=== PATIENT | male | born 1940 | race Caucasian/White ===

== ENCOUNTER → 2016-12-26 | Outpatient (CLI) | payer OTHER ==
--- NOTE | 2016-12-27 06:54 | MR ---
EXAMINATION TYPE: MR lumbar spine wo con DATE OF EXAM: 12/26/2016 9:38 PM COMPARISON: CT cap July 28, 2016. MRI lumbar spine August 03, 2013 HISTORY: Intervertebral disc disorders with radiculopathy per order. Low back and right lower extremi ty pain per patient. TECHNIQUE: Multiplanar, multisequence imaging of the lumbar spine is performed without IV contrast. FINDINGS: Sagittal images of the lumbar spine show vertebral body heights to appear satisfactory. The re is redemonstration of dextroconvex scoliotic curvature centered in the upper lumbar spine. Multile vonda disc desiccation is redemonstrated. There is redemonstration of moderate to advanced disc space n arrowing with vacuum disc phenomenon at L4-L5 level. Multilevel small posterior disc herniations are redemonstrated on sagittal images. The conus medullaris remains somewhat high in position ending doroteo r T11-T12 disc space. No suspicious clumping of lumbosacral nerve roots is noted. There is hemangioma transformation at T12 vertebral body level and L4 vertebral body level redemonstrated. Mild multilev el anterior spurring is again seen. Axial images at T12-L1 level redemonstrate moderate broad-based posterior disc protrusion effacing an terior thecal sac on axial image 34, bilateral neural foramina are patent. Mild facet degenerative ch anges are redemonstrated bilaterally. No significant change from prior study is seen. Axial images at L1-L2 level show mild to moderate broad disc bulge and [id number] facet degener ative changes bilaterally. There is effacement the anterior and posterior lateral thecal sac. There i s moderate left and mild right-sided neural foraminal narrowing seen. There appears to be progression on degenerative findings at this level from prior MRI. Axial images at L2-L3 level show mild to moderate broad disc bulge with right foraminal disc protrusi on component on axial image 24. There are mild facet degenerative changes seen bilaterally. There is mild to moderate right greater than left neural foraminal narrowing at this level redemonstrated. No significant change from prior study is seen. Axial images at L3-L4 level show moderate facet degenerative changes and ligamentum flavum hypertroph y effacing the posterior lateral thecal sac. There is moderate broad disc bulge effacing the anterior thecal sac. There is moderate to severe right and mild left-sided neural foraminal narrowing redemon strated. No significant change from prior study is noted. Axial images at L4-L5 level show moderate to severe broad disc bulge with left paracentral disc protr usion component on axial image 10 effacing the anterior thecal sac similar to prior study. There are moderate facet degenerative changes and ligamentum flavum hypertrophy with some progression from prio r study noted. There is moderate right greater than left neural foraminal narrowing redemonstrated wi thout significant change from prior. Axial images at L5-S1 level show moderate facet degenerative changes bilaterally. Spinal canal is pre served. Bilateral neural foramina are felt patent. No significant change from prior study is seen. IMPRESSION: There are multilevel degenerative changes in the lumbar spine as detailed above with some progression from 2013 MRI noted.
== END ==
LOC: RADMRIMAIN 20:29
PROVIDERS: ATTEND Neurological Surgery
DX: M47.26 Other spondylosis with radiculopathy, lumbar region (principal)
CPT/HCPCS: 72148

== ENCOUNTER 2017-01-13 07:42 | Day surgery (SDC) | payer OTHER ==
[2017-01-09 08:57] VITALS: BMI 29.6
[~2017-01-13 07:42] MED LIST: LIDOCAINE 1% 20 ML VIAL (10MG/ML) FOR IV START INTRADERMA PRN
[2017-01-13 08:10] VITALS: RESP 16; TEMP 98.1
[2017-01-13] MEDS: LACTATED RINGERS 1,000 ML IV SCH ×2 (08:20→08:36)
[2017-01-13] MEDS ORDERED: PROPOFOL 10 MG/ML 20 ML VIAL IV ONE (08:39)
[2017-01-13] MEDS ORDERED: LIDOCAINE 1% INJ 10MG/ML (20 ML MDV) ONE (08:39)
--- NOTE | 2017-01-13 09:01 | P.OP ---
Date of Procedure: 01/13/17 Preoperative Diagnosis: Left-sided abdominal pain Postoperative Diagnosis: Same, diverticuli, internal hemorrhoids Procedure(s) Performed: Colonoscopy Anesthesia: MAC Estimated Blood Loss (ml): 0 IV fluids (ml): 450 Pathology: none sent Condition: stable Disposition: PACU Indications for Procedure: left Sided abdominal pain Operative Findings: Sigmoid diverticuli, internal hemorrhoids Description of Procedure: Patient was taken to the endoscopy suite and following sedation rectal exam was performed. Patient was noted to have good sphincter tone prominent prostate no masses. Colonoscope was passed through the anus into the rectum. Was passed through the sigmoid colon up to splenic flexure transverse colon hepatic flexure right colon down to the area of the cecum. Circumferential observation mucosa did not reveal any lesions of concern in the cecum or right colon. No lesions of concern were noted in the transverse colon. Scattered diverticuli were noted in the sigmoid and left colon. Scope was brought down to the rectum where it was retroflexed internal hemorrhoids identified. Approximately 6 minutes were taken to withdraw the scope from the cecum to the rectum. In the area of the sigmoid and should be noted that into the diverticular orifices there appeared to be some red blood. Impression/plan: 1. Diverticuli 2. Internal hemorrhoids Plan: 1. Conservative management 2. Most likely repeat scope 7-10 years or as needed as patient is 76 this time.
--- NOTE | 2017-01-13 09:02 | P.DS ---
Providers Attending physician: Marjorie Hernandez Primary care physician: Cleveland Alvarado Plan - Discharge Summary Discharge Medication List Allopurinol [Zyloprim] 100 mg PO BID 12/07/14 [History] HYDROcodone/APAP 10-325MG [[place] 10] 1 each PO Q6H PRN 12/07/14 [History] NIFEdipine [Adalat cc] 30 mg PO QAM 12/07/14 [History] fentaNYL 50MCG/HR PATCH [Duragesic 50MCG/HR] 1 applic TOPICAL Q72H 07/27/15 [ History] Metamucil(Otc Dose Unknown) 2 cap PO DAILY 08/07/15 [History] Indomethacin [Indocin] 25 mg PO DIRECTED PRN 09/26/16 [History] Vit C/E/Zn/Coppr/Lutein/Zeaxan [Preservision Areds 2 Softgel] 1 each PO DAILY [History] Activity/Diet/Wound Care/Special Instructions: Diverticular diet Do not drive today Discharge Disposition: HOME SELF-CARE
[2017-01-13 10:03] VITALS: BP 124/79; PULSE 77
== END 2017-01-13 09:55 | disposition home or self-care (01) ==
LOC: ORWHC2ENDO 07:42
PROVIDERS: ATTEND Surgery
DX: K57.30 Diverticulosis of large intestine without perforation or abscess without bleeding (principal); K64.8 Other hemorrhoids; I10 Essential (primary) hypertension; K21.9 Gastro-esophageal reflux disease without esophagitis; G89.29 Other chronic pain; M54.9 Dorsalgia, unspecified; M10.9 Gout, unspecified; Z79.891 Long term (current) use of opiate analgesic; Z79.1 Long term (current) use of non-steroidal anti-inflammatories (NSAID); Z79.899 Other long term (current) drug therapy; Z87.891 Personal history of nicotine dependence; Z86.711 Personal history of pulmonary embolism; Z86.718 Personal history of other venous thrombosis and embolism
CPT/HCPCS: 45378; J2001; J2704

== ENCOUNTER → 2017-04-08 | Outpatient (CLI) | payer OTHER ==
--- NOTE | 2017-04-08 18:51 | US ---
EXAMINATION TYPE: US kidneys/renal and bladder DATE OF EXAM: 04/08/2017 COMPARISON: Prior CT and US in PACS CLINICAL HISTORY: R31.9 Hematuria, N13.30 Hydronephrosis. EXAM MEASUREMENTS: Right Kidney: 11.0 x 6.0 x 5.8 cm Left Kidney: 11.8 x 6.2 x 5.2 cm Right Kidney: No hydronephrosis. Multiple echogenic foci visualized, largest measuring 0.5 cm Left Kidney: No hydronephrosis. Multiple echogenic foci visualized, largest measuring 0.5 cm Bladder: Probable enlarged prostate visualized as seen on previous CT scan. Bilateral Jets seen: Yes IMPRESSION: There are echogenic small foci in both kidneys consistent with nonobstructing renal calculi. No hydro nephrosis. Enlarged prostate gland.
== END | disposition home or self-care (01) ==
LOC: RADUSMAIN 17:42
PROVIDERS: ATTEND Internal Medicine
DX: R31.9 Hematuria, unspecified (principal)
CPT/HCPCS: 76770

== ENCOUNTER → 2017-04-24 | Outpatient (CLI) | payer OTHER ==
--- NOTE | 2017-04-24 11:46 | XR ---
EXAMINATION TYPE: XR chest 2V DATE OF EXAM: 04/24/2017 COMPARISON: NONE TECHNIQUE: PA and lateral views submitted. HISTORY: Preop FINDINGS: The lungs are clear and there is no pneumothorax, pleural effusion, or focal pneumonia. Mild promin ence of the ascending aorta as noted by previous CT scan compatible with mild aneurysmal dilation. Sm all pulmonary nodule seen by previous CT scan not as well noted by x-ray. Hypertrophic and degenerati ve change of the spine noted. IMPRESSION: 1. Stable mild aneurysmal dilation in ascending aorta.
== END | disposition home or self-care (01) ==
LOC: RADXRMAIN 11:14
PROVIDERS: ATTEND Internal Medicine
DX: I71.2 Thoracic aortic aneurysm, without rupture (principal)
CPT/HCPCS: 71020

== ENCOUNTER → 2017-06-09 | Outpatient (CLI) | payer OTHER ==
--- NOTE | 2017-06-09 14:40 | XR ---
EXAMINATION TYPE: XR lumbar spine with bend/flex DATE OF EXAM: 06/09/2017 CLINICAL HISTORY: Postop back pain. TECHNIQUE: Frontal and lateral images in flexion, extension, and neutral positions were obtained. COMPARISON: None FINDINGS: Surgical fixation of L3-L4 is seen with pedicular screws and fixation rods. Neutral, flexio n, and extension views demonstrate anterolisthesis or retrolisthesis of the lumbar spine. Facet arthr opathy is seen at L5-S1 and to a lesser degree at L2-L3 and L3-L4. Intervertebral disc space widening or is present at L3-L4. Partial visualization of calcific atheromatous changes of the abdominal aorta and scattered calcifica tions overlie the right and left renal shadows, possibly relating to calculi. Right hip arthroplasty is incompletely visualized as well as degenerative changes of the right sacroiliac joint. Mild S-shap ed scoliotic curvature of the thoracolumbar spine is noted. The overlying soft tissue appears unremar kable. IMPRESSION: 1. Postoperative changes with no malalignment in neutral, flexion, or extension. No acute fracture or dislocation is seen in the lumbar spine. No hardware fracture is seen. 2. Multilevel degenerative changes. 3. Mild S-shaped scoliotic curvature. 4. Probable bilateral renal calculi.
== END ==
LOC: RADXRMAIN 14:05
PROVIDERS: ATTEND Neurological Surgery
DX: M47.816 Spondylosis without myelopathy or radiculopathy, lumbar region (principal); M41.86 Other forms of scoliosis, lumbar region
CPT/HCPCS: 72114

== ENCOUNTER → 2018-02-15 | Outpatient (CLI) | payer OTHER ==
[2018-02-15 16:58] LABS: Blood Urea Nitrogen 9 mg/dL (9-20)
--- NOTE | 2018-02-16 08:33 | CT ---
EXAMINATION TYPE: CT abdomen pelvis w con DATE OF EXAM: 02/15/2018 COMPARISON: 07/28/2016 HISTORY: Abdominal pain with diarrhea worsening x1 year CT DLP: 1602 mGycm CONTRAST: CT scan of the abdomen and pelvis is performed with Oral Contrast and with IV Contrast, patient injec lubna with 100 mL of Isovue 300. FINDINGS: LUNG BASES-: No visible nodule. No infiltrate. LIVER/GB: No calcified gallstones. No space occupying hepatic lesion. Biliary tree is of normal ca liber. PANCREAS: No inflammation. No distinct mass. SPLEEN: Splenomegaly measuring craniocaudal 14.6 cm. No lesion seen. ADRENALS: No nodule. No thickening. KIDNEYS/BLADDER: No hydronephrosis. Bilateral nonobstructing nephrolithiasis noted. No distinct robert l mass. Urinary bladder grossly unremarkable. BOWEL: Normal appendix. Normal bowel caliber. No inflammation. GENITAL ORGANS: Moderate prostate gland enlargement. LYMPH NODES: No greater than 1cm abdominal or pelvic lymph nodes are appreciated. AORTA: No significant abnormality. OSSEOUS STRUCTURES: Postoperative and degenerative changes lumbar spine.. OTHER: No significant additional abnormality is seen. IMPRESSION: 1. No acute intra-abdominal process. 2. Bilateral nonobstructing nephrolithiasis. 3. Splenomegaly. 4. Prostate gland enlargement.
== END | disposition home or self-care (01) ==
LOC: RADCTMAIN 16:23
PROVIDERS: ATTEND Internal Medicine
DX: N20.0 Calculus of kidney (principal); N40.0 Benign prostatic hyperplasia without lower urinary tract symptoms; R16.1 Splenomegaly, not elsewhere classified
CPT/HCPCS: 82565; 84520; 74177; 36415; Q9967

== ENCOUNTER 2018-05-14 08:16 | Day surgery (SDC) | payer OTHER ==
[2018-05-12 14:26] VITALS: BMI 28.3
--- NOTE | 2018-05-14 07:27 | P.GSHP ---
History of Present Illness H&P Date: 05/14/18 CHIEF COMPLAINT: GERD and colon screen HISTORY OF PRESENT ILLNESS: The patient is a 77-year-old male who presents with gastroesophageal reflux disease and need for colon screen. Upper and lower endoscopy were offered for further evaluation and management. PAST MEDICAL HISTORY: Please see list. PAST SURGICAL HISTORY: Please see list. MEDICATIONS: Please see list. ALLERGIES: Please see list. SOCIAL HISTORY: No illicit drug use FAMILY HISTORY: No reports of Crohn disease or ulcerative colitis. REVIEW OF ORGAN SYSTEMS: CONSTITUTIONAL: No reports of fevers or chills. GI: Denies any blood in stools or constipation. PHYSICAL EXAM: VITAL SIGNS: Stable GENERAL: Well-developed pleasant in no acute distress. HEENT: No scleral icterus. Extraocular movements grossly intact. Moist buccal mucosa. NECK: Supple without lymphadenopathy. CHEST: Unlabored respirations. Equal bilateral excursions. CARDIOVASCULAR: Regular rate and rhythm. Distal 2+ pulses. ABDOMEN: Soft, nondistended. MUSCULOSKELETAL: No clubbing, cyanosis, or edema. ASSESSMENT: 1. Gastroesophageal reflux disease 2. Colon screen. PLAN: 1. 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 History of Any Multi-Drug Resistant Organisms: None Reported Past Surgical History: Bowel Resection, Joint Replacement Additional Past Surgical History / Comment(s): BLEPHAROPLASTY OF RIGHT EYE. Revision total R hip arthroplasty. TOTAL RIGHT,TOTAL RIGHT AND LEFT KNEE , PAIN CLINIC PROCEDURES in past Past Anesthesia/Blood Transfusion Reactions: No Reported Reaction Smoking Status: Former smoker - Past Family History Father Family Medical History: CVA/TIA Additional Family Medical History / Comment(s): Father of CVA at age 89yrs. Mother Family Medical History: Congestive Heart Failure (CHF) Additional Family Medical History / Comment(s): Mother of CHF at age 86yrs. Medications and Allergies Home Medications Medication Instructions Recorded Confirmed Type Allopurinol [Zyloprim] 100 mg PO BID 12/07/14 05/12/18 History NIFEdipine [Adalat cc] 30 mg PO QAM 12/07/14 05/12/18 History Indomethacin [Indocin] 25 mg PO DIRECTED PRN 09/26/16 05/12/18 History Vit C/E/Zn/Coppr/Lutein/Zeaxan 1 each PO DAILY 09/26/16 05/12/18 History [Preservision Areds 2 Softgel] HYDROcodone/APAP 7.5-325MG [[place] 1 tab PO Q6HR PRN 05/12/18 05/12/18 History 7.5-325] fentaNYL 25MCG/HR PATCH [Duragesic 25 mcg TRANSDERM Q72H 05/12/18 05/12/18 History 25MCG/HR] Allergies Allergy/AdvReac Type Severity Reaction Status Date / Time No Known Allergies Allergy Verified 05/12/18 14:15
[~2018-05-14 08:16] MED LIST changes: +LACTATED RINGERS 1,000 ML IV SCH; -LIDOCAINE 1% 20 ML VIAL (10MG/ML) FOR IV START INTRADERMA PRN
[2018-05-14 09:01] VITALS: RESP 16; TEMP 98.3
[2018-05-14] MEDS ORDERED: LIDOCAINE 1% 20 ML VIAL (10MG/ML) FOR IV START INTRADERMA ONE (09:08)
[2018-05-14] MEDS ORDERED: PROPOFOL 10 MG/ML 20 ML VIAL IV ONE (10:35)
--- NOTE | 2018-05-14 10:47 | P.PCN ---
Date of Procedure: 05/14/18 Description of Procedure: PREOPERATIVE DIAGNOSIS: History of gastric ulcers POSTOPERATIVE DIAGNOSIS: History of gastric ulcers Gastroesophageal reflux disease. Diaphragmatic hiatal hernia without obstruction. OPERATION: Esophagogastroduodenoscopy with biopsies along antrum. SURGEON: Dione Pena MD ANESTHESIA: MAC. INDICATIONS: The patient is a 77-year-old male who presents with a history of reflux disease. Benefits and risks of the procedure were described. Informed consent was obtained. DESCRIPTION: The patient was brought into the endoscopy suite and laid in the left lateral decubitus position. An Olympus gastroscope was passed along the posterior oropharynx down to the distal esophagus where the squamocolumnar junction was encountered at 40 cm from the incisors. The stomach was entered and no bile reflux was found. Additional findings are listed below. Biopsies with cold forceps were obtained of the antrum. The first through third portion of the duodenum was examined and unremarkable. Retroflexion of the scope confirmed Hill grade 4 lower esophageal valve. The squamocolumnar junction demonstrated early and acute LA grade A erosive esophagitis. The stomach was desufflated. The patient tolerated the procedure well. FINDINGS: Squamocolumnar junction 40 cm from the incisors. Diaphragmatic hiatus at 40 cm. Hill grade 4 lower esophageal valve. LA grade A erosive esophagitis. No active duodenitis. No gastric ulcers identified. No duodenal ulcers identified. RECOMMENDATIONS: Continue medical therapy. Further recommendations pending results of pathology report. Upper endoscopy as needed. Will benefit from antireflux surgical procedure
--- NOTE | 2018-05-14 11:04 | P.PCN ---
Date of Procedure: 05/14/18 Description of Procedure: PREOPERATIVE DIAGNOSIS: Colonoscopy screening. POSTOPERATIVE DIAGNOSIS: Colonoscopy screening. Diverticulosis, scattered. Internal bleeding hemorrhoid, grade 1 Enlarged prostate Sigmoid stricture OPERATION: Colonoscopy to the ascending colon SURGEON: Dione Pena MD. ANESTHESIA: MAC. INDICATIONS: The patient is a 77-year-old female who presents for colonoscopy screening. Benefits and risks were described and informed consent was obtained. DESCRIPTION OF PROCEDURE: The patient had undergone Gatorade, MiraLAX and Dulcolax prep. He had been brought into the operating room and laid in the left lateral decubitus position. After adequate intravenous sedation, the rectum was examined with 2% lidocaine jelly. External hemorrhoids were encountered. The prostate was pulseless and enlarged. The rectal tone was within normal limits. No lesions were palpated in the rectal vault. An Olympus colonoscope was advanced to the ascending colon with a tortuous sigmoid. Abdominal pressure was used to advance scope. The prep was good. The scope was removed with visualization of each mucosal fold. Scattered sigmoid diverticulosis was encountered. A stricture was confirmed at 30 cm from the anal verge of the sigmoid colon. No colonic polyps were found. No evidence of focal colitis was found. Retroflexion of the scope demonstrated grade 1 mild bleeding internal hemorrhoids. The colon was desufflated. The patient had tolerated the procedure well. Withdrawal time was over 6 minutes. FINDINGS: Internal hemorrhoids, grade 1, with recent bleeding External prolapsed hemorrhoids. No arteriovenous malformations. No adenomatous polyps. No focal colitis. Sigmoid diverticulosis Sigmoid stricture 30 cm from the anal vertex RECOMMENDATIONS: Lower endoscopy as needed Plan - Discharge Summary New Discharge Prescriptions: No Action Allopurinol [Zyloprim] 100 mg PO BID NIFEdipine [Adalat cc] 30 mg PO QAM Indomethacin [Indocin] 25 mg PO DIRECTED PRN PRN Reason: GOUT Vit C/E/Zn/Coppr/Lutein/Zeaxan [Preservision Areds 2 Softgel] 1 each PO DAILY fentaNYL 25MCG/HR PATCH [Duragesic 25MCG/HR] 25 mcg TRANSDERM Q72H HYDROcodone/APAP 7.5-325MG [[place] 7.5-325] 1 tab PO Q6HR PRN PRN Reason: Pain Discharge Medication List Allopurinol [Zyloprim] 100 mg PO BID 12/07/14 [History] NIFEdipine [Adalat cc] 30 mg PO QAM 12/07/14 [History] Indomethacin [Indocin] 25 mg PO DIRECTED PRN 09/26/16 [History] Vit C/E/Zn/Coppr/Lutein/Zeaxan [Preservision Areds 2 Softgel] 1 each PO DAILY [History] HYDROcodone/APAP 7.5-325MG [[place] 7.5-325] 1 tab PO Q6HR PRN 05/12/18 [History] fentaNYL 25MCG/HR PATCH [Duragesic 25MCG/HR] 25 mcg TRANSDERM Q72H 05/12/18 [ History] Follow up Appointment(s)/Referral(s): Dione Pena MD [STAFF PHYSICIAN] - 06/01/18 Patient Instructions/Handouts: Hiatal Hernia (DC) Discharge Disposition: HOME SELF-CARE
[2018-05-14 11:40] VITALS: BP 118/78; PULSE 77
== END 2018-05-14 12:01 | disposition home or self-care (01) ==
LOC: ORWHC2ENDO 08:16
PROVIDERS: ATTEND Surgery Plastic and Reconstructive Surgery
DX: Z12.11 Encounter for screening for malignant neoplasm of colon (principal); K29.50 Unspecified chronic gastritis without bleeding; K57.30 Diverticulosis of large intestine without perforation or abscess without bleeding; K64.0 First degree hemorrhoids; N40.0 Benign prostatic hyperplasia without lower urinary tract symptoms; K56.699 Other intestinal obstruction unspecified as to partial versus complete obstruction; K64.8 Other hemorrhoids; K21.9 Gastro-esophageal reflux disease without esophagitis; I10 Essential (primary) hypertension; M19.90 Unspecified osteoarthritis, unspecified site; K44.9 Diaphragmatic hernia without obstruction or gangrene; Z86.711 Personal history of pulmonary embolism; Z79.899 Other long term (current) drug therapy; Z79.891 Long term (current) use of opiate analgesic; Z87.11 Personal history of peptic ulcer disease
CPT/HCPCS: 88305; 45378; 43239; J2704

== ENCOUNTER → 2018-12-22 | Outpatient (CLI) | payer OTHER ==
[2018-12-22 09:55] LABS: Blood Urea Nitrogen 12 mg/dL (9-20)
--- NOTE | 2018-12-22 12:05 | CT ---
EXAMINATION TYPE: CT ChestAbdPelvis w con DATE OF EXAM: 12/22/2018 COMPARISON: Most recent whole body CT July 28, [address] abdomen pelvis February 15, 2018. HISTORY: Lung nodule, splenomegaly CT DLP: 940.7 mGycm. Automated Exposure Control for Dose Reduction was Utilized. CONTRAST: CT scan of the thorax, abdomen and pelvis is performed with IV Contrast, patient injected with 100 mL of Isovue 300. FINDINGS: LUNGS: Scattered stable small nodules are redemonstrated bilaterally. One of largest nodules posterio r subpleural region right lower lobe measures 6 x 4 mm current study image 62 for reference. There is stable left mid lung 5 x 2 mm nodule axial image 31 noted for reference. No new suspicious nodules o r masses are seen. Lungs remain clear. There is no pleural effusion or pneumothorax seen bilaterall y. The tracheobronchial tree is patent. MEDIASTINUM: There are no greater than 1 cm hilar or mediastinal lymph nodes. No cardiomegaly or pe ricardial effusion is seen. Moderate to severe coronary artery calcification and/or stents are prese nt. Ascending aorta measures up to 4.0 cm diameter axial image 28, no significant change from prior s tudies. OTHER: Stable mild to minimal bilateral gynecomastia. LIVER/GB: No significant abnormality is appreciated. PANCREAS: No significant abnormality is seen. SPLEEN: Splenomegaly is redemonstrated measuring 15.1 cm long axis axial image 53 significant change from prior. ADRENALS: No significant abnormality is seen. KIDNEYS: Persistent bilateral nephrolithiasis with approximately 6-9 calculi identified bilaterally. Slightly more numerous calculi in the right kidney remain present. Calculi measure up to 7 mm on long axis. Delayed images do not show rotation and collecting systems but no hydronephrosis is identified . Scattered pelvic phleboliths are noted. BOWEL: The oral contrast does not reach colonic level making evaluation bowel slightly suboptimal. Th ere is some new mild to moderate wall thickening in distal ileal loop right lower quadrant/upper pelv is anteriorly axial image 102 for reference. This extends to involve the terminal ileum. No suspiciou s small or large bowel dilatation is seen. Surgical sutures linear left and sigmoid colon junction ax ial image 99 are redemonstrated. Some diverticula in the left colon are again seen. GENITAL ORGANS: Prostate gland is suboptimally evaluated due to right hip arthroplasty. LYMPH NODES: There are persistent prominent left mid mesenteric and lower abdominal lymph nodes for r eference coronal image 37, I believe they are even slightly larger versus most recent CT in 2018. Robinson e now even measure slightly greater than 1 cm on short axis. For reference left lower abdominal lymph node measures 1.4 x 1.1 cm on axial image 95. There is mild mesenteric edema remaining present OSSEOUS STRUCTURES: Metallic hardware from right hip arthroplasty causes streak artifact limiting wil luation of pelvic structures.. OTHER: Moderate calcified plaque of aorta extends into branch vessels. IMPRESSION: 1. Stable small pulmonary parenchymal nodules presumed benign. No new nodules or masses. 2. Stable 4.0 cm ascending aortic aneurysm. 3. Stable splenomegaly. 4. Continued slow progression of Shell mesentery and mesenteric lymphadenopathy, neoplasm such as lym phoma cannot be excluded.
== END | disposition home or self-care (01) ==
LOC: RADCTMAIN 09:10
PROVIDERS: ATTEND Internal Medicine Hematology & Oncology
DX: R91.8 Other nonspecific abnormal finding of lung field (principal); R16.1 Splenomegaly, not elsewhere classified; R59.0 Localized enlarged lymph nodes; I71.2 Thoracic aortic aneurysm, without rupture
CPT/HCPCS: 82565; 84520; 71260; 74177; 36415; Q9967

== ENCOUNTER 2019-01-18 10:53 | Day surgery (SDC) | payer OTHER ==
[2019-01-17 09:21] VITALS: BMI 24.3
[~2019-01-18 10:53] MED LIST changes: +LIDOCAINE 1% 20 ML VIAL (10MG/ML) FOR IV START INTRADERMA PRN; +MIDAZOLAM (PF) 2 MG/2 ML VIAL IV PRN
[2019-01-18 11:38] VITALS: TEMP 97.9
[2019-01-18] MEDS ORDERED: fentaNYL (PF) 50 MCG/ML 2 ML AMP ONE (12:08)
[2019-01-18] MEDS ORDERED: LIDOCAINE 1% INJ 10MG/ML (20 ML MDV) ONE (12:08)
[2019-01-18] MEDS ORDERED: PROPOFOL 10 MG/ML 20 ML VIAL IV ONE (12:08)
[2019-01-18 12:45] VITALS: RESP 18
--- NOTE | 2019-01-18 12:50 | PCN ---
PROCEDURE NOTE PROCEDURE: Bone marrow aspirate and biopsy. INDICATION: Pancytopenia. After obtaining consent from the patient. The procedure was performed in the endoscopy suite under general anesthesia team. The patient was put in the left lateral fibular position. The right posterior superior iliac crest was localized, skin was prepped 2 with ChloraPrep, all sterile procedures were followed; 2 mL of 1% Xylocaine was used for local anesthetic. Jamshidi needle was inserted, 15 mL of aspirate and about 1.5 cm core biopsy was obtained without any difficulties. Pressure applied afterwards. There was negligible blood loss. Patient tolerated procedure very well without any immediate complications. MMODL / IJN: [id number] /
[2019-01-18 13:17] VITALS: BP 119/74; PULSE 72
[2019-01-18 15:14] LABS: Anisocytosis Slight; HCT 32.5 % (39.0-53.0); HGB 9.6 gm/dL (13.0-17.5); Hypochromasia Marked; MCH 24.4 pg (25.0-35.0); MCHC 29.6 g/dL (31.0-37.0); MCV 82.4 fL (80.0-100.0); Microcytosis Slight; Poikilocytosis Moderate; RBC 3.94 m/uL (4.30-5.90); RDW 19.9 % (11.5-15.5)
[2019-01-18 15:42] LABS: Band Neutrophils % 3 %; Eosinophils # (M) 0.07 k/uL (0-0.7); Metamyelocytes % 3 %; Myelocytes % 9 %; Neutrophils % (M) 49 %
[2019-01-18 15:43] LABS: Blast Cells # (M) 0.54 k/uL (0); Lymphocytes # (M) 1.47 k/uL (1.0-4.8); Monocytes # (M) 0.47 k/uL (0-1.0); Nucleated Red Blood Cells 2 /100 WBC (0-0); Total Cells Counted 200; WBC 6.7 k/uL (3.8-10.6)
[2019-01-18 15:44] LABS: Polychromasia Present
[2019-01-18 15:45] LABS: Target Cells Present
== END 2019-01-18 13:56 | disposition home or self-care (01) ==
LOC: OR 10:53
PROVIDERS: ATTEND Internal Medicine Hematology & Oncology
DX: Q99.1 46, XX true hermaphrodite (principal); R01.1 Cardiac murmur, unspecified; M15.9 Polyosteoarthritis, unspecified; Z87.891 Personal history of nicotine dependence; D72.821 Monocytosis (symptomatic); R91.1 Solitary pulmonary nodule; Z87.442 Personal history of urinary calculi; Z79.891 Long term (current) use of opiate analgesic; Z79.899 Other long term (current) drug therapy
CPT/HCPCS: 85025; 38222; J2001; J3010; J2704

== ENCOUNTER 2019-06-14 16:13 | Inpatient (IN) | payer OTHER, MEDICARE ==
--- NOTE | 2019-06-14 16:59 | ED ---
General Adult HPI - General Chief complaint: Recheck/Abnormal Lab/Rx Stated complaint: Low hemoglobin Time Seen by Provider: 06/14/19 16:21 Source: patient, RN notes reviewed Mode of arrival: wheelchair Limitations: no limitations - History of Present Illness Initial comments: 78-year-old male with a past medical history of hypertension, PE, myelodyspla stic syndrome presents to the emergency department for a chief complaint of anemia. Patient states that he gets his hemoglobin checked weekly due to chronic anemia. States he is usually anywhere between 6.9 and 7.4. However today he got a call from his doctor that his hemoglobin was 5.4. Therefore he was told to come to the emergency department for a blood transfusion.Patient has no other complaints at this time including shortness of breath, chest pain, abdominal pain, nausea or vomiting, headache, or visual changes. - Related Data Home Medications Medication Instructions Recorded Confirmed NIFEdipine [Adalat cc] 30 mg PO QAM 12/07/14 06/14/19 fentaNYL 25MCG/HR PATCH [Duragesic 25 mcg TRANSDERM Q72H 05/12/18 06/14/19 25MCG/HR] Hydrocodone/Acetaminophen [[place] 1 tab PO Q4H PRN 06/14/19 06/14/19 10-325] Sucralfate [Carafate] 1 gm PO TID 06/14/19 06/14/19 Vitamin B Complex/Folic Acid 0.4 mg PO DAILY 06/14/19 06/14/19 [B-Complex Tablet] Allergies Allergy/AdvReac Type Severity Reaction Status Date / Time No Known Allergies Allergy Verified 06/14/19 16:54 Review of Systems ROS Statement: Those systems with pertinent positive or pertinent negative responses have been documented in the HPI. ROS Other: All systems not noted in ROS Statement are negative. 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 Bone marrow condition MDS History of Any Multi-Drug Resistant Organisms: None Reported Past Surgical History: Bowel Resection, Joint Replacement Additional Past Surgical History / Comment(s): BLEPHAROPLASTY OF RIGHT EYE. 08/07/15 Revision total R hip arthroplasty. TOTAL RIGHT,TOTAL RIGHT AND LEFT KNEE, PAIN CLINIC PROCEDURES. Past Anesthesia/Blood Transfusion Reactions: No Reported Reaction Past Psychological History: No Psychological Hx Reported Smoking Status: Former smoker Past Alcohol Use History: None Reported Past Drug Use History: None Reported - Past Family History Father Family Medical History: CVA/TIA Additional Family Medical History / Comment(s): Father of CVA at age 89yrs. Mother Family Medical History: Congestive Heart Failure (CHF) Additional Family Medical History / Comment(s): Mother of CHF at age 86yrs. General Exam Limitations: no limitations General appearance: alert, in no apparent distress Head exam: Present: atraumatic, normocephalic, normal inspection Eye exam: Present: normal appearance, PERRL, EOMI. Absent: scleral icterus, conjunctival injection, periorbital swelling ENT exam: Present: normal exam, mucous membranes moist Neck exam: Present: normal inspection, full ROM. Absent: tenderness, meningismus, lymphadenopathy Respiratory exam: Present: normal lung sounds bilaterally. Absent: respiratory distress, wheezes, rales, rhonchi, stridor Cardiovascular Exam: Present: regular rate, normal rhythm, normal heart sounds. 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 Patient was told to seem ago but was 5.4. Here in the emergency department hemoglobin 5.2 and platelets are 10. Hemoglobin baseline for him is high 6 to low 7. Stool occult blood is positive in this patient. Blood was ordered but will take 4-6 hours for arrival from the [facility] given patient's antibodies. Patient will be admitted given GI bleed as well as acute on chronic anemia. Dr. Roskopp Spoke with Dr. Leung who accepts this admission. - Lab Data Result diagrams: 06/14/19 16:49 06/14/19 16:49 Lab Results 06/14/19 06/14/19 06/14/19 Range/Units 16:49 16:49 16:49 WBC 16.6 H (3.8-10.6) k/uL RBC 2.13 L (4.30-5.90) m/uL Hgb 5.2 L* D (13.0-17.5) gm/dL Hct 18.6 L* (39.0-53.0) % MCV 87.0 (80.0-100.0) fL MCH 24.4 L (25.0-35.0) pg MCHC 28.0 L (31.0-37.0) g/dL RDW 21.9 H (11.5-15.5) % Plt Count 10 L* (150-450) k/uL Neutrophils % (Manual) 48 % Band Neutrophils % 9 % Lymphocytes % (Manual) 22 % Monocytes % (Manual) 2 % Eosinophils % (Manual) 1 % Basophils % (Manual) 1 % Metamyelocytes % 14 % Myelocytes % 5 % Promyelocytes % 1 % Blast Cells % 1 H* % Neutrophils # (Manual) 9.40 H (1.3-7.7) k/uL Lymphocytes # (Manual) 3.65 (1.0-4.8) k/uL Monocytes # (Manual) 0.33 (0-1.0) k/uL Eosinophils # (Manual) 0.17 (0-0.7) k/uL Basophils # (Manual) 0.17 (0-0.2) k/uL Metamyelocytes # (Man) 2.32 H (0) k/uL Myelocytes # (Manual) 0.83 H (0) k/uL Promyelocytes # (Man) 0.17 H (0) k/uL Blast Cells # (Man) 0.17 H (0) k/uL Nucleated RBCs 60 H (0-0) /100 WBC Manual Slide Review Performed Polychromasia Present Hypochromasia Marked Poikilocytosis Marked Anisocytosis Moderate Microcytosis Slight Target Cells Present Stomatocytes Present PT 11.6 (9.0-12.0) sec INR 1.1 (<1.2) APTT 25.0 (22.0-30.0) sec Sodium 141 (137-145) mmol/L Potassium 3.9 (3.5-5.1) mmol/L Chloride 107 (98-107) mmol/L Carbon Dioxide 24 (22-30) mmol/L Anion Gap 10 mmol/L BUN 17 (9-20) mg/dL Creatinine 0.85 (0.66-1.25) mg/dL Est GFR (CKD-EPI)AfAm >90 (>60 ml/min/1.73 sqM) Est GFR (CKD-EPI)NonAf 85 (>60 ml/min/1.73 sqM) Glucose 105 H (74-99) mg/dL Calcium 8.2 L (8.4-10.2) mg/dL Magnesium 2.0 (1.6-2.3) mg/dL Total Bilirubin 1.0 (0.2-1.3) mg/dL AST 57 (17-59) U/L ALT 29 (21-72) U/L Alkaline Phosphatase 88 (38-126) U/L Troponin I (0.000-0.034) ng/mL Total Protein 7.3 (6.3-8.2) g/dL Albumin 3.8 (3.5-5.0) g/dL Stool Occult Blood (Negative) 06/14/19 06/14/19 Range/Units 16:49 17:21 WBC (3.8-10.6) k/uL RBC (4.30-5.90) m/uL Hgb (13.0-17.5) gm/dL Hct (39.0-53.0) % MCV (80.0-100.0) fL MCH (25.0-35.0) pg MCHC (31.0-37.0) g/dL RDW (11.5-15.5) % Plt Count (150-450) k/uL Neutrophils % (Manual) % Band Neutrophils % % Lymphocytes % (Manual) % Monocytes % (Manual) % Eosinophils % (Manual) % Basophils % (Manual) % Metamyelocytes % % Myelocytes % % Promyelocytes % % Blast Cells % % Neutrophils # (Manual) (1.3-7.7) k/uL Lymphocytes # (Manual) (1.0-4.8) k/uL Monocytes # (Manual) (0-1.0) k/uL Eosinophils # (Manual) (0-0.7) k/uL Basophils # (Manual) (0-0.2) k/uL Metamyelocytes # (Man) (0) k/uL Myelocytes # (Manual) (0) k/uL Promyelocytes # (Man) (0) k/uL Blast Cells # (Man) (0) k/uL Nucleated RBCs (0-0) /100 WBC Manual Slide Review Polychromasia Hypochromasia Poikilocytosis Anisocytosis Microcytosis Target Cells Stomatocytes PT (9.0-12.0) sec INR (<1.2) APTT (22.0-30.0) sec Sodium (137-145) mmol/L Potassium (3.5-5.1) mmol/L Chloride (98-107) mmol/L Carbon Dioxide (22-30) mmol/L Anion Gap mmol/L BUN (9-20) mg/dL Creatinine (0.66-1.25) mg/dL Est GFR (CKD-EPI)AfAm (>60 ml/min/1.73 sqM) Est GFR (CKD-EPI)NonAf (>60 ml/min/1.73 sqM) Glucose (74-99) mg/dL Calcium (8.4-10.2) mg/dL Magnesium (1.6-2.3) mg/dL Total Bilirubin (0.2-1.3) mg/dL AST (17-59) U/L ALT (21-72) U/L Alkaline Phosphatase (38-126) U/L Troponin I <0.012 (0.000-0.034) ng/mL Total Protein (6.3-8.2) g/dL Albumin (3.5-5.0) g/dL Stool Occult Blood Positive (Negative) Disposition Clinical Impression: Acute on chronic anemia, GI bleed, History of myelodysplastic syndrome, Thrombocytopenia Disposition: ADMITTED IP TO THIS [facility] Condition: Fair Is patient prescribed a controlled substance at d/c from ED?: No Time of Disposition: 18:56
[2019-06-14 17:20] LABS: ALT 29 U/L (21-72); AST 57 U/L (17-59); African American GFR (CKD) >90 (>60 ml/min/1.73 sqM); Albumin 3.8 g/dL (3.5-5.0); Alkaline Phosphatase 88 U/L (38-126); Anion Gap 10 mmol/L; Blood Urea Nitrogen 17 mg/dL (9-20); Calcium 8.2 mg/dL (8.4-10.2); Carbon Dioxide 24 mmol/L (22-30); Chloride 107 mmol/L (98-107); Glucose 105 mg/dL (74-99); INR 1.1 (<1.2); Potassium 3.9 mmol/L (3.5-5.1); Prothrombin Time 11.6 sec (9.0-12.0); Sodium 141 mmol/L (137-145); Total Protein 7.3 g/dL (6.3-8.2)
[2019-06-14 17:22] LABS: Anisocytosis Moderate; Hypochromasia Marked; MCH 24.4 pg (25.0-35.0); Mean Platelet Volume 7.4; Microcytosis Slight; Poikilocytosis Marked; RBC 2.13 m/uL (4.30-5.90); RDW 21.9 % (11.5-15.5)
[2019-06-14 17:29] LABS: HCT 18.6 % (39.0-53.0); HGB 5.2 gm/dL (13.0-17.5)
[2019-06-14 17:30] LABS: Platelet Count 10 k/uL (150-450)
[2019-06-14 17:56] LABS: Band Neutrophils % 9 %; Metamyelocytes % 14 %; Myelocytes % 5 %; Neutrophils % (M) 48 %; Promyelocytes % 1 %
[2019-06-14 17:57] LABS: Basophils # (M) 0.17 k/uL (0-0.2); Blast Cells # (M) 0.17 k/uL (0); Eosinophils # (M) 0.17 k/uL (0-0.7); Lymphocytes # (M) 3.65 k/uL (1.0-4.8); Metamyelocytes # (M) 2.32 k/uL (0); Monocytes # (M) 0.33 k/uL (0-1.0); Myelocytes # (M) 0.83 k/uL (0); Nucleated Red Blood Cells 60 /100 WBC (0-0); Promyelocytes # (M) 0.17 k/uL (0); Total Cells Counted 200; WBC 16.6 k/uL (3.8-10.6)
[2019-06-14 17:58] LABS: Polychromasia Present; Stomatocytes Present; Target Cells Present
[2019-06-14] MEDS ORDERED: NALOXONE 0.4 MG/ML 1 ML VIAL IV PRN (18:45)
[2019-06-14] MEDS: SODIUM CHLORIDE 0.9% 1,000 ML IV SCH (18:55)
[2019-06-14 21:48] VITALS: BMI 25.9
[2019-06-14] MEDS: SUCRALFATE 1 GM TAB PO SCH (22:24)
[2019-06-15] MEDS: HYDROcodone/APAP 10-325MG 1 EACH TAB PO PRN ×3 (02:18→21:00)
[2019-06-15 06:34] LABS: Anisocytosis Moderate; Hypochromasia Marked; MCH 24.5 pg (25.0-35.0); MCHC 28.1 g/dL (31.0-37.0); MCV 87.3 fL (80.0-100.0); Mean Platelet Volume 8.3; Microcytosis Slight; Poikilocytosis Moderate; RBC 2.03 m/uL (4.30-5.90); RDW 21.7 % (11.5-15.5)
[2019-06-15 06:56] LABS: African American GFR (CKD) >90 (>60 ml/min/1.73 sqM); Anion Gap 7 mmol/L; Blood Urea Nitrogen 18 mg/dL (9-20); Calcium 8.2 mg/dL (8.4-10.2); Carbon Dioxide 26 mmol/L (22-30); Chloride 109 mmol/L (98-107); Glucose 88 mg/dL (74-99); Potassium 3.9 mmol/L (3.5-5.1); Sodium 142 mmol/L (137-145)
[2019-06-15 07:11] LABS: HCT 17.7 % (39.0-53.0)
[2019-06-15 07:12] LABS: Platelet Count 10 k/uL (150-450)
[2019-06-15] MEDS: SUCRALFATE 1 GM TAB PO SCH ×3 (08:33→21:53)
[2019-06-15] MEDS: NIFEdipine XL 30 MG TAB.ER.24 PO SCH (08:36)
[2019-06-15] MEDS ORDERED: NON-FORMULARY DRUG (Vitamin B Complex/Folic Acid [B-Complex Tablet] 0.4 MG) PO SCH (09:00)
[2019-06-15 09:38] LABS: Band Neutrophils % 7 %; Metamyelocytes % 12 %; Myelocytes % 20 %; Neutrophils % (M) 38 %; Nucleated Red Blood Cells 46 /100 WBC (0-0); Promyelocytes % 4 %; Total Cells Counted 200
[2019-06-15 09:40] LABS: Blast Cells # (M) 0.41 k/uL (0); Eosinophils # (M) 0.41 k/uL (0-0.7); Lymphocytes # (M) 1.77 k/uL (1.0-4.8); Metamyelocytes # (M) 1.63 k/uL (0); Monocytes # (M) 0.41 k/uL (0-1.0); Myelocytes # (M) 2.72 k/uL (0); Promyelocytes # (M) 0.54 k/uL (0); WBC 13.6 k/uL (3.8-10.6)
[2019-06-15 09:41] LABS: Polychromasia Present
[2019-06-15 09:53] LABS: Reticulocyte % 5.6 % (0.5-2.0)
--- NOTE | 2019-06-15 10:50 | P.HPIM ---
History of Present Illness H&P Date: 06/15/19 This is a 78-year-old male patient of Dr. Silva. Patient was directed to come to ER per oncology service is due to low hemoglobin. Patient has a known past medical history of MDS which he follows with Dr. Clark and her CBC closely monitored patient reports that his normal range is between 6.9- 7.4. hemoGlobin 5.4 Per oncology services. Patient reports he's had blood transfusions in the past. Additional medical history includes essential hypertension, osteoporosis, pulmonary embolism macular degeneration and chronic back pain. Patient reports that they are planning to do a bone marrow biopsy in June. Patient denies any active signs of bleeding. Patient denies any visible blood in urine or stool patient denies any recent illness. Patient denies any upper respiratory symptoms shortness of breath or chest pain. Patient denies nausea vomiting or diarrhea. Patient denies any urinary burning or frequency oncology services have been consulted. Stool positive for occult blood. GI service is consulted. Review of Systems Please refer to HPI otherwise unremarkable Past Medical History Past Medical History: Eye Disorder, Hypertension, Musculoskeletal Disorder, Osteoarthritis (OA), Pulmonary Embolus (PE) Additional Past Medical History / Comment(s): BENIGN LYMPHOMA OF AXILLA, 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 08/07/15 Revision total R hip arthroplasty. TOTAL RIGHT,TOTAL RIGHT AND LEFT KNEE, PAIN CLINIC PROCEDURES. Past Anesthesia/Blood Transfusion Reactions: No Reported Reaction Past Psychological History: No Psychological Hx Reported Additional Psychological History / Comment(s): . Smoking Status: Former smoker Past Alcohol Use History: None Reported Additional Past Alcohol Use History / Comment(s): Pt states he would smoke when he bowled but quit that 30 yrs ago. Past Drug Use History: None Reported - Past Family History Father Family Medical History: CVA/TIA Additional Family Medical History / Comment(s): Father of CVA at age 89yrs. Mother Family Medical History: Osteoarthritis (OA), Renal Disease Additional Family Medical History / Comment(s): Mother of CHF at age 86yrs. Medications and Allergies Home Medications Medication Instructions Recorded Confirmed Type NIFEdipine [Adalat cc] 30 mg PO QAM 12/07/14 06/14/19 History fentaNYL 25MCG/HR PATCH [Duragesic 25 mcg TRANSDERM Q72H 05/12/18 06/14/19 History 25MCG/HR] Hydrocodone/Acetaminophen [[place] 1 tab PO Q4H PRN 06/14/19 06/14/19 History 10-325] Sucralfate [Carafate] 1 gm PO TID 06/14/19 06/14/19 History Vitamin B Complex/Folic Acid 0.4 mg PO DAILY 06/14/19 06/14/19 History [B-Complex Tablet] Allergies Allergy/AdvReac Type Severity Reaction Status Date / Time No Known Allergies Allergy Verified 06/14/19 16:54 Physical Exam Vitals: Vital Signs Temp Pulse Pulse Resp BP BP Pulse Ox 06/15/19 07:55 99.2 F 90 18 156/74 97 06/15/19 04:00 98.2 F 85 17 115/63 95 06/14/19 23:49 92 18 06/14/19 23:48 98.2 F 92 18 107/57 98 06/14/19 22:09 80 18 06/14/19 21:40 98.4 F 80 18 140/72 98 06/14/19 20:48 80 18 129/80 06/14/19 19:07 85 15 129/76 98 06/14/19 16:29 86 06/14/19 16:16 98.2 F 93 18 145/72 100 Intake and Output 06/14/19 06/15/19 06/15/19 22:59 06:59 14:59 Intake Total 500 360 236 Output Total 400 300 Balance 500 -40 -64 Intake: Intake, IV Titration 160 Amount Sodium Chloride 0.9% 1, 160 000 ml @ 20 mls/hr IV . Q24H [facility] Rx#:[id number] Oral 500 200 236 Output: Urine 400 300 Other: Voiding Method Toilet Toilet # Voids 1 Weight 91.626 kg 88.5 kg Head normocephalic Neck supple Lungs clear to auscultation bilaterally no wheezing or crackles Heart regular rate and rhythm S1-S2, no rub or gallop Abdomen is soft nontender nondistended positive bowel sounds no hepatosplenomegaly Extremities no edema Neuro alert and orientated to 3 Results CBC & Chem 7: 06/15/19 05:46 06/15/19 05:46 Labs: Abnormal Lab Results - Last 24 Hours (Table) 06/14/19 06/14/19 06/14/19 Range/Units 16:49 16:49 18:20 WBC 16.6 H (3.8-10.6) k/uL RBC 2.13 L (4.30-5.90) m/uL Hgb 5.2 L* D (13.0-17.5) gm/dL Hct 18.6 L* (39.0-53.0) % MCH 24.4 L (25.0-35.0) pg MCHC 28.0 L (31.0-37.0) g/dL RDW 21.9 H (11.5-15.5) % Plt Count 10 L* (150-450) k/uL Blast Cells % 1 H* % Neutrophils # (Manual) 9.40 H (1.3-7.7) k/uL Metamyelocytes # (Man) 2.32 H (0) k/uL Myelocytes # (Manual) 0.83 H (0) k/uL Promyelocytes # (Man) 0.17 H (0) k/uL Blast Cells # (Man) 0.17 H (0) k/uL Nucleated RBCs 60 H (0-0) /100 WBC Retic Count (0.5-2.0) % Chloride (98-107) mmol/L Glucose 105 H (74-99) mg/dL Calcium 8.2 L (8.4-10.2) mg/dL Crossmatch See Detail 06/15/19 06/15/19 06/15/19 Range/Units 05:46 05:46 05:46 WBC 13.6 H (3.8-10.6) k/uL RBC 2.03 L (4.30-5.90) m/uL Hgb 5.0 L* (13.0-17.5) gm/dL Hct 17.7 L* (39.0-53.0) % MCH 24.5 L (25.0-35.0) pg MCHC 28.1 L (31.0-37.0) g/dL RDW 21.7 H (11.5-15.5) % Plt Count 10 L* (150-450) k/uL Blast Cells % 3 H* % Neutrophils # (Manual) (1.3-7.7) k/uL Metamyelocytes # (Man) 1.63 H (0) k/uL Myelocytes # (Manual) 2.72 H (0) k/uL Promyelocytes # (Man) 0.54 H (0) k/uL Blast Cells # (Man) 0.41 H (0) k/uL Nucleated RBCs 46 H (0-0) /100 WBC Retic Count 5.6 H (0.5-2.0) % Chloride 109 H (98-107) mmol/L Glucose (74-99) mg/dL Calcium 8.2 L (8.4-10.2) mg/dL Crossmatch Thrombosis Risk Factor Assmnt - Choose All That Apply Each Risk Factor Represents 3 Points: History of DVT/PE Thrombosis Risk Factor Assessment Total Risk Factor Score: 3 Thrombosis Risk Factor Assessment Level: Moderate Risk Assessment and Plan Assessment: 1. Acute on chronic anemia related to MDS. Hemoglobin 5.0. Oncology services have been consulted 2U PRBCs has been ordered. Stool positive for occult blood GI service is consulted 2. Pancytopenia. Patient known diagnosis of MDS. oncology services consulted 3. history of myelodysplastic syndrome 4. leukocytosis. u/a and chest xray ordered. 5. history of osteoarthritis 6. history of macular degeneration 7. history of essential hypertension 8. history of pulmonary embolism DVT prophylaxis SCDs due to anemia and low platelet count. GI prophylaxis Protonix Time with Patient: Greater than 30 (Greater than 60% of the total time spent in counseling and coordination of care. I performed an examination of the patient and discussed their management with the Nurse Practitioner. I have reviewed the Nurse Practitioner's notes and agree with the documented findings and plan of care)
--- NOTE | 2019-06-15 14:56 | XR ---
EXAMINATION TYPE: XR chest 2V DATE OF EXAM: 06/15/2019 COMPARISON: 04/24/2017, CT chest abdomen and pelvis 12/22/2018 INDICATION: Leukocytosis TECHNIQUE: Frontal and lateral views of the chest are obtained. FINDINGS: The heart size is normal. The pulmonary vasculature is normal. The lungs are clear. Some prominence of the ascending aorta is not excluded. This could be evaluated with CT. IMPRESSION: 1. No acute pulmonary process. 2. Some ascending thoracic aortic prominence may be present. Consider CT chest for additional evaluat ion.
[2019-06-15 15:55] LABS: Appearance,Urine Clear (Clear); Bilirubin,Urine Negative (Negative); Blood,Urine Trace (Negative); Color,Urine Yellow; Glucose,Urine (UA) Negative (Negative); Ketones,Urine Negative (Negative); Leukocyte Esterase,Urine Negative (Negative); Mucus,Urine Rare /hpf; Nitrite,Urine Negative (Negative); PH, Urine 5.5 (5.0-8.0); Protein,Urine Trace (Negative); RBC,Urine 6 /hpf (0-5); Specific Gravity,Urine 1.016 (1.001-1.035); Urobilinogen,Urine <2.0 mg/dL (<2.0)
[2019-06-15 17:53] LABS: Iron Saturation 16.61 (15.00-50.00)
[2019-06-15] MEDS: SODIUM CHLORIDE 0.9% 1,000 ML IV SCH (20:14)
--- NOTE | 2019-06-15 22:55 | CONS ---
CONSULTATION DATE OF DICTATION: 06/15/2019 REASON FOR CONSULTATION: Anemia and Hemoccult-positive stool. HISTORY OF PRESENT ILLNESS: The patient is a 78-year-old pleasant white male who is a patient of Dr. Aragon and was diagnosed with myelodysplastic syndrome in January of this year. Since the diagnosis of MDS, he has anemia with a hemoglobin that ranges between 7 and 7.5 g/dL, and periodically he has been receiving blood transfusions since January of this year. He received 5 units so far. The last one was about 3 weeks ago. Recently he had labs done and he was noted to have a hemoglobin of 5.4, and he was recommended to go to the hospital by Dr. Aragon. Subsequently he came to the emergency room and was admitted to the hospital. Presently awaiting blood transfusions. In the meantime, he was noted to have Hemoccult-positive stool and hence GI was consulted. The patient noticed some black tarry stools for the last one-week duration. He thought it was because of iron and he stopped the iron supplements. Since then the stool has been normal color. He denies any abdominal pain. He reports no nausea, vomiting. He had a colonoscopy by Dr. Pena about 2 or 2-1/2 years ago and he was told he had diverticulosis and small internal hemorrhoids. He also had an upper endoscopy about 2 years ago and was diagnosed with small peptic ulcer disease. Since then he has been taking Carafate on a daily basis. PAST MEDICAL HISTORY: His past medical history is significant for: 1. Myelodysplastic syndrome diagnosed in January of this year. 2. History of hypertension. 3. Osteoarthritis. 4. History of pulmonary embolism. 5. Macular degeneration. PAST SURGICAL HISTORY: 1. Total right and left knee replacement. 2. Right hip arthroplasty. 3. Blepharoplasty of the right eye. 4. Bowel resection. 5. Bone marrow biopsy. MEDICATIONS: Medications at home include: 1. Nifedipine. 2. Fentanyl patch. 3. [place]. 4. Carafate. 5. Vitamin B complex. ALLERGIES: NONE. FAMILY HISTORY: Father had CVA. Mother had chronic renal disease. SOCIAL HISTORY: Former smoker. No alcohol use. REVIEW OF SYSTEMS: CARDIOPULMONARY: No chest pain or shortness of breath. GENITOURINARY: No dysuria or hematuria. MUSCULOSKELETAL: Chronic back pain. NEUROLOGY: Unremarkable. PSYCHIATRY: Unremarkable. ENT/VISION: Unremarkable. HEMATOLOGY: MDS, as mentioned above. CONSTITUTIONAL: Fatigue and weakness. No fever, chills, night sweats. ENDOCRINE: Unremarkable. PHYSICAL EXAMINATION: He appears comfortable. No apparent distress. Vital signs are stable. Blood pressure is 156/74, pulse rate 90, temperature 99.2. HEENT examination unremarkable. Conjunctivae pale. Sclerae anicteric. Oral cavity no lesions. NECK: No JVD or lymph node enlargement. CHEST: Clear to auscultation. HEART: Regular rate and rhythm. ABDOMEN: Soft. Non-tender. Non-distended. Bowel sounds are positive. No organomegaly. EXTREMITIES: No pedal edema. SKIN: No rashes. NEUROLOGIC: Alert and oriented x3. No focal deficits. LABS: Labs done at the time of admission to the hospital: WBC 16.6, hemoglobin 5.2, platelets 10,000. Today repeat CBC shows WBC 13.6, hemoglobin 5, platelets 10,000. BUN is 17, creatinine 0.9. Stool occult blood positive. LDH was 1986. PT/INR 1.1. BUN 18, creatinine 0.9. IMPRESSION: 1. Severe symptomatic anemia with a hemoglobin of 5 and Hemoccult-positive stool. Clinically no evidence of active bleeding. Patient did have some dark tarry stools for the last one-week duration, but after he stopped iron supplements stool is normal in color. Most likely he has GI blood loss, but clinically no evidence of active bleeding. 2. History of myelodysplastic syndrome diagnosed in January of this year by Dr. Aragon. His baseline hemoglobin is around 7 g/dL, requiring blood transfusions almost on a monthly basis. 3. Severe thrombocytopenia secondary to myelodysplastic syndrome. RECOMMENDATIONS: 1. Agree with blood transfusion. 2. Continue with Protonix 40 mg daily. 3. Given the significant thrombocytopenia, will not plan on any endoscopic intervention at the present time. 4. Continue with symptomatic and supportive care. We will follow the patient closely during his hospital stay. Thank you for this consultation. MMODL / IJN: [id number] /
--- NOTE | 2019-06-15 23:18 | P.CONS ---
History of Present Illness - Reason for Consult Consult date: 06/15/19 anemia, pancytopenia, MDS - History of Present Illness This is a 76 yr old WM, followed by Dr Aragon as an outpt, who was found to have thrombocytopenia during routine CBC done prior to elective back surgery. CBC done on 12/08/2013 revealed platelets counts of 50K,otherwise normal,CMP was noraml except for slightly low pottasium level. CBC from 09/15/2013 and from 12/17/2012 also revealed thrombocytopenia. He denied any previous hematologic disorders,no excess bruises or bleeding.No history of ETOH consumption or liver disorders. He stated that he had normal EGD/colonoscopy in . Laboratory work up done on 12/29/2013,including IgM,SPEP,iron studies were normal. In ,anticardiolipin antibodies were negative,in lupus anticoagulant was negative. CT scan of chest/abdomen/pelvis done on 01/04/2014 revealed bilateral kidney stones and bilateral axillary and inguinal lymphadenopathies. He had a CT-guided biopsy of left axillary lymph node on 01/17/2014 which was not diagnostic (was sent to [facility] Repeat CT scan of chest/abdomen/pelvis on 03/27/2014 was unremarkable,no pathology lymp nodes. In early ,he had one day of fever,abdominal pain,he had a CT scan of abdomen/pelvis on 05/18/2015 which revealed borderline enlarged mesenteric nodes.His symptoms completely resolved subsequently Repeat CT scan of chest/abdomen/pelvis on 09/10/2015 revealed significant imp rovement in his adenopathies. Repeat CT scan on 04/23/2016 revealed slight increase in mesenteric nodes Repeat CT scan of chest/abdomen/pelvis on 07/28/2016 revealed stable and borderline enlarged abdominal nodes,slightly larger 6 mm RLL lung nodule,stable splenomegaly. Bone marrow biopsy done on 08/15/2016 was negative except for mild monocytosis. On 02/15/2018,CT scan ordered by surgery,revealed mild splenomegaly. Over 3-4 months,he had progressive fatigue,weight loss and worsening pancyto penia which led to repeat CT scan of chest/abdomen/pelvis on 12/22/2018 which revealed ana rosa mesenteric nodes,no other suspicious finding,laboratory work up from 12/15/2018 were not diagnostic. 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 He has been receiving PRBC transfusions for hemoglobin less Less than 7, on average every 4-6 weeks. Most recent Transfusion was about 4 weeks ago. The patient is on a schedule of weekly blood draws. CBC done yesterday showed a hemoglobin in the low 5 range. He was therefore sent in for transfusion. However he had to be admitted as blood was not available, due to antibodies. He denied any obvious bleeding. Consult was placed for further evaluation and recommendations Review of Systems Constitutional: Reports fatigue, Reports weight loss Eyes: denies blurred vision, denies pain Ears: deny: decreased hearing, ear discharge, earache, tinnitus Ears, nose, mouth and throat: Denies headache, Denies sore throat Cardiovascular: Reports dyspnea on exertion Respiratory: Reports dyspnea Gastrointestinal: Denies abdominal pain, Denies diarrhea, Denies nausea, Denies vomiting Genitourinary: Reports as per HPI Musculoskeletal: Reports muscle weakness Integumentary: Denies pruritus, Denies rash Neurological: Reports weakness Psychiatric: Denies anxiety, Denies depression Endocrine: Reports as per HPI Hematologic/Lymphatic: Reports as per HPI Past Medical History Past Medical History: Eye Disorder, Hypertension, Musculoskeletal Disorder, Osteoarthritis (OA), Pulmonary Embolus (PE) Additional Past Medical History / Comment(s): BENIGN LYMPHOMA OF AXILLA, 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 08/07/15 Revision total R hip arthroplasty. TOTAL RIGHT,TOTAL RIGHT AND LEFT KNEE, PAIN CLINIC PROCEDURES. Past Anesthesia/Blood Transfusion Reactions: No Reported Reaction Past Psychological History: No Psychological Hx Reported Additional Psychological History / Comment(s): . Smoking Status: Former smoker Past Alcohol Use History: None Reported Additional Past Alcohol Use History / Comment(s): Pt states he would smoke when he bowled but quit that 30 yrs ago. Past Drug Use History: None Reported - Past Family History Father Family Medical History: CVA/TIA Additional Family Medical History / Comment(s): Father of CVA at age 89yrs. Mother Family Medical History: Osteoarthritis (OA), Renal Disease Additional Family Medical History / Comment(s): Mother of CHF at age 86yrs. Medications and Allergies Home Medications Medication Instructions Recorded Confirmed Type NIFEdipine [Adalat cc] 30 mg PO QAM 12/07/14 06/14/19 History fentaNYL 25MCG/HR PATCH [Duragesic 25 mcg TRANSDERM Q72H 05/12/18 06/14/19 History 25MCG/HR] Hydrocodone/Acetaminophen [[place] 1 tab PO Q4H PRN 06/14/19 06/14/19 History 10-325] Sucralfate [Carafate] 1 gm PO TID 06/14/19 06/14/19 History Vitamin B Complex/Folic Acid 0.4 mg PO DAILY 06/14/19 06/14/19 History [B-Complex Tablet] Allergies Allergy/AdvReac Type Severity Reaction Status Date / Time No Known Allergies Allergy Verified 06/14/19 16:54 Physical Exam Vitals: Vital Signs Temp Pulse Pulse Resp BP BP Pulse Ox 06/15/19 22:11 98.6 F 80 17 137/67 06/15/19 20:42 98.9 F 87 17 140/74 06/15/19 20:12 98.9 F 83 17 132/64 06/15/19 20:02 99.1 F 87 17 130/62 96 06/15/19 20:00 99.1 F 86 17 130/62 96 06/15/19 15:25 99 F 79 16 127/70 99 06/15/19 12:10 78 16 06/15/19 12:05 99.1 F 78 16 144/75 97 06/15/19 07:55 99.2 F 78 16 156/74 97 06/15/19 04:00 98.2 F 85 17 115/63 95 06/14/19 23:49 92 18 06/14/19 23:48 98.2 F 92 18 107/57 98 Intake and Output 06/15/19 06/15/19 06/15/19 06:59 14:59 22:59 Intake Total 360 236 550 Output Total 400 800 300 Balance -40 -564 250 Intake: Intake, IV Titration 160 Amount Sodium Chloride 0.9% 1, 160 000 ml @ 20 mls/hr IV . Q24H [facility] Rx#:[id number] Oral 200 236 240 Blood Product 310 Rc Pheresis As-3 Unit 310 [id number] Output: Urine 400 800 300 Other: Voiding Method Toilet Toilet Toilet # Bowel Movements 1 Weight 88.5 kg - Constitutional General appearance: no acute distress - EENT Eyes: EOMI, PERRLA ENT: hearing grossly normal, normal oropharynx - Neck Neck: no lymphadenopathy - Respiratory Respiratory: bilateral: CTA - Cardiovascular Rhythm: regular - Gastrointestinal General gastrointestinal: normal bowel sounds, soft - Integumentary Integumentary: normal - Neurologic Neurologic: CNII-XII intact - Musculoskeletal Musculoskeletal: generalized weakness, strength equal bilaterally - Psychiatric Psychiatric: A&O x's 3 Results CBC & Chem 7: 06/15/19 05:46 06/15/19 05:46 Labs: Abnormal Lab Results - Last 24 Hours (Table) 06/14/19 06/15/19 06/15/19 Range/Units 18:20 05:46 05:46 WBC 13.6 H (3.8-10.6) k/uL RBC 2.03 L (4.30-5.90) m/uL Hgb 5.0 L* (13.0-17.5) gm/dL Hct 17.7 L* (39.0-53.0) % MCH 24.5 L (25.0-35.0) pg MCHC 28.1 L (31.0-37.0) g/dL RDW 21.7 H (11.5-15.5) % Plt Count 10 L* (150-450) k/uL Blast Cells % 3 H* % Metamyelocytes # (Man) 1.63 H (0) k/uL Myelocytes # (Manual) 2.72 H (0) k/uL Promyelocytes # (Man) 0.54 H (0) k/uL Blast Cells # (Man) 0.41 H (0) k/uL Nucleated RBCs 46 H (0-0) /100 WBC Retic Count (0.5-2.0) % Chloride 109 H (98-107) mmol/L Calcium 8.2 L (8.4-10.2) mg/dL Iron (65-175) ug/dL Lactate Dehydrogenase (313-618) U/L Urine Protein (Negative) Urine Blood (Negative) Urine RBC (0-5) /hpf Urine Mucus (None) /hpf Crossmatch See Detail 06/15/19 06/15/19 06/15/19 Range/Units 05:46 05:46 05:46 WBC (3.8-10.6) k/uL RBC (4.30-5.90) m/uL Hgb (13.0-17.5) gm/dL Hct (39.0-53.0) % MCH (25.0-35.0) pg MCHC (31.0-37.0) g/dL RDW (11.5-15.5) % Plt Count (150-450) k/uL Blast Cells % % Metamyelocytes # (Man) (0) k/uL Myelocytes # (Manual) (0) k/uL Promyelocytes # (Man) (0) k/uL Blast Cells # (Man) (0) k/uL Nucleated RBCs (0-0) /100 WBC Retic Count 5.6 H (0.5-2.0) % Chloride (98-107) mmol/L Calcium (8.4-10.2) mg/dL Iron 50 L (65-175) ug/dL Lactate Dehydrogenase 1986 H (313-618) U/L Urine Protein (Negative) Urine Blood (Negative) Urine RBC (0-5) /hpf Urine Mucus (None) /hpf Crossmatch 06/15/19 Range/Units 15:05 WBC (3.8-10.6) k/uL RBC (4.30-5.90) m/uL Hgb (13.0-17.5) gm/dL Hct (39.0-53.0) % MCH (25.0-35.0) pg MCHC (31.0-37.0) g/dL RDW (11.5-15.5) % Plt Count (150-450) k/uL Blast Cells % % Metamyelocytes # (Man) (0) k/uL Myelocytes # (Manual) (0) k/uL Promyelocytes # (Man) (0) k/uL Blast Cells # (Man) (0) k/uL Nucleated RBCs (0-0) /100 WBC Retic Count (0.5-2.0) % Chloride (98-107) mmol/L Calcium (8.4-10.2) mg/dL Iron (65-175) ug/dL Lactate Dehydrogenase (313-618) U/L Urine Protein Trace H (Negative) Urine Blood Trace H (Negative) Urine RBC 6 H (0-5) /hpf Urine Mucus Rare H (None) /hpf Crossmatch Chest x-ray: report reviewed Assessment and Plan (1) Acute on chronic anemia Narrative/Plan: 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 Usually hemoglobin in the 6-7 range and he normally gets transfused for hemoglobin less than 7. Transfusion requirement has generally been every 4-6 weeks. The current hemoglobin level is significant change from his baseline. He is currently admitted until appropriate blood is available for transfusion, as he has developed antibodies. Transfuse to increase hemoglobin greater than 7 The current drop is concerning for possible bleeding though the patient does not give any history of the same. Stool for occult blood was positive but this is very nonspecific as the patient has known hemorrhoids Other possibilities could include hemolysis, as well as progression of the MDS itself. Check iron studies and hemolysis markers. If these are negative, then the patient will likely need a repeat bone marrow to check for progression of MDS. He will follow-up with Dr. Aragon as an outpatient for the same. Current Visit: Yes Status: Acute Code(s): D64.9 - ANEMIA, UNSPECIFIED SNOMED Code(s): 378801387 (2) History of myelodysplastic syndrome Narrative/Plan: The patient is currently only on supportive transfusions. However he is proven to have progression, he is willing to consider H M.A. Chemotherapy Current Visit: Yes Status: Acute Code(s): Z86.2 - PRSNL HISTORY OF [facility] Code(s): 482806155 (3) Pancytopenia Narrative/Plan: Continue to monitor with supportive transfusions as needed. He will receive platelet if these levels fall below 10,000 and/or he has any evidence of overt bleeding Current Visit: Yes Status: Acute Code(s): D61.818 - OTHER PANCYTOPENIA SNOMED Code(s): 555315337
[2019-06-16 04:53] VITALS: TEMP 98.2
[2019-06-16 06:35] LABS: Anisocytosis Moderate; Hypochromasia Marked; MCHC 29.1 g/dL (31.0-37.0); MCV 85.7 fL (80.0-100.0); Mean Platelet Volume 7.3; Microcytosis Slight; Poikilocytosis Marked; RBC 2.56 m/uL (4.30-5.90)
[2019-06-16 06:38] LABS: HGB 6.4 gm/dL (13.0-17.5); Platelet Count 9 k/uL (150-450)
[2019-06-16 06:41] LABS: African American GFR (CKD) >90 (>60 ml/min/1.73 sqM); Anion Gap 7 mmol/L; Blood Urea Nitrogen 15 mg/dL (9-20); Calcium 8.1 mg/dL (8.4-10.2); Carbon Dioxide 26 mmol/L (22-30); Chloride 109 mmol/L (98-107); Glucose 89 mg/dL (74-99); Potassium 3.6 mmol/L (3.5-5.1); Sodium 142 mmol/L (137-145)
[2019-06-16 06:59] LABS: Band Neutrophils % 8 %; Metamyelocytes % 7 %; Myelocytes % 10 %; Neutrophils % (M) 35 %; Promyelocytes % 1 %
[2019-06-16 07:00] LABS: Blast Cells # (M) 0.74 k/uL (0); Eosinophils # (M) 0.37 k/uL (0-0.7); Lymphocytes # (M) 2.73 k/uL (1.0-4.8); Metamyelocytes # (M) 0.87 k/uL (0); Monocytes # (M) 1.12 k/uL (0-1.0); Myelocytes # (M) 1.24 k/uL (0); Nucleated Red Blood Cells 59 /100 WBC (0-0); Promyelocytes # (M) 0.12 k/uL (0); Total Cells Counted 200; WBC 12.4 k/uL (3.8-10.6)
[2019-06-16 07:09] LABS: Anisocytosis (M) Present; Poikilocytosis (M) Present; Polychromasia Present
[2019-06-16] MEDS ORDERED: PANTOPRAZOLE 40 MG TABLET PO SCH (07:30)
[2019-06-16 08:18] VITALS: BP 171/79; PULSE 59; RESP 16
[2019-06-16] MEDS: NIFEdipine XL 30 MG TAB.ER.24 PO SCH (08:31)
[2019-06-16] MEDS: SUCRALFATE 1 GM TAB PO SCH (08:31)
[2019-06-16] MEDS: SODIUM CHLORIDE 0.9% 1,000 ML IV SCH (08:31)
[2019-06-16] MEDS: HYDROcodone/APAP 10-325MG 1 EACH TAB PO PRN (09:15)
--- NOTE | 2019-06-16 09:24 | P.DS ---
Providers Date of admission: 06/14/19 17:59 Expected date of discharge: 06/16/19 Attending physician: Elodia Leung Consults: 06/14/19 19:09 Consult Physician Routine Consulting Provider: Jose Cruz Aragon Consult Reason/Comments: acute on chronic anemia Do you want consulting provider notified?: Yes 06/14/19 19:10 Consult Physician Routine Consulting Provider: Mimi Lozada Consult Reason/Comments: GI bleed, anemia Do you want consulting provider notified?: Yes 06/15/19 15:25 Consult Physician Routine Consulting Provider: Scott Schwartz Consult Reason/Comments: Prolonged QT Do you want consulting provider notified?: Yes Primary care physician: Kiley Evans Hospital Course: Discharge diagnosis 1. Acute on chronic anemia related to MDS. Hemoglobin 5.0. Oncology services have been consulted 2U PRBCs has been ordered. Stool positive for occult blood GI service is consulted. Patient received 2 units of PRBCs hemoglobin improving to 6.4. Per nursing staff case was discussed with oncology services patient has been cleared for discharge from oncology services and to follow-up outpatient for further management. Patient also evaluated by GI services patient will be DC'd on Protonix, given the significant thrombocytopenia no plans for endoscopic scopes at this time. 2. Pancytopenia. Patient known diagnosis of MDS. oncology services consulted 3. history of myelodysplastic syndrome 4. leukocytosis. Chest x-ray completed showing no acute pulmonary process. Ascending thoracic aortic prominence may be present consider CT chest for additional evaluation. UA negative. Blood cell improving to 12.4 5. history of osteoarthritis 6. history of macular degeneration 7. history of essential hypertension 8. history of pulmonary embolism 9. QT prolonged. Patient would like to be DC'd home and follow up with cardiology as outpatient Hospital course This is a 78-year-old male patient of Dr. Silva. Patient was directed to come to ER per oncology service is due to low hemoglobin. Patient has a known past medical history of MDS which he follows with Dr. Clark and her CBC closely monitored patient reports that his normal range is between 6.9- 7.4. hemoGlobin 5.4 Per oncology services. Patient reports he's had blood transfusions in the past. Additional medical history includes essential hypertension, osteoporosis, pulmonary embolism macular degeneration and chronic back pain. Patient reports that they are planning to do a bone marrow biopsy in June. Patient denies any active signs of bleeding. Patient denies any visible blood in urine or stool patient denies any recent illness. Patient denies any upper respiratory symptoms shortness of breath or chest pain. Patient denies nausea vomiting or diarrhea. Patient denies any urinary burning or frequency oncology services have been consulted. Stool positive for occult blood. GI service is consulted. On 06/16/2019 patient's alert and oriented 3. Patient is very eager to go home and states he will leave AMA if he is not discharged, he believes that his hemoglobin is back at baseline and can be managed outpatient. Discussed with patient that he needs follow-up cardiology services due to. QT prolonged and EKG patient states he understands. Also recommend following up with GI services for further management of possible GI bleed. Patient denies chest pain or shortness of breath. Patient denies nausea vomiting or diarrhea. Patient denies any urinary burning or frequency I performed an examination of the patient and discussed their management with the Nurse Practitioner. I have reviewed the Nurse Practitioner's notes and agree with the documented findings and plan of care Patient Condition at Discharge: Stable Plan - Discharge Summary Discharge Rx Participant: No New Discharge Prescriptions: Continue NIFEdipine [Adalat cc] 30 mg PO QAM fentaNYL 25MCG/HR PATCH [Duragesic 25MCG/HR] 25 mcg TRANSDERM Q72H Sucralfate [Carafate] 1 gm PO TID Hydrocodone/Acetaminophen [[place] 10-325] 1 tab PO Q4H PRN PRN Reason: Pain Vitamin B Complex/Folic Acid [B-Complex Tablet] 0.4 mg PO DAILY Discharge Medication List NIFEdipine [Adalat cc] 30 mg PO QAM 12/07/14 [History] fentaNYL 25MCG/HR PATCH [Duragesic 25MCG/HR] 25 mcg TRANSDERM Q72H 05/12/18 [History] Hydrocodone/Acetaminophen [[place] 10-325] 1 tab PO Q4H PRN 06/14/19 [History] Sucralfate [Carafate] 1 gm PO TID 06/14/19 [History] Vitamin B Complex/Folic Acid [B-Complex Tablet] 0.4 mg PO DAILY 06/14/19 [History] Follow up Appointment(s)/Referral(s): Scott Schwartz MD [STAFF PHYSICIAN] - 1 Week Mimi Lozada MD [STAFF PHYSICIAN] - 1 Week Kiley Evans MD [Primary Care Provider] - 1 Week Jose Cruz Aragon MD [STAFF PHYSICIAN] - 1-2 days (pt to follow tomorrow) Activity/Diet/Wound Care/Special Instructions: Activity as tolerated Diet heart healthy Patient to follow-up with Dr. Aragon in office Discharge Disposition: HOME SELF-CARE
[2019-06-16 13:17] LABS: Haptoglobin <8.0 mg/dL (31.2-198.0)
== END 2019-06-16 10:56 | disposition home or self-care (01) | DRG 810 ==
LOC: EC 16:13 → 3SCARD 17:59
PROVIDERS: ADMIT Internal Medicine; ATTEND Internal Medicine
PROC: 30233N1 Transfusion of Nonautologous Red Blood Cells into Peripheral Vein, Percutaneous Approach (ICD-10-PCS; principal; 2019-06-15)
DX: D61.818 Other pancytopenia (principal); I45.81 Long QT syndrome; D46.9 Myelodysplastic syndrome, unspecified; D72.821 Monocytosis (symptomatic); I10 Essential (primary) hypertension; G89.29 Other chronic pain; M54.9 Dorsalgia, unspecified; M81.0 Age-related osteoporosis without current pathological fracture; N20.0 Calculus of kidney; K64.9 Unspecified hemorrhoids; H35.30 Unspecified macular degeneration; M19.90 Unspecified osteoarthritis, unspecified site; Z79.891 Long term (current) use of opiate analgesic; Z79.899 Other long term (current) drug therapy; Z86.711 Personal history of pulmonary embolism; Z85.72 Personal history of non-Hodgkin lymphomas; Z96.653 Presence of artificial knee joint, bilateral; Z96.641 Presence of right artificial hip joint; Z87.891 Personal history of nicotine dependence; Z86.73 Personal history of transient ischemic attack (TIA), and cerebral infarction without residual deficits; Z82.3 Family history of stroke; Z82.49 Family history of ischemic heart disease and other diseases of the circulatory system
CPT/HCPCS: 36415; 71046; 80048; 80053; 81001; 82272; 82728; 83010; 83540; 83550; 83615; 83735; 84484; 85025; 85045; 85610; 85730; 86850; 86860; 86870; 86880; 86885; 86900; 86901; 86902; 86920; 86978; 93005; 99285

== ENCOUNTER 2019-08-29 06:20 | Day surgery (SDC) | payer OTHER ==
[2019-08-24 15:46] VITALS: BMI 25.7
[~2019-08-29 06:20] MED LIST changes: -MIDAZOLAM (PF) 2 MG/2 ML VIAL IV PRN; +MIDAZOLAM 2 MG/2 ML VIAL IV PRN
[2019-08-29 06:51] VITALS: TEMP 97.8
[2019-08-29] MEDS ORDERED: PROPOFOL 10 MG/ML 20 ML VIAL IV ONE (07:05)
[2019-08-29 07:56] VITALS: PULSE 78; RESP 18
--- NOTE | 2019-08-29 08:07 | PCN ---
PROCEDURE NOTE PROCEDURE: Bone marrow aspirate and biopsy. INDICATION: Myelodysplastic syndrome, rule out evolution into acute myelogenous leukemia. PROCEDURE: After obtaining consent from the patient, the procedure was performed in the endoscopy suite under general anesthesia performed by anesthesia team. The patient was put on the left lateral decubitus position. The right posterior iliac crest was localized. Skin was cleansed with ChloraPrep. All sterile procedures were followed and 2 mL of 1% Xylocaine was used for local anesthetic. Monoject needle was inserted, about 10 mL aspirate and 1.5 cm core biopsy was obtained without any difficulties. Pressure applied afterwards. There was negligible blood loss. Patient tolerated procedure very well without any immediate complications. MMODL / IJN: [id number] /
[2019-08-29 08:19] VITALS: BP 115/78
[2019-08-29 08:33] LABS: Anisocytosis Slight; HCT 26.6 % (39.0-53.0); HGB 7.7 gm/dL (13.0-17.5); Hypochromasia Marked; MCH 25.5 pg (25.0-35.0); MCHC 28.9 g/dL (31.0-37.0); MCV 88.4 fL (80.0-100.0); Mean Platelet Volume 7.1; Poikilocytosis Marked; RDW 19.4 % (11.5-15.5); Reticulocyte % 2.7 % (0.5-2.0)
[2019-08-29 08:58] LABS: Band Neutrophils % 6 %; Metamyelocytes % 6 %; Myelocytes % 14 %; Neutrophils % (M) 46 %; Promyelocytes % 1 %
[2019-08-29 08:59] LABS: Lymphocytes # (M) 1.92 k/uL (1.0-4.8); Metamyelocytes # (M) 0.61 k/uL (0); Monocytes # (M) 0.61 k/uL (0-1.0); Myelocytes # (M) 1.41 k/uL (0); Nucleated Red Blood Cells 71 /100 WBC (0-0); Total Cells Counted 200; WBC 10.1 k/uL (3.8-10.6)
[2019-08-29 09:00] LABS: Polychromasia Present
[2019-08-29 09:03] LABS: Platelet Count 15 k/uL (150-450)
== END 2019-08-29 08:34 | disposition home or self-care (01) ==
LOC: OR 06:20
PROVIDERS: ATTEND Internal Medicine Hematology & Oncology
DX: D46.9 Myelodysplastic syndrome, unspecified (principal); D69.6 Thrombocytopenia, unspecified; I10 Essential (primary) hypertension; M10.9 Gout, unspecified; K21.9 Gastro-esophageal reflux disease without esophagitis; M15.0 Primary generalized (osteo)arthritis; Z87.891 Personal history of nicotine dependence; Z79.899 Other long term (current) drug therapy; Z96.653 Presence of artificial knee joint, bilateral; Z90.49 Acquired absence of other specified parts of digestive tract; Z98.1 Arthrodesis status; Z96.641 Presence of right artificial hip joint; Z86.711 Personal history of pulmonary embolism; Z87.442 Personal history of urinary calculi
CPT/HCPCS: 85025; 85045; 38222; J2704; 86850; 86870; 86880; 86900; 86901; 86902; 86920

== ENCOUNTER → 2019-09-30 | Outpatient (CLI) | payer OTHER ==
[~2019-09-30] MED LIST changes: -LACTATED RINGERS 1,000 ML IV SCH; -LIDOCAINE 1% 20 ML VIAL (10MG/ML) FOR IV START INTRADERMA PRN; -MIDAZOLAM 2 MG/2 ML VIAL IV PRN; +SODIUM CHLORIDE 0.9% 500 ML 500 ML in EMPTY BAG 1 BAG IV PRN
[2019-09-30 12:16] VITALS: RESP 18
[2019-09-30 12:57] VITALS: BP 133/74; PULSE 79; TEMP 98
== END | disposition home or self-care (01) ==
LOC: PROCWHC3 09:29
PROVIDERS: ATTEND Internal Medicine Hematology & Oncology
DX: D46.9 Myelodysplastic syndrome, unspecified (principal)
CPT/HCPCS: 86900; 86901; 86902; 86850; 86920; 86870; 86880; 36430; P9016; 86860; 86885

== ENCOUNTER → 2019-10-07 | Outpatient (CLI) | payer OTHER ==
[2019-10-07 17:12] VITALS: RESP 18
[2019-10-07 19:00] VITALS: BP 150/68; PULSE 84; TEMP 98
== END | disposition home or self-care (01) ==
LOC: PROCWHC3 12:45
PROVIDERS: ATTEND Internal Medicine Hematology & Oncology
DX: D46.9 Myelodysplastic syndrome, unspecified (principal)
CPT/HCPCS: 86900; 86901; 86902; 86850; 86920; 86870; 86880; 36430; P9016; 86860

== ENCOUNTER → 2019-10-19 | Outpatient (CLI) | payer OTHER ==
[2019-10-19 10:13] VITALS: RESP 16
[2019-10-19 12:29] VITALS: BP 129/63; PULSE 85; TEMP 98.5
== END | disposition home or self-care (01) ==
LOC: PROCWHC3 09:54
PROVIDERS: ATTEND Internal Medicine Hematology & Oncology
DX: D46.9 Myelodysplastic syndrome, unspecified (principal)
CPT/HCPCS: 86900; 86901; 86850; 86920; 86870; 86880; 36430; P9016; 86902

== ENCOUNTER 2020-07-04 13:41 | Inpatient (IN) | payer OTHER, MEDICARE ==
[2020-07-04] MEDS ORDERED: allopurinoL 300 MG TAB PO SCH (14:45)
[2020-07-04] MEDS ORDERED: HYDROcodone/APAP 10-325MG 1 EACH TAB PO PRN (15:04)
--- NOTE | 2020-07-04 15:04 | P.HPIM ---
History of Present Illness H&P Date: 07/04/20 Chief Complaint: AML Mr. Haley this is a very pleasant 79-year-old male patient of Dr. Aragon who was noted to have thrombocytopenia on routine CBC monitoring prior to elective back surgery 12/08/13. Cytopenia noted far back as December 2012, there was evidence of platelet clumping. Workup did not show any paraproteinemia, hypercoagulable workup was negative. CT CAP 01/04/14 revealed bilateral axillary and inguinal adenopathy. Left axillary LN biopsy 01/17/14 was non-diagnostic. Repeat CT CAP 03/27/14 unremarkable, no pathologic lymph nodes. Patient had no further problems until May 2015. He had fever and abdominal pain, CT AP 05/18/15 showed borderline enlarged mesenteric lymph nodes, after his symptoms resolved, repeat CT CAP 09/10/15 showed improvement in all adenopathies. He continued to have this pattern of waning and waxing adenopathy. Finally, bone marrow biopsy done 08/15/16 was negative for any marrow pathology except for mild monocytosis, some mild splenomegaly. He was again worked up December 2018 because of fatigue, weight loss and progressive pancytopenia, all studies were non- diagnostic. 01/18/19 bone marrow biopsy revealed hypercellular marrow, 5% blasts, increased reticulin, evidence myelodysplasia, normal cytogenetics and Fish, and BCOR, TET2 mutations, unclear NRAS variant. Patient opted for supportive care only. He continued on supportive care with transfusions when necessary, he had 2 other bone marrow biopsies, most recent 06/29/20. Marrow showed 35% blasts. He was seen in the office today for these results. He had complaints of persistent dizziness, loss of balance and progressive tiredness. Appetite is fair to poor but denies fevers, nausea, vomiting, difficulty breathing, new cough, abdominal pain or cramping, acute changes in bowel or bladder habits, swelling or bleeding, he has chronic back pain, currently managed on his analgesics. He is being admitted for cytoreduction and to begin first cycle of induction. 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 08/07/15 Revision total R hip arthroplasty. TOTAL RIGHT, AND total LEFT KNEE, PAIN CLINIC PROCEDURES. Past Anesthesia/Blood Transfusion Reactions: No Reported Reaction Smoking Status: Former smoker - Past Family History Father Family Medical History: CVA/TIA Additional Family Medical History / Comment(s): Father of CVA at age 89yrs. Mother Family Medical History: Osteoarthritis (OA), Renal Disease Additional Family Medical History / Comment(s): Mother of CHF at age 86yrs. Medications and Allergies Home Medications Medication Instructions Recorded Confirmed Type NIFEdipine [Adalat cc] 30 mg PO QAM 12/07/14 06/29/20 History Hydrocodone/Acetaminophen [[place] 1 tab PO Q4H PRN 06/14/19 06/29/20 History 10-325] Sucralfate [Carafate] 1 gm PO TID 06/14/19 06/29/20 History Pantoprazole Sodium [Protonix] 40 mg PO DAILY 30 Days #30 06/16/19 06/29/[address] [facility] Vitamin 1 tab PO DAILY 06/28/20 06/29/20 History Allergies Allergy/AdvReac Type Severity Reaction Status Date / Time No Known Allergies Allergy Verified 06/29/20 06:20 Physical Exam - Constitutional General appearance: average body habitus, cooperative, mild distress - EENT Eyes: anicteric sclerae, EOMI ENT: hearing grossly normal, normal oropharynx - Neck Neck: no lymphadenopathy - Respiratory Respiratory: bilateral: CTA - Cardiovascular Heart sounds: normal: S1, S2 leg Peripheral Edema: bilateral: None - Gastrointestinal General gastrointestinal: normal bowel sounds, soft - Neurologic Neurologic: CNII-XII intact, focal deficits - Musculoskeletal Musculoskeletal: generalized weakness - Psychiatric Psychiatric: A&O x's 3, appropriate affect, intact judgment & insight Thrombosis Risk Factor Assmnt - DVT/VTE Prophylaxis DVT/VTE Prophylaxis: Mechanical Prophylaxis ordered Assessment and Plan (1) AML (acute myeloid leukemia) Current Visit: Yes Status: Acute Priority: High Code(s): C92.00 - ACUTE MYELOBLASTIC LEUKEMIA, NOT HAVING ACHIEVED REMISSION SNOMED Code(s): 69548793 (2) History of myelodysplastic syndrome Current Visit: No Status: Chronic Priority: Medium Code(s): Z86.2 - PRSNL HISTORY OF DIS OF THE BLD/BLD-FORM ORG/IMMUN [facility] SNOMED Code(s): 333865891 (3) Leukocytosis Current Visit: Yes Status: Acute Priority: High Code(s): D72.829 - ELEVATED WHITE BLOOD CELL COUNT, UNSPECIFIED SNOMED Code(s): 204001262 (4) Dizziness Narrative/Plan: Due to symptoms of persistent dizziness concern is [employer] involvement with AML as patient has progressed rapidly. Orders have been placed for LP, CSF to be sent for flow cytometry and cytology. Current Visit: Yes Status: Acute Priority: High Code(s): R42 - DIZZINESS AND GIDDINESS SNOMED Code(s): 413420864 Plan: Unfortunately, patient has transformed from MDS to AML. He is being admitted from the office. Presented today with complaints of persistent dizziness. Plan is to begin cytoreduction with Hydrea. Fluids, allopurinol ordered for prevention of tumor lysis. Uric acid to be monitored daily. Begin induction with venetoclax and vidaza on Thursday. Oral venetoclax given to RN to be verified for dispense by Pharmacist. Orders for IV vidaza being sent from the office to Pharmacy and unit. Regimen is 7 days. Anesthesiology consulted for LP, flow cytometry and cytology on CSF All of the above was discussed with the patient, he is agreeable to begin treatment. Labs daily Home medications reconciled GI prophylaxis SCDs for DVT prophylaxis Time with Patient: Greater than 30
[2020-07-04 15:28] LABS: ALT 14 U/L (4-49); AST 45 U/L (17-59); African American GFR (CKD) >90 (>60 ml/min/1.73 sqM); Albumin 4.6 g/dL (3.5-5.0); Albumin/Globulin Ratio 1.1; Alkaline Phosphatase 84 U/L (38-126); Anion Gap 8 mmol/L; Blood Urea Nitrogen 14 mg/dL (9-20); Calcium 9.2 mg/dL (8.4-10.2); Carbon Dioxide 29 mmol/L (22-30); Chloride 103 mmol/L (98-107); Globulin 4.1 g/dL; Glucose 124 mg/dL (74-99); Non-African American GFR(CKD) 83 (>60 ml/min/1.73 sqM); Phosphorus 3.9 mg/dL (2.5-4.5); Potassium 3.7 mmol/L (3.5-5.1); Sodium 140 mmol/L (137-145); Total Bilirubin 0.8 mg/dL (0.2-1.3); Total Protein 8.7 g/dL (6.3-8.2); Uric Acid 4.2 mg/dL (3.5-8.5)
[2020-07-04] MEDS: SODIUM CHLORIDE 0.9% 1,000 ML IV SCH (16:06)
[2020-07-04] MEDS: SUCRALFATE 1 GM TAB PO SCH ×2 (16:15→20:18)
[2020-07-04 16:50] LABS: Anisocytosis Moderate; HCT 30.7 % (39.0-53.0); HGB 8.2 gm/dL (13.0-17.5); Hypochromasia Marked; MCH 20.9 pg (25.0-35.0); MCHC 26.8 g/dL (31.0-37.0); MCV 78.1 fL (80.0-100.0); Mean Platelet Volume 8.8; Microcytosis Moderate; Poikilocytosis Moderate; RBC 3.93 m/uL (4.30-5.90); RDW 21.5 % (11.5-15.5)
[2020-07-04 16:55] LABS: Platelet Count 13 k/uL (150-450)
[2020-07-04 17:29] LABS: Band Neutrophils % 2 %; Metamyelocytes % 3 %; Myelocytes % 2 %; Neutrophils % (M) 59 %
[2020-07-04 17:30] LABS: Blast Cells # (M) 3.03 k/uL (0); Lymphocytes # (M) 2.42 k/uL (1.0-4.8); Metamyelocytes # (M) 0.61 k/uL (0); Monocytes # (M) 1.41 k/uL (0-1.0); Nucleated Red Blood Cells 57 /100 WBC (0-0); Total Cells Counted 200; WBC 20.2 k/uL (3.8-10.6)
[2020-07-04 17:32] LABS: Poikilocytosis (M) Present; Polychromasia Present
[2020-07-04] MEDS ORDERED: SODIUM CHLORIDE 0.9% 1,000 ML IV ONE (20:01)
[2020-07-04] MEDS ORDERED: MECLIZINE 25 MG TAB PO STA (20:01)
[2020-07-04] MEDS ORDERED: HYDROXYUREA 500 MG CAP PO SCH (21:00)
[2020-07-04] MEDS ORDERED: MECLIZINE 25 MG TAB PO PRN (21:31)
--- NOTE | 2020-07-04 21:31 | P.HPIM ---
History of Present Illness H&P Date: 07/04/20 Chief Complaint: dizziness 79 year old male with hypertension , and recent diagnosis of AML patient has been following up with oncology for years due to diagnosis of MDS, he was receiving supportive therapy with frequent blood transfusions every 2 weeks due to severe anemia (last transfusion February 2020) , he denies any bleeding. he recently had a follow up and had a bone marrow biopsy done about 5 days ago due to increase in blast count. today as he was receiving and discussing bone marrow biopsy results with his oncology office he mentioned that he was feeling dizzy and progressive fatigue since yesterday. for which he was sent to the hospital for evaluation, patient reports that he noticed yesterday that he was feeling dizzy whenever he stands up or try to walk, and this was getting worse to the point that he did not feel safe on his legs, though he uses a walker for ambulation , he denies any falling. his symptoms would resolve with sitting or lying down. he spent the whole day resting, and went to be early, today when he woke up he was still feeling dizzy and he thinks it was getting worse. he had one episode of vomiting yesterday, non bloody. but otherwise denies any headache, changes in his vision or hearing, denies any head injury , denies any other new focal neuro deficits. he denies any history of stroke or intracranial bleeding. he is not on any blood thinners. he recalls one episode of dizziness in the past about 7 years ago, he thinks the diagnosis was Benign positional vertigo at that time. blood work showed leukocytosis at 20, anemia of 8, platlet count of 13. patient does notice easy bruising but denies any bleeding. Review of Systems Pertinent positives as noted in HPI. All other systems were reviewed and are negative Past Medical History Past Medical History: Blood Disorder, Cancer, Eye Disorder, GERD/Reflux, Hypertension, Musculoskeletal Disorder, Osteoarthritis (OA), Pulmonary Embolus (PE) Additional Past Medical History / Comment(s): Past adenopathy/abnormal labs/fatigue and was diagnosed with MDS approximately 2018, chronic low back pain, current R danielle gluteus tear-now R leg atrophy/uses walker to ambulate, PE left lung, nephrolithiasis, slight macular degeneration L eye and bilateral starting of cataracts, Thompson's palsey affected R eye, diverticular disease, gout bilateral feet, murmur, past gastric ulcers, vertigo History of Any Multi-Drug Resistant Organisms: None Reported Past Surgical History: Appendectomy, Back Surgery, Hernia Repair, Joint Replac ement, Orthopedic Surgery, Tonsillectomy Additional Past Surgical History / Comment(s): Bone marrow biopsies, L axillae lymphnode biopsy, total R hip arthroplasty with revision, bilateral total knee arthroplasties, pain clinic procedures, lumbar surgery/fusion L3/L4, colonoscopy and pt states had umbilical hernia repair and they had to straighten out a peice of his bowel, blepharoplasty r eyelid, Past Anesthesia/Blood Transfusion Reactions: No Reported Reaction Additional Past Anesthesia/Blood Transfusion Reaction / Comment(s): Pt has received blood transfusions without reaction. Smoking Status: Former smoker, Light tobacco smoker - Past Family History Father Family Medical History: CVA/TIA Additional Family Medical History / Comment(s): Father of CVA at age 89yrs. Mother Family Medical History: Osteoarthritis (OA), Renal Disease Additional Family Medical History / Comment(s): Mother of CHF at age 86yrs. Medications and Allergies Home Medications Medication Instructions Recorded Confirmed Type Pantoprazole Sodium [Protonix] 40 mg PO DAILY 30 Days #30 06/16/19 07/04/20 Rx tablet. Allopurinol [Zyloprim] 300 mg PO HS 07/04/20 07/04/20 History HYDROcodone/APAP 7.5-325MG [[place] 1 tab PO Q4H PRN 07/04/20 07/04/20 History 7.5-325] NIFEdipine [NIFEdipine ER] 30 mg PO DAILY 07/04/20 07/04/20 History Vit C/E/Zn/Coppr/Lutein/Zeaxan 1 cap PO DAILY 07/04/20 07/04/20 History [Preservision Areds 2 Softgel] Allergies Allergy/AdvReac Type Severity Reaction Status Date / Time No Known Allergies Allergy Verified 06/29/20 06:20 Physical Exam Vitals: Vital Signs Temp Pulse Resp BP Pulse Ox 07/04/20 19:37 98.1 F 17 123/69 96 07/04/20 15:10 97.9 F 83 16 124/74 100 Intake and Output 07/04/20 07/04/20 07/04/20 06:59 14:59 22:59 Other: Weight 91.626 kg Constitutional: No acute distress, conversant, pleasant Eyes: Anicteric sclerae, moist conjunctiva, Pupils equal round reactive to light ENMT: NC/AT, ear exam bilateral showed normal tympanic membrane light reflex no erythema no blockages Oropharynx clear, no erythema, or exudates Neck: Supple, FROM, no masses, or JVD No carotid bruits No thyromegaly Lungs: Clear to auscultation Clear to percussion Normal respiratory effort, no accessory muscle use Cardiovascular: Heart regular in rate and rhythm, No murmurs, gallops, or rubs No peripheral edema Abdominal: Soft Nontender, no guarding, rebound or rigidity Abdomen moving with respiration Normoactive bowel sounds No hepatomegaly, No splenomegaly No palpable mass No abdominal wall hernia noted Skin: Normal temperature, tone, texture, turgor diffuse echymosis of different stages No subcutaneous nodules No rash, lesions No ulcers Extremities: No digital cyanosis No clubbing Pedal pulses intact and symmetrical Radial pulses intact and symmetrical No calf tenderness Psychiatric: Alert and oriented to person, place and time Appropriate affect fair judgement Neuro Muscles Strength 5/5 in all 4 extremities Sensation to light touch grossly present throughout Cranial nerves II-XII grossly intact No focal sensory deficits no nystagmus finger nose exam is intact bilaterally Lymphatics: no palpable cervical or supraclavicular , or inguinal lymph nodes Results CBC & Chem 7: 07/04/20 15:04 07/04/20 15:04 Labs: Abnormal Lab Results - Last 24 Hours (Table) 07/04/20 07/04/20 Range/Units 15:04 15:04 WBC 20.2 H (3.8-10.6) k/uL RBC 3.93 L (4.30-5.90) m/uL Hgb 8.2 L (13.0-17.5) gm/dL Hct 30.7 L (39.0-53.0) % MCV 78.1 L (80.0-100.0) fL MCH 20.9 L (25.0-35.0) pg MCHC 26.8 L (31.0-37.0) g/dL RDW 21.5 H (11.5-15.5) % Plt Count 13 L* (150-450) k/uL Blast Cells % 15 H* % Neutrophils # (Manual) 12.30 H (1.3-7.7) k/uL Monocytes # (Manual) 1.41 H (0-1.0) k/uL Metamyelocytes # (Man) 0.61 H (0) k/uL Myelocytes # (Manual) 0.40 H (0) k/uL Blast Cells # (Man) 3.03 H (0) k/uL Nucleated RBCs 57 H (0-0) /100 WBC Glucose 124 H (74-99) mg/dL Total Protein 8.7 H (6.3-8.2) g/dL Thrombosis Risk Factor Assmnt - Choose All That Apply Any of the Below Risk Factors Present?: Yes Each Factor Represents 1 point: Obesity (BMI >25) Other Risk Factors: Yes Each Risk Factor Represents 2 Points: Malignancy Each Risk Factor Represents 3 Points: Age 75 years or older Other congenital or acquired thrombophilia - If yes, enter type in comment: No Thrombosis Risk Factor Assessment Total Risk Factor Score: 6 Thrombosis Risk Factor Assessment Level: High Risk Assessment and Plan Assessment: dizziness suspected to be due to leukostasis rule out intracranial pahtology (unlikely ) Leukostasis 2/[address] of the brain without contrast ( severe thrombocytopenia ) neuro checks aggressive IVF hydration ( 1 L NS 0.9 bolus ) then 150 cc per hour cytoreduction and induction therapy per oncology , monitor K, PO4, Ca monitor for tumor lysis syndrome Meclizine when necessary bicytopenia easy bruising , monitor platelet count , transfuse if <10 monitor for bleeding hypertension , controlled , resume home meds CODE STATUS:full code DVT prophylaxis: mechanical due to severe thrombocytopenia Discussed with: Patient, ER, RN Anticipated length of stay > than [address]: home A total of 75 minutes was spent on the care of this complex patient more than 50% of the time was spent in counseling and care coordination.
[2020-07-04 23:01] LABS: Glucose,Whole Blood 126 mg/dL (75-99)
--- NOTE | 2020-07-04 23:05 | CT ---
EXAMINATION TYPE: CT brain wo con DATE OF EXAM: 07/04/2020 COMPARISON: None HISTORY: dizziness, leukostasis , thrombocytopenia CT DLP: 1180.90 mGycm Automated exposure control for dose reduction was used. There is mild cerebral atrophy. There is high attenuation along the entire cerebral falx. The falx is thickened up to 13 mm in width. This could be hemorrhage within the cerebral falx or tumor mass or t hrombosis of the superior sagittal sinus. The density is 52. There is no midline shift. Ventricles have normal size. Skull base is intact. The calvarium is intact. IMPRESSION: High attenuation along the cerebral falx. consider thrombosis of the superior sagittal sinus. Also consider acute hemorrhage within the falx or unusual meningioma of the falx. Contrast MR scan or contrast CT scan would be helpful for further evaluation if clinically indicated. This exam was discussed with the patient's nurse on the floor at 11:00 PM.
[2020-07-04] MEDS ORDERED: PROCHLORPERAZINE 5 MG TAB PO PRN (23:11)
[2020-07-04] MEDS ORDERED: RX INFO: IV CONTRAST WAS GIVEN 1 EACH MISC MISCELLANE PRN (23:12)
--- NOTE | 2020-07-05 00:20 | CT ---
EXAMINATION TYPE: CT brain w con DATE OF EXAM: 07/05/2020 COMPARISON: HISTORY: R/O meningioma CT DLP: 1229.4 mGycm Automated exposure control for dose reduction was used. CONTRAST: Performed with IV Contrast, patient injected with 100 mL of Isovue 300. Images were obtained of the brain with the IV contrast. There is increased density along the cerebral falx which is widened up to 14 mm. This does not appear to enhance with the contrast and therefore unlikely to be related to meningioma. This is more consis tent with sagittal sinus thrombosis. Abnormality has attenuation of 60 and not significantly differen t than the noncontrast exam today with density of 54. There is no evidence of pathologic cerebral parenchymal enhancement. There is no hydrocephalus. Ventr icles have normal size. There is no midline shift. The calvarium is intact. IMPRESSION: Increased density along the midline cerebral falx most likely related to superior sagittal sinus thro mbosis. No evidence of cortical infarct.
--- NOTE | 2020-07-05 02:45 | P.DS ---
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 he recently had a follow up and had a bone marrow biopsy done about 5 days ago due to increase in blast count. today as he was receiving and discussing bone marrow biopsy results with his oncology office he mentioned that he was feeling dizzy and progressive fatigue since yesterday. for which he was sent to the hospital for evaluation, patient reports that he noticed yesterday that he was feeling dizzy whenever he stands up or try to walk, and this was getting worse to the point that he did not feel safe on his legs, though he uses a walker for ambulation , he denies any falling. his symptoms would resolve with sitting or lying down. he spent the whole day resting, and went to be early, today when he woke up he was still feeling dizzy and he thinks it was getting worse. he had one episode of vomiting yesterday, non bloody. but otherwise denies any headache, changes in his vision or hearing, denies any head injury , denies any other new focal neuro deficits. he denies any history of stroke or intracranial bleeding. he is not on any blood thinners. he recalls one episode of dizziness in the past about 7 years ago, he thinks the diagnosis was Benign positional vertigo at that time. blood work showed leukocytosis at 20, anemia of 8, platelet count of 13. patient does notice easy bruising but denies any bleeding. Upon further evaluation CT of the brain was done without contrast and showed an increased density area concerning for meningioma or small bleed, recommendations was to perform CT of the brain with contrast which confirmed the diagnosis of superior sagittal sinus thrombosis Due to the complexity of patient presentation he could not been started on anticoagulation due to severe thrombocytopenia, case was discussed with [facility] neuro rubber belt splicer Dr. Sosa, and drill grinder , patient was accepted for transfer for neurosurgery evaluation and possible endovascular intervention. Due to complexity of patient history with new diagnosis of acute myeloid leukemia advanced age severe thrombocytopenia patient is very high risk for complications risks and benefits should be weighed carefully and discussed with the patient regarding options and goals of therapy I discussed the above with the patient over verbalized understanding and accepted to be transferred Patient remains to be clinically stable with stable vital signs most recent blood pressure is 166/95 heartrate 96 temperature 90.8 Fahrenheit respiratory rate 17 oxygen saturation 96% on room air Patient continues to not have any new focal neuro deficits, he claims to have very mild headache, he continues to feel dizzy. Physical exam overall has not been changed from earlier Constitutional: No acute distress, conversant, pleasant Eyes: Anicteric sclerae, moist conjunctiva, Pupils equal round reactive to light ENMT: NC/AT, ear exam bilateral showed normal tympanic membrane light reflex no erythema no blockages Oropharynx clear, no erythema, or exudates Neck: Supple, FROM, no masses, or JVD No carotid bruits No thyromegaly Lungs: Clear to auscultation Clear to percussion Normal respiratory effort, no accessory muscle use Cardiovascular: Heart regular in rate and rhythm, No murmurs, gallops, or rubs No peripheral edema Abdominal: Soft Nontender, no guarding, rebound or rigidity Abdomen moving with respiration Normoactive bowel sounds No hepatomegaly, No splenomegaly No palpable mass No abdominal wall hernia noted Skin: Normal temperature, tone, texture, turgor diffuse echymosis of different stages No subcutaneous nodules No rash, lesions No ulcers Extremities: No digital cyanosis No clubbing Pedal pulses intact and symmetrical Radial pulses intact and symmetrical No calf tenderness Psychiatric: Alert and oriented to person, place and time Appropriate affect fair judgement Neuro Muscles Strength 5/5 in all 4 extremities Sensation to light touch grossly present throughout Cranial nerves II-XII grossly intact No focal sensory deficits no nystagmus finger nose exam is intact bilaterally Lymphatics: no palpable cervical or supraclavicular , or inguinal lymph nodes Patient was maintained on aggressive IV fluid hydration with normal saline. Continue with close monitoring of vital signs and neuro checks Patient was originally admitted for cytoreduction and induction therapy per oncology with close monitoring for possible tumor lysis syndrome Patient will be transferred to [facility] once a bed becomes available , transfer by ambulance. patient clinically stable for transfer, prognosis is guarded 50 minutes were spent discharging this patient, and more than 50% of the time was spent in counseling the patient and family and in coordinating care. Patient Condition at Discharge: Stable Plan - Discharge Summary Discharge Rx Participant: No New Discharge Prescriptions: New Meclizine [Antivert] 25 mg PO TID PRN tab PRN Reason: Vertigo Sucralfate [Carafate] 1 gm PO TID tab Prochlorperazine [Compazine] 5 mg PO Q8HR PRN tab PRN Reason: Nausea And Vomiting Hydroxyurea [Hydrea] 1,000 mg PO BID cap Vit A,C & U-Egjccm-Jrdgseqc [Ivite] 1 each PO DAILY tab NIFEdipine XL [Procardia XL] 30 mg PO QAM tab.er.24 Pantoprazole [Protonix] 40 mg PO DAILY tablet. Voriconazole [Vfend] 200 mg PO Q12HR tab allopurinoL [Zyloprim] 300 mg PO DAILY tab Discontinued Pantoprazole Sodium [Protonix] 40 mg PO DAILY 30 Days #30 tablet. Vit C/E/Zn/Coppr/Lutein/Zeaxan [Preservision Areds 2 Softgel] 1 cap PO DAILY HYDROcodone/APAP 7.5-325MG [[place] 7.5-325] 1 tab PO Q4H PRN PRN Reason: Pain NIFEdipine [NIFEdipine ER] 30 mg PO DAILY Allopurinol [Zyloprim] 300 mg PO HS Discharge Medication List Hydroxyurea [Hydrea] 1,000 mg PO BID cap 07/05/20 [Rx] Meclizine [Antivert] 25 mg PO TID PRN tab 07/05/20 [Rx] NIFEdipine XL [Procardia XL] 30 mg PO QAM tab.er.24 07/05/20 [Rx] Pantoprazole [Protonix] 40 mg PO DAILY tablet. 07/05/20 [Rx] Prochlorperazine [Compazine] 5 mg PO Q8HR PRN tab 07/05/20 [Rx] Sucralfate [Carafate] 1 gm PO TID tab 07/05/20 [Rx] Vit A,C & C-Fytowy-Kzgebwci [Ivite] 1 each PO DAILY tab 07/05/20 [Rx] Voriconazole [Vfend] 200 mg PO Q12HR tab 07/05/20 [Rx] allopurinoL [Zyloprim] 300 mg PO DAILY tab 07/05/20 [Rx] Follow up Appointment(s)/Referral(s): Jose Cruz Aragon MD [STAFF PHYSICIAN] - 1 Week Patient Instructions/Handouts: Acute Myeloid Leukemia (DC), Thrombocytopenia (DC), Venous Thromboembolism (DC) Discharge Disposition: OTHER INSTITUTION NOT DEFINED Care Plan Goals (MU): due to new diagnosis of superior sagittal sinus thrombosis , patient will be transferred to [facility] for neurosurgery , endovascular evaluation and treatment
[2020-07-05] MEDS ORDERED: ACETAMINOPHEN TAB 325 MG TAB PO PRN (02:46)
[2020-07-05] MEDS: SODIUM CHLORIDE 0.9% 1,000 ML IV SCH ×2 (04:12→04:30)
[2020-07-05 05:01] VITALS: BP 163/83; PULSE 83; RESP 18; TEMP 97.8
[2020-07-05] MEDS ORDERED: NIFEdipine XL 30 MG TAB.ER.24 PO SCH (09:00)
[2020-07-05] MEDS ORDERED: PANTOPRAZOLE 40 MG TABLET PO SCH (09:00)
[2020-07-05] MEDS ORDERED: VIT A,C & E-LUTEIN-MINERALS 1 EACH TAB PO SCH (09:00)
[2020-07-06] MEDS ORDERED: VENCLEXTA 100 MG PO SCH (09:00)
[2020-07-06] MEDS ORDERED: VORICONAZOLE 200 MG TAB PO SCH (09:00)
== END 2020-07-05 06:49 | disposition short-term general hospital (02) | DRG 837 ==
LOC: 6NMEDSUR 14:23 → 3SCARD 07-05 04:12
PROVIDERS: ADMIT Internal Medicine Hematology & Oncology; ATTEND Internal Medicine Hematology & Oncology
DX: Z51.11 Encounter for antineoplastic chemotherapy (principal); G08 Intracranial and intraspinal phlebitis and thrombophlebitis; C92.00 Acute myeloblastic leukemia, not having achieved remission; D69.6 Thrombocytopenia, unspecified; I10 Essential (primary) hypertension; G89.29 Other chronic pain; K21.9 Gastro-esophageal reflux disease without esophagitis; M19.90 Unspecified osteoarthritis, unspecified site; M54.5 Low back pain; R42 Dizziness and giddiness; H35.30 Unspecified macular degeneration; S76.811A Strain of other specified muscles, fascia and tendons at thigh level, right thigh, initial encounter; H26.9 Unspecified cataract; K57.90 Diverticulosis of intestine, part unspecified, without perforation or abscess without bleeding; M10.9 Gout, unspecified; R01.1 Cardiac murmur, unspecified; Z79.899 Other long term (current) drug therapy; Z86.711 Personal history of pulmonary embolism; Z87.442 Personal history of urinary calculi; Z87.891 Personal history of nicotine dependence; Z96.653 Presence of artificial knee joint, bilateral; Z96.641 Presence of right artificial hip joint; Z85.9 Personal history of malignant neoplasm, unspecified; Z87.11 Personal history of peptic ulcer disease; Z98.1 Arthrodesis status; Z98.890 Other specified postprocedural states; Z87.19 Personal history of other diseases of the digestive system; Z86.2 Personal history of diseases of the blood and blood-forming organs and certain disorders involving the immune mechanism; Z82.3 Family history of stroke; Z82.49 Family history of ischemic heart disease and other diseases of the circulatory system; Z82.61 Family history of arthritis
CPT/HCPCS: 70450; 70460; 80053; 84100; 84550; 85025

== ENCOUNTER 2020-08-22 17:10 | Inpatient (IN) | payer OTHER ==
[2020-08-22] MEDS ORDERED: SODIUM CHLORIDE 0.9% 1,000 ML IV STA (18:28)
[2020-08-22 18:47] LABS: Anisocytosis Marked; Hypochromasia Marked; MCH 27.5 pg (25.0-35.0); MCHC 29.6 g/dL (31.0-37.0); MCV 92.7 fL (80.0-100.0); Macrocytosis Moderate; Mean Platelet Volume 6.8; Microcytosis Slight; Poikilocytosis Moderate; RBC 2.02 m/uL (4.30-5.90)
[2020-08-22 18:52] LABS: RDW 25.3 % (11.5-15.5); WBC 0.5 k/uL (3.8-10.6)
[2020-08-22 18:54] LABS: HGB 5.6 gm/dL (13.0-17.5); Platelet Count 4 k/uL (150-450)
--- NOTE | 2020-08-22 18:54 | ED ---
Recheck HPI - General Chief Complaint: Recheck/Abnormal Lab/Rx Stated Complaint: abn labs Time Seen by Provider: 08/22/20 18:28 Source: patient, RN notes reviewed, old records reviewed Mode of arrival: wheelchair Limitations: no limitations - History of Present Illness Initial Comments: This is a 72-year-old male DF for evaluation of abnormal outpatient lab tests. Patient is severe pancytopenia and low platelet secondary to history of leukemia. Patient outpatient lab showing significant abnormalities causing patient to be sent ER for evaluation and management patient is having some mild spontaneously 1 time from the nose as well as feel hemorrhage lower extremities bilateral upper extremities and face MD Complaint: abnormal lab (Known abnormal lab tests) -: days(s) Returns Today for: other (Some mild bleeding) Symptoms Since Prior Visit: no new symptoms Context: planned re-check, called for abnormal lab result Associated Symptoms: other (No other new complaints) Treatments Prior to Arrival: other (History of multiple transfusions) - Related Data Home Medications Medication Instructions Recorded Confirmed Ciprofloxacin HCl [Cipro] 500 mg PO BID 07/30/20 08/22/20 HYDROcodone/APAP 7.5-325MG [[place] 1 tab PO Q4H PRN 07/30/20 08/22/20 7.5-325] NIFEdipine [Adalat cc] 30 mg PO DAILY 07/30/20 08/22/20 valACYclovir [Valtrex] 500 mg PO DAILY 07/30/20 08/22/20 Cholecalciferol [Vitamin D3 (25 2,000 unit PO DAILY 08/22/20 08/22/20 Mcg = 1000 Iu)] Loperamide [Imodium] 2 - 4 mg PO QID PRN 08/22/20 08/22/20 Ondansetron HCl [Zofran] 8 mg PO Q8H PRN 08/22/20 08/22/20 Prochlorperazine [Compazine] 10 mg PO Q6H PRN 08/22/20 08/22/20 Sucralfate [Carafate] 1 gm PO BID 08/22/20 08/22/20 Venetoclax [Venclexta] 100 mg PO DAILY 08/22/20 08/22/20 Vit A,C & Y-Mbjrhx-Pxaepdah [Ivite] 1 tab PO DAILY 08/22/20 08/22/20 Vitamin B Complex/Folic Acid/Iron 1 cap PO DAILY 08/22/20 08/22/20 Previous Rx's Medication Instructions Recorded Meclizine [Antivert] 25 mg PO TID PRN tab 07/05/20 Voriconazole [Vfend] 200 mg PO Q12HR tab 07/05/20 allopurinoL [Zyloprim] 300 mg PO DAILY tab 07/05/20 Allergies Allergy/AdvReac Type Severity Reaction Status Date / Time No Known Allergies Allergy Verified 08/22/20 20:46 Review of Systems ROS Statement: Those systems with pertinent positive or pertinent negative responses have been documented in the HPI. ROS Other: All systems not noted in ROS Statement are negative. Past Medical History Past Medical History: Cancer Additional Past Medical History / Comment(s): Past adenopathy/abnormal labs/fatigue and was diagnosed with MDS approximately 2018, chronic low back pain, current R danielle gluteus tear-now R leg atrophy/uses walker to ambulate, PE left lung, nephrolithiasis, slight macular degeneration L eye and bilateral starting of cataracts, Thompson's palsey affected R eye, diverticular disease, gout bilateral feet, murmur, past gastric ulcers, vertigo. LEUKEMIA. History of Any Multi-Drug Resistant Organisms: None Reported Past Surgical History: Hernia Repair, Orthopedic Surgery Additional Past Surgical History / Comment(s): Bone marrow biopsies, L axillae lymphnode biopsy, total R hip arthroplasty with revision, bilateral total knee arthroplasties, pain clinic procedures, lumbar surgery/fusion L3/L4, colonoscopy and pt states had umbilical hernia repair and they had to straighten out a peice of his bowel, blepharoplasty r eyelid, Past Anesthesia/Blood Transfusion Reactions: No Reported Reaction Additional Past Anesthesia/Blood Transfusion Reaction / Comment(s): Pt has received blood transfusions without reaction. Past Psychological History: No Psychological Hx Reported Smoking Status: Never smoker Past Alcohol Use History: Rare Past Drug Use History: None Reported - Past Family History Father Family Medical History: CVA/TIA Additional Family Medical History / Comment(s): Father of CVA at age 89yrs. Mother Family Medical History: Osteoarthritis (OA), Renal Disease Additional Family Medical History / Comment(s): Mother of CHF at age 86yrs. General Exam - General Exam Comments Initial Comments: no Current active bleeding Limitations: no limitations General appearance: alert, in no apparent distress Head exam: Present: atraumatic, normocephalic, normal inspection Eye exam: Present: normal appearance, PERRL, EOMI. Absent: scleral icterus, conjunctival injection, periorbital swelling ENT exam: Present: normal exam, mucous membranes moist Neck exam: Present: normal inspection. Absent: tenderness, meningismus, lymphadenopathy Respiratory exam: Present: normal lung sounds bilaterally. Absent: respiratory distress, wheezes, rales, rhonchi, stridor Cardiovascular Exam: Present: regular rate, normal rhythm, normal heart sounds. Absent: systolic murmur, diastolic murmur, rubs, gallop, clicks GI/Abdominal exam: Present: soft, normal bowel sounds. Absent: distended, tenderness, guarding, rebound, rigid Extremities exam: Present: normal inspection, full ROM, normal capillary refill. Absent: tenderness, pedal edema, joint swelling, calf tenderness Back exam: Present: normal inspection Neurological exam: Present: alert, oriented X3, CN II-XII intact Psychiatric exam: Present: normal affect, normal mood Skin exam: Present: warm, dry, intact, normal color. Absent: rash Course Vital Signs 08/22/20 08/22/20 17:39 19:06 Temperature 98.3 F Pulse Rate 89 83 Respiratory 18 18 Rate Blood Pressure 98/54 127/71 O2 Sat by Pulse 100 99 Oximetry - Reevaluation(s) Reevaluation #1: 08/22/20 20:59 Medical records reviewed Reevaluation #2: 08/22/20 20:59 Spoke with patient regarding findings and he is aware - Consultations Consultation #1: Spoke with oncology, recommendations given Consultation #2: Spoke with sound and okay to admit Medical Decision Making - Medical Decision Making 80 male to be admitted for transfusion the morning. 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 Differential Comment Hypochromasia Marked Poikilocytosis Moderate Anisocytosis Marked Microcytosis Slight Macrocytosis Moderate Sodium 136 L (137-145) mmol/L Potassium 4.1 (3.5-5.1) mmol/L Chloride 104 (98-107) mmol/L Carbon Dioxide 24 (22-30) mmol/L Anion Gap 8 mmol/L BUN 18 (9-20) mg/dL Creatinine 0.82 (0.66-1.25) mg/dL Est GFR (CKD-EPI)AfAm >90 (>60 ml/min/1.73 sqM) Est GFR (CKD-EPI)NonAf 85 (>60 ml/min/1.73 sqM) Glucose 110 H (74-99) mg/dL Calcium 8.4 (8.4-10.2) mg/dL Phosphorus 3.8 (2.5-4.5) mg/dL Magnesium 2.1 (1.6-2.3) mg/dL Total Bilirubin 1.0 (0.2-1.3) mg/dL AST 37 (17-59) U/L ALT 13 (4-49) U/L Alkaline Phosphatase 67 (38-126) U/L Creatine Kinase 73 (55-170) U/L Total Protein 7.4 (6.3-8.2) g/dL Albumin 3.8 (3.5-5.0) g/dL - EKG Data -: EKG Interpreted by Me (EKG shows sinus rhythm 80. VA 182 QRS 108 QTC 500) Critical Care Time Critical Care Time: Yes Total Critical Care Time: 31 Disposition Clinical Impression: Pancytopenia, Acute on chronic anemia, History of myelodysplastic syndrome, AML (acute myeloid leukemia), Thrombocytopenia Disposition: ADMITTED IP TO THIS [facility] Condition: Serious Is patient prescribed a controlled substance at d/c from ED?: No Referrals: Kiley Evans MD [Primary Care Provider] - 1-2 days
[2020-08-22 18:55] LABS: HCT 18.7 % (39.0-53.0)
[2020-08-22 18:56] LABS: ALT 13 U/L (4-49); AST 37 U/L (17-59); African American GFR (CKD) >90 (>60 ml/min/1.73 sqM); Albumin 3.8 g/dL (3.5-5.0); Alkaline Phosphatase 67 U/L (38-126); Anion Gap 8 mmol/L; Blood Urea Nitrogen 18 mg/dL (9-20); Calcium 8.4 mg/dL (8.4-10.2); Carbon Dioxide 24 mmol/L (22-30); Chloride 104 mmol/L (98-107); Creatine Kinase 73 U/L (55-170); Glucose 110 mg/dL (74-99); Magnesium 2.1 mg/dL (1.6-2.3); Non-African American GFR(CKD) 85 (>60 ml/min/1.73 sqM); Phosphorus 3.8 mg/dL (2.5-4.5); Potassium 4.1 mmol/L (3.5-5.1); Sodium 136 mmol/L (137-145); Total Protein 7.4 g/dL (6.3-8.2)
[2020-08-22] MEDS ORDERED: MECLIZINE 25 MG TAB PO PRN (22:15)
--- NOTE | 2020-08-22 22:19 | P.HPIM ---
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 The patient follows with Dr Aragon and notes that he underwent his routine blood work yesterday which revealed a platelets of 8 and Hgb of 5.8. The patient notes that he was scheduled to undergo a bone marrow biopsy tomorrow morning and then receive 2 units of pRBCs and 2 units of platelets. The patient however woke up from his nap today and noted small amounts of blood in his nose and on his pillow. He contacted Dr Aragon who advised him to come to the ED. The patient also reports noticing multiple dark red blisters in his mouth and lips and petechiae throughout, which all occured over the past 2 weeks. Reports that the nose bleed did not recur. He denied noticing blood in stools or black tarry stools. Denied headache, visual disturbances, chest pain, SOB, nausea, or vomiting. Laboratory evaluation in the emergency room revealed a WBC count of 0.5, Hgb 5.6, and platelets 4. EKG revealed a NSR @ 80 bpm with a prolonged QT of [address]-T wave changed noted as reviewed by me. Review of Systems Pertinent positives and negatives as discussed in HPI, a complete review of systems was performed and all other systems are negative. Past Medical History Past Medical History: Cancer Additional Past Medical History / Comment(s): Past adenopathy/abnormal labs/fa tigue and was diagnosed with MDS approximately 2018, chronic low back pain, current R danielle gluteus tear-now R leg atrophy/uses walker to ambulate, PE left lung, nephrolithiasis, slight macular degeneration L eye and bilateral starting of cataracts, Thompson's palsey affected R eye, diverticular disease, gout bilateral feet, murmur, past gastric ulcers, vertigo. LEUKEMIA. History of Any Multi-Drug Resistant Organisms: None Reported Past Surgical History: Hernia Repair, Orthopedic Surgery Additional Past Surgical History / Comment(s): Bone marrow biopsies, L axillae lymphnode biopsy, total R hip arthroplasty with revision, bilateral total knee arthroplasties, pain clinic procedures, lumbar surgery/fusion L3/L4, colonoscopy and pt states had umbilical hernia repair and they had to straighten out a peice of his bowel, blepharoplasty r eyelid, Past Anesthesia/Blood Transfusion Reactions: No Reported Reaction Additional Past Anesthesia/Blood Transfusion Reaction / Comment(s): Pt has received blood transfusions without reaction. Past Psychological History: No Psychological Hx Reported Smoking Status: Never smoker Past Alcohol Use History: Rare Past Drug Use History: None Reported - Past Family History Father Family Medical History: CVA/TIA Additional Family Medical History / Comment(s): Father of CVA at age 89yrs. Mother Family Medical History: Osteoarthritis (OA), Renal Disease Additional Family Medical History / Comment(s): Mother of CHF at age 86yrs. Medications and Allergies Home Medications Medication Instructions Recorded Confirmed Type Meclizine [Antivert] 25 mg PO TID PRN tab 07/05/20 08/22/20 Rx Voriconazole [Vfend] 200 mg PO Q12HR tab 07/05/20 08/22/20 Rx allopurinoL [Zyloprim] 300 mg PO DAILY tab 07/05/20 08/22/20 Rx Ciprofloxacin HCl [Cipro] 500 mg PO BID 07/30/20 08/22/20 History HYDROcodone/APAP 7.5-325MG [[place] 1 tab PO Q4H PRN 07/30/20 08/22/20 History 7.5-325] NIFEdipine [Adalat cc] 30 mg PO DAILY 07/30/20 08/22/20 History valACYclovir [Valtrex] 500 mg PO DAILY 07/30/20 08/22/20 History Cholecalciferol [Vitamin D3 (25 2,000 unit PO DAILY 08/22/20 08/22/20 History Mcg = 1000 Iu)] Loperamide [Imodium] 2 - 4 mg PO QID PRN 08/22/20 08/22/20 History Ondansetron HCl [Zofran] 8 mg PO Q8H PRN 08/22/20 08/22/20 History Prochlorperazine [Compazine] 10 mg PO Q6H PRN 08/22/20 08/22/20 History Sucralfate [Carafate] 1 gm PO BID 08/22/20 08/22/20 History Venetoclax [Venclexta] 100 mg PO DAILY 08/22/20 08/22/20 History Vit A,C & C-Dcqnqw-Xkmwgmak [Ivite] 1 tab PO DAILY 08/22/20 08/22/20 History Vitamin B Complex/Folic Acid/Iron 1 cap PO DAILY 08/22/20 08/22/20 History Allergies Allergy/AdvReac Type Severity Reaction Status Date / Time No Known Allergies Allergy Verified 08/22/20 20:46 Physical Exam Vitals: Vital Signs Temp Pulse Resp BP Pulse Ox 08/22/20 19:06 83 18 127/71 99 08/22/20 17:39 98.3 F 89 18 98/54 100 Intake and Output 08/22/20 08/22/20 08/22/20 06:59 14:59 22:59 Other: Weight 90.265 kg General: non toxic, no distress, appears at stated age, normal weight Derm: diffuse petechiae, oral palatal petechiae noted, warm, dry Head: atraumatic, normocephalic, symmetric Eyes: EOMI, no lid lag, anicteric sclera, pupils equal round reactive to light ENT: Nose and ears atraumatic, no thrush, no pharyngeal erythema Neck: No thyromegaly, no cervical lymphadenopathy, trachea midline, supple Mouth: lower lip dark red blisted noted, mucus membranes moist Cardiovascular: S1S2 reg, no murmur, positive posterior tibial pulse bilateral, no edema, capillary refill less than 2 seconds Lungs: CTA bilateral, no rhonchi, no rales , no accessory muscle use Abdominal: soft, nontender to palpation, no guarding, no appreciable organomegaly, normal bowel sounds Ext: no gross muscle atrophy, muscle strength 5 out of 5 in all 4 extremities grossly, no contractures, Neuro: CN II-XI grossly intact, light touch intact all 4 extremities, finger to nose within normal limits, Psych: Alert, oriented, appropriate affect Results CBC & Chem 7: 08/22/20 18:36 08/22/20 18:36 Labs: Abnormal Lab Results - Last 24 Hours (Table) 08/22/20 08/22/20 Range/Units 18:36 18:36 WBC 0.5 L* (3.8-10.6) k/uL RBC 2.02 L (4.30-5.90) m/uL Hgb 5.6 L* D (13.0-17.5) gm/dL Hct 18.7 L* (39.0-53.0) % MCHC 29.6 L (31.0-37.0) g/dL RDW 25.3 H (11.5-15.5) % Plt Count 4 L* D (150-450) k/uL Sodium 136 L (137-145) mmol/L Glucose 110 H (74-99) mg/dL Assessment and Plan Plan: Severe pancytopenia in setting of MDS and AML w/ epistaxis -Patient receives leukocyte reduced and irradiated blood products -ED physician discussed case with Case Finishing Machine Adjuster suspension cord tier (Dr Guzman) -2 U of pRBCs and 1 U of platelets ordered -Continue to monitor CBC q12h -Heme/Onc consult -Neutropenic precautions -Hold off on Venetoclax pending Heme/Onc evaluation Prolonged QTc -Avoid any QT prolonging agents DVT prophylaxis -IPCDs The patient is admitted with an anticipated greater than 2 midnight stay for evaluation of severe pancytopenia CODE STATUS: Full Code (Discussed goals of care with patient who noted that he wishes to be a Full Code for now) Discussed with: Patient Anticipated discharge date: 2-[address]: Home A total of 40 minutes was spent on the care of this complex patient more than 50% of the time was spent in counseling and care coordination.
[2020-08-23] MEDS: HYDROcodone/APAP 7.5-325MG 1 EACH TAB PO PRN ×2 (01:48→21:27)
[2020-08-23] MEDS ORDERED: MIDAZOLAM 2 MG/2 ML VIAL ONE (07:05)
[2020-08-23] MEDS ORDERED: PROPOFOL 10 MG/ML 20 ML VIAL IV ONE (07:05)
[2020-08-23] MEDS ORDERED: fentaNYL (PF) 50 MCG/ML 2 ML AMP ONE (07:05)
[2020-08-23] MEDS ORDERED: LACTATED RINGERS 1,000 ML IV ONE (07:09)
[2020-08-23] MEDS ORDERED: IV FLUID CONTINUATION 1,000 ML IV ONE (07:15)
[2020-08-23 07:55] LABS: Anisocytosis Moderate; HCT 20.1 % (39.0-53.0); Hypochromasia Marked; MCH 27.5 pg (25.0-35.0); MCHC 29.6 g/dL (31.0-37.0); MCV 92.9 fL (80.0-100.0); Macrocytosis Slight; Mean Platelet Volume 8.3; Poikilocytosis Marked; RBC 2.17 m/uL (4.30-5.90); RDW 22.9 % (11.5-15.5); Reticulocyte % 2.6 % (0.5-2.0)
[2020-08-23] MEDS: VIT A,C & E-LUTEIN-MINERALS 1 EACH TAB PO SCH (08:01)
[2020-08-23] MEDS: SUCRALFATE 1 GM TAB PO SCH ×2 (08:01→21:20)
[2020-08-23] MEDS: VORICONAZOLE 200 MG TAB PO SCH ×2 (08:01→21:21)
[2020-08-23] MEDS: valACYclovir 500 MG TAB PO SCH (08:01)
[2020-08-23] MEDS: NIFEdipine XL 30 MG TAB.ER.24 PO SCH (08:01)
[2020-08-23] MEDS: FOLIC ACID-VIT B COMPLEX-VIT C 1 CAP PO SCH (08:01)
[2020-08-23] MEDS: allopurinoL 300 MG TAB PO SCH (08:01)
[2020-08-23 08:07] LABS: WBC 0.3 k/uL (3.8-10.6)
[2020-08-23 09:26] LABS: Platelet Count 29 k/uL (150-450)
[2020-08-23 09:28] LABS: Mixed Population RBC Present; Tear Drop Cells Present
[2020-08-23] MEDS ORDERED: DESMOPRESSIN ACETATE 4 MCG/ML VIAL (MDV) IV SCH (10:15)
[2020-08-23] MEDS ORDERED: DESMOPRESSIN ACETATE 28 MCG in SODIUM CHLORIDE 0.9% 50 ML IVPB ONE (11:00)
--- NOTE | 2020-08-23 14:49 | PCN ---
PROCEDURE NOTE DATE OF PROCEDURE: 08/23/2020. PROCEDURE: Bone marrow aspirate and biopsy site, right iliac crest. 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 ANESTHESIA: Local with IV systemic sedation. DETAILS: Utilizing sterile technique, the skin overlying the right iliac crest was prepped with Betadine and alcohol. After adequate sterile draping, systemic sedation and local anesthesia with 1% lidocaine, size 11.4 inch Jamshidi needle was utilized to access the periosteum with ease. A total of 15 mL of aspirate and a crossed 5 mm bone core biopsies were obtained. The patient tolerated the procedure very well. There was no immediate procedure-related complication. TOTAL BLOOD LOSS: Less than 1 mL. Results pending. MMODL / IJN: [id number] /
--- NOTE | 2020-08-23 17:40 | P.PN ---
Subjective Progress Note Date: 08/23/20 (delayed charting seen at 0900) Principal diagnosis: Epistaxis Patient is a 72-year-old male with a history of MDS (transfusion dependent with last blood transfusion 2 weeks ago, last platelet transfusion 8 days ago), acute myelogenous leukemia currently undergoing chemotherapy, vertigo, gout, and multiple other comorbid conditions who presented to the emergency department secondary to nosebleed. In the ER he underwent an extensive evaluation. On admission was slightly hypotensive with a blood pressure of 98/54. Initial laboratory analysis showed white blood cell count of 0.5, hemoglobin 5.6, hematocrit 18.7, platelet count 4, sodium 136. He was admitted for epistaxis related to pancytopenia. He received 2 units of packed red blood cells and 1 unit of platelets. On the morning of 08/23 he underwent his preplanned bone marrow biopsy with Dr. Whitfield. Patient seen and examined at bedside. He reports continued bleeding at the back of his throat. He is very concerned about all of his bruising and bleeding. He denies any chest pain or shortness of breath. He was slightly nauseous this morning but it is resolved. He denies any lightheadedness or dizziness. He states he is feeling much better after the blood. General: ill appearing, no distress, appears at stated age Derm: Multiple areas of petechia and purpura throughout face, arms, abdomen, groin, and bilateral lower extremities, warm, dry Head: atraumatic, normocephalic, symmetric Eyes: EOMI, no lid lag, anicteric sclera Mouth: Multiple areas of petechia and purpura on lips and oral mucosa, bright red blood noted dripping down posterior pharynx appears to be coming from posterior nasal bleed Cardiovascular: S1S2 reg, no murmur, positive posterior tibial pulse bilateral, Lungs: Coarse breath sounds bilateral , no accessory muscle use Abdominal: soft, nontender to palpation, no guarding, no appreciable organomegaly Ext: no gross muscle atrophy, no edema, no contractures Neuro: CN II-XI grossly intact, no focal neuro deficits Psych: Alert, oriented, appropriate affect Epistaxis secondary to severe thrombocytopenia - Not a candidate for nasal packing secondary to neutropenia - 1 additional unit of packed red blood cells - Discussed with Dr. Ivan also give a dose of DDAVP -Monitor for signs of improvement Pancytopenia related to myelodysplastic syndrome and acute myelogenous leukemia (leukopenia, anemia, and thrombocytopenia) -Management per hematology's oncology -Discussed with Dr. Ivan -Status post 2 units of packed red blood cells, 1 unit platelet -An additional unit of packed red blood cells and platelets have been ordered. -Continue with valacyclovir and voriconazole Prolonged QT -Continue to monitor -Avoid QT prolonging agents - possibly related to cipro BID, which is on hold pending resumption by oncology HTN, controlled - procardia DVT prophylaxis: SCDs Discussed with: Patient, nursing, Dr Ivan Anticipated discharge: in AM if bleeding controlled Anticipated discharge place: home A total of 40 minutes was spent on the care of this complex patient more than 50% of the time was spent in counseling and care coordination. Objective - Vital Signs Vital signs: Vital Signs Temp 98.7 F 08/23/20 16:05 Pulse 93 08/23/20 16:05 Resp 16 08/23/20 16:05 BP 150/71 08/23/20 16:05 Pulse Ox 96 08/23/20 15:28 Intake & Output 08/22/20 08/23/20 08/23/20 18:59 06:59 18:59 Intake Total 310 1446 Output Total 500 200 Balance -190 1246 Weight 90.265 kg 90.265 kg Intake: Oral 472 Blood Product 310 974 Platelet Pheresis Acd-A 0 330 Pasc 1 Unit [id number] Platelet Pheresis Pas 334 Psoralen Unit [id number] Rc Irr As1 Unit 310 [id number] Rc Pheresis 2 As3 Unit 0 [id number] Rc Pheresis As-3 Unit 310 [id number] Output: Urine 500 200 Other: # Voids 3 - Labs CBC & Chem 7: 08/23/20 06:47 08/22/20 18:36 Labs: Abnormal Lab Results - Last 24 Hours (Table) 08/22/20 08/22/20 08/22/20 Range/Units 18:36 18:36 18:42 WBC 0.5 L* (3.8-10.6) k/uL RBC 2.02 L (4.30-5.90) m/uL Hgb 5.6 L* D (13.0-17.5) gm/dL Hct 18.7 L* (39.0-53.0) % MCHC 29.6 L (31.0-37.0) g/dL RDW 25.3 H (11.5-15.5) % Plt Count 4 L* D (150-450) k/uL Retic Count (0.5-2.0) % Sodium 136 L (137-145) mmol/L Glucose 110 H (74-99) mg/dL Crossmatch See Detail 08/23/20 Range/Units 06:47 WBC 0.3 L* (3.8-10.6) k/uL RBC 2.17 L (4.30-5.90) m/uL Hgb 6.0 L* (13.0-17.5) gm/dL Hct 20.1 L (39.0-53.0) % MCHC 29.6 L (31.0-37.0) g/dL RDW 22.9 H (11.5-15.5) % Plt Count 29 L D (150-450) k/uL Retic Count 2.6 H (0.5-2.0) % Sodium (137-145) mmol/L Glucose (74-99) mg/dL Crossmatch
[2020-08-23] MEDS: polyethylene glycoL 3350 17 GM POWD.PACK PO SCH (18:12)
[2020-08-23 19:44] LABS: Anisocytosis Moderate; HCT 22.1 % (39.0-53.0); Hypochromasia Marked; MCH 27.4 pg (25.0-35.0); MCHC 30.4 g/dL (31.0-37.0); MCV 90.2 fL (80.0-100.0); Macrocytosis Slight; Mean Platelet Volume 5.7; Poikilocytosis Moderate; RBC 2.45 m/uL (4.30-5.90); RDW 22.5 % (11.5-15.5)
[2020-08-23 19:53] LABS: HGB 6.7 gm/dL (13.0-17.5); Platelet Count 12 k/uL (150-450); WBC 0.3 k/uL (3.8-10.6)
--- NOTE | 2020-08-23 20:37 | P.CONS ---
History of Present Illness - Reason for Consult Consult date: 08/23/20 symptomatic thrombocytopenia, pancytopenia, AML - History of Present Illness This is a very 79-year-old male patient of Dr. Aragon who was noted to have thrombocytopenia on routine CBC monitoring prior to elective back surgery 12/08/13. Cytopenia noted far back as December 2012, there was evidence of platelet clumping. Workup did not show any paraproteinemia, hypercoagulable workup was negative. CT CAP 01/04/14 revealed bilateral axillary and inguinal adenopathy. Left axillary LN biopsy 01/17/14 was non-diagnostic. Repeat CT CAP 03/27/14 unremarkable, no pathologic lymph nodes. Patient had no further pro blems until May 2015. He had fever and abdominal pain, CT AP 05/18/15 showed borderline enlarged mesenteric lymph nodes, after his symptoms resolved, repeat CT CAP 09/10/15 showed improvement in all adenopathies. He continued to have this pattern of waning and waxing adenopathy. Finally, bone marrow biopsy done 08/15/16 was negative for any marrow pathology except for mild monocytosis, some mild splenomegaly. He was again worked up December 2018 because of fatigue, weight loss and progressive pancytopenia, all studies were non-diagnostic. 01/18/19 bone marrow biopsy revealed hypercellular marrow, 5% blasts, increased reticulin, evidence myelodysplasia, normal cytogenetics and Fish, and BCOR, TET2 mutations, unclear NRAS variant. Patient opted for supportive care only. 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 He was admitted here on 07/04/20 for induction, but had to be transferred to [facility] for a cerebral vein thrombosis. He started induction with Venclexta and Greta za at [facility], and received C 1 there. He reestablished f/u here on d/c, and received C 2 of Vidaza, completing that on 08/10/20. he is continuing on Venetoclax The pt developed marked nasal bleeding yesterday from b/l nostrils, L > R , as well as extensive petechiae and purpura ( oral cavity, face, neck, chest wall, and LE) He was sent to the ER and was noted to have marked pancytopenia, with Hgb 5.6, plt 4, and WBC 0.5 He received 1 U plt with increase to 29. He also received 2 U PRBC. Nasal bleeding has improved , but is still continuing from the left nostril, now draining posteriorly Consult placed for further evaluation and recommendations Review of Systems Constitutional: Reports fatigue, Reports weakness Eyes: denies blurred vision, denies pain Ears: deny: decreased hearing, ear discharge, earache, tinnitus Ears, nose, mouth and throat: Reports as per HPI, Reports epistaxis Cardiovascular: Reports dyspnea on exertion Respiratory: Reports dyspnea Gastrointestinal: Denies abdominal pain, Denies diarrhea, Denies nausea, Denies vomiting Genitourinary: Reports as per HPI, Reports urinary frequency Musculoskeletal: Reports muscle weakness Integumentary: Reports as per HPI, Reports rash Neurological: Reports weakness Psychiatric: Denies anxiety, Denies depression Endocrine: Reports fatigue Hematologic/Lymphatic: Reports as per HPI, Reports easy bleeding, Reports easy bruising Past Medical History Past Medical History: Cancer Additional Past Medical History / Comment(s): Past adenopathy/abnormal labs/fatigue and was diagnosed with MDS approximately 2018, chronic low back pain, current R danielle gluteus tear-now R leg atrophy/uses walker to ambulate, PE left lung, nephrolithiasis, slight macular degeneration L eye and bilateral starting of cataracts, Thompson's palsey affected R eye, diverticular disease, gout bilateral feet, murmur, past gastric ulcers, vertigo. LEUKEMIA. History of Any Multi-Drug Resistant Organisms: None Reported Past Surgical History: Hernia Repair, Orthopedic Surgery Additional Past Surgical History / Comment(s): Bone marrow biopsies, L axillae lymphnode biopsy, total R hip arthroplasty with revision, bilateral total knee arthroplasties, pain clinic procedures, lumbar surgery/fusion L3/L4, colonoscopy and pt states had umbilical hernia repair and they had to straighten out a peice of his bowel, blepharoplasty r eyelid, Past Anesthesia/Blood Transfusion Reactions: No Reported Reaction Additional Past Anesthesia/Blood Transfusion Reaction / Comm: Pt has received blood transfusions without reaction. Past Psychological History: No Psychological Hx Reported Additional Psychological History / Comment(s): PT resides with his spouse. He uses a walker. He drives. 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 Past Drug Use History: None Reported - Past Family History Father Family Medical History: CVA/TIA Additional Family Medical History / Comment(s): Father of CVA at age 89yrs. Mother Family Medical History: Osteoarthritis (OA), Renal Disease Additional Family Medical History / Comment(s): Mother of CHF at age 86yrs. Medications and Allergies Home Medications Medication Instructions Recorded Confirmed Type Meclizine [Antivert] 25 mg PO TID PRN tab 07/05/20 08/22/20 Rx Voriconazole [Vfend] 200 mg PO Q12HR tab 07/05/20 08/22/20 Rx allopurinoL [Zyloprim] 300 mg PO DAILY tab 07/05/20 08/22/20 Rx Ciprofloxacin HCl [Cipro] 500 mg PO BID 07/30/20 08/22/20 History HYDROcodone/APAP 7.5-325MG [[place] 1 tab PO Q4H PRN 07/30/20 08/22/20 History 7.5-325] NIFEdipine [Adalat cc] 30 mg PO DAILY 07/30/20 08/22/20 History valACYclovir [Valtrex] 500 mg PO DAILY 07/30/20 08/22/20 History Cholecalciferol [Vitamin D3 (25 2,000 unit PO DAILY 08/22/20 08/22/20 History Mcg = 1000 Iu)] Loperamide [Imodium] 2 - 4 mg PO QID PRN 08/22/20 08/22/20 History Ondansetron HCl [Zofran] 8 mg PO Q8H PRN 08/22/20 08/22/20 History Prochlorperazine [Compazine] 10 mg PO Q6H PRN 08/22/20 08/22/20 History Sucralfate [Carafate] 1 gm PO BID 08/22/20 08/22/20 History Venetoclax [Venclexta] 100 mg PO DAILY 08/22/20 08/22/20 History Vit A,C & D-Siuxpi-Tadbisms [Ivite] 1 tab PO DAILY 08/22/20 08/22/20 History Vitamin B Complex/Folic Acid/Iron 1 cap PO DAILY 08/22/20 08/22/20 History Allergies Allergy/AdvReac Type Severity Reaction Status Date / Time No Known Allergies Allergy Verified 08/22/20 20:46 Physical Exam Vitals: Vital Signs Temp Pulse Pulse Resp BP BP Pulse Ox 08/23/20 17:28 98.6 F 92 16 136/74 08/23/20 16:05 98.7 F 93 16 150/71 08/23/20 15:39 98.6 F 92 16 143/74 08/23/20 15:35 98.6 F 92 16 143/74 08/23/20 15:28 98.7 F 92 16 137/74 96 08/23/20 15:25 98.8 F 88 16 137/74 08/23/20 15:08 98.6 F 94 16 135/86 08/23/20 12:28 98.6 F 94 16 145/76 08/23/20 11:58 98.5 F 94 16 137/69 08/23/20 11:48 98.7 F 93 16 145/52 08/23/20 09:26 97.8 F 72 16 156/78 08/23/20 08:53 90 145/73 98 08/23/20 08:30 87 132/70 99 08/23/20 08:15 86 119/64 96 08/23/20 08:00 78 124/68 94 L 08/23/20 07:47 97.9 F 81 16 124/88 96 08/23/20 07:00 98.2 F 92 17 142/63 99 08/23/20 06:45 98.6 F 90 17 149/75 100 08/23/20 06:30 97.7 F 88 17 98 08/23/20 05:49 98.2 F 91 16 138/81 08/23/20 05:44 98.6 F 86 16 132/65 98 08/23/20 05:30 98.3 F 91 18 144/72 08/23/20 03:33 98.5 F 84 18 117/47 08/23/20 03:03 98.7 F 87 16 100/57 08/23/20 02:53 98.7 F 86 16 114/49 08/23/20 02:20 98.1 F 93 16 143/73 08/23/20 01:18 98.1 F 107 H 16 126/67 100 08/23/20 00:48 98.2 F 87 16 117/72 95 08/23/20 00:18 98.2 F 89 16 127/70 99 08/23/20 00:08 98.2 F 90 16 132/71 99 08/22/20 23:53 98.0 F 87 18 105/49 97 Intake and Output 08/23/20 08/23/20 08/23/20 06:59 14:59 22:59 Intake Total 310 802 830 Output Total 500 200 Balance -190 602 830 Intake: Oral 472 186 Blood Product 310 330 644 Platelet Pheresis Acd-A 0 330 Pasc 1 Unit [id number] Platelet Pheresis Pas 0 334 Psoralen Unit [id number] Rc Irr As1 Unit 310 [id number] Rc Pheresis 2 As3 Unit 0 [id number] Rc Pheresis As-3 Unit 310 [id number] Output: Urine 500 200 Other: # Voids 3 - Constitutional General appearance: no acute distress - EENT crusted blood b/l nares fresh blood post pharyngeal wall blood blisters in oral cavity, multiple Eyes: EOMI, PERRLA ENT: hearing grossly normal - Neck Neck: no lymphadenopathy Thyroid: bilateral: normal size - Respiratory Respiratory: bilateral: CTA - Cardiovascular Rhythm: regular Heart sounds: normal: S1, S2 - Gastrointestinal General gastrointestinal: normal bowel sounds, soft - Integumentary extensive purpura - face, neck, chest, UE , LE, with scattered bruises - Neurologic Neurologic: CNII-XII intact - Musculoskeletal Musculoskeletal: generalized weakness, strength equal bilaterally - Psychiatric Psychiatric: A&O x's 3, intact judgment & insight Results CBC & Chem 7: 08/23/20 19:20 08/22/20 18:36 Labs: Abnormal Lab Results - Last 24 Hours (Table) 08/22/20 08/23/20 08/23/20 Range/Units 18:42 06:47 19:20 WBC 0.3 L* 0.3 L* (3.8-10.6) k/uL RBC 2.17 L 2.45 L (4.30-5.90) m/uL Hgb 6.0 L* 6.7 L* (13.0-17.5) gm/dL Hct 20.1 L 22.1 L (39.0-53.0) % MCHC 29.6 L 30.4 L (31.0-37.0) g/dL RDW 22.9 H 22.5 H (11.5-15.5) % Plt Count 29 L D 12 L* D (150-450) k/uL Retic Count 2.6 H (0.5-2.0) % Crossmatch See Detail Assessment and Plan (1) Epistaxis Narrative/Plan: Due to severe thrombocytopenia. This has improved with plt transfusion, however continues norm on the left, despite plt of 29 - D/w IM in detail - Transfuse 1 more U plt - 1 dose of DDAVP - Avoid packing , if possible, due to neutropenia - Continue to monitor Current Visit: Yes Status: Acute Code(s): R04.0 - EPISTAXIS SNOMED Code(s): 650210031 (2) Pancytopenia Narrative/Plan: Due to underlying AML, and antineoplastic chemo. Plt management as noted above - Transfuse to keep Hgb >7. Irradiated blood products only Current Visit: Yes Status: Acute Code(s): D61.818 - OTHER PANCYTOPENIA SNOMED Code(s): 428690910 (3) AML (acute myeloid leukemia) Narrative/Plan: Diagnostic and therapeutic circumstances as described. Pt had restaging bone marrow today. Resume Venetoclax on discharge if counts are able to be stabilized Current Visit: Yes Status: Acute Priority: High Code(s): C92.00 - ACUTE MYELOBLASTIC LEUKEMIA, NOT HAVING ACHIEVED REMISSION SNOMED Code(s): 02418579 Plan: Defer to admitting service for management of other medical problems
[2020-08-24] MEDS: NIFEdipine XL 30 MG TAB.ER.24 PO SCH (07:25)
[2020-08-24] MEDS: SUCRALFATE 1 GM TAB PO SCH ×2 (07:25→20:18)
[2020-08-24] MEDS: valACYclovir 500 MG TAB PO SCH (07:25)
[2020-08-24] MEDS: allopurinoL 300 MG TAB PO SCH (07:25)
[2020-08-24] MEDS: polyethylene glycoL 3350 17 GM POWD.PACK PO SCH (07:25)
[2020-08-24] MEDS: FOLIC ACID-VIT B COMPLEX-VIT C 1 CAP PO SCH (07:25)
[2020-08-24] MEDS: VORICONAZOLE 200 MG TAB PO SCH ×2 (07:26→20:19)
[2020-08-24] MEDS: VIT A,C & E-LUTEIN-MINERALS 1 EACH TAB PO SCH (07:26)
[2020-08-24] MEDS: HYDROcodone/APAP 7.5-325MG 1 EACH TAB PO PRN ×2 (07:33→20:27)
[2020-08-24 07:52] LABS: Anisocytosis Moderate; HCT 24.4 % (39.0-53.0); HGB 7.6 gm/dL (13.0-17.5); Hypochromasia Marked; MCV 90.5 fL (80.0-100.0); Macrocytosis Slight; Poikilocytosis Marked; RDW 21.7 % (11.5-15.5)
[2020-08-24 07:58] LABS: Platelet Count 6 k/uL (150-450); WBC 0.4 k/uL (3.8-10.6)
[2020-08-24 09:11] LABS: Mixed Population RBC Present
[2020-08-24 11:01] LABS: Anion Gap 6.4 mmol/L (4.00-12.00); BUN/Creat Ratio 21.67 Ratio (12.00-20.00); Carbon Dioxide 26.6 mmol/L (21.6-31.8); Magnesium 1.9 mg/dL (1.5-2.4); Phosphorus 2.6 mg/dL (2.4-5.1); Potassium 3.3 mmol/L (3.5-5.5)
[2020-08-24 11:02] LABS: African American GFR (CKD) 111.6 (60.0-200.0); Albumin 3.6 g/dL (3.80-4.90); Albumin/Globulin Ratio 1.2 (1.60-3.17); Calcium 8.3 mg/dL (8.7-10.3); Non-African American GFR(CKD) 96.3 (60.0-200.0); Total Bilirubin 1.5 mg/dL (0.2-1.2); Total Protein 6.6 g/dL (6.2-8.2)
--- NOTE | 2020-08-24 14:48 | P.PN ---
Subjective Progress Note Date: 08/24/20 Principal diagnosis: Pancytopenia secondary to acute leukemia treatment In follow-up today patient has no specific complaints, he complained to nursing about some possible postnasal drip containing blood, he denies any gross bleeding, no hematuria, hematochezia or melena, he feels that many of his bruises are healing up. He denies fevers, nausea, appetite is fair to poor righ t now though, no chest pain, abdominal pain or cramping. Objective - Vital Signs Vital signs: Vital Signs Temp 98.2 F 08/24/20 12:17 Pulse 84 08/24/20 12:17 Resp 18 08/24/20 12:17 BP 131/74 08/24/20 12:17 Pulse Ox 98 08/24/20 12:17 Intake & Output 08/23/20 08/24/20 08/24/20 18:59 06:59 18:59 Intake Total 1632 524 236 Output Total 200 700 Balance 1432 524 -464 Intake: Oral 658 236 Blood Product 974 524 Platelet Irr Pheresis 214 Acda1 Unit [id number] Platelet Pheresis Acd-A 330 Pasc 1 Unit [id number] Platelet Pheresis Pas 334 Psoralen Unit [id number] Rc Irr As1 Unit 310 [id number] Rc Irr As1 Unit 310 [id number] Output: Urine 200 700 Other: Voiding Method Urinal Urinal # Voids 3 2 - Constitutional General appearance: Present: average body habitus, cooperative, no acute distress - EENT EENT Comment(s): Wet purpura Eyes: Present: anicteric sclerae, EOMI - Respiratory Respiratory: bilateral: CTA - Cardiovascular Rhythm: regular Heart sounds: normal: S1, S2 Abnormal Heart Sounds: Absent: systolic murmur, diastolic murmur, rub, S3 Gallop, S4 Gallop, click, other - Peripheral edema leg Peripheral Edema: bilateral: None - Gastrointestinal General gastrointestinal: Present: normal bowel sounds, soft - Integumentary Integumentary Comment(s): Moderate Petechiae, purpura and ecchymosis scattered on the body - Neurologic Neurologic: Present: CNII-XII intact - Musculoskeletal Musculoskeletal: Present: generalized weakness, strength equal bilaterally - Psychiatric Psychiatric: Present: A&O x's 3, appropriate affect, intact judgment & insight - Labs CBC & Chem 7: 08/24/20 07:37 08/24/20 07:37 Labs: Abnormal Lab Results - Last 24 Hours (Table) 08/22/20 08/23/20 08/24/20 Range/Units 18:42 19:20 07:37 WBC 0.3 L* 0.4 L* (3.8-10.6) k/uL RBC 2.45 L 2.70 L (4.30-5.90) m/uL Hgb 6.7 L* 7.6 L (13.0-17.5) gm/dL Hct 22.1 L 24.4 L (39.0-53.0) % MCHC 30.4 L (31.0-37.0) g/dL RDW 22.5 H 21.7 H (11.5-15.5) % Plt Count 12 L* D 6 L* (150-450) k/uL Potassium (3.5-5.5) mmol/L BUN/Creatinine Ratio (12.00-20.00) Ratio Calcium (8.7-10.3) mg/dL Total Bilirubin (0.2-1.2) mg/dL AST (14-35) U/L Albumin (3.80-4.90) g/dL Albumin/Globulin Ratio (1.60-3.17) g/dL Crossmatch See Detail 08/24/20 Range/Units 07:37 WBC (3.8-10.6) k/uL RBC (4.30-5.90) m/uL Hgb (13.0-17.5) gm/dL Hct (39.0-53.0) % MCHC (31.0-37.0) g/dL RDW (11.5-15.5) % Plt Count (150-450) k/uL Potassium 3.3 L (3.5-5.5) mmol/L BUN/Creatinine Ratio 21.67 H (12.00-20.00) Ratio Calcium 8.3 L (8.7-10.3) mg/dL Total Bilirubin 1.5 H (0.2-1.2) mg/dL AST 41 H (14-35) U/L Albumin 3.60 L (3.80-4.90) g/dL Albumin/Globulin Ratio 1.20 L (1.60-3.17) g/dL Crossmatch Assessment and Plan (1) AML (acute myeloid leukemia) Narrative/Plan: Status post bone marrow biopsy and aspirate to see if remission was achieved with 1st cycle of venclexta and HMA. All treatment medications are on hold at this time. If patient's marrow comes back with remission patient can go on growth factors. Current Visit: Yes Status: Acute Priority: High Code(s): C92.00 - ACUTE MYELOBLASTIC LEUKEMIA, NOT HAVING ACHIEVED REMISSION SNOMED Code(s): 18538928 (2) Pancytopenia Narrative/Plan: No intervention for the low white blood cell count of 0.4. Continue empiric antibiotics Transfuse for hemoglobin less than 7. No transfusions today hemoglobin is 7.6 Transfuse for platelet count less than 10,000. Platelets are 6000 today, 1 unit single donor platelets ordered, irradiated. CBC daily Current Visit: Yes Status: Acute Priority: High Code(s): D61.818 - OTHER PANCYTOPENIA SNOMED Code(s): 997765022 (3) History of myelodysplastic syndrome Current Visit: No Status: Chronic Priority: Low Code(s): Z86.2 - PRSNL HISTORY OF DIS [facility] Code(s): 994449481 Plan: Doctor attests: I performed a history and physical examination of this patient, developed impression and plan of care. Discussed with dictator. I agree with dictators note, documented as a scribe.
[2020-08-24] MEDS ORDERED: LACTULOSE 20 GM/30 ML CUP PO ONE (16:11)
[2020-08-24] MEDS ORDERED: POTASSIUM CHLORIDE ER 20 MEQ TAB.ER PO STA (17:54)
--- NOTE | 2020-08-24 17:55 | P.PN ---
Subjective Progress Note Date: 08/24/20 (delayed charting see at 0630) Principal diagnosis: Epistaxis Patient is a 72-year-old male with a history of MDS (transfusion dependent with last blood transfusion 2 weeks ago, last platelet transfusion 8 days ago), acute myelogenous leukemia currently undergoing chemotherapy, vertigo, gout, and multiple other comorbid conditions who presented to the emergency department secondary to nosebleed. In the ER he underwent an extensive evaluation. On admission was slightly hypotensive with a blood pressure of 98/54. Initial laboratory analysis showed white blood cell count of 0.5, hemoglobin 5.6, hematocrit 18.7, platelet count 4, sodium 136. He was admitted for epistaxis related to pancytopenia. He received 2 units of packed red blood cells and 1 unit of platelets. On the morning of 08/23 he underwent his preplanned bone marrow biopsy with Dr. Whitfield. He received another unit of plt and blood due to continued bleeding. On the morning of 08/24 his sleep-disordered 6. He was ordered a irrigated of platelets. Patient seen and examined at bedside. He reports continued bleeding at the back of his throat. He is very concerned about all of his bruising and bleeding. He denies any chest pain or shortness of breath. He was slightly nauseous this morning but it is resolved. He denies any lightheadedness or dizziness. He states he is feeling much better after the blood. General: ill appearing, no distress, appears at stated age Derm: Multiple areas of petechia and purpura throughout face, arms, abdomen, groin, and bilateral lower extremities, warm, dry Head: atraumatic, normocephalic, symmetric Eyes: EOMI, no lid lag, anicteric sclera Mouth: Multiple areas of petechia and purpura on lips and oral mucosa, bright red blood noted in posterior pharynx appears to be coming from posterior nasal bleed less intense today Cardiovascular: S1S2 reg, no murmur, positive posterior tibial pulse bilateral, Lungs: Coarse breath sounds bilateral , no accessory muscle use Abdominal: soft, nontender to palpation, no guarding, no appreciable organomegaly Ext: no gross muscle atrophy, no edema, no contractures Neuro: CN II-XI grossly intact, no focal neuro deficits Psych: Alert, oriented, appropriate affect Epistaxis secondary to severe thrombocytopenia - Not a candidate for nasal packing secondary to neutropenia - 2 units of irradiated platelets - s/p 1 dose of DDAVP -Monitor for signs of improvement Pancytopenia related to myelodysplastic syndrome and acute myelogenous leukemia (leukopenia, anemia, and thrombocytopenia) -Management per hematology's oncology -Discussed with Dr. Ivan -Status post 4 units of packed red blood cells, 2 unit platelet, 2 additional plt ordered -Continue with valacyclovir and voriconazole Prolonged QT -Continue to monitor -Avoid QT prolonging agents - possibly related to cipro BID, which is on hold pending resumption by oncology HTN, controlled - procardia DVT prophylaxis: SCDs Discussed with: Patient, nursing, Dr Ivan Anticipated discharge: in AM if bleeding controlled Anticipated discharge place: home A total of 25 minutes was spent on the care of this complex patient more than 50% of the time was spent in counseling and care coordination. Objective - Vital Signs Vital signs: Vital Signs Temp 98.2 F 08/24/20 15:00 Pulse 86 08/24/20 15:00 Resp 18 08/24/20 15:00 BP 135/76 08/24/20 15:00 Pulse Ox 99 08/24/20 15:00 Intake & Output 08/23/20 08/24/20 08/24/20 18:59 06:59 18:59 Intake Total 1632 524 236 Output Total 200 700 Balance 1432 524 -464 Intake: Oral 658 236 Blood Product 974 524 Platelet Irr Pheresis 214 Acda1 Unit [id number] Platelet Pheresis Acd-A 330 Pasc 1 Unit [id number] Platelet Pheresis Pas 334 Psoralen Unit [id number] Rc Irr As1 Unit 310 [id number] Rc Irr As1 Unit 310 [id number] Output: Urine 200 700 Other: Voiding Method Urinal Urinal # Voids 3 2 - Labs CBC & Chem 7: 08/24/20 07:37 08/24/20 07:37 Labs: Abnormal Lab Results - Last 24 Hours (Table) 08/22/20 08/23/20 08/24/20 Range/Units 18:42 19:20 07:37 WBC 0.3 L* 0.4 L* (3.8-10.6) k/uL RBC 2.45 L 2.70 L (4.30-5.90) m/uL Hgb 6.7 L* 7.6 L (13.0-17.5) gm/dL Hct 22.1 L 24.4 L (39.0-53.0) % MCHC 30.4 L (31.0-37.0) g/dL RDW 22.5 H 21.7 H (11.5-15.5) % Plt Count 12 L* D 6 L* (150-450) k/uL Potassium (3.5-5.5) mmol/L BUN/Creatinine Ratio (12.00-20.00) Ratio Calcium (8.7-10.3) mg/dL Total Bilirubin (0.2-1.2) mg/dL AST (14-35) U/L Albumin (3.80-4.90) g/dL Albumin/Globulin Ratio (1.60-3.17) g/dL Crossmatch See Detail 08/24/20 Range/Units 07:37 WBC (3.8-10.6) k/uL RBC (4.30-5.90) m/uL Hgb (13.0-17.5) gm/dL Hct (39.0-53.0) % MCHC (31.0-37.0) g/dL RDW (11.5-15.5) % Plt Count (150-450) k/uL Potassium 3.3 L (3.5-5.5) mmol/L BUN/Creatinine Ratio 21.67 H (12.00-20.00) Ratio Calcium 8.3 L (8.7-10.3) mg/dL Total Bilirubin 1.5 H (0.2-1.2) mg/dL AST 41 H (14-35) U/L Albumin 3.60 L (3.80-4.90) g/dL Albumin/Globulin Ratio 1.20 L (1.60-3.17) g/dL Crossmatch
[2020-08-25 05:41] LABS: Anisocytosis Moderate; HCT 20.9 % (39.0-53.0); Hypochromasia Marked; MCHC 31.5 g/dL (31.0-37.0); Mean Platelet Volume 8.7; Poikilocytosis Marked; RBC 2.35 m/uL (4.30-5.90); RDW 21.5 % (11.5-15.5)
[2020-08-25 05:45] LABS: WBC 0.3 k/uL (3.8-10.6)
[2020-08-25 05:50] LABS: HGB 6.6 gm/dL (13.0-17.5); Platelet Count 5 k/uL (150-450)
[2020-08-25 06:24] LABS: INR 1.1 (<1.2); Prothrombin Time 11.4 sec (9.0-12.0)
[2020-08-25 06:27] LABS: Anisocytosis (M) Present; Poikilocytosis (M) Present
[2020-08-25 09:57] LABS: African American GFR (CKD) 120.3 (60.0-200.0); Albumin 3.4 g/dL (3.80-4.90); Albumin/Globulin Ratio 1.31 (1.60-3.17); Anion Gap 5.2 mmol/L (4.00-12.00); Calcium 7.5 mg/dL (8.7-10.3); Carbon Dioxide 24.8 mmol/L (21.6-31.8); Globulin 2.6 g/dL (1.6-3.3); Magnesium 1.9 mg/dL (1.5-2.4); Non-African American GFR(CKD) 103.8 (60.0-200.0); Potassium 3.5 mmol/L (3.5-5.5); Total Bilirubin 1.3 mg/dL (0.3-1.2)
[2020-08-25] MEDS: FOLIC ACID-VIT B COMPLEX-VIT C 1 CAP PO SCH (10:35)
[2020-08-25] MEDS: NIFEdipine XL 30 MG TAB.ER.24 PO SCH (10:35)
[2020-08-25] MEDS: allopurinoL 300 MG TAB PO SCH (10:35)
[2020-08-25] MEDS: VIT A,C & E-LUTEIN-MINERALS 1 EACH TAB PO SCH (10:36)
[2020-08-25] MEDS: SUCRALFATE 1 GM TAB PO SCH ×2 (10:36→21:31)
[2020-08-25] MEDS: valACYclovir 500 MG TAB PO SCH (10:36)
[2020-08-25] MEDS: polyethylene glycoL 3350 17 GM POWD.PACK PO SCH (10:36)
[2020-08-25] MEDS: VORICONAZOLE 200 MG TAB PO SCH ×2 (10:36→21:31)
[2020-08-25] MEDS: HYDROcodone/APAP 7.5-325MG 1 EACH TAB PO PRN ×2 (10:38→17:48)
[2020-08-25] MEDS ORDERED: FUROSEMIDE 10 MG/ML 2 ML VIAL IV PRN (12:51)
--- NOTE | 2020-08-25 14:37 | P.PN ---
Subjective Progress Note Date: 08/25/20 Principal diagnosis: AML Pancytopenia Epistaxis Hgb dropped to 6.6, plt 5. Epistaxis much improved, although persistent. Objective - Vital Signs Vital signs: Vital Signs Temp 98.9 F 08/25/20 03:47 Pulse 83 08/25/20 03:47 Resp 16 08/25/20 03:47 BP 121/63 08/25/20 03:47 Pulse Ox 99 08/25/20 03:47 Intake & Output 08/24/20 08/25/20 08/25/20 18:59 06:59 18:59 Intake Total 236 425 Output Total 700 Balance -464 425 Intake: Oral 236 Blood Product 0 425 Platelet Irr Pheresis Pas 250 -C Unit [id number] Platelet Irr Pheresis Pas 0 175 -C Unit [id number] Output: Urine 700 Other: Voiding Method Urinal # Voids 2 - Exam Gen.: No acute distress. HEENT: Conjunctival pallor. No scleral icterus. Neck: Neck supple. Lungs: No respiratory distress. Heart: Regular rate. No lower extremity edema. Abdomen: Soft. MSK: Appropriate strength in all 4 extremities. Neuro: Alert and oriented 3. Skin: No jaundice. Psych: Appropriate affect. - Labs CBC & Chem 7: 08/25/20 05:28 08/25/20 05:28 Labs: Abnormal Lab Results - Last 24 Hours (Table) 08/22/20 08/25/20 08/25/20 Range/Units 18:42 05:28 05:28 WBC 0.3 L* (3.8-10.6) k/uL RBC 2.35 L (4.30-5.90) m/uL Hgb 6.6 L* (13.0-17.5) gm/dL Hct 20.9 L (39.0-53.0) % RDW 21.5 H (11.5-15.5) % Plt Count 5 L* (150-450) k/uL Creatinine 0.5 L (0.6-1.5) mg/dL BUN/Creatinine Ratio 24.00 H (12.00-20.00) Ratio Calcium 7.5 L (8.7-10.3) mg/dL Total Bilirubin 1.3 H (0.3-1.2) mg/dL AST 41 H (14-35) U/L Total Protein 6.0 L (6.2-8.2) g/dL Albumin 3.40 L (3.80-4.90) g/dL Albumin/Globulin Ratio 1.31 L (1.60-3.17) g/dL Crossmatch See Detail Assessment and Plan Assessment: 1. AML 2. Pancytopenia due to chemotherapy and AML 3. Epistaxis with severe thrombocytopenia Plan: Mr. Haley is a very pleasant 80-year-old gentleman with a history of AML status post chemotherapy, currently pancytopenic. Here for epistaxis. Has acute on chronic anemia and thrombocytopenia due to consumption from his epistaxis as well as his baseline cytopenias from his recent chemotherapy and AML. Bone marrow biopsy obtained, awaiting results to see if he is in remission. Continue supportive transfusions for hemoglobin less than 7, platelets less than 10, irradiated blood products. No objections to discharge once his epistaxis is resolved and he is not requiring daily transfusions. He will need platelet and blood transfusions today. Ordered.
--- NOTE | 2020-08-25 20:10 | P.PN ---
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 In the ER he underwent an extensive evaluation. On admission was slightly hypotensive with a blood pressure of 98/54. Initial laboratory analysis showed white blood cell count of 0.5, hemoglobin 5.6, hematocrit 18.7, platelet count 4, sodium 136. He was admitted for epistaxis related to pancytopenia. He received 2 units of packed red blood cells and 1 unit of platelets. On the morning of 08/23 he underwent his preplanned bone marrow biopsy with Dr. Whitfield. He received another unit of plt and blood due to continued bleeding. He continued to reuqir blood and platelets and this was felt to be due to chemo. Patient seen and examined at bedside. Less bleeding today, no sore throat feeling tired, no chest pain, no shortness of breath. General: ill appearing, no distress, appears at stated age Derm: Multiple areas of petechia and purpura throughout face, arms, abdomen, groin, and bilateral lower extremities, warm, dry Head: atraumatic, normocephalic, symmetric Eyes: EOMI, no lid lag, anicteric sclera Mouth: Multiple areas of petechia and purpura on lips and oral mucosa, bright red blood noted in posterior pharynx Cardiovascular: S1S2 reg, no murmur, positive posterior tibial pulse bilateral, Lungs: Coarse breath sounds bilateral , no accessory muscle use Abdominal: soft, nontender to palpation, no guarding, no appreciable organomegaly Ext: no gross muscle atrophy, no edema, no contractures Neuro: CN II-XI grossly intact, no focal neuro deficits Psych: Alert, oriented, appropriate affect Epistaxis secondary to severe thrombocytopenia - Not a candidate for nasal packing secondary to neutropenia - multiple doses of platelets ordered - s/p 1 dose of DDAVP -Monitor for signs of improvement Pancytopenia related to acute myelogenous leukemia (leukopenia, anemia, and thrombocytopenia) -Management per hematology's oncology -Status post 4 units of packed red blood cells, 5 units of platelet, 1 additional unit of pRBC, 1 additional unit of platelets -Continue with valacyclovir and voriconazole - awaiting repeat bone marrow biopsy. Prolonged QT -Continue to monitor -Avoid QT prolonging agents - possibly related to cipro BID, which is on hold pending resumption by oncology HTN, controlled - procardia DVT prophylaxis: SCDs Discussed with: Patient, nursing Anticipated discharge: in AM if bleeding controlled Anticipated discharge place: home A total of 25 minutes was spent on the care of this complex patient more than 50% of the time was spent in counseling and care coordination. Objective - Vital Signs Vital signs: Vital Signs Temp 98.8 F 08/25/20 18:12 Pulse 103 H 08/25/20 18:12 Resp 18 08/25/20 18:12 BP 129/73 08/25/20 18:12 Pulse Ox 98 08/25/20 18:12 Intake & Output 08/25/20 08/25/20 08/26/20 06:59 18:59 06:59 Intake Total 425 1008 Output Total 100 Balance 425 908 Intake: Oral 698 Blood Product 425 310 Platelet Irr Pheresis Pas 250 0 -C Unit [id number] Platelet Irr Pheresis Pas 175 -C Unit [id number] Rc Pheresis Irrad As 3 310 Unit [id number] Output: Urine 100 Other: Voiding Method Urinal # Voids 2 - Labs CBC & Chem 7: 08/25/20 05:28 08/25/20 05:28 Labs: Abnormal Lab Results - Last 24 Hours (Table) 08/22/20 08/25/20 08/25/20 Range/Units 18:42 05:28 05:28 WBC 0.3 L* (3.8-10.6) k/uL RBC 2.35 L (4.30-5.90) m/uL Hgb 6.6 L* (13.0-17.5) gm/dL Hct 20.9 L (39.0-53.0) % RDW 21.5 H (11.5-15.5) % Plt Count 5 L* (150-450) k/uL Creatinine 0.5 L (0.6-1.5) mg/dL BUN/Creatinine Ratio 24.00 H (12.00-20.00) Ratio Calcium 7.5 L (8.7-10.3) mg/dL Total Bilirubin 1.3 H (0.3-1.2) mg/dL AST 41 H (14-35) U/L Total Protein 6.0 L (6.2-8.2) g/dL Albumin 3.40 L (3.80-4.90) g/dL Albumin/Globulin Ratio 1.31 L (1.60-3.17) g/dL Crossmatch See Detail
[2020-08-26 06:31] LABS: Anisocytosis Moderate; Hypochromasia Marked; MCHC 32.3 g/dL (31.0-37.0); MCV 89.9 fL (80.0-100.0); Mean Platelet Volume 7.9; Poikilocytosis Moderate; RBC 2.89 m/uL (4.30-5.90); RDW 20.5 % (11.5-15.5)
[2020-08-26 07:16] LABS: HGB 8.4 gm/dL (13.0-17.5); Platelet Count 6 k/uL (150-450); WBC 0.3 k/uL (3.8-10.6)
[2020-08-26] MEDS ORDERED: FUROSEMIDE 10 MG/ML 2 ML VIAL IV ONE (08:26)
[2020-08-26 09:55] LABS: African American GFR (CKD) 104.8 (60.0-200.0); Albumin 3.7 g/dL (3.80-4.90); Albumin/Globulin Ratio 1.12 (1.60-3.17); Anion Gap 7.7 mmol/L (4.00-12.00); BUN/Creat Ratio 21.43 Ratio (12.00-20.00); Calcium 8.5 mg/dL (8.7-10.3); Carbon Dioxide 27.3 mmol/L (21.6-31.8); Globulin 3.3 g/dL (1.6-3.3); Non-African American GFR(CKD) 90.4 (60.0-200.0); Potassium 3.7 mmol/L (3.5-5.5); Total Bilirubin 1.5 mg/dL (0.2-1.2)
[2020-08-26 10:21] LABS: INR 1.07 (0.90-1.11); Prothrombin Time 11.5 sec (9.9-11.9)
[2020-08-26] MEDS: polyethylene glycoL 3350 17 GM POWD.PACK PO SCH (11:13)
[2020-08-26] MEDS: HYDROcodone/APAP 7.5-325MG 1 EACH TAB PO PRN ×2 (11:13→20:52)
[2020-08-26] MEDS: VIT A,C & E-LUTEIN-MINERALS 1 EACH TAB PO SCH (11:14)
[2020-08-26] MEDS: valACYclovir 500 MG TAB PO SCH (11:14)
[2020-08-26] MEDS: VORICONAZOLE 200 MG TAB PO SCH ×2 (11:14→22:02)
[2020-08-26] MEDS: FOLIC ACID-VIT B COMPLEX-VIT C 1 CAP PO SCH (11:14)
[2020-08-26] MEDS: NIFEdipine XL 30 MG TAB.ER.24 PO SCH (11:14)
[2020-08-26] MEDS: SUCRALFATE 1 GM TAB PO SCH ×2 (11:14→22:01)
[2020-08-26] MEDS: allopurinoL 300 MG TAB PO SCH (11:14)
[2020-08-26] MEDS: CIPROFLOXACIN HCL 500 MG TAB PO SCH ×2 (11:15→22:01)
--- NOTE | 2020-08-26 16:44 | P.PN ---
Subjective Progress Note Date: 08/26/20 (delayed charting seen at 0800) Principal diagnosis: Epistaxis Patient is a 72-year-old male with a history of AML (transfusion dependent with last blood transfusion 2 weeks ago, last platelet transfusion 8 days prior to admission) currently undergoing chemotherapy, vertigo, gout, and multiple other comorbid conditions who presented to the emergency department secondary to nose bleed. In the ER he underwent an extensive evaluation. On admission was slightly hypotensive with a blood pressure of 98/54. Initial laboratory analysis showed white blood cell count of 0.5, hemoglobin 5.6, hematocrit 18.7, platelet count 4, sodium 136. He was admitted for epistaxis related to p ancytopenia. He received 2 units of packed red blood cells and 1 unit of platelets. On the morning of 08/23 he underwent his preplanned bone marrow biopsy with Dr. Whitfield. He received another unit of plt and blood due to continued bleeding. He continued to require blood and platelets and this was felt to be due to chemo. He had minimla temperature elevation Patient seen and examined at bedside. Less bleeding today, no sore throat feeling tired, no chest pain, no shortness of breath. General: ill appearing, no distress, appears at stated age Derm: Multiple areas of petechia and purpura throughout face, arms, abdomen, groin, and bilateral lower extremities, warm, dry Head: atraumatic, normocephalic, symmetric Eyes: EOMI, no lid lag, anicteric sclera Mouth: Multiple areas of petechia and purpura on lips and oral mucosa, scant amount bright red blood noted in posterior pharynx Cardiovascular: S1S2 reg, no murmur, positive posterior tibial pulse bilateral, Lungs: Coarse breath sounds bilateral , no accessory muscle use Abdominal: soft, nontender to palpation, no guarding, no appreciable organomegaly Ext: no gross muscle atrophy, trace edema, no contractures Neuro: CN II-XI grossly intact, no focal neuro deficits Psych: Alert, oriented, appropriate affect Epistaxis secondary to severe thrombocytopenia - Not a candidate for nasal packing secondary to neutropenia - multiple doses of platelets ordered - s/p 1 dose of DDAVP -Monitor for signs of improvement Pancytopenia related to acute myelogenous leukemia (leukopenia, anemia, and thrombocytopenia) -Management per hematology's oncology -Status post 5 units of packed red blood cells, 6 units of platelet, 1 additio nal unit of platelets ... all future blood product irradiated and leukocyte poor -Continue with valacyclovir and voriconazole - awaiting repeat bone marrow biopsy results Temp 99.8 and not diagnostic of fever - recheck EKG - Restart prophylatic Cipro, has been on valcyclovir and voriconazole - monitor closely for true fever and would need nroad spectrum abx. Prolonged QT - recheck ABG HTN, controlled - procardia DVT prophylaxis: SCDs Discussed with: Patient, nursing Anticipated discharge: 1-2 days once plt stable and bleeding controlled Anticipated discharge place: home A total of 25 minutes was spent on the care of this complex patient more than 50% of the time was spent in counseling and care coordination. Objective - Vital Signs Vital signs: Vital Signs Temp 98.7 F 08/26/20 13:00 Pulse 95 08/26/20 13:00 Resp 16 08/26/20 13:00 BP 130/67 08/26/20 13:00 Pulse Ox 97 08/26/20 13:00 Intake & Output 08/25/20 08/26/20 08/26/20 18:59 06:59 18:59 Intake Total 1008 347 Output Total 100 Balance 908 347 Intake: Oral 698 100 Blood Product 310 247 Platelet Irr Pheresis Pas 0 247 -C Unit [id number] Rc Pheresis Irrad As 3 310 Unit [id number] Output: Urine 100 Other: Voiding Method Urinal Urinal Urinal # Voids 2 - Labs CBC & Chem 7: 08/26/20 05:53 08/26/20 05:53 Labs: Abnormal Lab Results - Last 24 Hours (Table) 08/22/20 08/26/20 08/26/20 Range/Units 18:42 05:53 05:53 WBC 0.3 L* (3.8-10.6) k/uL RBC 2.89 L (4.30-5.90) m/uL Hgb 8.4 L D (13.0-17.5) gm/dL Hct 26.0 L (39.0-53.0) % RDW 20.5 H (11.5-15.5) % Plt Count 6 L* (150-450) k/uL BUN/Creatinine Ratio 21.43 H (12.00-20.00) Ratio Glucose 114 H (70-110) mg/dL Calcium 8.5 L (8.7-10.3) mg/dL Total Bilirubin 1.5 H (0.2-1.2) mg/dL AST 53 H (14-35) U/L Albumin 3.70 L (3.80-4.90) g/dL Albumin/Globulin Ratio 1.12 L (1.60-3.17) g/dL Crossmatch See Detail
[2020-08-26] MEDS ORDERED: ONDANSETRON 4 MG/2 ML VIAL IVP PRN (20:19)
[2020-08-26] MEDS: ACETAMINOPHEN TAB 325 MG TAB PO PRN ×2 (20:56→23:51)
[2020-08-27 06:23] LABS: Anisocytosis Moderate; HCT 25.3 % (39.0-53.0); HGB 7.9 gm/dL (13.0-17.5); Hypochromasia Marked; MCH 28.4 pg (25.0-35.0); MCHC 31.3 g/dL (31.0-37.0); MCV 90.7 fL (80.0-100.0); Mean Platelet Volume 7.6; Poikilocytosis Moderate; RBC 2.79 m/uL (4.30-5.90); RDW 20.4 % (11.5-15.5)
[2020-08-27 06:31] LABS: Platelet Count 12 k/uL (150-450); WBC 0.4 k/uL (3.8-10.6)
[2020-08-27] MEDS: VIT A,C & E-LUTEIN-MINERALS 1 EACH TAB PO SCH (09:02)
[2020-08-27] MEDS: FOLIC ACID-VIT B COMPLEX-VIT C 1 CAP PO SCH (09:02)
[2020-08-27] MEDS: polyethylene glycoL 3350 17 GM POWD.PACK PO SCH (09:02)
[2020-08-27] MEDS: NIFEdipine XL 30 MG TAB.ER.24 PO SCH (09:02)
[2020-08-27] MEDS: allopurinoL 300 MG TAB PO SCH (09:02)
[2020-08-27] MEDS: valACYclovir 500 MG TAB PO SCH (09:02)
[2020-08-27] MEDS: SUCRALFATE 1 GM TAB PO SCH ×2 (09:02→21:24)
[2020-08-27] MEDS: VORICONAZOLE 200 MG TAB PO SCH ×2 (09:03→21:24)
[2020-08-27] MEDS: HYDROcodone/APAP 7.5-325MG 1 EACH TAB PO PRN (09:06)
[2020-08-27] MEDS: CEFEPIME 2 GM in SODIUM CHLORIDE 0.9% 100 ML IVPB SCH ×3 (09:07→23:54)
[2020-08-27 09:28] LABS: African American GFR (CKD) 99.2 (60.0-200.0); Anion Gap 7.8 mmol/L (4.00-12.00); BUN/Creat Ratio 22.5 Ratio (12.00-20.00); Calcium 8.3 mg/dL (8.7-10.3); Carbon Dioxide 27.2 mmol/L (21.6-31.8); Magnesium 2.2 mg/dL (1.5-2.4); Non-African American GFR(CKD) 85.6 (60.0-200.0); Potassium 3.6 mmol/L (3.5-5.5)
--- NOTE | 2020-08-27 14:26 | XR ---
EXAMINATION TYPE: XR abdomen complete w decub DATE OF EXAM: 08/27/2020 HISTORY: Pain. Technique: 4 views of the abdomen are submitted. Comparison: None. Findings: There is no convincing evidence of pneumoperitoneum. The Bowel gas pattern is nonspecific and nonobstructive. No sizable air-fluid levels are seen. No mass effects are noted. No renal calcifications are identified. IMPRESSION: 1. Nonspecific nonobstructive bowel gas pattern
--- NOTE | 2020-08-27 15:11 | P.PN ---
Subjective Progress Note Date: 08/27/20 Patient is a 72-year-old male with a history of AML (transfusion dependent with last blood transfusion 2 weeks ago, last platelet transfusion 8 days prior to admission) currently undergoing chemotherapy, vertigo, gout, and multiple other comorbid conditions who presented to the emergency department secondary to nosebleed. In the ER he underwent an extensive evaluation. On admission was slightly hypotensive with a blood pressure of 98/54. Initial laboratory analysis showed white blood cell count of 0.5, hemoglobin 5.6, hematocrit 18.7, platelet count 4, sodium 136. He was admitted for epistaxis related to pancytopenia. He received 2 units of packed red blood cells and 1 unit of platelets. On the morning of 08/23 he underwent his preplanned bone marrow biopsy with Dr. Whitfield. He received another unit of plt and blood due to continued bleeding. He continued to require blood and platelets and this was felt to be due to chemo. The patient developed fever overnight on 08/26. He was started on Cefepime and ID was consulted. Patient was seen and evaluated at the bedside on 08/27. He denied a single episode of fever overnight. Denied any additional complaints. Denied abdominal pain, diarrhea. Denied cough, chest pain, shortness of breath. General: Non-toxic, in no acute distress, appears stated age, normal weight HEENT: NC/AT, anicteric sclerae, moist conjunctiva, no lid-lag, PERRLA Cardiovascular: S1/S2 wnl, no murmurs, rubs, or gallops Lungs: Clear to auscultation, normal respiratory effort, no accessory muscle use Abdominal: Soft, non-tender, non-distended, no guarding, rebound, or rigidity Skin: Diffuse petechiae and purpura Extremities: No edema or contractures Psychiatric: Alert and oriented to person, place and time, appropriate affect Neuro: CN II-XII grossly intact, Strength 5/5 in all 4 extremities, Speech intact, Sensation to light touch grossly intact throughout Neutropenic fever -C/w Cefepime -F/u blood cultures -ID consulted Epistaxis secondary to severe thrombocytopenia -Not a candidate for nasal packing secondary to neutropenia -s/p multiple platelet transfusions -s/p 1 dose of DDAVP -Continue to monitor CBC 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 all future blood product irradiated and leukocyte poor -Continue with valacyclovir, voriconazole, and Cefepime -Awaiting repeat bone marrow biopsy results Prolonged QT -Recheck EKG HTN, controlled -Procardia DVT prophylaxis: SCDs Discussed with: Patient, nursing Anticipated discharge: 1-2 days once plt stable and bleeding controlled Anticipated discharge place: home A total of 25 minutes was spent on the care of this complex patient more than 50% of the time was spent in counseling and care coordination. Objective - Vital Signs Vital signs: Vital Signs Temp 99.2 F 08/27/20 11:13 Pulse 99 08/27/20 11:13 Resp 17 08/27/20 11:13 BP 102/62 08/27/20 11:13 Pulse Ox 96 08/27/20 11:13 Intake & Output 08/26/20 08/27/20 08/27/20 18:59 06:59 18:59 Intake Total 343 Balance 343 Intake: Blood Product 343 Platelet Irr Pheresis Pas 343 -C Unit [id number] Other: Voiding Method Urinal Urinal Urinal # Voids 2 2 # Bowel Movements 1 - Labs CBC & Chem 7: 08/27/20 05:55 08/27/20 05:55 Labs: Abnormal Lab Results - Last 24 Hours (Table) 08/22/20 08/27/20 08/27/20 Range/Units 18:42 05:55 05:55 WBC 0.4 L* (3.8-10.6) k/uL RBC 2.79 L (4.30-5.90) m/uL Hgb 7.9 L (13.0-17.5) gm/dL Hct 25.3 L (39.0-53.0) % RDW 20.4 H (11.5-15.5) % Plt Count 12 L* D (150-450) k/uL BUN/Creatinine Ratio 22.50 H (12.00-20.00) Ratio Glucose 118 H (70-110) mg/dL Calcium 8.3 L (8.7-10.3) mg/dL Crossmatch See Detail
[2020-08-27] MEDS ORDERED: MAGNESIUM HYDROXIDE 2,400 MG/10 ML CUP PO PRN (17:26)
--- NOTE | 2020-08-27 17:31 | P.PN ---
Subjective Progress Note Date: 08/27/20 Principal diagnosis: Pancytopenia secondary to acute leukemia treatment In follow-up today patient has complaints of constipation, he is having difficulty sitting due to the pressure and his rectal area, his appetite is poor, his stomach is mildly upset. He denies any vomiting, fevers. He denies any acute bleeding, his purpura and petechiae are stable, no acute bruising or hematomas. Objective - Vital Signs Vital signs: Vital Signs Temp 99.2 F 08/27/20 11:13 Pulse 99 08/27/20 11:13 Resp 17 08/27/20 11:13 BP 102/62 08/27/20 11:13 Pulse Ox 96 08/27/20 11:13 Intake & Output 08/26/20 08/27/20 08/27/20 18:59 06:59 18:59 Intake Total 343 Balance 343 Intake: Blood Product 343 Platelet Irr Pheresis Pas 343 -C Unit [id number] Other: Voiding Method Urinal Urinal Urinal # Voids 2 2 # Bowel Movements 1 - Constitutional General appearance: Present: average body habitus, cooperative, mild distress - EENT EENT Comment(s): oral mucosa dry, wet prupura healing Eyes: Present: anicteric sclerae, EOMI ENT: Present: hearing grossly normal - Respiratory Respiratory: bilateral: CTA - Cardiovascular Heart sounds: normal: S1, S2 Abnormal Heart Sounds: Present: systolic murmur - Peripheral edema leg Peripheral Edema: bilateral: Trace - Gastrointestinal General gastrointestinal: Present: normal bowel sounds, soft, tenderness - Integumentary Integumentary Comment(s): all over the body petechiae, purpura persistent, not progressive - Neurologic Neurologic: Present: CNII-XII intact - Musculoskeletal Musculoskeletal: Present: generalized weakness, strength equal bilaterally - Psychiatric Psychiatric: Present: A&O x's 3, appropriate affect, intact judgment & insight - Labs CBC & Chem 7: 08/27/20 05:55 08/27/20 05:55 Labs: Abnormal Lab Results - Last 24 Hours (Table) 08/22/20 08/27/20 08/27/20 Range/Units 18:42 05:55 05:55 WBC 0.4 L* (3.8-10.6) k/uL RBC 2.79 L (4.30-5.90) m/uL Hgb 7.9 L (13.0-17.5) gm/dL Hct 25.3 L (39.0-53.0) % RDW 20.4 H (11.5-15.5) % Plt Count 12 L* D (150-450) k/uL BUN/Creatinine Ratio 22.50 H (12.00-20.00) Ratio Glucose 118 H (70-110) mg/dL Calcium 8.3 L (8.7-10.3) mg/dL Crossmatch See Detail Assessment and Plan (1) AML (acute myeloid leukemia) Narrative/Plan: Status post bone marrow biopsy and aspirate 08/23/20 to see if remission was achieved with 1st cycle of venclexta and HMA. All treatment medications are on hold at this time. If patient's marrow comes back with remission patient can go on growth factors. Current Visit: Yes Status: Acute Priority: High Code(s): C92.00 - ACUTE MYELOBLASTIC LEUKEMIA, NOT HAVING ACHIEVED REMISSION SNOMED Code(s): 47576232 (2) Pancytopenia Narrative/Plan: No intervention for the low white blood cell count of 0.4. Continue empiric antibiotics Transfuse for hemoglobin less than 7. No transfusions today hemoglobin is 7.9 Transfuse for platelet count less than 10,[address] [address] today, no platelets today Irradiated blood products only. CBC daily Current Visit: Yes Status: Acute Priority: High Code(s): D61.818 - OTHER PANCYTOPENIA SNOMED Code(s): 326935781 (3) History of myelodysplastic syndrome Current Visit: No Status: Chronic Priority: Low Code(s): Z86.2 - PRSNL HISTORY OF DIS OF THE BLD[facility]BL[facility] Code(s): 305434565 Plan: Patient reporting constipation, nursing reporting stools last night. Staff today reporting mild perirectal irritation, very small amounts of stool. Abdominal x-ray was ordered due to abdominal discomfort. No acute abdomen. Have changed patient's diet to a full liquid for right now. Offering prune juice. Milk of magnesia added when necessary. Strict I's and O's Doctor attests: I performed a history and physical examination of this patient, developed impression and plan of care. Discussed with dictator. I agree with dictators note, documented as a scribe.
--- NOTE | 2020-08-28 01:32 | CONS ---
CONSULTATION DATE OF SERVICE: 08/27/2020 REASON FOR CONSULTATION: Febrile neutropenia. HISTORY OF PRESENT ILLNESS: The patient is a 80-year-old male with a past medical history significant for myelodysplastic syndrome, transfusion dependent, also with recent diagnosis of acute myeloid leukemia for which the patient is currently undergoing chemotherapy, last chemo has been about 2 weeks ago. The patient presented to hospital at [facility] about 5 days ago with nosebleed. Apparently the patient did have a blood work done in the outpatient setting by his oncologist and the patient was noticed to have low hemoglobin and platelet and had been scheduled for transfusion and bone marrow biopsy the next day. However, the patient woke up from a nap and noticed a small amount of blood in his nose and on his pillows for which the patient called his oncologist who advised the patient to go to the hospital. On arrival to the ER, the patient was afebrile. Patient's blood work did shows evidence of pancytopenia. Kidney function was normal. The patient did spike a fever of 101 degrees Fahrenheit last night that prompted this infectious disease consultation. This morning the patient is afebrile. The patient denies having any headache or further hemoptysis. No URI symptoms. No chest pain or shortness of breath or cough. Denies any abdominal pain. No diarrhea. No urinary symptoms. The patient was initiated on Cipro and Cipro was discontinued and the started on cefepime and he did have abdominal x-rays, which was nonspecific bowel gas pattern. No evidence of pneumoperitoneum. REVIEW OF SYSTEMS: Positive points have been mentioned in HPI. Rest of the systems are negative. PAST MEDICAL HISTORY: Myelodysplastic syndrome, acute myeloid leukemia, Thompson's palsy. PAST SURGICAL HISTORY: Bone marrow biopsy and left axilla lymph node biopsy, hernia repair, bilateral total knee arthroplasty. SOCIAL HISTORY: No history of smoking, drinking or drug use. FAMILY HISTORY: Father with CVA, TIA. Mother history of osteoarthritis, renal disease. ALLERGIES: No known drug allergies. MEDICATIONS: Medications include the patient is currently on Tylenol, [place], Zyloprim, cefepime 2 grams q.8 hours. He is on Antivert, Nephrocaps, Procardia XL, Zofran, MiraLAX, Carafate, Valtrex and Vfend. PHYSICAL EXAMINATION: Blood pressure is 121/62 with a pulse of 102, temperature of 98 degrees, T-max is 101. He is 97% on room air. General description is an elderly male lying in bed in no distress. No tachypnea or accessory muscle of respiration use. HEENT: Examination shows pallor, no scleral icterus. Oral mucous membranes dry. No pharyngeal erythema or thrush. NECK: Trachea central. No thyromegaly. LUNGS: Unlabored breathing, clear to auscultation anteriorly. No wheeze or crackle. HEART: S1, S2. Regular rate and rhythm. No added sounds. ABDOMEN: Soft, no tenderness. No guarding or rigidity. EXTREMITIES: No edema of feet. SKIN EXAMINATION: No rash or mass palpable. NEUROLOGICAL: Patient is awake, alert, oriented x3. Mood and affect normal. LABS: Hemoglobin 7.9, white count 0.4, platelet count is 12. BUN of 18, creatinine 0.8. Electrolytes have been normal. Liver enzymes are normal. Abdominal x-ray report mentioned above. DIAGNOSTIC IMPRESSION: Patient with febrile neutropenia in this patient did have a history of acute myeloid leukemia, admitted to hospital with epistaxis with evidence of severe pancytopenia with fever yesterday. However, no localizing signs or symptoms of infection in this patient currently with no chest examination , no abdominal tenderness or cellulitis. PLAN: 1. Will wait for the blood culture to finalize. 2. We will check a UA and chest x-ray. 3. Continue cefepime 2 grams q.8 hours. 4. We will follow on clinical condition and culture to further adjust medication if needed. Thank you for this consultation. Will follow this patient along with you. MMODL / IJN: [id number] /
[2020-08-28] MEDS ORDERED: MAGNESIUM HYDROXIDE 2,400 MG/10 ML CUP PO PRN (08:57)
[2020-08-28] MEDS: CEFEPIME 2 GM in SODIUM CHLORIDE 0.9% 100 ML IVPB SCH ×3 (09:06→23:02)
[2020-08-28] MEDS: VORICONAZOLE 200 MG TAB PO SCH ×2 (09:07→21:40)
[2020-08-28] MEDS: valACYclovir 500 MG TAB PO SCH (09:07)
[2020-08-28] MEDS: VIT A,C & E-LUTEIN-MINERALS 1 EACH TAB PO SCH (09:07)
[2020-08-28] MEDS: polyethylene glycoL 3350 17 GM POWD.PACK PO SCH (09:07)
[2020-08-28] MEDS: FOLIC ACID-VIT B COMPLEX-VIT C 1 CAP PO SCH (09:07)
[2020-08-28] MEDS: NIFEdipine XL 30 MG TAB.ER.24 PO SCH (09:07)
[2020-08-28] MEDS: allopurinoL 300 MG TAB PO SCH (09:07)
[2020-08-28] MEDS: SUCRALFATE 1 GM TAB PO SCH ×2 (09:07→21:40)
--- NOTE | 2020-08-28 10:14 | XR ---
EXAMINATION TYPE: XR chest 2V DATE OF EXAM: 08/28/2020 COMPARISON: Prior chest x-ray 06/15/2019 HISTORY: Fever, weakness TECHNIQUE: Frontal and lateral views of the chest are obtained. FINDINGS: Abnormal density differences of a hemithorax thought likely due to technique, there is over lying artifact There is no focal air space opacity, pleural effusion, or pneumothorax seen. There is a PICC line present via the left upper extremity approach, distal tip is within the right atrium. The cardiac silhouette size is within normal limits. The osseous structures are intact, there is thora cic spondylosis and the patient is rotated. IMPRESSION: No acute cardiopulmonary process. PICC line as described.
[2020-08-28 10:33] LABS: Anisocytosis Moderate; HCT 23.5 % (39.0-53.0); HGB 7.3 gm/dL (13.0-17.5); Hypochromasia Marked; MCH 27.9 pg (25.0-35.0); MCHC 31.2 g/dL (31.0-37.0); MCV 89.5 fL (80.0-100.0); Mean Platelet Volume 8.2; Poikilocytosis Slight; RBC 2.62 m/uL (4.30-5.90); RDW 20.3 % (11.5-15.5)
[2020-08-28 10:39] LABS: WBC 0.5 k/uL (3.8-10.6)
[2020-08-28 10:40] LABS: Platelet Count 6 k/uL (150-450)
[2020-08-28 10:50] LABS: ALT 53 U/L (4-49); AST 72 U/L (17-59); African American GFR (CKD) >90 (>60 ml/min/1.73 sqM); Albumin 3.3 g/dL (3.5-5.0); Albumin/Globulin Ratio 0.9; Alkaline Phosphatase 85 U/L (38-126); Anion Gap 4 mmol/L; Blood Urea Nitrogen 19 mg/dL (9-20); Calcium 7.9 mg/dL (8.4-10.2); Carbon Dioxide 26 mmol/L (22-30); Chloride 104 mmol/L (98-107); Globulin 3.7 g/dL; Glucose 122 mg/dL (74-99); Non-African American GFR(CKD) 85 (>60 ml/min/1.73 sqM); Potassium 3.6 mmol/L (3.5-5.1); Sodium 134 mmol/L (137-145); Total Bilirubin 1.7 mg/dL (0.2-1.3)
[2020-08-28] MEDS: SALT AND SODA MOUTHWASH 1,000 ML PO SCH ×4 (11:33→23:02)
--- NOTE | 2020-08-28 16:37 | P.PN ---
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 In the ER he underwent an extensive evaluation. On admission was slightly hypotensive with a blood pressure of 98/54. Initial laboratory analysis showed white blood cell count of 0.5, hemoglobin 5.6, hematocrit 18.7, platelet count 4, sodium 136. He was admitted for epistaxis related to pancytopenia. He received 2 units of packed red blood cells and 1 unit of platelets. On the morning of 08/23 he underwent his preplanned bone marrow biopsy with Dr. Whitfield. He received another unit of plt and blood due to continued bleeding. He continued to require blood and platelets and this was felt to be due to chemo. The patient developed fever overnight on 08/26. He was started on Cefepime and ID was consulted. Patient was seen and evaluated at the bedside on 08/28. The patient reported no additional episodes of fever overnight. Noted that he feels overall better today. Denied SOB, dysuria, abdominal pain, diarrhea, nausea, or vomiting. Reported no additional episodes of bleeding. General: Non-toxic, in no acute distress, appears stated age, normal weight HEENT: NC/AT, anicteric sclerae, moist conjunctiva, no lid-lag, PERRLA Cardiovascular: S1/S2 wnl, no murmurs, rubs, or gallops Lungs: Clear to auscultation, normal respiratory effort, no accessory muscle use Abdominal: Soft, non-tender, non-distended, no guarding, rebound, or rigidity Skin: Diffuse petechiae and purpura Extremities: No edema or contractures Psychiatric: Alert and oriented to person, place and time, appropriate affect Neuro: CN II-XII grossly intact, Strength 5/5 in all 4 extremities, Speech intact, Sensation to light touch grossly intact throughout Assessment/Plan Neutropenic fever -C/w Cefepime -F/u blood cultures -ID consulted -- recs appreciated -CXR neg Epistaxis secondary to severe thrombocytopenia -Not a candidate for nasal packing secondary to neutropenia -s/p multiple platelet transfusions -s/p 1 dose of DDAVP -Continue to monitor CBC 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 all future blood product irradiated and leukocyte poor -Continue with valacyclovir, voriconazole, and Cefepime -Awaiting repeat bone marrow biopsy results Prolonged QT -Avoid medications that may prolong it further HTN, controlled -Procardia DVT prophylaxis: SCDs Discussed with: Patient, nursing Anticipated discharge: 1-2 days once plt stable and bleeding controlled Anticipated discharge place: home A total of 25 minutes was spent on the care of this complex patient more than 50% of the time was spent in counseling and care coordination. Objective - Vital Signs Vital signs: Vital Signs Temp 98.9 F 08/28/20 15:00 Pulse 88 08/28/20 15:00 Resp 16 08/28/20 04:15 BP 104/61 08/28/20 15:00 Pulse Ox 99 08/28/20 15:00 Intake & Output 08/27/20 08/28/20 08/28/20 18:59 06:59 18:59 Output Total 700 Balance -700 Output: Urine 700 Other: Voiding Method Urinal # Voids 3 # Bowel Movements 2 1 - Labs CBC & Chem 7: 08/28/20 10:00 08/28/20 10:00 Labs: Abnormal Lab Results - Last 24 Hours (Table) 08/28/20 08/28/20 Range/Units 10:00 10:00 WBC 0.5 L* (3.8-10.6) k/uL RBC 2.62 L (4.30-5.90) m/uL Hgb 7.3 L (13.0-17.5) gm/dL Hct 23.5 L (39.0-53.0) % RDW 20.3 H (11.5-15.5) % Plt Count 6 L* (150-450) k/uL Sodium 134 L (137-145) mmol/L Glucose 122 H (74-99) mg/dL Calcium 7.9 L (8.4-10.2) mg/dL Total Bilirubin 1.7 H (0.2-1.3) mg/dL AST 72 H (17-59) U/L ALT 53 H (4-49) U/L Albumin 3.3 L (3.5-5.0) g/dL Microbiology - Last 24 Hours (Table) 08/27/20 08:50 Blood Culture - Preliminary Blood No Growth after 24 hours
[2020-08-28] MEDS: FILGRASTIM-SNDZ 480 MCG/0.8 ML SYRINGE SQ SCH (18:18)
--- NOTE | 2020-08-28 18:27 | P.PN ---
Subjective Progress Note Date: 08/28/20 Principal diagnosis: Pancytopenia secondary to acute leukemia treatment In follow-up today patient constipation, he feels is persistent, despite having large BM documented by nursing. Encourage perirectal care and external topicals only. Mild oral irritation, no vomiting, fevers. Purpura and petechiae are increased today. Objective - Vital Signs Vital signs: Vital Signs Temp 98.9 F 08/28/20 15:00 Pulse 88 08/28/20 15:00 Resp 16 08/28/20 16:00 BP 104/61 08/28/20 15:00 Pulse Ox 99 08/28/20 15:00 Intake & Output 08/27/20 08/28/20 08/28/20 18:59 06:59 18:59 Output Total 700 Balance -700 Output: Urine 700 Other: Voiding Method Urinal # Voids 3 1 # Bowel Movements 2 1 - Constitutional General appearance: Present: average body habitus, cooperative, no acute distr ess - EENT EENT Comment(s): dry mucus membranes, purpura Eyes: Present: anicteric sclerae, EOMI ENT: Present: hearing grossly normal - Respiratory Respiratory: bilateral: CTA - Cardiovascular Rhythm: regular Heart sounds: normal: S1, S2 - Peripheral edema leg Peripheral Edema: bilateral: None - Gastrointestinal General gastrointestinal: Present: normal bowel sounds, soft. Absent: absent bowel sounds, decreased bowel sounds, distended, hepatomegaly, hyperactive bowel sounds, organomegaly, rigid, scaphoid, splenomegaly, tenderness, umbilical hernia, ventral hernia - Integumentary Integumentary Comment(s): Petechiae, purpura, bruising - Neurologic Neurologic: Present: CNII-XII intact - Musculoskeletal Musculoskeletal: Present: generalized weakness - Psychiatric Psychiatric: Present: A&O x's 3, appropriate affect, intact judgment & insight - Labs CBC & Chem 7: 08/28/20 10:00 08/28/20 10:00 Labs: Abnormal Lab Results - Last 24 Hours (Table) 08/28/20 08/28/20 Range/Units 10:00 10:00 WBC 0.5 L* (3.8-10.6) k/uL RBC 2.62 L (4.30-5.90) m/uL Hgb 7.3 L (13.0-17.5) gm/dL Hct 23.5 L (39.0-53.0) % RDW 20.3 H (11.5-15.5) % Plt Count 6 L* (150-450) k/uL Sodium 134 L (137-145) mmol/L Glucose 122 H (74-99) mg/dL Calcium 7.9 L (8.4-10.2) mg/dL Total Bilirubin 1.7 H (0.2-1.3) mg/dL AST 72 H (17-59) U/L ALT 53 H (4-49) U/L Albumin 3.3 L (3.5-5.0) g/dL Microbiology - Last 24 Hours (Table) 08/27/20 08:50 Blood Culture - Preliminary Blood No Growth after 24 hours - Imaging and Cardiology Chest x-ray: report reviewed Assessment and Plan (1) AML (acute myeloid leukemia) Narrative/Plan: Status post bone marrow biopsy and aspirate 08/23/20. Report reviewed, pt has achieved remission! Venclexta and HMA will cont to be on hold until counts recover. Added GCSF today. Pt was happy with the news. Current Visit: Yes Status: Acute Priority: High Code(s): C92.00 - ACUTE MYELOBLASTIC LEUKEMIA, NOT HAVING ACHIEVED REMISSION SNOMED Code(s): 74218856 (2) Pancytopenia Narrative/Plan: No intervention for the low white blood cell count of 0.5. Continue empiric antibiotics. ID consulted Transfuse for hemoglobin less than 7. No transfusions today hemoglobin is 7.3 Transfuse for platelet count less than 10,000. Pt is symptomatic today (plt count returned 6K), platelets transfused Irradiated blood products only. CBC daily Current Visit: Yes Status: Acute Priority: High Code(s): D61.818 - OTHER PANCYTOPENIA SNOMED Code(s): 346552981 (3) History of myelodysplastic syndrome Current Visit: No Status: Chronic Priority: Low Code(s): Z86.2 - PRSNL HISTORY OF [facility] Code(s): 792366518 Plan: Attests: I have performed H&P and developed impression and plan of care of patient, discussed with dictator. I agree with dictated note, documented as a scribe.
[2020-08-28] MEDS: HYDROcodone/APAP 7.5-325MG 1 EACH TAB PO PRN (21:40)
--- NOTE | 2020-08-28 23:51 | PN ---
PROGRESS NOTE DATE OF SERVICE: 08/28/2020 REASON FOR FOLLOWUP: Febrile neutropenia. INTERVAL HISTORY: The patient did have low grade fever 100.9 this morning. The patient is afebrile since then. The patient overall is feeling better. Denies having any headache. No chest pain. No shortness of breath or cough. No nausea, no vomiting. No abdominal pain, no diarrhea. PHYSICAL EXAMINATION: Blood pressure 104/61 with a pulse of 88, temperature 98.9. He is 99% on room air. General description is an elderly male lying in bed in no distress. RESPIRATORY SYSTEM: Unlabored breathing, clear to auscultation anteriorly. HEART: S1, S2. Regular rate and rhythm. ABDOMEN: Soft, no tenderness. LABS: Hemoglobin 7.3, white count 0.5, creatinine 0.81. UA requested, not done. Chest x-ray negative for pneumonia. DIAGNOSTIC IMPRESSION AND PLAN: Patient with febrile neutropenia in this patient who does not have any obvious clinical focus of infection. Patient is currently cefepime. Inflammatory marker and procalcitonin to be checked tomorrow. Continue supportive care. MMODL / IJN: [id number] /
[2020-08-29 00:26] LABS: Appearance,Urine Clear (Clear); Bacteria,Urine Rare /hpf; Bilirubin,Urine Negative (Negative); Blood,Urine Moderate (Negative); Color,Urine Yellow; Glucose,Urine (UA) Negative (Negative); Ketones,Urine Negative (Negative); Leukocyte Esterase,Urine Negative (Negative); Mucus,Urine Occasional /hpf; Nitrite,Urine Negative (Negative); Protein,Urine 1+ (Negative); RBC,Urine 17 /hpf (0-5); Specific Gravity,Urine 1.018 (1.001-1.035); Urobilinogen,Urine <2.0 mg/dL (<2.0); WBC,Urine 1 /hpf (0-5)
[2020-08-29] MEDS: CEFEPIME 2 GM in SODIUM CHLORIDE 0.9% 100 ML IVPB SCH ×3 (07:02→20:49)
[2020-08-29] MEDS: SALT AND SODA MOUTHWASH 1,000 ML PO SCH ×4 (07:12→20:49)
[2020-08-29 07:23] LABS: Anisocytosis Moderate; HCT 21.6 % (39.0-53.0); Hypochromasia Marked; MCH 28.1 pg (25.0-35.0); MCHC 31.1 g/dL (31.0-37.0); MCV 90.3 fL (80.0-100.0); Poikilocytosis Slight; RDW 20.5 % (11.5-15.5)
[2020-08-29 07:35] LABS: WBC 0.4 k/uL (3.8-10.6)
[2020-08-29 07:36] LABS: Platelet Count 5 k/uL (150-450)
[2020-08-29 07:46] LABS: HGB 6.7 gm/dL (13.0-17.5)
[2020-08-29 08:03] LABS: Mixed Population RBC Present
[2020-08-29] MEDS: SUCRALFATE 1 GM TAB PO SCH ×2 (09:18→20:49)
[2020-08-29] MEDS: NIFEdipine XL 30 MG TAB.ER.24 PO SCH (09:18)
[2020-08-29] MEDS: polyethylene glycoL 3350 17 GM POWD.PACK PO SCH ×2 (09:18→09:33)
[2020-08-29] MEDS: VIT A,C & E-LUTEIN-MINERALS 1 EACH TAB PO SCH (09:18)
[2020-08-29] MEDS: FOLIC ACID-VIT B COMPLEX-VIT C 1 CAP PO SCH (09:18)
[2020-08-29] MEDS: allopurinoL 300 MG TAB PO SCH (09:18)
[2020-08-29] MEDS: valACYclovir 500 MG TAB PO SCH (09:19)
[2020-08-29] MEDS: VORICONAZOLE 200 MG TAB PO SCH ×2 (09:19→20:49)
[2020-08-29 13:48] VITALS: BMI 25.5
--- NOTE | 2020-08-29 14:33 | P.PN ---
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 In the ER he underwent an extensive evaluation. On admission was slightly hypotensive with a blood pressure of 98/54. Initial laboratory analysis showed white blood cell count of 0.5, hemoglobin 5.6, hematocrit 18.7, platelet count 4, sodium 136. He was admitted for epistaxis related to p ancytopenia. He received 2 units of packed red blood cells and 1 unit of platelets. On the morning of 08/23 he underwent his preplanned bone marrow biopsy with Dr. Whitfield. He received another unit of plt and blood due to continued bleeding. He continued to require blood and platelets and this was felt to be due to chemo. He had minimal temperature elevation 08/27 and cipro was restarted. He then spiked fevers on 08/27 and was transitioned to cefepime for neurtopenic fevers. Bone marrow showed remission of AML and he was started on Gm-csf. Patient seen and examined at bedside. Feeling tired but happy today, no nausea, no vomiting, no diarrhea. General: ill appearing, no distress, appears at stated age Derm: Multiple areas of petechia and purpura throughout face, arms, abdomen, groin, and bilateral lower extremities, warm, dry Head: atraumatic, normocephalic, symmetric Eyes: EOMI, no lid lag, anicteric sclera Mouth: Multiple areas of petechia and purpura on lips and oral mucosa, scant amount bright red blood noted in posterior pharynx Cardiovascular: S1S2 reg, no murmur, positive posterior tibial pulse bilateral, Lungs: Coarse breath sounds bilateral , no accessory muscle use Abdominal: soft, nontender to palpation, no guarding, no appreciable organomegaly Ext: no gross muscle atrophy, trace edema, no contractures Neuro: CN II-XI grossly intact, no focal neuro deficits Psych: Alert, oriented, appropriate affect Epistaxis secondary to severe thrombocytopenia - Not a candidate for nasal packing secondary to neutropenia - multiple doses of platelets ordered - s/p 1 dose of DDAVP -Monitor for signs of improvement 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 all future blood product irradiated and leukocyte poor -Continue with valacyclovir and voriconazole - remission on bone marrow from 08/23/2020 Neutropenic fevers - CXR negative, blood cx negative, urine culture pending. - ID recs: Cefepime, has been on valcyclovir and voriconazole - monitor closely for true fever and would need nroad spectrum abx. HTN, controlled - procardia Prolonged QT, resolved DVT prophylaxis: SCDs Discussed with: Patient, nursing Anticipated discharge: 1-2 days once plt stable and bleeding controlled Anticipated discharge place: home A total of 25 minutes was spent on the care of this complex patient more than 50% of the time was spent in counseling and care coordination. Objective - Vital Signs Vital signs: Vital Signs Temp 98.1 F 08/29/20 05:33 Pulse 83 08/29/20 05:33 Resp 14 08/29/20 05:33 BP 104/53 08/29/20 05:33 Pulse Ox 98 08/29/20 05:33 Intake & Output 08/28/20 08/29/20 08/29/20 18:59 06:59 18:59 Intake Total 429 Balance 429 Weight 90.265 kg Intake: Intake, IV Titration 100 Amount Cefepime 2 gm In Sodium 100 Chloride 0.9% 100 ml @ 25 mls/hr IVPB Q8HR COUNTS INCLUDE 234 BEDS AT THE [facility] Rx# :[id number] Blood Product 329 Platelet Pheresis Pas 329 Psoralen Unit [id number] Other: # Voids 1 3 # Bowel Movements 1 1 - Labs CBC & Chem 7: 08/29/20 06:30 08/28/20 10:00 Labs: Abnormal Lab Results - Last 24 Hours (Table) 08/28/20 08/29/20 08/29/20 Range/Units 23:50 06:30 06:30 WBC 0.4 L* (3.8-10.6) k/uL RBC 2.40 L (4.30-5.90) m/uL Hgb 6.7 L* (13.0-17.5) gm/dL Hct 21.6 L (39.0-53.0) % RDW 20.5 H (11.5-15.5) % Plt Count 5 L* (150-450) k/uL C-Reactive Protein (0.0-0.8) mg/dL Procalcitonin 0.21 H (0.02-0.09) ng/mL Urine Protein 1+ H (Negative) Urine Blood Moderate H (Negative) Urine RBC 17 H (0-5) /hpf Urine Bacteria Rare H (None) /hpf Urine Mucus Occasional H (None) /hpf Crossmatch 08/29/20 08/29/20 Range/Units 06:30 09:50 WBC (3.8-10.6) k/uL RBC (4.30-5.90) m/uL Hgb (13.0-17.5) gm/dL Hct (39.0-53.0) % RDW (11.5-15.5) % Plt Count (150-450) k/uL C-Reactive Protein 10.0 H (0.0-0.8) mg/dL Procalcitonin (0.02-0.09) ng/mL Urine Protein (Negative) Urine Blood (Negative) Urine RBC (0-5) /hpf Urine Bacteria (None) /hpf Urine Mucus (None) /hpf Crossmatch See Detail Microbiology - Last 24 Hours (Table) 08/27/20 08:50 Blood Culture - Preliminary Blood No Growth after 48 hours
--- NOTE | 2020-08-29 17:40 | P.PN ---
Subjective Progress Note Date: 08/29/20 Principal diagnosis: Pancytopenia secondary to acute leukemia treatment In follow-up today patient rectal area feels much better, he has had several BMs. No current bleeding, bruising stable, mouth feels better. No fevers, cough, uncontrolled pain. Objective - Vital Signs Vital signs: Vital Signs Temp 98.9 F 08/29/20 17:26 Pulse 84 08/29/20 17:26 Resp 16 08/29/20 17:26 BP 121/67 08/29/20 17:26 Pulse Ox 98 08/29/20 17:26 Intake & Output 08/28/20 08/29/20 08/29/20 18:59 06:59 18:59 Intake Total 429 0 Balance 429 0 Weight 90.265 kg Intake: Intake, IV Titration 100 Amount Cefepime 2 gm In Sodium 100 Chloride 0.9% 100 ml @ 25 mls/hr IVPB Q8HR [facility] Rx# :[id number] Blood Product 329 0 Platelet Irr Pheresis 0 Acda1 Unit [id number] Platelet Pheresis Pas 329 Psoralen Unit [id number] Other: # Voids 1 3 2 # Bowel Movements 1 1 6 - Constitutional General appearance: Present: average body habitus, cooperative, no acute distress - EENT EENT Comment(s): wet purpura are improved Eyes: Present: anicteric sclerae, EOMI ENT: Present: hearing grossly normal - Respiratory Respiratory: bilateral: CTA (crackles in bases) - Cardiovascular Rhythm: regular Heart sounds: normal: S1, S2 Abnormal Heart Sounds: Absent: systolic murmur, diastolic murmur, rub, S3 Gallop, S4 Gallop, click, other - Peripheral edema leg Peripheral Edema: bilateral: Trace - Gastrointestinal General gastrointestinal: Present: normal bowel sounds, soft - Integumentary Integumentary Comment(s): petechiae, purpura, bruising, no enlarging hematomas - Neurologic Neurologic: Present: CNII-XII intact - Musculoskeletal Musculoskeletal: Present: generalized weakness, strength equal bilaterally - Psychiatric Psychiatric: Present: A&O x's 3, appropriate affect, intact judgment & insight - Labs CBC & Chem 7: 08/29/20 06:30 08/28/20 10:00 Labs: Abnormal Lab Results - Last 24 Hours (Table) 08/28/20 08/29/2020 Range/Units 23:50 06:30 06:30 WBC 0.4 L* (3.8-10.6) k/uL RBC 2.40 L (4.30-5.90) m/uL Hgb 6.7 L* (13.0-17.5) gm/dL Hct 21.6 L (39.0-53.0) % RDW 20.5 H (11.5-15.5) % Plt Count 5 L* (150-450) k/uL C-Reactive Protein (0.0-0.8) mg/dL Procalcitonin 0.21 H (0.02-0.09) ng/mL Urine Protein 1+ H (Negative) Urine Blood Moderate H (Negative) Urine RBC 17 H (0-5) /hpf Urine Bacteria Rare H (None) /hpf Urine Mucus Occasional H (None) /hpf Crossmatch 08/29/20 08/29/20 Range/Units 06:30 09:50 WBC (3.8-10.6) k/uL RBC (4.30-5.90) m/uL Hgb (13.0-17.5) gm/dL Hct (39.0-53.0) % RDW (11.5-15.5) % Plt Count (150-450) k/uL C-Reactive Protein 10.0 H (0.0-0.8) mg/dL Procalcitonin (0.02-0.09) ng/mL Urine Protein (Negative) Urine Blood (Negative) Urine RBC (0-5) /hpf Urine Bacteria (None) /hpf Urine Mucus (None) /hpf Crossmatch See Detail Microbiology - Last 24 Hours (Table) 08/27/20 08:50 Blood Culture - Preliminary Blood No Growth after 48 hours Assessment and Plan (1) AML (acute myeloid leukemia) Narrative/Plan: Status post bone marrow biopsy and aspirate 08/23/20. Report reviewed, pt has achieved remission! Venclexta and HMA will cont to be on hold until counts recover. Added GCSF today. Current Visit: Yes Status: Acute Priority: High Code(s): C92.00 - ACUTE MYELOBLASTIC LEUKEMIA, NOT HAVING ACHIEVED REMISSION SNOMED Code(s): 93805033 (2) Pancytopenia Narrative/Plan: GCSF started, white blood cell count of 0.4. Continue empiric antibiotics. ID consulted Transfuse for hemoglobin less than 7. Transfusion today hemoglobin is 6.7 Transfuse for platelet count less than 10,000. Plt 5K, transfuse. Nursing reports that platelets from yesterday have not yet been transfused Irradiated blood products only. CBC daily Current Visit: Yes Status: Acute Priority: High Code(s): D61.818 - OTHER PANCYTOPENIA SNOMED Code(s): 085523542 (3) History of myelodysplastic syndrome Current Visit: No Status: Chronic Priority: Low Code(s): Z86.2 - PRSNL HIST[facility] Code(s): 276195204 Plan: Was considering neuropathic agents for patient's complaints of neuropathy in the feet. After reviewing the side effect profile not felt to be safe to do so at this time. Have ordered topical capsaicin. Also started patient on a multivitamin. Attests: I have performed H&P and developed impression and plan of care of patient, discussed with dictator. I agree with dictated note, documented as a scribe.
[2020-08-29] MEDS: MULTIVITAMINS, THERA LIQUID 237 ML BOTTLE PO SCH (18:19)
[2020-08-29] MEDS: CAPSAICIN 0.025% CREAM 60 GM TUBE TOPICAL SCH ×2 (18:19→20:54)
[2020-08-29] MEDS: FILGRASTIM-SNDZ 480 MCG/0.8 ML SYRINGE SQ SCH (18:19)
[2020-08-29] MEDS: HYDROcodone/APAP 7.5-325MG 1 EACH TAB PO PRN (20:48)
[2020-08-29] MEDS ORDERED: PREGABALIN 75 MG CAP PO SCH (21:00)
--- NOTE | 2020-08-29 23:16 | PN ---
PROGRESS NOTE DATE OF SERVICE: 08/29/2020 REASON FOR FOLLOWUP: Febrile neutropenia. INTERVAL HISTORY: Patient did have a low-grade fever of 99.4 degrees Fahrenheit today. The patient overall is feeling better though. He is breathing comfortably. He denies having any chest pain. No cough. No nausea, no vomiting. No abdominal pain or diarrhea. PHYSICAL EXAMINATION: Blood pressure is 116/67, pulse of 83, temperature 98.3. He is 96% on room air. General description: The patient is an elderly male lying in bed in no distress. Respiratory system: Unlabored breathing, decreased intense breath sounds. No wheeze. HEART: S1, S2. Regular rate and rhythm. Abdomen soft, no tenderness. LABS: Hemoglobin is 6.7. CRP is 10. Procalcitonin 0.21. Blood culture has been negative. DIAGNOSTIC IMPRESSION AND PLAN: Patient with febrile neutropenia in this patient who did have a low-grade fever could be related to underlying malignancy. However, procalcitonin has been elevated as well. So, continue with cefepime and we will monitor clinical course closely. MMODL / IJN: [id number] /
[2020-08-30] MEDS: SALT AND SODA MOUTHWASH 1,000 ML PO SCH ×5 (00:44→20:59)
[2020-08-30] MEDS: CEFEPIME 2 GM in SODIUM CHLORIDE 0.9% 100 ML IVPB SCH ×3 (03:35→20:59)
[2020-08-30] MEDS: HYDROcodone/APAP 7.5-325MG 1 EACH TAB PO PRN ×4 (03:47→19:54)
[2020-08-30 06:03] LABS: Anisocytosis Slight; HCT 23.5 % (39.0-53.0); HGB 7.4 gm/dL (13.0-17.5); Hypochromasia Moderate; MCH 28.6 pg (25.0-35.0); MCHC 31.6 g/dL (31.0-37.0); MCV 90.4 fL (80.0-100.0); Mean Platelet Volume 7.8; Poikilocytosis Moderate; RDW 19.8 % (11.5-15.5)
[2020-08-30 06:05] LABS: Platelet Count 10 k/uL (150-450); WBC 0.4 k/uL (3.8-10.6)
[2020-08-30] MEDS: allopurinoL 300 MG TAB PO SCH (08:24)
[2020-08-30] MEDS: NIFEdipine XL 30 MG TAB.ER.24 PO SCH (08:25)
[2020-08-30] MEDS: VORICONAZOLE 200 MG TAB PO SCH ×2 (08:25→21:53)
[2020-08-30] MEDS: polyethylene glycoL 3350 17 GM POWD.PACK PO SCH ×2 (08:25→08:38)
[2020-08-30] MEDS: MULTIVITAMINS, THERA LIQUID 237 ML BOTTLE PO SCH (08:25)
[2020-08-30] MEDS: FOLIC ACID-VIT B COMPLEX-VIT C 1 CAP PO SCH (08:25)
[2020-08-30] MEDS: SUCRALFATE 1 GM TAB PO SCH ×2 (08:25→21:53)
[2020-08-30] MEDS: valACYclovir 500 MG TAB PO SCH (08:25)
[2020-08-30] MEDS: VIT A,C & E-LUTEIN-MINERALS 1 EACH TAB PO SCH (08:25)
[2020-08-30] MEDS: CAPSAICIN 0.025% CREAM 60 GM TUBE TOPICAL SCH ×4 (08:30→21:53)
[2020-08-30 10:01] LABS: African American GFR (CKD) 111.6 (60.0-200.0); Anion Gap 3.9 mmol/L (4.00-12.00); Carbon Dioxide 28.1 mmol/L (21.6-31.8); Magnesium 2.1 mg/dL (1.5-2.4); Non-African American GFR(CKD) 96.3 (60.0-200.0); Potassium 3.8 mmol/L (3.5-5.5)
--- NOTE | 2020-08-30 17:06 | P.PN ---
Subjective Progress Note Date: 08/30/20 Principal diagnosis: Pancytopenia Patient is doing well, no epistaxis or any other signs of bleeding. No pain or sob. No overnight events. Objective - Vital Signs Vital signs: Vital Signs Temp 98.4 F 08/30/20 14:42 Pulse 79 08/30/20 14:42 Resp 18 08/30/20 14:42 BP 123/64 08/30/20 14:42 Pulse Ox 98 08/30/20 14:42 Intake & Output 08/29/20 08/30/20 08/30/20 18:59 06:59 18:59 Intake Total 250 310 Balance 250 310 Weight 90.265 kg Intake: Blood Product 250 310 Platelet Irr Pheresis 250 Acda1 Unit [id number] Rc Irr As1 Unit 0 310 [id number] Other: Voiding Method Urinal # Voids 2 1 3 # Bowel Movements 6 1 - Exam General: No distress, appears at stated age Derm: Multiple areas of petechia and purpura throughout face, arms, abdomen, groin, and bilateral lower extremities, warm, dry Head: atraumatic, normocephalic, symmetric Eyes: EOMI, no lid lag, anicteric sclera Mouth: Multiple areas of petechia and purpura on lips and oral mucosa, scant amount bright red blood noted in posterior pharynx Cardiovascular: S1S2 reg, no murmur, positive posterior tibial pulse bilateral, Lungs: Coarse breath sounds bilateral , no accessory muscle use Abdominal: soft, nontender to palpation, no guarding, no appreciable organomegaly Ext: no gross muscle atrophy, trace edema, no contractures Neuro: CN II-XI grossly intact, no focal neuro deficits Psych: Alert, oriented, appropriate affect - Labs CBC & Chem 7: 08/30/20 05:55 08/30/20 05:55 Labs: Abnormal Lab Results - Last 24 Hours (Table) 08/29/20 08/30/20 08/30/20 Range/Units 09:50 05:55 05:55 WBC 0.4 L* (3.8-10.6) k/uL RBC 2.60 L (4.30-5.90) m/uL Hgb 7.4 L (13.0-17.5) gm/dL Hct 23.5 L (39.0-53.0) % RDW 19.8 H (11.5-15.5) % Plt Count 10 L* D (150-450) k/uL Anion Gap 3.90 L (4.00-12.00) mmol/L BUN/Creatinine Ratio 25.00 H (12.00-20.00) Ratio Calcium 8.0 L (8.7-10.3) mg/dL Crossmatch See Detail Microbiology - Last 24 Hours (Table) 08/27/20 08:50 Blood Culture - Preliminary Blood No Growth after 72 hours Assessment and Plan Plan: Epistaxis secondary to severe thrombocytopenia - Not a candidate for nasal packing secondary to neutropenia - multiple doses of platelets given - s/p 1 dose of DDAVP -Monitor for signs of improvement 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 all future blood product irradiated and leukocyte poor -Continue with valacyclovir and voriconazole - remission on bone marrow from 08/23/2020 Neutropenic fevers - Resolved - CXR negative, blood cx negative, urine culture pending. - ID recs: Cefepime, has been on valcyclovir and voriconazole HTN, controlled - procardia Prolonged QT, resolved DVT prophylaxis: SCDs Discussed with: Patient, nursing Anticipated discharge: tomorrow once plt stable and bleeding controlled Anticipated discharge place: home A total of 25 minutes was spent on the care of this complex patient more than 50% of the time was spent in counseling and care coordination.
[2020-08-30] MEDS: FILGRASTIM-SNDZ 480 MCG/0.8 ML SYRINGE SQ SCH (17:58)
--- NOTE | 2020-08-30 18:09 | P.PN ---
Subjective Progress Note Date: 08/30/20 Principal diagnosis: Pancytopenia secondary to acute leukemia treatment In follow-up today patient he is denying any bleeding, no fevers, breathing comfortably, no cough, hemoptysis, nausea, vomiting, abdominal pain or cramping, his bowels are moving well now. Denies pain. Objective - Vital Signs Vital signs: Vital Signs Temp 98.4 F 08/30/20 14:42 Pulse 79 08/30/20 14:42 Resp 16 08/30/20 16:00 BP 123/64 08/30/20 14:42 Pulse Ox 98 08/30/20 14:42 Intake & Output 08/29/20 08/30/20 08/30/20 18:59 06:59 18:59 Intake Total 250 310 Balance 250 310 Weight 90.265 kg Intake: Blood Product 250 310 Platelet Irr Pheresis 250 Acda1 Unit [id number] Rc Irr As1 Unit 0 310 [id number] Other: Voiding Method Urinal Urinal # Voids 2 1 3 # Bowel Movements 6 1 - Constitutional General appearance: Present: average body habitus, cooperative, no acute distress - EENT EENT Comment(s): wet purpura improving Eyes: Present: anicteric sclerae, EOMI ENT: Present: hearing grossly normal - Respiratory Respiratory: bilateral: CTA (soft crackles bilateral bases) - Cardiovascular Rhythm: regular Heart sounds: normal: S1, S2 - Peripheral edema leg Peripheral Edema: bilateral: Trace - Gastrointestinal General gastrointestinal: Present: normal bowel sounds, soft - Integumentary Integumentary Comment(s): petechiae and purpura stable - Neurologic Neurologic: Present: CNII-XII intact - Musculoskeletal Musculoskeletal: Present: generalized weakness - Psychiatric Psychiatric: Present: A&O x's 3, appropriate affect, intact judgment & insight - Labs CBC & Chem 7: 08/30/20 05:55 08/30/20 05:55 Labs: Abnormal Lab Results - Last 24 Hours (Table) 08/29/20 08/30/20 08/30/20 Range/Units 09:50 05:55 05:55 WBC 0.4 L* (3.8-10.6) k/uL RBC 2.60 L (4.30-5.90) m/uL Hgb 7.4 L (13.0-17.5) gm/dL Hct 23.5 L (39.0-53.0) % RDW 19.8 H (11.5-15.5) % Plt Count 10 L* D (150-450) k/uL Anion Gap 3.90 L (4.00-12.00) mmol/L BUN/Creatinine Ratio 25.00 H (12.00-20.00) Ratio Calcium 8.0 L (8.7-10.3) mg/dL Crossmatch See Detail Microbiology - Last 24 Hours (Table) 08/27/20 08:50 Blood Culture - Preliminary Blood No Growth after 72 hours Assessment and Plan (1) AML (acute myeloid leukemia) Narrative/Plan: Status post bone marrow biopsy and aspirate 08/23/20. Report reviewed, pt has achieved remission! Venclexta and HMA will cont to be on hold until counts recover. Added GCSF 08/28/20. Continue injections daily. Appointment in the office for 09/04 at 3 PM. Current Visit: Yes Status: Acute Priority: High Code(s): C92.00 - ACUTE MYELOBLASTIC LEUKEMIA, NOT HAVING ACHIEVED REMISSION SNOMED Code(s): 63105608 (2) Pancytopenia Narrative/Plan: GCSF started, white blood cell count of 0.4. Continue empiric antibiotics. ID consulted Transfuse for hemoglobin less than 7. Hemoglobin is 7.4 Transfuse for platelet count less than 10,000. Plt 10K. Irradiated blood products only. CBC daily As soon as there is an improvement in the white count it would be best for patient to be discharged. Patient can receive transfusions for his low blood counts in the outpatient setting, which is preferred. He does have an edith ointment Thursday at 3:00. Pending antibiotic recommendations from ID. Once hemoglobin and platelets felt to be adequate enough to get patient to appointment on Thursday he is ok from Onc standpoint to be discharged. Current Visit: Yes Status: Acute Priority: High Code(s): D61.818 - OTHER PANCYTOPENIA SNOMED Code(s): 124137653 (3) History of myelodysplastic syndrome Current Visit: No Status: Chronic Priority: Low Code(s): Z86.2 - PRSNL HISTORY OF DIS OF THE BLD[facility] Code(s): 800726930 Plan: Topical capsaicin and multivitamin started for neuropathy. Attests: I have performed H&P and developed impression and plan of care of p atient, discussed with dictator. I agree with dictated note, documented as a scribe.
--- NOTE | 2020-08-30 23:33 | PN ---
PROGRESS NOTE DATE OF SERVICE: 08/30/2020 REASON FOR FOLLOWUP: Febrile neutropenia. INTERVAL HISTORY: The patient is currently afebrile. He is feeling better. Breathing comfortably. Patient denies having any chest pain or shortness of breath. No cough. No nausea, no vomiting. No abdominal pain or diarrhea. PHYSICAL EXAMINATION: Blood pressure 142/76, pulse of 87, temperature 98.6. He is 96% on room air. General description is an elderly male lying in bed in no distress. RESPIRATORY SYSTEM: Unlabored breathing, clear to auscultation anteriorly. HEART: S1, S2. Regular rate and rhythm. ABDOMEN: Soft, no tenderness. LABS: Hemoglobin 7.4, white count 0.4, creatinine 0.6. Blood culture has been negative. DIAGNOSTIC IMPRESSION AND PLAN: Patient with febrile neutropenia in this patient who is status post chemo, currently with no obvious focus of infection. Culture had been negative so far. On empiric cefepime to continue and monitor clinical course closely. Continue supportive care. MMODL / IJN: [id number] /
[2020-08-31] MEDS: SALT AND SODA MOUTHWASH 1,000 ML PO SCH ×3 (00:26→11:23)
[2020-08-31] MEDS: CEFEPIME 2 GM in SODIUM CHLORIDE 0.9% 100 ML IVPB SCH ×2 (04:47→12:59)
[2020-08-31] MEDS: NIFEdipine XL 30 MG TAB.ER.24 PO SCH (08:26)
[2020-08-31] MEDS: allopurinoL 300 MG TAB PO SCH (08:26)
[2020-08-31] MEDS: VORICONAZOLE 200 MG TAB PO SCH (08:26)
[2020-08-31] MEDS: MULTIVITAMINS, THERA LIQUID 237 ML BOTTLE PO SCH (08:26)
[2020-08-31] MEDS: VIT A,C & E-LUTEIN-MINERALS 1 EACH TAB PO SCH (08:26)
[2020-08-31] MEDS: valACYclovir 500 MG TAB PO SCH (08:26)
[2020-08-31] MEDS: FOLIC ACID-VIT B COMPLEX-VIT C 1 CAP PO SCH (08:26)
[2020-08-31] MEDS: SUCRALFATE 1 GM TAB PO SCH (08:26)
[2020-08-31 08:49] LABS: Anisocytosis Slight; HCT 25.5 % (39.0-53.0); HGB 8.2 gm/dL (13.0-17.5); Hypochromasia Moderate; MCHC 32.1 g/dL (31.0-37.0); MCV 90.3 fL (80.0-100.0); Mean Platelet Volume 7.5; Poikilocytosis Slight; RBC 2.82 m/uL (4.30-5.90); RDW 19.4 % (11.5-15.5)
[2020-08-31 08:52] LABS: Platelet Count 6 k/uL (150-450); WBC 0.5 k/uL (3.8-10.6)
[2020-08-31 09:00] LABS: Poikilocytosis (M) Present
[2020-08-31] MEDS: CAPSAICIN 0.025% CREAM 60 GM TUBE TOPICAL SCH ×2 (11:24→12:58)
[2020-08-31] MEDS: polyethylene glycoL 3350 17 GM POWD.PACK PO SCH (11:29)
[2020-08-31 11:45] VITALS: RESP 16
[2020-08-31 12:55] VITALS: BP 146/72; PULSE 91; TEMP 98.5
[2020-08-31] MEDS: HYDROcodone/APAP 7.5-325MG 1 EACH TAB PO PRN (13:00)
--- NOTE | 2020-08-31 14:42 | P.DS ---
Providers Date of admission: 08/22/20 20:56 Expected date of discharge: 08/31/20 Attending physician: Alisha Buenrostro, DO Consults: 08/22/20 22:14 Consult Physician Urgent Consulting Provider: Jose Cruz Aragon Consult Reason/Comments: AML, MSD, pancytopenia Do you want consulting provider notified?: Yes 08/23/20 02:29 Consult Physician Routine Consulting Provider: Daryl Almaguer Consult Reason/Comments: medical management Do you want consulting provider notified?: Already Contacted 08/27/20 10:34 Consult Physician Routine Consulting Provider: Jaye Cutler Consult Reason/Comments: neutropenic fevers Do you want consulting provider notified?: Yes [facility] Course: 80 yo M with a PMH of MDS (transfusion dependent) and acute myelogenous leukemia (currently undergoing chemotherapy with last session 3 and a half weeks ago) who presented to the emergency room with complaints of nose bleed. The patient follows with Dr Aragon and notes that he underwent his routine blood work the day prior to admission which revealed a platelets of 8 and Hgb of 5.8. He contacted Dr Aragon who advised him to come to the ED. The patient also reports noticing multiple dark red blisters in his mouth and lips and petechiae throughout, which all occured over the past 2 weeks. Reports that the nose bleed did not recur. He denied noticing blood in stools or black tarry stools. Denied headache, visual disturbances, chest pain, SOB, nausea, or vomiting. Laboratory evaluation in the emergency room revealed a WBC count of 0.5, Hgb 5.6, and platelets 4. EKG revealed a NSR @ 80 bpm with a prolonged QT of [address]-T wave changes. He received 2 units of packed red blood cells and 1 unit of platelets upon admission. On the morning of 08/23 he underwent his preplanned bone marrow biopsy with Dr. Whitfield. He received another unit of plt and blood due to continued bleeding. He continued to require blood and platelets and this was felt to be due to chemo. Bone marrow showed remission of AML and he was started on Gm-csf. He had minimal temperature elevation 08/27 and cipro was restarted. He then spiked fevers on 08/27 and was transitioned to cefepime for neurtopenic fevers. After that one time fever spike he did not have any more fevers. Cefepime was continued up until discharge. Throughout the hospitalization his counts continued to drop and he required a total of 6 units of packed red blood cells, 8 units of platelet in addition to 1 dose of DDAVP throughout admission. Today he is doing well. No further episodes of bleeding noted. No fevers. His platelet count was noted at around 6 this morning so was transfused 1 unit of platelets. Case was discussed with infectious disease and with oncology service, patient was cleared for discharge. According to infectious disease Dr Cutler patient will be started on Augmentin for 1 week. He already has an appointment set up with oncology on Thursday. Time for discharge 36 min Patient Condition at Discharge: Serious Plan - Discharge Summary Discharge Rx Participant: No New Discharge Prescriptions: New Amoxicillin/Potassium Clav [Augmentin 875-125 Tablet] 1 tab PO BID 7 Days #2 tab Continue Meclizine [Antivert] 25 mg PO TID PRN tab PRN Reason: Vertigo Voriconazole [Vfend] 200 mg PO Q12HR tab allopurinoL [Zyloprim] 300 mg PO DAILY tab valACYclovir [Valtrex] 500 mg PO DAILY NIFEdipine [Adalat cc] 30 mg PO DAILY HYDROcodone/APAP 7.5-325MG [[place] 7.5-325] 1 tab PO Q4H PRN PRN Reason: Pain Vitamin B Complex/Folic Acid/Iron 1 cap PO DAILY Cholecalciferol [Vitamin D3 (25 Mcg = 1000 Iu)] 2,000 unit PO DAILY Loperamide [Imodium] 2 - 4 mg PO QID PRN PRN Reason: Diarrhea ondansetron HCL [Zofran] 8 mg PO Q8H PRN PRN Reason: Nausea And Vomiting Prochlorperazine [Compazine] 10 mg PO Q6H PRN PRN Reason: Nausea Sucralfate [Carafate] 1 gm PO BID Vit A,C & W-Lehfna-Jrvsnges [Ivite] 1 tab PO DAILY Discontinued Ciprofloxacin HCl [Cipro] 500 mg PO BID Venetoclax [Venclexta] 100 mg PO DAILY Discharge Medication List Meclizine [Antivert] 25 mg PO TID PRN tab 07/05/20 [Rx] Voriconazole [Vfend] 200 mg PO Q12HR tab 07/05/20 [Rx] allopurinoL [Zyloprim] 300 mg PO DAILY tab 07/05/20 [Rx] HYDROcodone/APAP 7.5-325MG [[place] 7.5-325] 1 tab PO Q4H PRN 07/30/20 [History] NIFEdipine [Adalat cc] 30 mg PO DAILY 07/30/20 [History] valACYclovir [Valtrex] 500 mg PO DAILY 07/30/20 [History] Cholecalciferol [Vitamin D3 (25 Mcg = 1000 Iu)] 2,000 unit PO DAILY 08/22/20 [History] Loperamide [Imodium] 2 - 4 mg PO QID PRN 08/22/20 [History] Prochlorperazine [Compazine] 10 mg PO Q6H PRN 08/22/20 [History] Sucralfate [Carafate] 1 gm PO BID 08/22/20 [History] Vit A,C & C-Kkovvd-Psdulnsi [Ivite] 1 tab PO DAILY 08/22/20 [History] Vitamin B Complex/Folic Acid/Iron 1 cap PO DAILY 08/22/20 [History] ondansetron HCL [Zofran] 8 mg PO Q8H PRN 08/22/20 [History] Amoxicillin/Potassium Clav [Augmentin 875-125 Tablet] 1 tab PO BID 7 Days #2 tab 08/31/20 [Rx] Follow up Appointment(s)/Referral(s): [facility] [facility] [NON-STAFF] - 1 Week Kiley Evans MD [Primary Care Provider] - 1-2 days (office is closed ,patient will have to schedule own appt.) Jose Cruz Aragon MD [STAFF PHYSICIAN] - 09/04/20 3:00 pm Patient Instructions/Handouts: Amoxicillin/Clavulanate Potassium (By mouth), Thrombocytopenia (DC), Pancytopenia (DC) Discharge/Stand Alone Forms: Community Resources
--- NOTE | 2020-08-31 15:37 | PN ---
PROGRESS NOTE DATE OF SERVICE: 08/31/2020 REASON FOR FOLLOWUP: Febrile neutropenia. INTERVAL HISTORY: The patient is currently afebrile. The patient is feeling better. Breathing comfortably. The patient denies having any chest pain. No shortness of breath or cough. No nausea. No vomiting, no abdominal pain. No diarrhea. Anxious to go home. PHYSICAL EXAMINATION: Blood pressure 146/72 with a pulse of 90, temperature 98.5. He is 97% on room air. General description is an elderly male, lying in bed in no distress. RESPIRATORY SYSTEM: Unlabored breathing, clear to auscultation anteriorly. HEART: S1, S2. Regular rate and rhythm. ABDOMEN: Soft, no tenderness. EXTREMITIES: No edema of the feet. LABS: Hemoglobin 8.2, white count 0.5. DIAGNOSTIC IMPRESSION AND PLAN: Patient with febrile neutropenia in this patient with underlying hematological malignancy. The patient did have extensive workup with no obvious focus of infection. The patient's culture has been negative. Continue to obtain culture. A short course of oral Augmentin and continue with Rocephin and acyclovir and close outpatient followup. Plan of care discussed with the admitting physician working on discharge. MMODL / IJN: [id number] /
--- NOTE | 2020-09-05 09:49 | CDI ---
Documentation Clarification Form Date: 09/05/20 From: Pita Baca Phone: If you have a question about this query, please contact Salma Sanford, Weapons Electrical Engineering Officer at [phone] between 8am and 5pm. Admit Date: 08/22/20 Discharge Date: 08/31/20 Patient Name: EMILIA BOOTH Visit Number: [id number] ATTENTION: The Clinical Documentation Specialists (CDI) and [facility] Coding Staff appreciate your assistance in clarifying documentation. Please respond to the clarification below the line at the bottom and electronically sign. The CDI & [facility] Coding staff will review the response and follow-up if needed. Please note: Queries are made part of the Legal Health Record. If you have any questions, please contact the author of this message via ITS. Dear Dr. Marshall Whitfield, The final diagnosis of the pathology report states: Peripheral blood- pancytopenia. 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 No morphologic and immunophenotypic evidence of acute myeloid leukemia. 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 Clinical Indicators: The patient also reports noticing multiple dark red blisters in his mouth and lips and petechiae throughout, which all occurred over the past 2 weeks. Treatment: bone marrow biopsy In your professional opinion, do you agree with the pathology report specifying no morphologic and immunophenotypic evidence of acute myeloid leukemia? Hx of acute myeloid leukemia Acute myeloid leukemia still present Other (please specify) Unable to determine MTDD
== END 2020-08-31 14:55 | disposition home or self-care (01) | DRG 809 ==
LOC: EC 17:10 → 6NMEDSUR 20:56 → 5NMEDONC 08-23 00:52
PROVIDERS: ADMIT Internal Medicine; ATTEND Internal Medicine
PROC: 30233R1 Transfusion of Nonautologous Platelets into Peripheral Vein, Percutaneous Approach (ICD-10-PCS; 2020-08-23)
PROC: 30233N1 Transfusion of Nonautologous Red Blood Cells into Peripheral Vein, Percutaneous Approach (ICD-10-PCS; 2020-08-23)
PROC: 07DR3ZX Extraction of Iliac Bone Marrow, Percutaneous Approach, Diagnostic (ICD-10-PCS; principal; 2020-08-23 07:00)
DX: D61.810 Antineoplastic chemotherapy induced pancytopenia (principal); C92.00 Acute myeloblastic leukemia, not having achieved remission; C93.00 Acute monoblastic/monocytic leukemia, not having achieved remission; D69.2 Other nonthrombocytopenic purpura; I95.9 Hypotension, unspecified; K57.90 Diverticulosis of intestine, part unspecified, without perforation or abscess without bleeding; R50.81 Fever presenting with conditions classified elsewhere; G62.9 Polyneuropathy, unspecified; I10 Essential (primary) hypertension; R04.0 Epistaxis; G89.29 Other chronic pain; M54.5 Low back pain; K59.00 Constipation, unspecified; M10.9 Gout, unspecified; H35.30 Unspecified macular degeneration; H26.9 Unspecified cataract; G51.0 Bell's palsy; M62.561 Muscle wasting and atrophy, not elsewhere classified, right lower leg; R94.31 Abnormal electrocardiogram [ECG] [EKG]; T45.1X5A Adverse effect of antineoplastic and immunosuppressive drugs, initial encounter; Z79.899 Other long term (current) drug therapy; Z96.641 Presence of right artificial hip joint; Z96.653 Presence of artificial knee joint, bilateral; Z98.1 Arthrodesis status; Z87.891 Personal history of nicotine dependence; Z87.19 Personal history of other diseases of the digestive system; Z86.69 Personal history of other diseases of the nervous system and sense organs; Z86.711 Personal history of pulmonary embolism; Z87.442 Personal history of urinary calculi; Z87.11 Personal history of peptic ulcer disease; Z98.890 Other specified postprocedural states; Z82.61 Family history of arthritis; Z82.3 Family history of stroke; Z82.49 Family history of ischemic heart disease and other diseases of the circulatory system
CPT/HCPCS: 36415; 36430; 38222; 71046; 74021; 80048; 80053; 81001; 82550; 83735; 84100; 84145; 85025; 85027; 85045; 85610; 86140; 86850; 86870; 86880; 86900; 86901; 86902; 86920; 87040; 93005; 96360; 96361; 99291

== ENCOUNTER 2020-09-09 16:33 | Inpatient (IN) | payer OTHER, MEDICARE ==
[2020-09-09 17:36] LABS: Glucose,Whole Blood 120 mg/dL (75-99)
--- NOTE | 2020-09-09 17:47 | ED ---
General Adult HPI - General Chief complaint: GI Bleed Stated complaint: Rectal Bleeding Time Seen by Provider: 09/09/20 16:56 Source: patient Mode of arrival: wheelchair Limitations: no limitations - History of Present Illness Initial comments: Dictation was produced using [employer] dictation software. please excuse any grammatical, word or spelling errors. This patient was cared for during a federal and state declared state of emergency secondary to Covid 19 Chief Complaint: 80-year-old male presents with GI bleed. History of Present Illness: As a 80-year-old male who has past medical history of leukemia. He gets chemotherapy. Patient on Thursday received a blood transfusion that was ordered by his sales team manager/oncologist. Since Thursday after his blood transfusion he's been having GI bleed. States she's been having persistent and constant bloody stools. He also notes rashes all over his skin and his hands. Patient feels well otherwise. He has no pain complaints. He feels weak. He denies any shortness of breath. He has no pain complaints. Patient reports that his leukemia is currently in remission. The ROS documented in this emergency department record has been reviewed and confirmed by me. Those systems with pertinent positive or negative responses have been documented in the HPI. All other systems are other negative and/or noncontributory. PHYSICAL EXAM: General Impression: Alert and oriented x3, not in acute distress HEENT: Normocephalic atraumatic, extra-ocular movements intact, pupils equal and reactive to light bilaterally, mucous membranes moist, petechiae over the lips and soft palate Cardiovascular: Heart regular rate and rhythm Chest: Able to complete full sentences, no retractions, no tachypnea Abdomen: abdomen soft, non-tender, non-distended, no organomegaly Musculoskeletal: Pulses present and equal in all extremities, no peripheral edema Motor: no focal deficits noted Neurological: CN II-XII grossly intact, no focal motor or sensory deficits noted Skin: Diffuse petechiae to the extremities and chest and back Rectal: Bright red blood per rectum Psych: Normal affect and mood ED course: 80-year-old male presents with GI bleed as chief complaint. On physical examination he has petechial findings all over his skin. Signs upon arrival shows heart rate of 104, rest of vital signs within acceptable limits. Patient's well-appearing at bedside. Doesn't appear to be in acute distress. Experiencing is coagulopathic reaction. He has history of thrombocytopenia. Case discussed with Jaimie Christianson, nurse practitioner for Dr. Aragon who requests the patient be given cryoprecipitate if his fibrinogen is less than 100. Laboratory evaluation obtained. Leukopenia of 0.4. Hemoglobin 5.5 which is a almost 3 g drop in the last 9 days. I did receive call from lab saying that his platelets were 1. Coag panel is negative. Fibrinogen is normal at 204. Metabolic panel is negative. Stool occult blood is positive. Patient reevaluated at bedside found be stable medical condition however given the degree of bleeding with the lab abnormalities we'll place patient in intensive care unit. Patient given 80 mg of IV Protonix. Patient is ordered for platelets and packed red blood cells. Patient be admitted to the intensive care unit after discussion with Dr. Mackenzie. Patient be admitted to Dr. Shafer EKG interpretation: Ventricular rate 97, normal sinus rhythm,. 176, QRS 96, QTC 469. No LA prolongation, no QTC prolongation, no ST or T-wave changes noted. EKG compared to 08/22/2020 showing no changes. Overall, this EKG is unremarkable - Related Data Home Medications Medication Instructions Recorded Confirmed HYDROcodone/APAP 7.5-325MG [[place] 1 tab PO Q4H PRN 07/30/20 09/07/20 7.5-325] NIFEdipine [Adalat cc] 30 mg PO DAILY 07/30/20 09/07/20 valACYclovir [Valtrex] 500 mg PO DAILY 07/30/20 09/07/20 Cholecalciferol [Vitamin D3 (25 2,000 unit PO DAILY 08/22/20 09/07/20 Mcg = 1000 Iu)] Sucralfate [Carafate] 1 gm PO BID 08/22/20 09/07/20 Vit A,C & V-Qzsdim-Eylggjuv [Ivite] 1 tab PO DAILY 08/22/20 09/07/20 ondansetron HCL [Zofran] 8 mg PO Q8H PRN 08/22/20 09/07/20 Previous Rx's Medication Instructions Recorded Meclizine [Antivert] 25 mg PO TID PRN tab 07/05/20 allopurinoL [Zyloprim] 300 mg PO DAILY tab 07/05/20 Amoxicillin/Potassium Clav 1 tab PO BID 7 Days #2 tab 08/31/20 [Augmentin 875-125 Tablet] Allergies Allergy/AdvReac Type Severity Reaction Status Date / Time No Known Allergies Allergy Verified 09/09/20 16:50 Review of Systems ROS Statement: Those systems with pertinent positive or pertinent negative responses have been documented in the HPI. ROS Other: All systems not noted in ROS Statement are negative. Past Medical History Past Medical History: Cancer Additional Past Medical History / Comment(s): Past adenopathy/abnormal labs/fatigue and was diagnosed with MDS approximately 2018, chronic low back pain, current R danielle gluteus tear-now R leg atrophy/uses walker to ambulate, PE left lung, nephrolithiasis, slight macular degeneration L eye and bilateral starting of cataracts, Thompson's palsey affected R eye, diverticular disease, gout bilateral feet, murmur, past gastric ulcers, vertigo. LEUKEMIA. History of Any Multi-Drug Resistant Organisms: None Reported Past Surgical History: Hernia Repair, Orthopedic Surgery Additional Past Surgical History / Comment(s): Bone marrow biopsies, L axillae lymphnode biopsy, total R hip arthroplasty with revision, bilateral total knee arthroplasties, pain clinic procedures, lumbar surgery/fusion L3/L4, colonoscopy and pt states had umbilical hernia repair and they had to straighten out a peice of his bowel, blepharoplasty r eyelid, Past Anesthesia/Blood Transfusion Reactions: No Reported Reaction Additional Past Anesthesia/Blood Transfusion Reaction / Comment(s): Pt has received blood transfusions without reaction. Past Psychological History: No Psychological Hx Reported Smoking Status: Former smoker Past Alcohol Use History: Rare Past Drug Use History: None Reported - Past Family History Father Family Medical History: CVA/TIA Additional Family Medical History / Comment(s): Father of CVA at age 89yrs. Mother Family Medical History: Osteoarthritis (OA), Renal Disease Additional Family Medical History / Comment(s): Mother of CHF at age 86yrs. General Exam Limitations: no limitations Course Vital Signs 09/09/20 09/09/20 16:45 18:47 Temperature 98.5 F Pulse Rate 104 H 91 Respiratory 18 18 Rate Blood Pressure 102/64 115/70 O2 Sat by Pulse 100 98 Oximetry Medical Decision Making - Lab Data Result diagrams: 09/09/20 18:30 09/09/20 17:40 Lab Results 09/09/20 09/09/20 09/09/20 Range/Units 17:34 17:40 17:40 WBC (3.8-10.6) k/uL RBC (4.30-5.90) m/uL Hgb (13.0-17.5) gm/dL Hct (39.0-53.0) % MCV (80.0-100.0) fL MCH (25.0-35.0) pg MCHC (31.0-37.0) g/dL RDW (11.5-15.5) % MPV Hypochromasia Poikilocytosis Anisocytosis PT (9.0-12.0) sec INR (<1.2) APTT (22.0-30.0) sec Fibrinogen (200-500) mg/dL Sodium 136 L (137-145) mmol/L Potassium 4.9 (3.5-5.1) mmol/L Chloride 104 (98-107) mmol/L Carbon Dioxide 26 (22-30) mmol/L Anion Gap 6 mmol/L BUN 26 H (9-20) mg/dL Creatinine 0.68 (0.66-1.25) mg/dL Est GFR (CKD-EPI)AfAm >90 (>60 ml/min/1.73 sqM) Est GFR (CKD-EPI)NonAf >90 (>60 ml/min/1.73 sqM) Glucose 116 H (74-99) mg/dL POC Glucose (mg/dL) 120 H (75-99) mg/dL POC Glu Creative/Art Director ID Alyson Fabian Calcium 8.4 (8.4-10.2) mg/dL Total Bilirubin 1.0 (0.2-1.3) mg/dL AST 38 (17-59) U/L ALT 17 (4-49) U/L Alkaline Phosphatase 71 (38-126) U/L Total Protein 7.7 (6.3-8.2) g/dL Albumin 3.7 (3.5-5.0) g/dL Stool Occult Blood Positive (Negative) 09/09/20 09/09/20 Range/Units 18:30 18:30 WBC 0.4 L* (3.8-10.6) k/uL RBC 1.94 L (4.30-5.90) m/uL Hgb 5.5 L* D (13.0-17.5) gm/dL Hct 16.5 L* (39.0-53.0) % MCV 84.8 D (80.0-100.0) fL MCH 28.2 (25.0-35.0) pg MCHC 33.3 (31.0-37.0) g/dL RDW 18.1 H (11.5-15.5) % MPV 5.8 Hypochromasia Slight Poikilocytosis Slight Anisocytosis Slight PT 11.2 (9.0-12.0) sec INR 1.1 (<1.2) APTT 23.2 (22.0-30.0) sec Fibrinogen 204 (200-500) mg/dL Sodium (137-145) mmol/L Potassium (3.5-5.1) mmol/L Chloride (98-107) mmol/L Carbon Dioxide (22-30) mmol/L Anion Gap mmol/L BUN (9-20) mg/dL Creatinine (0.66-1.25) mg/dL Est GFR (CKD-EPI)AfAm (>60 ml/min/1.73 sqM) Est GFR (CKD-EPI)NonAf (>60 ml/min/1.73 sqM) Glucose (74-99) mg/dL POC Glucose (mg/dL) (75-99) mg/dL POC Glu Creative/Art Director ID Calcium (8.4-10.2) mg/dL Total Bilirubin (0.2-1.3) mg/dL AST (17-59) U/L ALT (4-49) U/L Alkaline Phosphatase (38-126) U/L Total Protein (6.3-8.2) g/dL Albumin (3.5-5.0) g/dL Stool Occult Blood (Negative) Critical Care Time Critical Care Time: Yes Total Critical Care Time: 33 Disposition Clinical Impression: Pancytopenia, GI bleed Disposition: ADMITTED IP TO THIS [facility] Condition: Critical Referrals: Kiley Evans MD [Primary Care Provider] - 1-2 days Decision Time: 19:25
[2020-09-09 18:01] LABS: ALT 17 U/L (4-49); AST 38 U/L (17-59); African American GFR (CKD) >90 (>60 ml/min/1.73 sqM); Albumin 3.7 g/dL (3.5-5.0); Alkaline Phosphatase 71 U/L (38-126); Anion Gap 6 mmol/L; Blood Urea Nitrogen 26 mg/dL (9-20); Calcium 8.4 mg/dL (8.4-10.2); Carbon Dioxide 26 mmol/L (22-30); Chloride 104 mmol/L (98-107); Glucose 116 mg/dL (74-99); Non-African American GFR(CKD) >90 (>60 ml/min/1.73 sqM); Sodium 136 mmol/L (137-145); Total Protein 7.7 g/dL (6.3-8.2)
[2020-09-09 18:12] LABS: Potassium 4.9 mmol/L (3.5-5.1)
[2020-09-09 18:41] LABS: Anisocytosis Slight; Hypochromasia Slight; MCH 28.2 pg (25.0-35.0); MCHC 33.3 g/dL (31.0-37.0); MCV 84.8 fL (80.0-100.0); Mean Platelet Volume 5.8; Poikilocytosis Slight; RBC 1.94 m/uL (4.30-5.90); RDW 18.1 % (11.5-15.5)
[2020-09-09] MEDS ORDERED: PANTOPRAZOLE 40 MG/10 ML VIAL IVP ONE (18:46)
[2020-09-09 18:47] LABS: HCT 16.5 % (39.0-53.0); HGB 5.5 gm/dL (13.0-17.5); WBC 0.4 k/uL (3.8-10.6)
[2020-09-09 18:49] LABS: INR 1.1 (<1.2); Partial Thromboplastin Time 23.2 sec (22.0-30.0); Prothrombin Time 11.2 sec (9.0-12.0)
[2020-09-09] MEDS ORDERED: NALOXONE 0.4 MG/ML 1 ML VIAL IV PRN (19:23)
[2020-09-09 20:15] LABS: Platelet Count 1 k/uL (150-450)
[2020-09-09 21:11] LABS: Glucose,Whole Blood 119 mg/dL (75-99)
[2020-09-09 22:35] LABS: Anisocytosis Slight; Hypochromasia Slight; MCH 28.4 pg (25.0-35.0); MCHC 33.2 g/dL (31.0-37.0); MCV 85.6 fL (80.0-100.0); Mean Platelet Volume 6.7; RBC 1.75 m/uL (4.30-5.90); RDW 18.5 % (11.5-15.5)
[2020-09-09 22:43] LABS: Platelet Count 6 k/uL (150-450); WBC 0.4 k/uL (3.8-10.6)
[2020-09-09] MEDS: SUCRALFATE 1 GM TAB PO SCH (23:20)
[2020-09-09] MEDS: HYDROcodone/APAP 7.5-325MG 1 EACH TAB PO PRN (23:20)
[2020-09-09] MEDS: SODIUM CHLORIDE 0.9% 1,000 ML IV SCH (23:20)
[2020-09-09] MEDS ORDERED: VANCOMYCIN IV PER PHARMACY 1 EACH MISC MISCELLANE PRN (23:27)
[2020-09-10] MEDS ORDERED: CEFEPIME 1 GM in SODIUM CHLORIDE 0.9% 50 ML IVPB SCH ×2
--- NOTE | 2020-09-10 00:05 | P.HPIM ---
History of Present Illness H&P Date: 09/09/20 Chief Complaint: GI bleeding 80 year old male with pancytopenia with history of MDS progressed into AML currently in remission post chemotherapy patient with frequent hospitalizations over the past month recently admitted for epistaxis requiring blood (6 units) and platelet (8 units) transfusion. patient reports recent blood transfusion after discharge from the hospital due to low blood count. today he comes in with 2 day history of divina and blood clots , denies any associated symptoms , denies any chest pain, trouble breathing, dizziness, palpitations, he denies any abd pain , nausea or vomiting in the ED he was found to have Hgb of 5, and platelet of 1 case discussed with oncology and with ICU , patient does have history of PUD Review of Systems Pertinent positives as noted in HPI. All other systems were reviewed and are negative Past Medical History Past Medical History: Cancer Additional Past Medical History / Comment(s): Past adenopathy/abnormal labs/fatigue and was diagnosed with MDS approximately 2018, chronic low back pain, current R danielle gluteus tear-now R leg atrophy/uses walker to ambulate, PE left lung, nephrolithiasis, slight macular degeneration L eye and bilateral starting of cataracts, Thompson's palsey affected R eye, diverticular disease, gout bilateral feet, murmur, past gastric ulcers, vertigo. LEUKEMIA. History of Any Multi-Drug Resistant Organisms: None Reported Past Surgical History: Hernia Repair, Orthopedic Surgery Additional Past Surgical History / Comment(s): Bone marrow biopsies, L axillae lymphnode biopsy, total R hip arthroplasty with revision, bilateral total knee arthroplasties, pain clinic procedures, lumbar surgery/fusion L3/L4, colonoscopy and pt states had umbilical hernia repair and they had to straighten out a peice of his bowel, blepharoplasty r eyelid, Past Anesthesia/Blood Transfusion Reactions: No Reported Reaction Additional Past Anesthesia/Blood Transfusion Reaction / Comment(s): Pt has received blood transfusions without reaction. Past Psychological History: No Psychological Hx Reported Smoking Status: Former smoker Past Alcohol Use History: Rare Past Drug Use History: None Reported - Past Family History Father Family Medical History: CVA/TIA Additional Family Medical History / Comment(s): Father of CVA at age 89yrs. Mother Family Medical History: Osteoarthritis (OA), Renal Disease Additional Family Medical History / Comment(s): Mother of CHF at age 86yrs. Medications and Allergies Home Medications Medication Instructions Recorded Confirmed Type Meclizine [Antivert] 25 mg PO TID PRN tab 07/05/20 09/09/20 Rx allopurinoL [Zyloprim] 300 mg PO DAILY tab 07/05/20 09/09/20 Rx HYDROcodone/APAP 7.5-325MG [[place] 1 tab PO Q4H PRN 07/30/20 09/09/20 History 7.5-325] NIFEdipine [Adalat cc] 30 mg PO DAILY 07/30/20 09/09/20 History valACYclovir [Valtrex] 500 mg PO DAILY 07/30/20 09/09/20 History Cholecalciferol [Vitamin D3 (25 2,000 unit PO DAILY 08/22/20 09/09/20 History Mcg = 1000 Iu)] Sucralfate [Carafate] 1 gm PO BID 08/22/20 09/09/20 History Vit A,C & O-Fhgnwk-Sxbjwqah [Ivite] 1 tab PO DAILY 08/22/20 09/09/20 History ondansetron HCL [Zofran] 8 mg PO Q8H PRN 08/22/20 09/09/20 History Allergies Allergy/AdvReac Type Severity Reaction Status Date / Time No Known Allergies Allergy Verified 09/09/20 19:31 Physical Exam Vitals: Vital Signs Temp Pulse Resp BP Pulse Ox 09/09/20 18:47 91 18 115/70 98 09/09/20 16:45 98.5 F 104 H 18 102/64 100 Intake and Output 09/09/20 09/09/20 09/09/20 06:59 14:59 22:59 Other: Weight 89.358 kg Constitutional: No acute distress, conversant, pleasant Eyes: Anicteric sclerae, moist conjunctiva, Pupils equal round reactive to light ENMT: NC/AT, blisters over the lower lips Oropharynx clear, no erythema, or exudates Neck: Supple, FROM, no masses, or JVD No carotid bruits No thyromegaly Lungs: Clear to auscultation Clear to percussion Normal respiratory effort, no accessory muscle use Cardiovascular: Heart regular in rate and rhythm, No murmurs, gallops, or rubs No peripheral edema Abdominal: Soft Nontender, no guarding, rebound or rigidity Abdomen moving with respiration Normoactive bowel sounds No hepatomegaly, No splenomegaly No palpable mass No abdominal wall hernia noted Skin: Diffuse nonblanching petechia over bilateral lower extremities trunk face otherwise Normal temperature, tone, texture, turgor No induration No subcutaneous nodules No ulcers Extremities: No digital cyanosis No clubbing Pedal pulses intact and symmetrical Radial pulses intact and symmetrical No calf tenderness Psychiatric: Alert and oriented to person, place and time Appropriate affect fair judgement Neuro Muscles Strength 4/5 in all 4 extremities Sensation to light touch grossly present throughout Cranial nerves II-XII grossly intact No focal sensory deficits Lymphatics: no palpable cervical or supraclavicular , or inguinal lymph nodes Results CBC & Chem 7: 09/09/20 22:10 09/09/20 17:40 Labs: Abnormal Lab Results - Last 24 Hours (Table) 09/09/20 09/09/20 09/09/20 Range/Units 17:34 17:40 18:30 WBC 0.4 L* (3.8-10.6) k/uL RBC 1.94 L (4.30-5.90) m/uL Hgb 5.5 L* D (13.0-17.5) gm/dL Hct 16.5 L* (39.0-53.0) % RDW 18.1 H (11.5-15.5) % Sodium 136 L (137-145) mmol/L BUN 26 H (9-20) mg/dL Glucose 116 H (74-99) mg/dL POC Glucose (mg/dL) 120 H (75-99) mg/dL Assessment and Plan Assessment: acute GI bleeding chronic pancytopenia h/o AML in remission plan supportive care blood transufsion as needed platelet transfusion with GOal platelet >50 if continues to have bleeding , (>10 if he stops bleeding ) resume home meds PPI GI consult icu care, ICU started patient on empiric antibiotics oncology consult chronic low back pain , resume norco Preformed a thorough record review from recent hospitalization recently hospitalized for epistaxis requiring frequent blood and platelet transfusion , bone biopsy showed remission CODE STATUS:full code DVT prophylaxis: mechanical Discussed with: Patient, ER, RN Anticipated length of stay > than [address]: home A total of 75 minutes was spent on the care of this complex patient more than 50% of the time was spent in counseling and care coordination.
[2020-09-10] MEDS ORDERED: VANCOMYCIN 1,750 MG in SODIUM CHLORIDE 0.9% 500 ML 500 ML IVPB SCH (01:00)
[2020-09-10 05:24] LABS: Anisocytosis Slight; Hypochromasia Slight; MCHC 32.3 g/dL (31.0-37.0); MCV 86.5 fL (80.0-100.0); Mean Platelet Volume 7.3; Poikilocytosis Slight; RBC 2.01 m/uL (4.30-5.90); RDW 17.7 % (11.5-15.5)
[2020-09-10 05:29] LABS: HCT 17.4 % (39.0-53.0); HGB 5.6 gm/dL (13.0-17.5); Platelet Count 3 k/uL (150-450); WBC 0.5 k/uL (3.8-10.6)
[2020-09-10 05:43] LABS: ALT 15 U/L (4-49); African American GFR (CKD) >90 (>60 ml/min/1.73 sqM); Albumin 3.5 g/dL (3.5-5.0); Anion Gap 2 mmol/L; Blood Urea Nitrogen 18 mg/dL (9-20); Carbon Dioxide 29 mmol/L (22-30); Chloride 105 mmol/L (98-107); Glucose 99 mg/dL (74-99); Non-African American GFR(CKD) >90 (>60 ml/min/1.73 sqM); Sodium 136 mmol/L (137-145); Total Bilirubin 1.3 mg/dL (0.2-1.3); Total Protein 7.3 g/dL (6.3-8.2)
[2020-09-10 06:02] LABS: AST 36 U/L (17-59); Potassium 4.2 mmol/L (3.5-5.1)
[2020-09-10 06:03] LABS: Alkaline Phosphatase 73 U/L (38-126)
[2020-09-10] MEDS: PANTOPRAZOLE 40 MG/10 ML VIAL IV SCH ×2 (08:45→20:03)
[2020-09-10] MEDS: NIFEdipine XL 30 MG TAB.ER.24 PO SCH (08:45)
[2020-09-10] MEDS: SODIUM CHLORIDE 0.9% 1,000 ML IV SCH ×2 (08:45→23:37)
[2020-09-10] MEDS: valACYclovir 500 MG TAB PO SCH (08:45)
[2020-09-10] MEDS: SUCRALFATE 1 GM TAB PO SCH ×2 (08:45→20:01)
[2020-09-10] MEDS ORDERED: PANTOPRAZOLE 40 MG/10 ML VIAL IV SCH (09:00)
[2020-09-10] MEDS: HYDROcodone/APAP 7.5-325MG 1 EACH TAB PO PRN ×3 (10:26→23:36)
--- NOTE | 2020-09-10 11:03 | P.CONS ---
History of Present Illness - Reason for Consult Consult date: 09/10/20 thrombocytopenia bleeding on chemo Requesting physician: Abhay Menard - Chief Complaint bleeding - History of Present Illness This is a very 79-year-old male patient of Dr. Aragon who was noted to have thrombocytopenia on routine CBC monitoring prior to elective back surgery 12/08/13. Cytopenia noted far back as December 2012, there was evidence of platelet clumping. Workup did not show any paraproteinemia, hypercoagulable workup was negative. CT CAP 01/04/14 revealed bilateral axillary and inguinal adenopathy. Left axillary LN biopsy 01/17/14 was non-diagnostic. Repeat CT CAP 03/27/14 unremarkable, no pathologic lymph nodes. Patient had no further problems until May 2015. He had fever and abdominal pain, CT AP 05/18/15 showed borderline enlarged mesenteric lymph nodes, after his symptoms resolved, repeat CT CAP 09/10/15 showed improvement in all adenopathies. He continued to have this pattern of waning and waxing adenopathy. Finally, bone marrow biopsy done 08/15/16 was negative for any marrow pathology except for mild monocytosis, some mild splenomegaly. He was again worked up December 2018 because of fatigue, weight loss and progressive pancytopenia, all studies were non-diagnostic. 01/18/19 bone marrow biopsy revealed hypercellular marrow, 5% blasts, increased reticulin, evidence myelodysplasia, normal cytogenetics and Fish, and BCOR, TET2 mutations, unclear NRAS variant. Patient opted for supportive care only. 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 He was admitted here on 07/04/20 for induction, but had to be transferred to [facility] for a cerebral vein thrombosis. He started induction with Venclexta and Vidaza at [facility], and received C 1 there. He reestablished f/u here on d/c, and received C 2 of Vidaza, completing that on 08/10/20. He is continuing on Venetoclax although this was held recently due to prog ressive decline and cytopenias. Recent hospitalization for epistaxis , as well as extensive petechiae and purpura ( oral cavity, face, neck, chest wall, and LE). He has now presented with recurrent severe anemia and thrombocytopenia. He was last seen by Dr. Aragon on 08/21 and a repeat BM completed on 08/23 did not show any active leukemia although his aplastic bone marrow has not recovered. At this time will need to continue aggressive supportive care with infection prevention and supportive transfusions until his bone marrow starts to recover. No treatment can be restarted until recovery. He presented with rectal bleeding and diffuse petechaie. Review of Systems All systems: negative Constitutional: Reports as per HPI Past Medical History Past Medical History: Cancer Additional Past Medical History / Comment(s): Past adenopathy/abnormal labs/fatigue and was diagnosed with MDS approximately 2018, chronic low back pain, current R danielle gluteus tear-now R leg atrophy/uses walker to ambulate, PE left lung, nephrolithiasis, slight macular degeneration L eye and bilateral starting of cataracts, Thompson's palsey affected R eye, diverticular disease, gout bilateral feet, murmur, past gastric ulcers, vertigo. LEUKEMIA. History of Any Multi-Drug Resistant Organisms: None Reported Past Surgical History: Hernia Repair, Orthopedic Surgery Additional Past Surgical History / Comment(s): Bone marrow biopsies, L axillae lymphnode biopsy, total R hip arthroplasty with revision, bilateral total knee arthroplasties, pain clinic procedures, lumbar surgery/fusion L3/L4, colonoscopy and pt states had umbilical hernia repair and they had to straighten out a peice of his bowel, blepharoplasty r eyelid, Past Anesthesia/Blood Transfusion Reactions: No Reported Reaction Additional Past Anesthesia/Blood Transfusion Reaction / Comm: Pt has received blood transfusions without reaction. Past Psychological History: No Psychological Hx Reported Smoking Status: Former smoker Past Alcohol Use History: Rare Past Drug Use History: None Reported - Past Family History Father Family Medical History: CVA/TIA Additional Family Medical History / Comment(s): Father of CVA at age 89yrs. Mother Family Medical History: Osteoarthritis (OA), Renal Disease Additional Family Medical History / Comment(s): Mother of CHF at age 86yrs. Medications and Allergies Home Medications Medication Instructions Recorded Confirmed Type Meclizine [Antivert] 25 mg PO TID PRN tab 07/05/20 09/09/20 Rx allopurinoL [Zyloprim] 300 mg PO DAILY tab 07/05/20 09/09/20 Rx HYDROcodone/APAP 7.5-325MG [[place] 1 tab PO Q4H PRN 07/30/20 09/09/20 History 7.5-325] NIFEdipine [Adalat cc] 30 mg PO DAILY 07/30/20 09/09/20 History valACYclovir [Valtrex] 500 mg PO DAILY 07/30/20 09/09/20 History Cholecalciferol [Vitamin D3 (25 2,000 unit PO DAILY 08/22/20 09/09/20 History Mcg = 1000 Iu)] Sucralfate [Carafate] 1 gm PO BID 08/22/20 09/09/20 History Vit A,C & V-Vxzgln-Jbuuotqf [Ivite] 1 tab PO DAILY 08/22/20 09/09/20 History ondansetron HCL [Zofran] 8 mg PO Q8H PRN 08/22/20 09/09/20 History Allergies Allergy/AdvReac Type Severity Reaction Status Date / Time No Known Allergies Allergy Verified 09/09/20 19:31 Physical Exam Vitals: Vital Signs Temp Pulse Resp BP Pulse Ox 09/10/20 09:27 98.0 F 74 20 118/70 95 09/10/20 09:00 73 10 L 130/79 96 09/10/20 08:57 98.0 F 78 20 133/79 95 09/10/20 08:47 97.7 F 82 20 130/77 98 09/10/20 08:00 97.6 F 82 18 136/74 97 09/10/20 07:59 97.9 F 86 16 136/74 98 09/10/20 07:00 80 19 120/80 99 09/10/20 06:50 98.1 F 78 12 134/74 99 09/10/20 06:20 98.2 F 73 16 120/80 99 09/10/20 06:10 98 F 76 12 132/76 98 09/10/20 06:00 81 18 128/75 99 09/10/20 05:00 81 15 131/74 97 09/10/20 04:00 98 F 75 12 126/78 96 09/10/20 03:00 81 20 122/72 97 09/10/20 02:00 82 19 137/80 97 09/10/20 01:22 98.1 F 96 12 137/80 97 09/10/20 01:02 81 12 99 09/10/20 01:00 88 24 129/76 99 09/10/20 00:00 98.0 F 80 14 124/72 96 09/09/20 23:40 98 F 86 12 124/72 09/09/20 23:10 98.3 F 88 12 120/76 99 09/09/20 23:00 98 F 89 12 126/72 97 09/09/20 22:00 98 F 85 12 128/79 98 09/09/20 21:18 98.2 F 92 14 128/79 96 09/09/20 21:11 98.2 F 101 H 18 97 09/09/20 20:48 98.3 F 95 16 121/81 100 09/09/20 20:38 98.4 F 101 H 17 117/74 100 09/09/20 18:47 91 18 115/70 98 09/09/20 16:45 98.5 F 104 H 18 102/64 100 Intake and Output 09/09/20 09/10/20 09/10/20 22:59 06:59 14:59 Intake Total 335 710 508 Output Total 275 1450 700 Balance 60 -890 -192 Intake: IV 400 185 Sodium Chloride 0.9% 1, 400 185 000 ml @ 80 mls/hr IV . [id number] [facility] Rx#:[id number] Blood Product 335 310 323 Platelet Pheresis Pas 0 323 Psoralen Unit [id number] Platelet Pheresis Pas 335 Psoralen Unit [id number] Rc Irr As1 Unit 0 [id number] Rc Irr As1 Unit 310 [id number] Output: Urine 275 1450 700 Other: Voiding Method Urinal Weight 89 kg 89 kg - Constitutional General appearance: cooperative - EENT Eyes: EOMI ENT: NA/AT - Neck Neck: normal ROM - Respiratory Respiratory: bilateral: diminished - Cardiovascular Rhythm: regular - Gastrointestinal General gastrointestinal: soft, tenderness - Integumentary Petechaie and eccymosis - Neurologic Neurologic: CNII-XII intact - Musculoskeletal Musculoskeletal: generalized weakness - Psychiatric Psychiatric: A&O x's 3, appropriate affect Results CBC & Chem 7: 09/11/20 06:00 09/11/20 06:00 Labs: Abnormal Lab Results - Last 24 Hours (Table) 09/09/20 09/09/20 09/09/20 Range/Units 17:34 17:40 18:30 WBC 0.4 L* (3.8-10.6) k/uL RBC 1.94 L (4.30-5.90) m/uL Hgb 5.5 L* D (13.0-17.5) gm/dL Hct 16.5 L* (39.0-53.0) % RDW 18.1 H (11.5-15.5) % Plt Count 1 L* D (150-450) k/uL Sodium 136 L (137-145) mmol/L BUN 26 H (9-20) mg/dL Creatinine (0.66-1.25) mg/dL Glucose 116 H (74-99) mg/dL POC Glucose (mg/dL) 120 H (75-99) mg/dL Calcium (8.4-10.2) mg/dL Crossmatch 09/09/20 09/09/20 09/09/20 Range/Units 18:30 21:09 22:10 WBC 0.4 L* (3.8-10.6) k/uL RBC 1.75 L (4.30-5.90) m/uL Hgb 5.0 L* (13.0-17.5) gm/dL Hct 15.0 L* (39.0-53.0) % RDW 18.5 H (11.5-15.5) % Plt Count 6 L* D (150-450) k/uL Sodium (137-145) mmol/L BUN (9-20) mg/dL Creatinine (0.66-1.25) mg/dL Glucose (74-99) mg/dL POC Glucose (mg/dL) 119 H (75-99) mg/dL Calcium (8.4-10.2) mg/dL Crossmatch See Detail 09/10/20 09/10/20 Range/Units 04:55 04:55 WBC 0.5 L* (3.8-10.6) k/uL RBC 2.01 L (4.30-5.90) m/uL Hgb 5.6 L* (13.0-17.5) gm/dL Hct 17.4 L* (39.0-53.0) % RDW 17.7 H (11.5-15.5) % Plt Count 3 L* (150-450) k/uL Sodium 136 L (137-145) mmol/L BUN (9-20) mg/dL Creatinine 0.56 L (0.66-1.25) mg/dL Glucose (74-99) mg/dL POC Glucose (mg/dL) (75-99) mg/dL Calcium 8.0 L (8.4-10.2) mg/dL Crossmatch Assessment and Plan (1) GI bleed Current Visit: Yes Status: Acute Code(s): K92.2 - GASTROINTESTINAL HEMORRHAGE, UNSPECIFIED SNOMED Code(s): 55648879 (2) Pancytopenia Current Visit: Yes Status: Acute Priority: High Code(s): D61.818 - OTHER PANCYTOPENIA SNOMED Code(s): 171529831 (3) AML (acute myeloid leukemia) Current Visit: No Status: Acute Priority: High Code(s): C92.00 - ACUTE MYELOBLASTIC LEUKEMIA, NOT HAVING ACHIEVED REMISSION SNOMED Code(s): 32038658 Plan: Continue aggressive supportive care. Continue to hold venetoclax at this time, no NSAIDS, No aspirin. Continue transfuse PRBC less than 7, Transfuse PLatelets less than 10 or if still signs of bleeding transfuse less than 50K Physician Attest: I have completed the full history and physical and agree with above dictation, dictated as a scribe.
[2020-09-10 12:50] LABS: Anisocytosis Slight; HCT 20.4 % (39.0-53.0); MCH 29.1 pg (25.0-35.0); MCHC 33.8 g/dL (31.0-37.0); MCV 86.2 fL (80.0-100.0); Mean Platelet Volume 6.9; Poikilocytosis Slight; RBC 2.37 m/uL (4.30-5.90); RDW 16.7 % (11.5-15.5)
[2020-09-10 12:51] LABS: HGB 6.9 gm/dL (13.0-17.5); Platelet Count 11 k/uL (150-450); WBC 0.3 k/uL (3.8-10.6)
--- NOTE | 2020-09-10 13:17 | P.PN ---
Subjective Progress Note Date: 09/10/20 Patient was seen and examined at the bedside on 09/10. He reported feeling somewhat better since admission. Reported no further episodes of black or bright red stools. Denied episodes of nosebleeds or bleeding elsewhere overnight. Denied any further complaints including chest pain, shortness of breath, fever, chills, nausea, vomiting, or dizziness. Objective - Vital Signs Vital signs: Vital Signs Temp 98.0 F 09/10/20 09:27 Pulse 73 09/10/20 11:00 Resp 11 L 09/10/20 11:00 BP 137/84 09/10/20 11:00 Pulse Ox 96 09/10/20 11:00 Intake & Output 09/09/20 09/10/20 09/10/20 18:59 06:59 18:59 Intake Total 1045 508 Output Total 1725 700 Balance -680 -192 Weight 89.358 kg 89 kg Intake: IV 400 185 Sodium Chloride 0.9% 1, 400 185 000 ml @ 80 mls/hr IV . [id number] [facility] Rx#:[id number] Blood Product 645 323 Platelet Pheresis Pas 0 323 Psoralen Unit [id number] Platelet Pheresis Pas 335 Psoralen Unit [id number] Rc Irr As1 Unit 0 [id number] Rc Irr As1 Unit 310 [id number] Output: Urine 1725 700 Other: Voiding Method Urinal - Exam General: Non-toxic, in no acute distress, appears stated age, normal weight HEENT: NC/AT, anicteric sclerae, moist conjunctiva, no lid-lag, PERRLA Cardiovascular: S1/S2 wnl, no murmurs, rubs, or gallops Lungs: Clear to auscultation, normal respiratory effort, no accessory muscle use Abdominal: Soft, non-tender, non-distended, no guarding, rebound, or rigidity Skin: Warm, dry, diffuse petechiae and purpura over legs, arms, trunk, including face and oral cavity Extremities: No edema or contractures Psychiatric: Alert and oriented to person, place and time, appropriate affect Neuro: CN II-XII grossly intact, Strength 5/5 in all 4 extremities, Speech intact, Sensation to light touch grossly intact throughout - Labs CBC & Chem 7: 09/10/20 12:41 09/10/20 04:55 Labs: Abnormal Lab Results - Last 24 Hours (Table) 09/09/20 09/09/20 09/09/20 Range/Units 17:34 17:40 18:30 WBC 0.4 L* (3.8-10.6) k/uL RBC 1.94 L (4.30-5.90) m/uL Hgb 5.5 L* D (13.0-17.5) gm/dL Hct 16.5 L* (39.0-53.0) % RDW 18.1 H (11.5-15.5) % Plt Count 1 L* D (150-450) k/uL Sodium 136 L (137-145) mmol/L BUN 26 H (9-20) mg/dL Creatinine (0.66-1.25) mg/dL Glucose 116 H (74-99) mg/dL POC Glucose (mg/dL) 120 H (75-99) mg/dL Calcium (8.4-10.2) mg/dL Crossmatch 09/09/20 09/09/20 09/09/20 Range/Units 18:30 21:09 22:10 WBC 0.4 L* (3.8-10.6) k/uL RBC 1.75 L (4.30-5.90) m/uL Hgb 5.0 L* (13.0-17.5) gm/dL Hct 15.0 L* (39.0-53.0) % RDW 18.5 H (11.5-15.5) % Plt Count 6 L* D (150-450) k/uL Sodium (137-145) mmol/L BUN (9-20) mg/dL Creatinine (0.66-1.25) mg/dL Glucose (74-99) mg/dL POC Glucose (mg/dL) 119 H (75-99) mg/dL Calcium (8.4-10.2) mg/dL Crossmatch See Detail 09/10/20 09/10/20 Range/Units 04:55 04:55 WBC 0.5 L* (3.8-10.6) k/uL RBC 2.01 L (4.30-5.90) m/uL Hgb 5.6 L* (13.0-17.5) gm/dL Hct 17.4 L* (39.0-53.0) % RDW 17.7 H (11.5-15.5) % Plt Count 3 L* (150-450) k/uL Sodium 136 L (137-145) mmol/L BUN (9-20) mg/dL Creatinine 0.56 L (0.66-1.25) mg/dL Glucose (74-99) mg/dL POC Glucose (mg/dL) (75-99) mg/dL Calcium 8.0 L (8.4-10.2) mg/dL Crossmatch Assessment and Plan Plan: Acute blood loss anemia secondary to GI bleeding in setting of AML -Hematology/oncology recommendations appreciated -Continue to monitor CBC -PRBC and platelet transfusions as warranted -Pending GI consult -Continue with Protonix IV Severe pancytopenia -Heme/Onc recs appreciated -Patient in remission from AML w/ hx of MDS -Continue to monitor -Neutropenic precautions Hx of prolonged QT -Avoid further prolonging agents HTN -C/w Procardia DVT prophylaxis -IPCDs Discussed with: Patient, RN Anticipated discharge date: 2-[address]: Home A total of 35 minutes was spent on the care of this complex patient more than 50% of the time was spent in counseling and care coordination.
[2020-09-10 17:30] LABS: Anisocytosis Slight; HCT 21.3 % (39.0-53.0); HGB 7.1 gm/dL (13.0-17.5); MCH 28.7 pg (25.0-35.0); MCHC 33.2 g/dL (31.0-37.0); MCV 86.4 fL (80.0-100.0); Mean Platelet Volume 7.9; Poikilocytosis Slight; RBC 2.46 m/uL (4.30-5.90); RDW 17.2 % (11.5-15.5)
[2020-09-10 17:31] LABS: Platelet Count 11 k/uL (150-450); WBC 0.4 k/uL (3.8-10.6)
[2020-09-10 17:41] LABS: INR 1.1 (<1.2); Partial Thromboplastin Time 23.8 sec (22.0-30.0)
--- NOTE | 2020-09-10 21:49 | CONS ---
CONSULTATION DATE OF DICTATION: 09/10/2020 REASON FOR CONSULTATION: Acute lower GI bleed. HISTORY OF PRESENT ILLNESS: The patient is a 80-year-old pleasant white male who follows with Dr. Aragon on an outpatient basis, diagnosed with myelodysplastic syndrome a few years ago. Recently he has progressed to AML for which he currently received chemotherapy in June as well as in July. He was admitted to the hospital because of acute lower GI bleed. Patient presented with multiple episodes of maroon-colored stools that started on Thursday night. He had several episodes on Thursday and Thursday and hence came to the emergency room on Thursday and was noted to have a hemoglobin of 5 and platelets of 1000 and subsequently admitted to the intensive care unit and receiving blood products. This morning he did not have any evidence of bleeding. He reports no abdominal pain. No nausea, no vomiting. He also noticed several petechial rash in his lower extremities and his face about 3 days ago. He received blood transfusion 3 days ago for hemoglobin of 6 g/dL and also platelet transfusion last week. He did have an EGD and colonoscopy by Dr. Pena in 2018 that showed evidence of mild gastritis, esophagitis and diverticulosis. PAST MEDICAL HISTORY: Significant for hypertension, hyperlipidemia, myelodysplastic syndrome diagnosed in 2013, vertigo, gout. PAST SURGICAL HISTORY: Multiple bone marrow biopsies, hernia repair, EGD, colonoscopy in 2018, back surgery. MEDICATIONS: Medications at home include Antivert, Zyloprim, [place], Adalat, Valtrex, vitamin D3, Carafate, Zofran. ALLERGIES: None. SOCIAL HISTORY: Former smoker. No alcohol use. FAMILY HISTORY: Father had CVA/TIA. Mother had chronic kidney disease. REVIEW OF SYSTEMS: CARDIOPULMONARY: No chest pain or shortness of breath. : No dysuria or hematuria. MUSCULOSKELETAL unremarkable. SKIN unremarkable other than petechial rash that he noticed over the last 3 days. ENDOCRINE: Unremarkable. PSYCHIATRIC: Unremarkable. HEMATOLOGY as mentioned above. NEUROLOGY unremarkable. CONSTITUTIONAL: No recent weight loss. No fever, chills, night sweats. PHYSICAL EXAMINATION: He appears comfortable. No apparent distress. Vital signs stable. Blood pressure is 133/86, pulse rate 82, temperature 97.6. HEENT examination unremarkable. Conjunctivae pink. Sclerae anicteric. Oral cavity no lesions. Neck no JVD or lymph node enlargement. CHEST: Clear to auscultation. HEART: Regular rate and rhythm. ABDOMEN: Soft, it was nontender, nondistended. Bowel sounds are positive. No organomegaly. EXTREMITIES no pedal edema. Severe petechial skin rash in the lower extremities and on the face. LABORATORY DATA: Labs 2 days ago, WBC was 0.4, hemoglobin 5.5, platelets 1000. Yesterday WBC was 0.4, hemoglobin 5, platelets 6000. Today, hemoglobin is up to 6.9, WBC 0.3, and platelets 11,000. BUN and creatinine of 18 and 0.56. Rest of the serum electrolytes are within normal limits. He is status post 2 units of blood transfusion and 2 units of platelet transfusion. IMPRESSION: 1. Acute lower gastrointestinal bleed. The patient presented with multiple episodes of maroon-colored stools for the last 3 days duration. He presented with a hemoglobin of 5 and just prior to that, his hemoglobin was 8 g/dL. He received 2 units of PRBC transfusion for hemoglobin of 5 and today it is 6.9 g/dL and currently receiving platelet transfusions. He had no further episodes of bleeding since this morning. He did have an EGD/colonoscopy by Dr. Pena in 2018 that revealed mild gastritis, duodenitis and some diverticulosis. 2. History of myelodysplastic syndrome that progressed to AML status post chemotherapy [address] Aragon following the patient on an outpatient basis. 3. Severe pancytopenia. RECOMMENDATIONS: 1. Continue with PRBC and platelet transfusions. 2. Monitor CBC on a daily basis. 3. We will start him on Protonix 40 mg daily. 4. No plans for any endoscopic intervention at the present time. 5. Continue with symptomatic and supportive care and close ICU monitoring. 6. We will follow with you closely. Thank you for this consultation. MMODL / IJN: [id number] /
--- NOTE | 2020-09-10 22:03 | CONS ---
CONSULTATION PULMONARY/CRITICAL CARE CONSULTATION: REASON FOR CONSULTATION: GI bleed. DATE OF SERVICE: September 10, 2020 HISTORY OF PRESENT ILLNESS: This is a patient who was admitted 09/09/2020 through the emergency room. He apparently has a history of myelodysplastic syndrome, which transformed itself into acute leukemia. He has gone through 2 rounds of chemotherapy. More recently, he received 2 units of blood on September 07. He received over in the pediatric unit. Subsequent to that, he went home and started having bloody stools. He was admitted back to the hospital with a diagnosis of GI bleed. Gastroenterology was consulted. His hemoglobin was 5.6. He is on room air. His saline is running at 80 mL an hour. In addition to receiving 2 units of blood on September 07, here in the hospital he has received 2 units of PRBCs and 2 packs of platelets. Currently, the patient is resting comfortably. Again, Gastroenterology has been consulted. He denies any chest pain or chest discomfort. Denies any shortness of breath. Denies any pain. MEDICATIONS: Home medications are reviewed. He is on Jelm, Adalat, Valtrex, vitamin D3, Carafate, vitamins, Zofran, Antivert, Zyloprim and Augmentin. ALLERGIES: Denied. 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 He also has a history of chronic low back pain, right gluteus danielle tear, pulmonary embolism in the left lung, nephrolithiasis, macular degeneration, bilateral cataracts, Thompson's palsy, diverticular disease, gout, gastric ulcers, and vertigo. SURGICAL HISTORY: Includes among other things, bone marrow biopsy, left axillary lymph node biopsy, total right hip arthroplasty with revision, bilateral total knee arthroplasty, lumbar fusion, L3, L4, colonoscopy, umbilical hernia repair and blepharoplasty. SOCIAL HISTORY: Positive for previous tobacco use. He drinks alcohol rarely. No illicit drug use. FAMILY HISTORY: Positive for a father with CVA and mother with a history of kidney disease, osteoarthritis, and CHF. REVIEW OF SYSTEMS: CONSTITUTIONAL: Fatigue and weakness. NEUROLOGIC negative. HEENT negative. CARDIOVASCULAR negative. PULMONARY negative. GI: Bloody stools. negative. RHEUMATOLOGIC negative. IMMUNOLOGIC negative. ENDOCRINOLOGIC negative. DERMATOLOGIC negative. PHYSICAL EXAMINATION: VITAL SIGNS: Current vital signs are reviewed. His temperature is 97.6. Heart rate 82, respiratory rate 18, blood pressure 128/75, mean 92. Room air saturation 99%. GENERAL: Appears in no acute distress. HEENT: Examination is grossly unremarkable. Mucous membranes are moist. No oral lesions. NECK: Supple. Full range of motion. No adenopathy. Neck veins are flat. CARDIOVASCULAR: Examination reveals regular rhythm and rate. Heart rate 82 beats per minute. S1, S2 normal. No S3, S4, or murmur. LUNGS: Reveal mostly clear breath sounds. No wheezes, rhonchi, or crackles. ABDOMEN: Soft. Bowel sounds are heard. EXTREMITIES are intact. No cyanosis, clubbing, or edema. SKIN: Without rash. NEUROLOGIC: Examination is brief but nonfocal. LABS: Reviewed. White count 0.3, hemoglobin 6.9 up from 5.6, hematocrit 20.4, platelet count 11,000. Sodium 136, potassium 4.2. Chloride 105, CO2 29, anion gap 2, BUN and creatinine were 18 and 0.56. Stools for occult blood were positive. PT/INR, PTT all normal. Microbiology is pending or negative. No chest x-ray to report. Medications are reviewed. Currently, the patient is on Jelm, Narcan, Procardia, Zofran, Protonix, 0.9 at 80 mL an hour, Carafate, and Valtrex. ASSESSMENT: 1. Gastrointestinal bleed, to be evaluated by Gastroenterology. 2. Severe pancytopenia secondary to recent treatment for acute leukemia. 3. History of long-standing myelodysplastic syndrome with recent transformation into acute leukemia. 4. History of chronic low back pain. 5. History of pulmonary embolism, left lung. 6. History of kidney stones. 7. Macular degeneration. 8. History of cataracts. 9. Thompson's palsy. 10.Diverticular disease. 11.Gout. 12.History of gastric ulcer. 13.History of vertigo. 14.Multiple surgical procedures and bone marrow biopsy. PLAN: Currently, the patient is reasonably stable. The patient has received a total of 4 units of PRBCs, 2 on September 07 and 2 here on admission. He has also received 2 packs of platelets. He is profoundly pancytopenic. Gastroenterology was consulted. We will continue to follow. Prognosis is guarded. No additional recommendations are made. MMODL / IJN: [id number] /
[2020-09-11] MEDS: HYDROcodone/APAP 7.5-325MG 1 EACH TAB PO PRN ×2 (05:11→17:52)
[2020-09-11 06:20] LABS: Anisocytosis Slight; HCT 23.6 % (39.0-53.0); HGB 8.1 gm/dL (13.0-17.5); MCH 29.7 pg (25.0-35.0); MCHC 34.3 g/dL (31.0-37.0); MCV 86.5 fL (80.0-100.0); Mean Platelet Volume 7.4; Poikilocytosis Slight; RBC 2.72 m/uL (4.30-5.90)
[2020-09-11 06:32] LABS: ALT 14 U/L (4-49); AST 35 U/L (17-59); African American GFR (CKD) >90 (>60 ml/min/1.73 sqM); Albumin 3.4 g/dL (3.5-5.0); Alkaline Phosphatase 80 U/L (38-126); Anion Gap 0 mmol/L; Blood Urea Nitrogen 11 mg/dL (9-20); Carbon Dioxide 28 mmol/L (22-30); Chloride 108 mmol/L (98-107); Glucose 98 mg/dL (74-99); Non-African American GFR(CKD) >90 (>60 ml/min/1.73 sqM); Potassium 3.6 mmol/L (3.5-5.1); Sodium 136 mmol/L (137-145); Total Bilirubin 1.6 mg/dL (0.2-1.3); Total Protein 7.3 g/dL (6.3-8.2)
[2020-09-11 06:34] LABS: Platelet Count 8 k/uL (150-450); WBC 0.4 k/uL (3.8-10.6)
[2020-09-11] MEDS ORDERED: Potassium Replacement Protocol 1 EACH MISC MISCELLANE PRN (06:55)
[2020-09-11] MEDS ORDERED: POTASSIUM CHLORIDE ER 20 MEQ TAB.ER PO SCH (07:00)
[2020-09-11] MEDS: valACYclovir 500 MG TAB PO SCH (09:38)
[2020-09-11] MEDS: PANTOPRAZOLE 40 MG/10 ML VIAL IV SCH (09:38)
[2020-09-11] MEDS: NIFEdipine XL 30 MG TAB.ER.24 PO SCH (09:38)
[2020-09-11] MEDS: SODIUM CHLORIDE 0.9% 1,000 ML IV SCH (09:38)
[2020-09-11] MEDS: SUCRALFATE 1 GM TAB PO SCH ×2 (09:38→21:34)
--- NOTE | 2020-09-11 11:28 | P.PN ---
Subjective Progress Note Date: 09/11/20 Principal diagnosis: Acute lower GI bleed The patient is a 80-year-old pleasant white male who follows with Dr. Aragon on an outpatient basis who was diagnosed with myelodysplastic syndrome a few years ago. He recently progressed to AML for which he currently was receiving chemo therapy this past June and July. He was recently hospitalized for anemia, with petechiae and epistaxis. He underwent a blood transfusion as an outpatient on Thursday, then reported he later had a bowel movement that had a maroon colored stool load by several more. On admission he was found to have a hemoglobin of 5 and platelets of 1000. He is status post 4 units of packed red blood cells and 2 units of platelets. He states he is tolerating a clear liquid diet, he has had no further bowel movements with blood noted. He denies any abdominal pain, nausea, or vomiting. Today's hemoglobin is 8.1 and platelets 8000. Objective - Vital Signs Vital signs: Vital Signs Temp 98.1 F 09/11/20 08:00 Pulse 75 09/11/20 10:00 Resp 20 09/11/20 10:00 BP 145/88 09/11/20 10:00 Pulse Ox 97 09/11/20 10:00 Intake & Output 09/10/20 09/11/20 09/11/20 18:59 06:59 18:59 Intake Total 2398 2178 320 Output Total 1750 1750 800 Balance 648 428 -480 Weight 89.5 kg Intake: IV 985 880 320 Sodium Chloride 0.9% 1, 985 880 320 000 ml @ 80 mls/hr IV . [id number] [facility] Rx#:[id number] Oral 480 250 Blood Product 933 1048 Platelet Irr Pheresis Pas 0 428 -C Unit [id number] Platelet Pheresis Pas 323 Psoralen Unit [id number] Rc Irr As1 Unit 310 [id number] Rc Irr As1 Unit 310 [id number] Rc Pheresis Irrad As 3 310 Unit [id number] Output: Urine 1750 1750 800 Other: Voiding Method Urinal Urinal Urinal - Exam General appearance: The patient is alert, oriented, in no acute distress. HET: Head is normocephalic and atraumatic. Conjunctiva pink. Sclera anicteric. Neck: Supple without lymphadenopathy. Abdomen: Soft, nontender, nondistended with bowel sounds. No guarding or rigidity. Extremities: Petechiae noted on bilateral upper and lower extremities. No pedal edema Neurological: No focal deficits. Alert and oriented 3. - Labs CBC & Chem 7: 09/11/20 06:00 09/11/20 06:00 Labs: Abnormal Lab Results - Last 24 Hours (Table) 09/09/20 09/10/20 09/10/20 Range/Units 18:30 12:41 17:04 WBC 0.3 L* 0.4 L* (3.8-10.6) k/uL RBC 2.37 L 2.46 L (4.30-5.90) m/uL Hgb 6.9 L* 7.1 L (13.0-17.5) gm/dL Hct 20.4 L 21.3 L (39.0-53.0) % RDW 16.7 H 17.2 H (11.5-15.5) % Plt Count 11 L* D 11 L* (150-450) k/uL Sodium (137-145) mmol/L Chloride (98-107) mmol/L Creatinine (0.66-1.25) mg/dL Calcium (8.4-10.2) mg/dL Total Bilirubin (0.2-1.3) mg/dL Albumin (3.5-5.0) g/dL Crossmatch See Detail 09/11/20 09/11/20 Range/Units 06:00 06:00 WBC 0.4 L* (3.8-10.6) k/uL RBC 2.72 L (4.30-5.90) m/uL Hgb 8.1 L (13.0-17.5) gm/dL Hct 23.6 L (39.0-53.0) % RDW 16.0 H (11.5-15.5) % Plt Count 8 L* (150-450) k/uL Sodium 136 L (137-145) mmol/L Chloride 108 H (98-107) mmol/L Creatinine 0.50 L (0.66-1.25) mg/dL Calcium 8.0 L (8.4-10.2) mg/dL Total Bilirubin 1.6 H (0.2-1.3) mg/dL Albumin 3.4 L (3.5-5.0) g/dL Crossmatch Assessment and Plan Assessment: 1. Acute lower gastrointestinal bleed. The patient presented with multiple episodes of maroon colored stools for the last 3 days duration. He presented with a hemoglobin of 5 inches prior to that his hemoglobin was 8. He received units of PRBC transfusion for hemoglobin of 5 and today it is 8.1. He has received 2 units of platelets. He has had no further episodes of bleeding. The patient did have an EGD/colonoscopy by Dr. Pena in 2018 that revealed mainly gastritis, duodenitis and some diverticulosis. 2. History of myelodysplastic syndrome that progressed to AML status post chemotherapy one month ago. Dr. Aragon following the patient on an outpatient basis. Dr. Ivan following the patient during this admission. 3. Severe pancytopenia Plan: 1. Supportive Care 2. Okay to increase diet as tolerated 3. Monitor CBC and a daily basis and transfuse as needed 4. Patient started on Protonix 40 mg daily 5. Continue symptomatic and supportive care and close ICU monitoring 6. No plans for endoscopic intervention at the present time 7. Appreciate recommendations from hematology/oncology We will continue to follow with you closely, thank you for this consultation. Dr. Tommie Lozada I agree with the dictator's note, documented as a scribe by Sheila Ragland.
--- NOTE | 2020-09-11 12:30 | PN ---
PROGRESS NOTE PULMONARY/CRITICAL CARE PROGRESS NOTE: DATE OF SERVICE: 09/11/2020 This is a patient who I saw in consultation yesterday. He came to the hospital for GI bleed. Currently, he is relatively stable. He is on room air. His saline is running at 80 mL an hour. He received 2 units of blood. On September 07 and 2 units of blood while here in the hospital. He has received a total of 4 packs of platelets. Today's hemoglobin was 8.1. Gastroenterology saw the patient. There was no plans for any procedures at this point. The patient has a history of myelodysplastic syndrome, which recently transformed itself until acute leukemia. He has been through 2 rounds of chemotherapy. Currently, he is reasonably stable. Temperature 98.1, heart rate 75, respiratory rate blood pressure 145/88 mean 107 saturations are 97% on room air. Appears in no acute distress. HEENT: Examination is grossly unremarkable. NECK: Supple, full range of motion. No adenopathy. Neck veins are flat. CARDIOVASCULAR: Examination reveals regular rhythm and rate. HEART: Rate 75 beats per minute. S1, S2 normal. LUNGS: Relatively clear breath sounds. No wheezes, rhonchi, or significant crackles. ABDOMEN: Soft, bowel sounds are heard. EXTREMITIES: Intact. No cyanosis, clubbing, or edema. SKIN: Without rash. NEUROLOGIC: E/examination is nonfocal. LABS: Reviewed. White count 0.4, hemoglobin 8.1, hematocrit 23.6, platelet count is 8000 PT/INR PTT are normal. Fibrinogen 208. Sodium 136, potassium 3.6, chloride 230bLH6 28 anion gap is 0 BUN and creatinine were 11 and 0.5. The rest of the labs look good. Microbiology is currently negative. No recent chest x-ray to report. CURRENT MEDICATIONS: Reviewed. The patient is on iAR XIII 0, [place] Narcan, Procardia XL, Zofran Protonix, potassium protocol, saline, Carafate and Valtrex. ASSESSMENT: 1. GI bleed, recently evaluated by Gastroenterology, with no plans to do endoscopy. 2. Severe pancytopenia, secondary to recent treatment for acute leukemia. 3. History of long-standing myelodysplastic syndrome with recent transformation to acute leukemia. 4. History of chronic low back pain. 5. History of pulmonary embolism, left lung. 6. History of kidney stones. 7. Macular degeneration. 8. History of cataracts. 9. Thompson's palsy. 10.Diverticular disease. 11.Gout. 12.History of gastric ulcer. 13.History of vertigo. 14.Multiple surgical procedures and bone marrow biopsies. PLAN: Currently, the patient is reasonably stable. He is not receiving any supplemental oxygen. He is on saline at 80 mL an hour. On September 07, he received 2 units of PRBCs. Since he has been here, he received another 2 units. He has received 4 packets of platelets. He is severely pancytopenic. Will continue to follow. Prognosis is guarded. MMODL / IJN: [id number] /
--- NOTE | 2020-09-11 13:10 | P.PN ---
Subjective Progress Note Date: 09/11/20 Patient is doing fairly well today. No acute events overnight reported by nursing staff. Patient denies any bloody bowel movement. Objective - Vital Signs Vital signs: Vital Signs Temp 98.1 F 09/11/20 08:00 Pulse 67 09/11/20 12:00 Resp 20 09/11/20 12:00 BP 156/83 09/11/20 12:00 Pulse Ox 96 09/11/20 12:00 Intake & Output 09/10/20 09/11/20 09/11/20 18:59 06:59 18:59 Intake Total 2398 2178 480 Output Total 1750 1750 1200 Balance 648 428 -720 Weight 89.5 kg Intake: IV 985 880 480 Sodium Chloride 0.9% 1, 985 880 480 000 ml @ 80 mls/hr IV . [id number] [facility] Rx#:[id number] Oral 480 250 Blood Product 933 1048 Platelet Irr Pheresis Pas 0 428 -C Unit [id number] Platelet Pheresis Pas 323 Psoralen Unit [id number] Rc Irr As1 Unit 310 [id number] Rc Irr As1 Unit 310 [id number] Rc Pheresis Irrad As 3 310 Unit [id number] Output: Urine 1750 1750 1200 Other: Voiding Method Urinal Urinal Urinal - Exam General: The patient is awake and alert, in no distress Eye: there is normal conjunctiva bilaterally. Neck: The neck is supple, there is no JVD. Cardiovascular: Normal S1-S2, no S3-S4, no murmurs. Respiratory: Lungs clear to auscultation bilaterally Gastrointestinal: Abdomen is soft, nontender Musculoskeletal: There is no pedal edema. Neurological:. Speech is normal. Skin: Skin is warm and dry - Labs CBC & Chem 7: 09/11/20 06:00 09/11/20 06:00 Labs: Abnormal Lab Results - Last 24 Hours (Table) 09/09/20 09/10/20 09/11/20 Range/Units 18:30 17:04 06:00 WBC 0.4 L* 0.4 L* (3.8-10.6) k/uL RBC 2.46 L 2.72 L (4.30-5.90) m/uL Hgb 7.1 L 8.1 L (13.0-17.5) gm/dL Hct 21.3 L 23.6 L (39.0-53.0) % RDW 17.2 H 16.0 H (11.5-15.5) % Plt Count 11 L* 8 L* (150-450) k/uL Sodium (137-145) mmol/L Chloride (98-107) mmol/L Creatinine (0.66-1.25) mg/dL Calcium (8.4-10.2) mg/dL Total Bilirubin (0.2-1.3) mg/dL Albumin (3.5-5.0) g/dL Crossmatch See Detail 09/11/20 Range/Units 06:00 WBC (3.8-10.6) k/uL RBC (4.30-5.90) m/uL Hgb (13.0-17.5) gm/dL Hct (39.0-53.0) % RDW (11.5-15.5) % Plt Count (150-450) k/uL Sodium 136 L (137-145) mmol/L Chloride 108 H (98-107) mmol/L Creatinine 0.50 L (0.66-1.25) mg/dL Calcium 8.0 L (8.4-10.2) mg/dL Total Bilirubin 1.6 H (0.2-1.3) mg/dL Albumin 3.4 L (3.5-5.0) g/dL Crossmatch Assessment and Plan Assessment: This is a 79-year-old male with complex past medical history significant for history of AML status post chemotherapy with last dose received approximately a month ago who presented to the emergency room with multiple episodes of maroon- colored stool. Patient was evaluated in the ER and admitted to the hospital for further management of his medical problems noted below. Acute blood loss anemia secondary to GI bleeding in setting of AML. -GI bleed appears to be resolving. Required 4 units of PRBC since admission. 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 -Seen and evaluated by GI. No plans for endoscopic intervention at this time. EGD and colonoscopy done in 2018 showed gastritis, duodenitis, and diverticulosis. -Hematology/oncology recommendations appreciated -Continue to monitor CBC -Continue with Protonix 40 mg twice daily Severe pancytopenia -Heme/Onc recs appreciated -Patient in remission from AML w/ hx of MDS -Transfuse as needed for platelet count less than 10 -Continue to monitor -Neutropenic precautions Hx of prolonged QT -Avoid further prolonging agents HTN -C/w Procardia DVT prophylaxis -IPCDs Sixpacks of platelets ordered for transfusion today Transfer out of ICU to [facility] Repeat CBC in the morning Discharge planning
--- NOTE | 2020-09-11 17:43 | P.PN ---
Subjective Progress Note Date: 09/11/20 Principal diagnosis: Pancytopenia Platelets 8K today, Zarxio initiated. No active bleeding today Objective - Vital Signs Vital signs: Vital Signs Temp 98.6 F 09/11/20 15:00 Pulse 77 09/11/20 17:00 Resp 22 09/11/20 17:00 BP 144/80 09/11/20 17:00 Pulse Ox 98 09/11/20 17:00 Intake & Output 09/10/20 09/11/20 09/11/20 18:59 06:59 18:59 Intake Total 2398 2178 720 Output Total 1750 1750 3000 Balance 648 428 -2280 Weight 89.5 kg Intake: IV 985 880 720 Sodium Chloride 0.9% 1, 985 880 720 000 ml @ 80 mls/hr IV . [id number] [facility] Rx#:[id number] Oral 480 250 Blood Product 933 1048 Platelet Irr Pheresis Pas 0 428 -C Unit [id number] Platelet Pheresis Pas 323 Psoralen Unit [id number] Rc Irr As1 Unit 310 [id number] Rc Irr As1 Unit 310 [id number] Rc Pheresis Irrad As 3 310 Unit [id number] Output: Urine 1750 1750 3000 Other: Voiding Method Urinal Urinal Urinal - Exam - Constitutional General appearance: cooperative - EENT Eyes: EOMI ENT: NA/AT - Neck Neck: normal ROM - Respiratory Respiratory: bilateral: diminished - Cardiovascular Rhythm: regular - Gastrointestinal General gastrointestinal: soft, tenderness - Integumentary Pet[place] and eccymosis - Neurologic Neurologic: CNII-XII intact - Musculoskeletal Musculoskeletal: generalized weakness - Psychiatric Psychiatric: A&O x's 3, appropriate affect - Labs CBC & Chem 7: 09/11/20 06:00 09/11/20 06:00 Labs: Abnormal Lab Results - Last 24 Hours (Table) 09/09/20 09/11/20 09/11/20 Range/Units 18:30 06:00 06:00 WBC 0.4 L* (3.8-10.6) k/uL RBC 2.72 L (4.30-5.90) m/uL Hgb 8.1 L (13.0-17.5) gm/dL Hct 23.6 L (39.0-53.0) % RDW 16.0 H (11.5-15.5) % Plt Count 8 L* (150-450) k/uL Sodium 136 L (137-145) mmol/L Chloride 108 H (98-107) mmol/L Creatinine 0.50 L (0.66-1.25) mg/dL Calcium 8.0 L (8.4-10.2) mg/dL Total Bilirubin 1.6 H (0.2-1.3) mg/dL Albumin 3.4 L (3.5-5.0) g/dL Crossmatch See Detail Assessment and Plan (1) GI bleed Current Visit: Yes Status: Acute Code(s): K92.2 - GASTROINTESTINAL HEMORRHAGE, UNSPECIFIED SNOMED Code(s): 06321260 (2) Pancytopenia Current Visit: Yes Status: Acute Priority: High Code(s): D61.818 - OTHER PANCYTOPENIA SNOMED Code(s): 055244897 (3) AML (acute myeloid leukemia) Current Visit: No Status: Acute Priority: High Code(s): C92.00 - ACUTE MYELOBLASTIC LEUKEMIA, NOT HAVING ACHIEVED REMISSION SNOMED Code(s): 53215664 Plan: Continue aggressive supportive care. Continue to hold venetoclax at this time, no NSAIDS, No aspirin. Continue transfuse PRBC less than 7, Transfuse PLatelets less than 10 or if still signs of bleeding transfuse less than 50K Continue Zarxio Transfuse Platelets today Physician Attest: I have completed the full history and physical and agree with above dictation, dictated as a scribe.
[2020-09-11] MEDS: FILGRASTIM-SNDZ 480 MCG/0.8 ML SYRINGE SQ SCH (17:49)
[2020-09-11] MEDS: PANTOPRAZOLE 40 MG TABLET PO SCH (17:49)
[2020-09-11 18:25] LABS: Anisocytosis Slight; HCT 25.5 % (39.0-53.0); HGB 8.5 gm/dL (13.0-17.5); MCHC 33.4 g/dL (31.0-37.0); Mean Platelet Volume 7.8; Poikilocytosis Slight; RBC 2.94 m/uL (4.30-5.90); RDW 16.4 % (11.5-15.5)
[2020-09-11 18:28] LABS: Platelet Count 11 k/uL (150-450); WBC 0.4 k/uL (3.8-10.6)
[2020-09-11 18:59] LABS: Hypochromasia (M) Present
[2020-09-11] MEDS: BENZOCAINE/MENTHOL LOZENG 1 EACH LOZENGE MUCOUS MEM PRN (22:06)
[2020-09-12] MEDS ORDERED: ACETAMINOPHEN TAB 325 MG TAB PO STA (04:13)
[2020-09-12 05:28] LABS: HGB 7.9 gm/dL (13.0-17.5); MCH 29.6 pg (25.0-35.0); MCHC 34.3 g/dL (31.0-37.0); MCV 86.2 fL (80.0-100.0); Mean Platelet Volume 7.9; Poikilocytosis Slight; RBC 2.67 m/uL (4.30-5.90)
[2020-09-12 05:30] LABS: WBC 0.3 k/uL (3.8-10.6)
[2020-09-12 05:42] LABS: African American GFR (CKD) >90 (>60 ml/min/1.73 sqM); Anion Gap 1 mmol/L; Blood Urea Nitrogen 14 mg/dL (9-20); Calcium 8.1 mg/dL (8.4-10.2); Carbon Dioxide 30 mmol/L (22-30); Chloride 107 mmol/L (98-107); Glucose 103 mg/dL (74-99); Non-African American GFR(CKD) >90 (>60 ml/min/1.73 sqM); Potassium 3.6 mmol/L (3.5-5.1); Sodium 138 mmol/L (137-145)
[2020-09-12] MEDS: PANTOPRAZOLE 40 MG TABLET PO SCH ×2 (07:37→18:02)
[2020-09-12] MEDS ORDERED: POTASSIUM CHLORIDE ER 20 MEQ TAB.ER PO SCH (08:00)
[2020-09-12] MEDS: valACYclovir 500 MG TAB PO SCH (08:52)
[2020-09-12] MEDS: HYDROcodone/APAP 7.5-325MG 1 EACH TAB PO PRN ×2 (08:52→18:27)
[2020-09-12] MEDS: NIFEdipine XL 30 MG TAB.ER.24 PO SCH (08:52)
[2020-09-12] MEDS: SUCRALFATE 1 GM TAB PO SCH ×2 (08:52→21:55)
[2020-09-12] MEDS: BENZOCAINE/MENTHOL LOZENG 1 EACH LOZENGE MUCOUS MEM PRN (08:53)
--- NOTE | 2020-09-12 10:12 | P.PN ---
Subjective Progress Note Date: 09/12/20 Principal diagnosis: GI bleed with severe pancytopenia secondary to treatment for acute leukemia The patient is seen today 09/12/2020 in follow-up in the intensive care unit. He is awake and alert in no acute distress. He is currently maintaining O2 saturations 90s on room air. No IV fluids running. Current hemoglobin 7.9. He is status post 4 units of packed red blood cells this admission. 4 packs of platelets. To receive platelets again today. White count 0.3. Hemoglobin 7.9. Platelet count 5000. Sodium 138. Potassium 3.6. Creatinine 0.60. Objective - Vital Signs Vital signs: Vital Signs Temp 97.7 F 09/12/20 08:00 Pulse 78 09/12/20 08:00 Resp 16 09/12/20 08:00 BP 141/78 09/12/20 08:00 Pulse Ox 94 L 09/12/20 08:00 Intake & Output 09/11/20 09/12/20 09/12/20 18:59 06:59 18:59 Intake Total 720 347 Output Total 3000 1100 400 Balance -2280 -753 -400 Weight 87.2 kg Intake: IV 720 Sodium Chloride 0.9% 1, 720 000 ml @ 80 mls/hr IV . [id number] ON LICENSE OF [facility] Rx#:[id number] Blood Product 347 Platelet Irr Pheresis Pas 347 -C Unit [id number] Output: Urine 3000 1100 400 Other: Voiding Method Urinal Urinal Urinal - Exam GENERAL EXAM: Alert, pleasant 80-year-old gentleman, on room air, comfortable in no apparent distress. HEAD: Normocephalic. EYES: Normal reaction of pupils, equal size. NOSE: Clear with pink turbinates. THROAT: No erythema or exudates. NECK: No masses, no JVD. CHEST: No chest wall deformity. LUNGS: Equal air entry with no crackles, wheeze, rhonchi or dullness. CVS: S1 and S2 normal with no audible murmur, regular rhythm. ABDOMEN: No hepatosplenomegaly, normal bowel sounds, no guarding or rigidity. SPINE: No scoliosis or deformity SKIN: No rashes CENTRAL NERVOUS SYSTEM: No focal deficits, tone is normal in all 4 extremities. EXTREMITIES: There is no peripheral edema. No clubbing, no cyanosis. Peripheral pulses are intact. - Labs CBC & Chem 7: 12/02/20 05:10 09/12/20 05:10 Labs: Abnormal Lab Results - Last 24 Hours (Table) 09/09/20 09/11/20 09/12/20 Range/Units 18:30 18:00 05:10 WBC 0.4 L* 0.3 L* (3.8-10.6) k/uL RBC 2.94 L 2.67 L (4.30-5.90) m/uL Hgb 8.5 L 7.9 L (13.0-17.5) gm/dL Hct 25.5 L 23.0 L (39.0-53.0) % RDW 16.4 H 16.0 H (11.5-15.5) % Plt Count 11 L* 5 L* D (150-450) k/uL Creatinine (0.66-1.25) mg/dL Glucose (74-99) mg/dL Calcium (8.4-10.2) mg/dL Crossmatch See Detail 09/12/20 Range/Units 05:10 WBC (3.8-10.6) k/uL RBC (4.30-5.90) m/uL Hgb (13.0-17.5) gm/dL Hct (39.0-53.0) % RDW (11.5-15.5) % Plt Count (150-450) k/uL Creatinine 0.60 L (0.66-1.25) mg/dL Glucose 103 H (74-99) mg/dL Calcium 8.1 L (8.4-10.2) mg/dL Crossmatch Assessment and Plan Assessment: 1 Acute GI bleed more recently evaluated by GI services, no plans for endoscopy 2 Severe pancytopenia secondary to treatment for acute leukemia 3 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 Reina He is currently stable from the pulmonary and critical care standpoint To be transferred out to the regular medical floor Continue to monitor lab results closely We will continue to follow make further recommendations based on his clinical status I, the cosigning physician, performed a history & physical examination of the patient. Lungs sounds are clear. Maintaining good O2 saturations in the 90s on room air. I discussed the assessment and plan of care with my nurse practitioner, Candida Villasenor. I attest to the above note as dictated by her.
--- NOTE | 2020-09-12 13:58 | P.PN ---
Subjective Patient is complaining of some chills and sore throat this morning. He said that he was concerned that his room was cold today. He denies any significant cough or shortness of breath. He appears frustrated as his platelet count is not improving. Objective - Vital Signs Vital signs: Vital Signs Temp 97.7 F 09/12/20 08:00 Pulse 78 09/12/20 08:00 Resp 16 09/12/20 08:00 BP 141/78 09/12/20 08:00 Pulse Ox 94 L 09/12/20 08:00 Intake & Output 09/11/20 09/12/20 09/12/20 18:59 06:59 18:59 Intake Total 720 347 Output Total 3000 1100 400 Balance -0952 -673 -400 Weight 87.2 kg Intake: IV 720 Sodium Chloride 0.9% 1, 720 000 ml @ 80 mls/hr IV . [id number] [facility] Rx#:[id number] Blood Product 347 Platelet Irr Pheresis Pas 347 -C Unit [id number] Output: Urine 3000 1100 400 Other: Voiding Method Urinal Urinal Urinal - Exam General: The patient is awake and alert, in no distress Eye: there is normal conjunctiva bilaterally. Neck: The neck is supple, there is no JVD. Cardiovascular: Normal S1-S2, no S3-S4, no murmurs. Respiratory: Lungs clear to auscultation bilaterally Gastrointestinal: Abdomen is soft, nontender Musculoskeletal: There is no pedal edema. Neurological:. Speech is normal. Skin: Skin is warm and dry - Labs CBC & Chem 7: 09/12/20 05:10 09/12/20 05:10 Labs: Abnormal Lab Results - Last 24 Hours (Table) 09/09/20 09/11/20 09/12/20 Range/Units 18:30 18:00 05:10 WBC 0.4 L* 0.3 L* (3.8-10.6) k/uL RBC 2.94 L 2.67 L (4.30-5.90) m/uL Hgb 8.5 L 7.9 L (13.0-17.5) gm/dL Hct 25.5 L 23.0 L (39.0-53.0) % RDW 16.4 H 16.0 H (11.5-15.5) % Plt Count 11 L* 5 L* D (150-450) k/uL Creatinine (0.66-1.25) mg/dL Glucose (74-99) mg/dL Calcium (8.4-10.2) mg/dL Crossmatch See Detail 09/12/20 Range/Units 05:10 WBC (3.8-10.6) k/uL RBC (4.30-5.90) m/uL Hgb (13.0-17.5) gm/dL Hct (39.0-53.0) % RDW (11.5-15.5) % Plt Count (150-450) k/uL Creatinine 0.60 L (0.66-1.25) mg/dL Glucose 103 H (74-99) mg/dL Calcium 8.1 L (8.4-10.2) mg/dL Crossmatch Assessment and Plan Assessment: This is a 79-year-old male with complex past medical history significant for history of AML status post chemotherapy with last dose received approximately a month ago who presented to the emergency room with multiple episodes of maroon- colored stool. Patient was evaluated in the ER and admitted to the hospital for further management of his medical problems noted below. Acute blood loss anemia secondary to GI bleeding in setting of AML. -GI bleed appears to be resolving. Required 4 units of PRBC since admission. 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 -Seen and evaluated by GI. No plans for endoscopic intervention at this time. EGD and colonoscopy done in 2018 showed gastritis, duodenitis, and diverticulosis. -Hematology/oncology recommendations appreciated -Continue to monitor CBC -Continue with Protonix 40 mg twice daily Severe pancytopenia -Heme/Onc recs appreciated -Started on Zarxio -Patient in remission from AML w/ hx of MDS -Transfuse as needed for platelet count less than 10 -Continue to monitor -Neutropenic precautions Hx of prolonged QT -Avoid further prolonging agents HTN -C/w Procardia DVT prophylaxis -IPCDs Or platelet transfusion today as ordered by hematology Transfer out of ICU to [facility] Repeat CBC in the morning Discharge planning
--- NOTE | 2020-09-12 14:18 | P.PN ---
Subjective Progress Note Date: 09/12/20 Principal diagnosis: Acute lower GI bleed The patient is a 80-year-old pleasant white male who follows with Dr. Aragon on an outpatient basis who was diagnosed with myelodysplastic syndrome a few years ago. He recently progressed to AML for which he currently was receiving chemo therapy this past June and July. He was recently hospitalized for anemia, with petechiae and epistaxis. He underwent a blood transfusion as an outpatient on Thursday, then reported he later had a bowel movement that had a maroon colored stool followed by several more. On admission he was found to have a hemoglobin of 5 and platelets of 1000. He is status post 4 units of packed red blood cells and 4 units of platelets. He states he is tolerating a regular diet, he has had no further bowel movements with blood noted. He denies any abdominal pain, nausea, or vomiting. Today's hemoglobin is 7.9, platelet count 5000. The patient was started on Zarxio iniated by oncology. Objective - Vital Signs Vital signs: Vital Signs Temp 97.7 F 09/12/20 08:00 Pulse 78 09/12/20 08:00 Resp 16 09/12/20 08:00 BP 141/78 09/12/20 08:00 Pulse Ox 94 L 09/12/20 08:00 Intake & Output 09/11/20 09/12/20 09/12/20 18:59 06:59 18:59 Intake Total 720 347 Output Total 3000 1100 400 Balance -2280 -753 -400 Weight 87.2 kg Intake: IV 720 Sodium Chloride 0.9% 1, 720 000 ml @ 80 mls/hr IV . [id number] [facility] Rx#:[id number] Blood Product 347 Platelet Irr Pheresis Pas 347 -C Unit [id number] Output: Urine 3000 1100 400 Other: Voiding Method Urinal Urinal Urinal - Exam General appearance: The patient is alert, oriented, in no acute distress. HET: Head is normocephalic and atraumatic. Conjunctiva pink. Sclera anicteric. Neck: Supple without lymphadenopathy. Abdomen: Soft, nontender, nondistended with bowel sounds. No guarding or rigidity. Extremities: Petechiae noted on bilateral upper and lower extremities. No pedal edema Neurological: No focal deficits. Alert and oriented 3. - Labs CBC & Chem 7: 09/12/20 05:10 09/12/20 05:10 Labs: Abnormal Lab Results - Last 24 Hours (Table) 09/09/20 09/11/20 09/12/20 Range/Units 18:30 18:00 05:10 WBC 0.4 L* 0.3 L* (3.8-10.6) k/uL RBC 2.94 L 2.67 L (4.30-5.90) m/uL Hgb 8.5 L 7.9 L (13.0-17.5) gm/dL Hct 25.5 L 23.0 L (39.0-53.0) % RDW 16.4 H 16.0 H (11.5-15.5) % Plt Count 11 L* 5 L* D (150-450) k/uL Creatinine (0.66-1.25) mg/dL Glucose (74-99) mg/dL Calcium (8.4-10.2) mg/dL Crossmatch See Detail 09/12/20 Range/Units 05:10 WBC (3.8-10.6) k/uL RBC (4.30-5.90) m/uL Hgb (13.0-17.5) gm/dL Hct (39.0-53.0) % RDW (11.5-15.5) % Plt Count (150-450) k/uL Creatinine 0.60 L (0.66-1.25) mg/dL Glucose 103 H (74-99) mg/dL Calcium 8.1 L (8.4-10.2) mg/dL Crossmatch Assessment and Plan Assessment: 1. Acute lower gastrointestinal bleed. The patient presented with multiple episodes of maroon colored stools for the last 3 days duration. He presented with a hemoglobin of 5 inches prior to that his hemoglobin was 8. He received units of PRBC transfusion for hemoglobin of 5 and today it is 8.1. He has received 2 units of platelets. He has had no further episodes of bleeding. The patient did have an EGD/colonoscopy by Dr. Pena in 2018 that revealed mainly gastritis, duodenitis and some diverticulosis. 2. History of myelodysplastic syndrome that progressed to AML status post chemotherapy one month ago. Dr. Aragon following the patient on an outpatient basis. Dr. Ivan following the patient during this admission. 3. Severe pancytopenia Plan: 1. Supportive Care 2. Okay to increase diet as tolerated 3. Monitor CBC and a daily basis and transfuse as needed 4. Patient started on Protonix 40 mg daily 6. No plans for endoscopic intervention at the present time 7. Continue with recommendations from hematology/oncology We will be on standby, please do not hesitate to call us if there is any further evidence of GI bleed Dr. Tommie Lozada I agree with the dictator's note, documented as a scribe by Sheila Ragland.
[2020-09-12] MEDS: ACETAMINOPHEN TAB 325 MG TAB PO PRN ×2 (15:21→22:11)
[2020-09-12] MEDS ORDERED: VANCOMYCIN IV PER PHARMACY 1 EACH MISC MISCELLANE PRN (17:01)
[2020-09-12] MEDS ORDERED: CEFEPIME 2 GM in SODIUM CHLORIDE 0.9% 100 ML IVPB SCH (17:15)
[2020-09-12] MEDS ORDERED: CEFEPIME 2 GM in SODIUM CHLORIDE 0.9% 100 ML IVPB ONE (17:15)
[2020-09-12] MEDS: VANCOMYCIN 1,500 MG in SODIUM CHLORIDE 0.9% 250 ML IVPB SCH (18:01)
[2020-09-12] MEDS: FILGRASTIM-SNDZ 480 MCG/0.8 ML SYRINGE SQ SCH (18:02)
--- NOTE | 2020-09-12 18:12 | P.PN ---
Subjective Progress Note Date: 09/12/20 Principal diagnosis: Pancytopenia Patient unfortunetly spiked fever last night and today, his platelets appear to be refractory as well, no active bleeding seen. During exam he is alert and anxious to be on regular medical floor. He overall states he feels good. I discussed his situation of aplastic bone marrow with son - Osmin as well. His last bone marrow did not show any active leukemia cells, therefore our goal is to continue to prevent/treat infection, prevent bleeding, and supportive transfusions. Crossmatched platelets have been ordered and are expected to be here early next week. Objective - Vital Signs Vital signs: Vital Signs Temp 100.9 F H 09/12/20 16:00 Pulse 87 09/12/20 16:00 Resp 23 09/12/20 16:00 BP 136/78 09/12/20 16:00 Pulse Ox 96 09/12/20 16:00 Intake & Output 09/11/20 09/12/20 09/12/20 18:59 06:59 18:59 Intake Total 720 347 362 Output Total 3000 1100 900 Balance -2280 -753 -538 Weight 87.2 kg Intake: IV 720 Sodium Chloride 0.9% 1, 720 000 ml @ 80 mls/hr IV . [id number] [facility] Rx#:[id number] Blood Product 347 362 Platelet Irr Pheresis Pas 347 -C Unit [id number] Platelet Pheresis Pas 362 Psoralen Unit [id number] Output: Urine 3000 1100 900 Other: Voiding Method Urinal Urinal Urinal - Exam - Constitutional General appearance: cooperative - EENT Eyes: EOMI ENT: NA/AT - Neck Neck: normal ROM - Respiratory Respiratory: bilateral: diminished - Cardiovascular Rhythm: regular - Gastrointestinal General gastrointestinal: soft, tenderness - Integumentary Petechaie and eccymosis - Neurologic Neurologic: CNII-XII intact - Musculoskeletal Musculoskeletal: generalized weakness - Psychiatric Psychiatric: A&O x's 3, appropriate affect - Labs CBC & Chem 7: 09/12/20 05:10 09/12/20 05:10 Labs: Abnormal Lab Results - Last 24 Hours (Table) 09/09/20 09/11/20 09/12/20 Range/Units 18:30 18:00 05:10 WBC 0.4 L* 0.3 L* (3.8-10.6) k/uL RBC 2.94 L 2.67 L (4.30-5.90) m/uL Hgb 8.5 L 7.9 L (13.0-17.5) gm/dL Hct 25.5 L 23.0 L (39.0-53.0) % RDW 16.4 H 16.0 H (11.5-15.5) % Plt Count 11 L* 5 L* D (150-450) k/uL Creatinine (0.66-1.25) mg/dL Glucose (74-99) mg/dL Calcium (8.4-10.2) mg/dL Crossmatch See Detail 09/12/20 Range/Units 05:10 WBC (3.8-10.6) k/uL RBC (4.30-5.90) m/uL Hgb (13.0-17.5) gm/dL Hct (39.0-53.0) % RDW (11.5-15.5) % Plt Count (150-450) k/uL Creatinine 0.60 L (0.66-1.25) mg/dL Glucose 103 H (74-99) mg/dL Calcium 8.1 L (8.4-10.2) mg/dL Crossmatch Assessment and Plan (1) GI bleed Current Visit: Yes Status: Acute Code(s): K92.2 - GASTROINTESTINAL HEMORRHAGE, UNSPECIFIED SNOMED Code(s): 36934409 (2) Pancytopenia Current Visit: Yes Status: Acute Priority: High Code(s): D61.818 - OTHER PANCYTOPENIA SNOMED Code(s): 118355340 (3) AML (acute myeloid leukemia) Current Visit: No Status: Acute Priority: High Code(s): C92.00 - ACUTE MYELOBLASTIC LEUKEMIA, NOT HAVING ACHIEVED REMISSION SNOMED Code(s): 75200033 Plan: Continue aggressive supportive care. Continue to hold venetoclax at this time, no NSAIDS, No aspirin. Continue transfuse PRBC less than 7, Transfuse PLatelets less than 10 or if still signs of bleeding transfuse less than 50K Continue Zarxio Prolonged aplastic marrow - Goal is time for bone marrow to recover. In the interim prevention of infection - Have asked Dr. Cutler to assist in antibiotic, antifungal, and anti-viral coverage. COntinue Zarxio, and ask [place] for Crossmatched platelets to transfuse in the picture of refractory bonemarrow All discussed with ICU team and patients son, all questions answered and understanding stated.
[2020-09-12 18:32] LABS: HCT 23.2 % (39.0-53.0); HGB 8.1 gm/dL (13.0-17.5); MCH 29.9 pg (25.0-35.0); MCHC 34.8 g/dL (31.0-37.0); MCV 85.8 fL (80.0-100.0); Mean Platelet Volume 7.4; RDW 15.9 % (11.5-15.5)
[2020-09-12 18:33] LABS: WBC 0.3 k/uL (3.8-10.6)
[2020-09-12 18:34] LABS: Platelet Count 9 k/uL (150-450)
[2020-09-13] MEDS ORDERED: CEFEPIME 2 GM in SODIUM CHLORIDE 0.9% 100 ML IVPB ONE ×2
[2020-09-13] MEDS: VANCOMYCIN 1,500 MG in SODIUM CHLORIDE 0.9% 250 ML IVPB SCH ×3 (02:55→17:33)
--- NOTE | 2020-09-13 04:43 | CONS ---
CONSULTATION DATE OF SERVICE: 09/12/2020. REASON FOR STAY: Fever and neutropenia. HISTORY OF PRESENT ILLNESS: The patient is a 80-year-old male with a past medical history significant for myelodysplastic syndrome progressing to AML in this patient who is status post chemotherapy. Patient presenting to the ER at [facility] on 09/09/2020 with a 2-day history of melena and blood clots and no epistaxis. No nausea, no vomiting. No abdominal pain. No chest pain, shortness of breath or cough. The patient was noticed to have hemoglobin of 5 with a of 1 and the patient had been subsequently admitted to the ICU for management of his underlying pancytopenia in this patient who has been afebrile on admission, however, started spiking a low-grade fever of 100.4 this morning with fever of 100.9 this afternoon that prompted this infectious disease consultation. The patient currently denies having any headache or URI symptoms. Denies having any chest pain or shortness of breath or cough. No nausea, no vomiting. No abdominal pain, no diarrhea. The patient did have a PICC line in left arm since June where the patient has been getting his chemo through. Culture has been obtained from the PICC as well as peripherally. REVIEW OF SYSTEMS: Positive points have been mentioned in HPI. Rest of the systems are negative. PAST MEDICAL HISTORY: Myelodysplastic syndrome, AML, Thompson's palsy, diverticular disease, gout, peptic ulcer disease and vertigo. PAST SURGICAL HISTORY: Hernia repair, bone marrow biopsy, left axillary lymph node biopsy, L3-4 fusion, colonoscopy, umbilical hernia repair. SOCIAL HISTORY: Remote history of smoking. Rarely drinks. No drug use. FAMILY HISTORY: Father history of CVA and TIA. Mother history of osteoarthritis and renal disease. ALLERGIES: No known drug allergies. MEDICATIONS: Medications include the patient is currently on Tylenol, [place], Cepacol lozenges, Zarxio, Narcan, Zofran, Protonix, Carafate, and Valtrex. PHYSICAL EXAMINATION: Blood pressure is 140/90 with a pulse of 94, temperature of 100.2, T-max is 100.9. He is 98% on room air. General description is an elderly male lying in bed in no distress. No tachypnea or accessory muscle of respiration use. HEENT: Examination shows pallor, no scleral icterus. Oral mucous membrane is dry. No pharyngeal erythema or thrush. NECK: Trachea central. No thyromegaly. LUNGS: Unlabored breathing, clear to auscultation anteriorly. No wheeze or crackle. HEART: S1, S2. Regular rate and rhythm. ABDOMEN: Soft, no tenderness. No guarding or rigidity. EXTREMITIES: No edema of feet. SKIN EXAMINATION: No rash or mass palpable. NEUROLOGICAL: Patient is awake, alert, oriented x3. Mood and affect normal. LABS: Hemoglobin is 8.1, white count 0.3, BUN of 14, creatinine 0.60. Influenza PCR is negative. DIAGNOSTIC IMPRESSION AND PLAN: Patient with febrile neutropenia in this patient admitted to the hospital with melena and evidence of significant pancytopenia with fever started while in the hospital for few days in this patient currently with no localizing signs of infection with concern for possible PICC line to be the source of his febrile neutropenia versus COVID-19 infection, though clinically doubt viral pneumonia. PLAN: 1. Will wait for the COVID-19 testing. 2. Blood culture has been obtained from the PICC and , those will be followed. 3. Check a UA and a chest x-ray PA and lateral. 4. We will empirically add cefepime 2 grams q.8 hours and vancomycin pharmacy to dose. 5. We will follow on clinical condition and culture to further adjust medication if needed. Thank you for this consultation. Will follow this patient along with you. MMODL / IJN: [id number] /
[2020-09-13 05:23] LABS: HCT 22.4 % (39.0-53.0); HGB 7.8 gm/dL (13.0-17.5); MCH 29.9 pg (25.0-35.0); MCV 85.6 fL (80.0-100.0); Platelet Count 7 k/uL (150-450); RBC 2.62 m/uL (4.30-5.90); RDW 15.7 % (11.5-15.5); WBC 0.2 k/uL (3.8-10.6)
[2020-09-13 05:41] LABS: Poikilocytosis (M) Present
[2020-09-13 05:45] LABS: Anisocytosis (M) Present
[2020-09-13] MEDS: PANTOPRAZOLE 40 MG TABLET PO SCH ×2 (06:44→17:33)
[2020-09-13 07:26] LABS: Platelet Count 5 k/uL (150-450)
[2020-09-13] MEDS ORDERED: SODIUM CHLORIDE 0.9% 1,000 ML IV SCH (09:45)
[2020-09-13] MEDS: SUCRALFATE 1 GM TAB PO SCH ×2 (10:08→23:00)
[2020-09-13] MEDS: valACYclovir 500 MG TAB PO SCH (10:08)
[2020-09-13] MEDS: NIFEdipine XL 30 MG TAB.ER.24 PO SCH (10:08)
--- NOTE | 2020-09-13 10:15 | XR ---
EXAMINATION TYPE: XR chest 1V portable DATE OF EXAM: 09/13/2020 CLINICAL HISTORY: Difficulty breathing and fever progress study. TECHNIQUE: Single AP portable upright view of the chest is obtained. COMPARISON: Chest x-ray from 08/28/2020. FINDINGS: Redemonstration of left sided PICC line. There is no focal air space opacity, pleural eff usion, or pneumothorax seen bilaterally. Cardiac silhouette size is stable and within normal limits. Osseous structures are intact. IMPRESSION: No new acute pulmonary process.
--- NOTE | 2020-09-13 10:50 | P.PN ---
Subjective Progress Note Date: 09/13/20 Principal diagnosis: GI bleed, with severe pancytopenia secondary to treatment for acute leukemia The patient is seen today 09/12/2020 in follow-up in the intensive care unit. He is awake and alert in no acute distress. He is currently maintaining O2 saturations 90s on room air. No IV fluids running. Current hemoglobin 7.9. He is status post 4 units of packed red blood cells this admission. 4 packs of platelets. To receive platelets again today. White count 0.3. Hemoglobin 7.9. Platelet count 5000. Sodium 138. Potassium 3.6. Creatinine 0.60. On 10/10/2020 patient seen in follow-up in intensive care unit, has not had any active bleeding in the last 24 hours, he is on room air, breathing comfortably, pulse ox is 97%, and he needs to be intermittently febrile, with a T-max of 101.8F, has no IV fluids, cultures remain negative, she is on cefepime and vancomycin, he is on Valtrex, he is on IV fluids appointment and was sitting at a rate of 100 mL per hour, received the platelets S night, and apparently he spiked a fever and not COVID 19 PCR was sent, pending at this time, denies any shortness of breath, chest x-ray showed no new acute pulmonary process. Lab work has been noted, hemoglobin is 7.8, white count is 0.2, platelet count is 7 influenza screen was negative. Remains hemodynamically stable Objective - Vital Signs Vital signs: Vital Signs Temp 101.8 F H 09/13/20 02:00 Pulse 102 H 09/13/20 02:00 Resp 16 09/13/20 02:00 BP 140/90 09/12/20 21:54 Pulse Ox 97 09/13/20 02:00 Intake & Output 09/12/20 09/13/20 09/13/20 18:59 06:59 18:59 Intake Total 712 705 Output Total 900 1200 Balance -188 -495 Intake: Intake, IV Titration 350 350 Amount Cefepime 2 gm In Sodium 100 100 Chloride 0.9% 100 ml @ 25 mls/hr IVPB Q8HR ONE Rx# :[id number] Vancomycin 1,500 mg In 250 250 Sodium Chloride 0.9% 250 ml @ 125 mls/hr IVPB Q8H [facility] Rx#:[id number] Oral 150 Blood Product 362 205 Platelet Irr Pheresis 3 205 Acda Unit [id number] Platelet Pheresis Pas 362 Psoralen Unit [id number] Output: Urine 900 1200 Other: Voiding Method Urinal Urinal # Voids 4 - Exam GENERAL EXAM: Alert, very pleasant, 80-year-old white male, on room air with pulse ox of 97% comfortable in no apparent distress. HEAD: Normocephalic/atraumatic. EYES: Normal reaction of pupils, equal size. Conjunctiva pink, sclera white. NOSE: Clear with pink turbinates. THROAT: No erythema or exudates. NECK: No masses, no JVD, no thyroid enlargement, no adenopathy. CHEST: No chest wall deformity. Symmetrical expansion. LUNGS: Equal air entry with no crackles, wheeze, rhonchi or dullness. CVS: Regular rate and rhythm, normal S1 and S2, no gallops, no murmurs, no rubs ABDOMEN: Soft, nontender. No hepatosplenomegaly, normal bowel sounds, no guarding or rigidity. EXTREMITIES: No clubbing, no edema, no cyanosis, 2+ pulses and upper and lower extremities. MUSCULOSKELETAL: Muscle strength and tone normal. SPINE: No scoliosis or deformity SKIN: No rashes CENTRAL NERVOUS SYSTEM: Alert and oriented -3. No focal deficits, tone is normal in all 4 extremities. PSYCHIATRIC: Alert and oriented -3. Appropriate affect. Intact judgment and insight. - Labs CBC & Chem 7: 09/13/20 05:05 09/12/20 05:10 Labs: Abnormal Lab Results - Last 24 Hours (Table) 09/12/20 09/12/20 09/13/20 Range/Units 05:10 18:10 05:05 WBC 0.3 L* 0.2 L* (3.8-10.6) k/uL RBC 2.70 L 2.62 L (4.30-5.90) m/uL Hgb 8.1 L 7.8 L (13.0-17.5) gm/dL Hct 23.2 L 22.4 L (39.0-53.0) % RDW 15.9 H 15.7 H (11.5-15.5) % Plt Count 5 L* D 9 L* D 7 L* (150-450) k/uL Microbiology - Last 24 Hours (Table) 09/12/20 13:16 Blood Culture Gram Stain - Preliminary Blood 09/12/20 13:17 Blood Culture Gram Stain - Preliminary Blood 09/12/20 13:17 Blood Culture - Final Blood 09/12/20 13:16 Blood Culture - Final Blood Assessment and Plan Plan: 1 Acute GI bleed more recently evaluated by GI services, no plans for endoscopy 2 Severe pancytopenia secondary to treatment for acute leukemia 3 History of long-standing myelodysplastic syndrome with recent transformation to acute leukemia 4 History of chronic low back pain 5 History of pulmonary embolism in the left lung 6 History of kidney stones 7 Macular degeneration 8 History of Thompson's palsy 9 History of reticular cyst 10 History of gout 11 History of gastric ulcer 12 History of vertigo Plan: Patient is stable from pulmonary/critical care perspective, he can still be transferred out of intensive care unit, to oncology floor or to general medical surgical floor, COVId 19 PCR was pending, although the suspicion for COVID 19 is low, I performed a history & physical examination of the patient and discussed their management with my nurse practitioner, Julieta Jurado. I reviewed the nurse practitioner's note and agree with the documented findings and plan of care. Lung sounds are positive for diminished breath sounds. The findings and the impression was discussed with the patient. I attest to the documentation by the nurse practitioner. Time with Patient: Less than 30
--- NOTE | 2020-09-13 14:09 | P.PN ---
Subjective Progress Note Date: 09/13/20 Patient is awake and alert this morning. He does not have any complaints. He continues to spike fever overnight. Objective - Vital Signs Vital signs: Vital Signs Temp 98.6 F 09/13/20 08:00 Pulse 114 H 09/13/20 08:00 Resp 10 L 09/13/20 08:00 BP 140/90 09/12/20 21:54 Pulse Ox 94 L 09/13/20 08:00 Intake & Output 09/12/20 09/13/20 09/13/20 18:59 06:59 18:59 Intake Total 712 705 Output Total 900 1200 Balance -188 -495 Intake: Intake, IV Titration 350 350 Amount Cefepime 2 gm In Sodium 100 100 Chloride 0.9% 100 ml @ 25 mls/hr IVPB Q8HR [facility] Rx# :[id number] Vancomycin 1,500 mg In 250 250 Sodium Chloride 0.9% 250 ml @ 125 mls/hr IVPB Q8H [facility] Rx#:[id number] Oral 150 Blood Product 362 205 Platelet Irr Pheresis 3 205 Acda Unit [id number] Platelet Pheresis Pas 362 Psoralen Unit [id number] Output: Urine 900 1200 Other: Voiding Method Urinal Urinal # Voids 4 # Bowel Movements 1 - Exam General: The patient is awake and alert, in no distress Eye: there is normal conjunctiva bilaterally. Neck: The neck is supple, there is no JVD. Cardiovascular: Normal S1-S2, no S3-S4, no murmurs. Respiratory: Lungs clear to auscultation bilaterally Gastrointestinal: Abdomen is soft, nontender Musculoskeletal: There is no pedal edema. Neurological:. Speech is normal. Skin: Skin is warm and dry - Labs CBC & Chem 7: 09/13/20 05:05 09/12/20 05:10 Labs: Abnormal Lab Results - Last 24 Hours (Table) 09/12/20 09/12/20 09/13/20 Range/Units 05:10 18:10 05:05 WBC 0.3 L* 0.2 L* (3.8-10.6) k/uL RBC 2.70 L 2.62 L (4.30-5.90) m/uL Hgb 8.1 L 7.8 L (13.0-17.5) gm/dL Hct 23.2 L 22.4 L (39.0-53.0) % RDW 15.9 H 15.7 H (11.5-15.5) % Plt Count 5 L* D 9 L* D 7 L* (150-450) k/uL Microbiology - Last 24 Hours (Table) 09/12/20 13:16 Blood Culture Gram Stain - Preliminary Blood 09/12/20 13:17 Blood Culture Gram Stain - Preliminary Blood 09/12/20 13:17 Blood Culture - Final Blood 09/12/20 13:16 Blood Culture - Final Blood Assessment and Plan Assessment: This is a 79-year-old male with complex past medical history significant for history of AML status post chemotherapy with last dose received approximately a month ago who presented to the emergency room with multiple episodes of maroon- colored stool. Patient was evaluated in the ER and admitted to the hospital for further management of his medical problems noted below. Acute blood loss anemia secondary to GI bleeding in setting of AML. -GI bleed appears to be resolving. Required 4 units of PRBC since admission. 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 -Seen and evaluated by GI. No plans for endoscopic intervention at this time. EGD and colonoscopy done in 2018 showed gastritis, duodenitis, and diverticulosis. -Hematology/oncology recommendations appreciated -Continue to monitor CBC -Continue with Protonix 40 mg twice daily Severe pancytopenia with thrombocytopenia -Requiring daily platelet transfusion. 4 units since admission -Heme/Onc recs appreciated -Started on Zarxio -Patient in remission from AML w/ hx of MDS -Transfuse as needed for platelet count less than 10 -Continue to monitor -Neutropenic precautions Neutropenic fever Sepsis without septic shock Gram-positive bacteremia -Started on broad-spectrum antibiotic with IV vancomycin and cefepime -Possible sources PICC line which will be discontinued today -Repeat blood culture sent and pending -Vital prophylaxis with acyclovir -Infectious disease following appreciate recommendation -Influenza screen negative, pending though less likely clinically -Urinalysis ordered and pending -Chest x-ray with no acute findings Hx of prolonged QT -Avoid further prolonging agents HTN -C/w Procardia DVT prophylaxis -IPCDs
[2020-09-13] MEDS: SODIUM CHLORIDE 0.9% 1,000 ML IV SCH ×2 (14:45→23:01)
[2020-09-13] MEDS: ACETAMINOPHEN TAB 325 MG TAB PO PRN ×2 (14:45→21:16)
[2020-09-13 15:07] LABS: Appearance,Urine Clear (Clear); Bilirubin,Urine Negative (Negative); Blood,Urine Large (Negative); Color,Urine Yellow; Glucose,Urine (UA) Negative (Negative); Ketones,Urine Negative (Negative); Leukocyte Esterase,Urine Negative (Negative); Mucus,Urine Rare /hpf; Nitrite,Urine Negative (Negative); Protein,Urine 1+ (Negative); RBC,Urine 26 /hpf (0-5); Specific Gravity,Urine 1.015 (1.001-1.035); Squamous Epithelial Cell,Urine <1 /hpf (0-4); Urobilinogen,Urine <2.0 mg/dL (<2.0); WBC,Urine <1 /hpf (0-5)
--- NOTE | 2020-09-13 16:29 | PN ---
PROGRESS NOTE DATE OF SERVICE: 09/13/2020 REASON FOR FOLLOWUP: Febrile neutropenia. INTERVAL HISTORY: The patient did spike a fever this morning and one this afternoon. The patient himself denies having any chest pain or shortness of breath or cough. No nausea, no vomiting, no abdominal pain or diarrhea. PHYSICAL EXAMINATION: Blood pressure is 140/90 with a pulse of 104, temperature of 101. He is 97% on room air. General description is an elderly male lying in bed in no distress. HEENT EXAMINATION: Slight pallor. LUNGS: Unlabored breathing. Clear to auscultation anteriorly. No wheeze or crackle. HEART: S1, S2. Regular rate and rhythm. ABDOMEN: Soft. No tenderness. LABS: Hemoglobin 7.3, white count 0.2. BUN of 14, creatinine 0.60. Blood culture is coming back positive with Gram-positive cocci in chains. DIAGNOSTIC IMPRESSION AND PLAN: Patient with febrile neutropenia with bacteremia. Source is likely PICC line. It is going to be discontinued today. Patient is covered with cefepime and vancomycin; to continue, adjusting antibiotics further on the basis of ID of this pathogen and clinical response. Continue with supportive care. MMODL / IJN: [id number] /
--- NOTE | 2020-09-13 16:30 | CDI ---
Pancytopenia due to chemotherapy Also pancytopenia due to sepsis, underlying MDS Documentation Clarification Form Date: 09/13/2020 03:55:13 PM From: Sangeeta Macias RN, CCDS Admit Date: 09/09/2020 07:23:00 PM Patient Name: Cleveland Haley Visit Number: [id number] Discharge Date: ATTENTION: The Clinical Documentation Specialists (CDI) and [facility] Coding Staff appreciate your assistance in clarifying documentation. Please respond to the clarification below the line at the bottom and electronically sign. The CDI & [facility] Coding staff will review the response and follow-up if needed. Please note: Queries are made part of the Legal Health Record. If you have any questions, please contact the author of this message via ITS. Dr. Ayad Ivan The patient was admitting with a diagnosis of: GI bleed Severe pancytopenia has been documented in the H/P, consults and subsequent progress notes. 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 He presented with rectal bleeding and diffuse petechaie. He has been treated with Venclextra and Vidaza completing on 08/10/20 patient aplastic bone marrow has not recovered. 12/1Labs: WBC 0.4, HGB 8.1, HCT 23.6 PLT 8 Treatment ICU Monitoring Monitor CBC daily Transfuse PRBC HGB, 7, Transfuse Platelets <10 or if still signs of bleeding transfuse less than 50K Zarxio 480 mcg SQ daily @ 1800 .9NS @75 MLS/HR Neutropenic precautions In your professional opinion, can you please clarify if these findings signify one of the following conditions? Pancytopenia due to chemotherapy Pancytopenia drug induced, specify drug Pancytopenia due to other, please specify Other condition, please specify ____ Unable to determine (Last Revision: July 2017) MTDD
[2020-09-13] MEDS: FILGRASTIM-SNDZ 480 MCG/0.8 ML SYRINGE SQ SCH (17:33)
[2020-09-13] MEDS: HYDROcodone/APAP 7.5-325MG 1 EACH TAB PO PRN (17:45)
--- NOTE | 2020-09-13 21:54 | P.PN ---
Subjective Progress Note Date: 09/13/20 Principal diagnosis: Pancytopenia Patient's platelets 7K today. No active bleeding Objective - Vital Signs Vital signs: Vital Signs Temp 100.1 F H 09/13/20 21:30 Pulse 96 09/13/20 21:30 Resp 19 09/13/20 21:30 BP 156/87 09/13/20 21:30 Pulse Ox 99 09/13/20 20:00 Intake & Output 09/13/20 09/13/20 09/14/20 06:59 18:59 06:59 Intake Total 705 1600 0 Output Total 1200 650 425 Balance -495 950 -425 Intake: IV 1000 Sodium Chloride 0.9% 1, 750 000 ml @ 75 mls/hr IV . [id number] [facility] Rx#:[id number] Vancomycin 1,500 mg In 250 Sodium Chloride 0.9% 250 ml @ 125 mls/hr IVPB Q8H [facility] Rx#:[id number] Intake, IV Titration 350 Amount Cefepime 2 gm In Sodium 100 Chloride 0.9% 100 ml @ 25 mls/hr IVPB Q8HR [facility] Rx# :[id number] Vancomycin 1,500 mg In 250 Sodium Chloride 0.9% 250 ml @ 125 mls/hr IVPB Q8H [facility] Rx#:[id number] Oral 150 600 Blood Product 205 0 Platelet Irr Pheresis 3 205 Acda Unit [id number] Platelet Pheresis Pas-C 0 Unit [id number] Output: Urine 1200 650 425 Other: Voiding Method Urinal Urinal # Voids 4 3 # Bowel Movements 1 - Exam - Constitutional General appearance: cooperative - EENT Eyes: EOMI ENT: NA/AT - Neck Neck: normal ROM - Respiratory Respiratory: bilateral: diminished - Cardiovascular Rhythm: regular - Gastrointestinal General gastrointestinal: soft, tenderness - Integumentary Petechaie and eccymosis - Neurologic Neurologic: CNII-XII intact - Musculoskeletal Musculoskeletal: generalized weakness - Psychiatric Psychiatric: A&O x's 3, appropriate affect - Labs CBC & Chem 7: 09/13/20 05:05 09/12/20 05:10 Labs: Abnormal Lab Results - Last 24 Hours (Table) 09/12/20 09/13/20 09/13/20 Range/Units 05:10 05:05 12:00 WBC 0.2 L* (3.8-10.6) k/uL RBC 2.62 L (4.30-5.90) m/uL Hgb 7.8 L (13.0-17.5) gm/dL Hct 22.4 L (39.0-53.0) % RDW 15.7 H (11.5-15.5) % Plt Count 5 L* D 7 L* (150-450) k/uL Urine Protein 1+ H (Negative) Urine Blood Large H (Negative) Urine RBC 26 H (0-5) /hpf Urine Mucus Rare H (None) /hpf Microbiology - Last 24 Hours (Table) 09/13/20 15:00 Catheter Tip Culture - Preliminary Picc Line 09/12/20 13:16 Blood Culture Gram Stain - Preliminary Blood 09/12/20 13:17 Blood Culture Gram Stain - Preliminary Blood 09/12/20 13:17 Blood Culture - Final Blood 09/12/20 13:16 Blood Culture - Final Blood Assessment and Plan (1) GI bleed Current Visit: Yes Status: Acute Code(s): K92.2 - GASTROINTESTINAL HEMORRHAGE, UNSPECIFIED SNOMED Code(s): 13390899 (2) Pancytopenia Current Visit: Yes Status: Acute Priority: High Code(s): D61.818 - OTHER PANCYTOPENIA SNOMED Code(s): 638121656 (3) AML (acute myeloid leukemia) Current Visit: No Status: Acute Priority: High Code(s): C92.00 - ACUTE MYELOBLASTIC LEUKEMIA, NOT HAVING ACHIEVED REMISSION SNOMED Code(s): 70940853 Plan: Continue aggressive supportive care. Continue to hold venetoclax at this time, no NSAIDS, No aspirin. Continue transfuse PRBC less than 7, Transfuse PLatelets less than 10 or if still signs of bleeding transfuse less than 50K Continue Zarxio Prolonged aplastic marrow - Goal is time for bone marrow to recover. In the interim prevention of infection - Have asked Dr. Cutler to assist in antibiotic, antifungal, and anti-viral coverage. COntinue Zarxio, and ask [place] for Crossmatched platelets to transfuse in the picture of refractory bonemarrow All discussed with ICU team and patients son, all questions answered and understanding stated. Continue transfusions of available platelets in interim until crossmatched available {hyryancian Attest: I have completed the full history and physical and agree with above dictation, dictated as a scribe.
[2020-09-14] MEDS: VANCOMYCIN 1,500 MG in SODIUM CHLORIDE 0.9% 250 ML IVPB SCH ×3 (00:56→21:06)
[2020-09-14 02:01] LABS: HCT 21.1 % (39.0-53.0); HGB 7.2 gm/dL (13.0-17.5); MCH 29.2 pg (25.0-35.0); MCV 85.9 fL (80.0-100.0); Mean Platelet Volume 7.5; RBC 2.46 m/uL (4.30-5.90); RDW 15.7 % (11.5-15.5)
[2020-09-14 02:07] LABS: Platelet Count 7 k/uL (150-450); WBC 0.2 k/uL (3.8-10.6)
[2020-09-14] MEDS: ACETAMINOPHEN TAB 325 MG TAB PO PRN ×2 (04:08→14:24)
[2020-09-14 04:43] LABS: HCT 22.1 % (39.0-53.0); HGB 7.6 gm/dL (13.0-17.5); MCH 29.9 pg (25.0-35.0); MCHC 34.5 g/dL (31.0-37.0); MCV 86.9 fL (80.0-100.0); Mean Platelet Volume 7.9; RBC 2.55 m/uL (4.30-5.90); RDW 15.5 % (11.5-15.5)
[2020-09-14 04:50] LABS: Platelet Count 12 k/uL (150-450); WBC 0.2 k/uL (3.8-10.6)
[2020-09-14 04:59] LABS: African American GFR (CKD) >90 (>60 ml/min/1.73 sqM); Anion Gap 3 mmol/L; Blood Urea Nitrogen 10 mg/dL (9-20); Calcium 7.9 mg/dL (8.4-10.2); Carbon Dioxide 26 mmol/L (22-30); Chloride 103 mmol/L (98-107); Glucose 125 mg/dL (74-99); Non-African American GFR(CKD) >90 (>60 ml/min/1.73 sqM); Sodium 132 mmol/L (137-145)
[2020-09-14] MEDS ORDERED: POTASSIUM CHLORIDE ER 20 MEQ TAB.ER PO STA ×2 (05:35→07:45)
[2020-09-14] MEDS: PANTOPRAZOLE 40 MG TABLET PO SCH ×2 (05:55→17:38)
[2020-09-14] MEDS ORDERED: POTASSIUM CHLORIDE 20 MEQ in WATER FOR INJECTION 1 100ML.BAG IVPB ONE (08:30)
[2020-09-14] MEDS ORDERED: VANCOMYCIN TROUGH DUE 1 EACH MISC MISCELLANE ONE (09:00)
[2020-09-14] MEDS: valACYclovir 500 MG TAB PO SCH (09:02)
[2020-09-14] MEDS: SUCRALFATE 1 GM TAB PO SCH ×2 (09:02→21:07)
[2020-09-14] MEDS: NIFEdipine XL 30 MG TAB.ER.24 PO SCH (09:02)
--- NOTE | 2020-09-14 10:08 | P.PN ---
Subjective Progress Note Date: 09/14/20 Principal diagnosis: GI bleed with severe pancytopenia secondary to treatment for acute leukemia The patient is seen today 09/14/2020 in follow-up in the intensive care unit. He is awake and alert in no acute distress. He is currently maintaining O2 saturations 90s on room air. Currently has the 0.9 normal saline at 75 ML's per hour. His CoVID screen was negative. He is status post 4 units of packed red blood cells this admission. 7 packs of platelets. Blood cultures positive for group D enterococcus. Currently on vancomycin. White count 0.2. Hemoglobin 7.6. Platelet count 12,000. Sodium 132. Potassium 3.0. Creatinine 0.59. He is a MedSurg overflow. Objective - Vital Signs Vital signs: Vital Signs Temp 103.2 F H 09/14/20 04:00 Pulse 100 09/14/20 04:00 Resp 22 09/14/20 04:00 BP 145/76 09/14/20 04:00 Pulse Ox 98 09/14/20 04:00 Intake & Output 09/13/20 09/14/20 09/14/20 18:59 06:59 18:59 Intake Total 1600 1412 Output Total 650 675 Balance 950 737 Intake: IV 1000 1000 Sodium Chloride 0.9% 1, 750 750 000 ml @ 75 mls/hr IV . [id number] [facility] Rx#:[id number] Vancomycin 1,500 mg In 250 250 Sodium Chloride 0.9% 250 ml @ 125 mls/hr IVPB Q8H [facility] Rx#:[id number] Oral 600 Blood Product 412 Platelet Pheresis Pas-C 412 Unit [id number] Output: Urine 650 675 Other: Voiding Method Urinal Urinal Urinal # Voids 3 # Bowel Movements 1 - Exam GENERAL EXAM: Alert, pleasant 80-year-old gentleman, on room air, comfortable in no apparent distress. HEAD: Normocephalic. EYES: Normal reaction of pupils, equal size. NOSE: Clear with pink turbinates. THROAT: No erythema or exudates. NECK: No masses, no JVD. CHEST: No chest wall deformity. LUNGS: Equal air entry with no crackles, wheeze, rhonchi or dullness. CVS: S1 and S2 normal with no audible murmur, regular rhythm. ABDOMEN: No hepatosplenomegaly, normal bowel sounds, no guarding or rigidity. SPINE: No scoliosis or deformity SKIN: No rashes CENTRAL NERVOUS SYSTEM: No focal deficits, tone is normal in all 4 extremities. EXTREMITIES: There is no peripheral edema. No clubbing, no cyanosis. Peripheral pulses are intact. - Labs CBC & Chem 7: 09/14/20 04:25 12 04:25 Labs: Abnormal Lab Results - Last 24 Hours (Table) 09/13/20 09/14/20 09/14/20 Range/Units 12:00 01:43 04:25 WBC 0.2 L* 0.2 L* (3.8-10.6) k/uL RBC 2.46 L 2.55 L (4.30-5.90) m/uL Hgb 7.2 L 7.6 L (13.0-17.5) gm/dL Hct 21.1 L 22.1 L (39.0-53.0) % RDW 15.7 H (11.5-15.5) % Plt Count 7 L* 12 L* D (150-450) k/uL Sodium (137-145) mmol/L Potassium (3.5-5.1) mmol/L Creatinine (0.66-1.25) mg/dL Glucose (74-99) mg/dL Calcium (8.4-10.2) mg/dL Urine Protein 1+ H (Negative) Urine Blood Large H (Negative) Urine RBC 26 H (0-5) /hpf Urine Mucus Rare H (None) /hpf 09/14/20 Range/Units 04:25 WBC (3.8-10.6) k/uL RBC (4.30-5.90) m/uL Hgb (13.0-17.5) gm/dL Hct (39.0-53.0) % RDW (11.5-15.5) % Plt Count (150-450) k/uL Sodium 132 L (137-145) mmol/L Potassium 3.0 L (3.5-5.1) mmol/L Creatinine 0.59 L (0.66-1.25) mg/dL Glucose 125 H (74-99) mg/dL Calcium 7.9 L (8.4-10.2) mg/dL Urine Protein (Negative) Urine Blood (Negative) Urine RBC (0-5) /hpf Urine Mucus (None) /hpf Microbiology - Last 24 Hours (Table) 09/13/20 15:00 Catheter Tip Culture - Preliminary Picc Line 09/12/20 13:17 Blood Culture Gram Stain - Preliminary Blood Blood Culture - Preliminary Group D Enterococcus 09/12/20 13:16 Blood Culture Gram Stain - Preliminary Blood Blood Culture - Preliminary Group D Enterococcus Assessment and Plan Assessment: 1 Acute GI bleed, recently evaluated by GI services, no plans for endoscopy, status post 4 units of packed red blood cells this admission my current hemoglobin 7.6 2 Severe pancytopenia secondary to treatment for acute leukemia, remains on Zarxio, current white count 0.2, status post 7 units of platelets, current platelet count 12,000 3 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 Nuno Mcintosh from the pulmonary and critical care standpoint To be transferred out to the regular medical floor Continue to monitor lab results closely We will continue to follow and make further recommendations based on his clinical status I, the cosigning physician, performed a history & physical examination of the patient. Lungs sounds are clear. Maintaining good O2 saturations in the 90s on room air. I discussed the assessment and plan of care with my nurse practitioner, Candida Villasenor. I attest to the above note as dictated by her.
--- NOTE | 2020-09-14 10:55 | P.PN ---
Subjective Progress Note Date: 09/14/20 Principal diagnosis: Pancytopenia Platelets and hemoglobin are stable today. Potassium 3, mag pending Objective - Vital Signs Vital signs: Vital Signs Temp 103.2 F H 09/14/20 04:00 Pulse 100 09/14/20 04:00 Resp 22 09/14/20 04:00 BP 145/76 09/14/20 04:00 Pulse Ox 98 09/14/20 04:00 Intake & Output 09/13/20 09/14/20 09/14/20 18:59 06:59 18:59 Intake Total 1600 1412 Output Total 650 675 Balance 950 737 Intake: IV 1000 1000 Sodium Chloride 0.9% 1, 750 750 000 ml @ 75 mls/hr IV . [id number] [facility] Rx#:[id number] Vancomycin 1,500 mg In 250 250 Sodium Chloride 0.9% 250 ml @ 125 mls/hr IVPB Q8H [facility] Rx#:[id number] Oral 600 Blood Product 412 Platelet Pheresis Pas-C 412 Unit [id number] Output: Urine 650 675 Other: Voiding Method Urinal Urinal Urinal # Voids 3 # Bowel Movements 1 - Exam - Constitutional General appearance: cooperative - EENT Eyes: EOMI ENT: NA/AT - Neck Neck: normal ROM - Respiratory Respiratory: bilateral: diminished - Cardiovascular Rhythm: regular - Gastrointestinal General gastrointestinal: soft, tenderness - Integumentary Petechaie and eccymosis - Neurologic Neurologic: CNII-XII intact - Musculoskeletal Musculoskeletal: generalized weakness - Psychiatric Psychiatric: A&O x's 3, appropriate affect - Labs CBC & Chem 7: 09/14/20 04:25 09/14/20 04:25 Labs: Abnormal Lab Results - Last 24 Hours (Table) 09/13/20 09/14/20 09/14/20 Range/Units 12:00 01:43 04:25 WBC 0.2 L* 0.2 L* (3.8-10.6) k/uL RBC 2.46 L 2.55 L (4.30-5.90) m/uL Hgb 7.2 L 7.6 L (13.0-17.5) gm/dL Hct 21.1 L 22.1 L (39.0-53.0) % RDW 15.7 H (11.5-15.5) % Plt Count 7 L* 12 L* D (150-450) k/uL Sodium (137-145) mmol/L Potassium (3.5-5.1) mmol/L Creatinine (0.66-1.25) mg/dL Glucose (74-99) mg/dL Calcium (8.4-10.2) mg/dL Urine Protein 1+ H (Negative) Urine Blood Large H (Negative) Urine RBC 26 H (0-5) /hpf Urine Mucus Rare H (None) /hpf 09/14/20 Range/Units 04:25 WBC (3.8-10.6) k/uL RBC (4.30-5.90) m/uL Hgb (13.0-17.5) gm/dL Hct (39.0-53.0) % RDW (11.5-15.5) % Plt Count (150-450) k/uL Sodium 132 L (137-145) mmol/L Potassium 3.0 L (3.5-5.1) mmol/L Creatinine 0.59 L (0.66-1.25) mg/dL Glucose 125 H (74-99) mg/dL Calcium 7.9 L (8.4-10.2) mg/dL Urine Protein (Negative) Urine Blood (Negative) Urine RBC (0-5) /hpf Urine Mucus (None) /hpf Microbiology - Last 24 Hours (Table) 09/13/20 15:00 Catheter Tip Culture - Preliminary Picc Line 09/12/20 13:17 Blood Culture Gram Stain - Preliminary Blood Blood Culture - Preliminary Group D Enterococcus 09/12/20 13:16 Blood Culture Gram Stain - Preliminary Blood Blood Culture - Preliminary Group D Enterococcus Assessment and Plan (1) GI bleed Current Visit: Yes Status: Acute Code(s): K92.2 - GASTROINTESTINAL HEMORRHAGE, UNSPECIFIED SNOMED Code(s): 16444831 (2) Pancytopenia Current Visit: Yes Status: Acute Priority: High Code(s): D61.818 - OTHER PANCYTOPENIA SNOMED Code(s): 272111061 (3) AML (acute myeloid leukemia) Current Visit: No Status: Acute Priority: High Code(s): C92.00 - ACUTE MYELOBLASTIC LEUKEMIA, NOT HAVING ACHIEVED REMISSION SNOMED Code(s): 31372410 Plan: Continue aggressive supportive care. Continue to hold venetoclax at this time, no NSAIDS, No aspirin. Continue transfuse PRBC less than 7, Transfuse Platelets less than 10 or if still signs of bleeding transfuse less than 50K Continue Zarxio Prolonged aplastic marrow - Goal is time for bone marrow to recover. In the interim prevention of infection - Have asked Dr. Cutler to assist in antibiotic, antifungal, and anti-viral coverage. COntinue Zarxio, and ask [place] for Crossmatched platelets to transfuse in the picture of refractory bonemarrow All discussed with ICU team and patients son, all questions answered and understanding stated. Continue transfusions of available platelets in interim until crossmatched available No transfusion needed today. Physician Attest: I have completed the full history and physical and agree with above dictation, dictated as a scribe.
--- NOTE | 2020-09-14 14:36 | P.PN ---
Subjective Progress Note Date: 09/14/20 Patient is awake and alert this morning. He does not have any complaints. He continues to spike fever overnight. Platelet count greater than 10. Objective - Vital Signs Vital signs: Vital Signs Temp 98.6 F 09/14/20 08:05 Pulse 107 H 09/14/20 08:05 Resp 20 09/14/20 08:05 BP 152/84 09/14/20 08:05 Pulse Ox 98 09/14/20 08:05 Intake & Output 09/13/20 09/14/20 09/14/20 18:59 06:59 18:59 Intake Total 1600 1412 Output Total 650 675 Balance 950 737 Intake: IV 1000 1000 Sodium Chloride 0.9% 1, 750 750 000 ml @ 75 mls/hr IV . [id number] [facility] Rx#:[id number] Vancomycin 1,500 mg In 250 250 Sodium Chloride 0.9% 250 ml @ 125 mls/hr IVPB Q8H [facility] Rx#:[id number] Oral 600 Blood Product 412 Platelet Pheresis Pas-C 412 Unit [id number] Output: Urine 650 675 Other: Voiding Method Urinal Urinal Urinal # Voids 3 # Bowel Movements 1 - Exam General: The patient is awake and alert, in no distress Eye: there is normal conjunctiva bilaterally. Neck: The neck is supple, there is no JVD. Cardiovascular: Normal S1-S2, no S3-S4, no murmurs. Respiratory: Lungs clear to auscultation bilaterally Gastrointestinal: Abdomen is soft, nontender Musculoskeletal: There is no pedal edema. Neurological:. Speech is normal. Skin: Skin is warm and dry - Labs CBC & Chem 7: 09/14/20 04:25 09/14/20 04:25 Labs: Abnormal Lab Results - Last 24 Hours (Table) 09/13/20 09/14/20 09/14/20 Range/Units 12:00 01:43 04:25 WBC 0.2 L* 0.2 L* (3.8-10.6) k/uL RBC 2.46 L 2.55 L (4.30-5.90) m/uL Hgb 7.2 L 7.6 L (13.0-17.5) gm/dL Hct 21.1 L 22.1 L (39.0-53.0) % RDW 15.7 H (11.5-15.5) % Plt Count 7 L* 12 L* D (150-450) k/uL Sodium (137-145) mmol/L Potassium (3.5-5.1) mmol/L Creatinine (0.66-1.25) mg/dL Glucose (74-99) mg/dL Calcium (8.4-10.2) mg/dL Urine Protein 1+ H (Negative) Urine Blood Large H (Negative) Urine RBC 26 H (0-5) /hpf Urine Mucus Rare H (None) /hpf 09/14/20 Range/Units 04:25 WBC (3.8-10.6) k/uL RBC (4.30-5.90) m/uL Hgb (13.0-17.5) gm/dL Hct (39.0-53.0) % RDW (11.5-15.5) % Plt Count (150-450) k/uL Sodium 132 L (137-145) mmol/L Potassium 3.0 L (3.5-5.1) mmol/L Creatinine 0.59 L (0.66-1.25) mg/dL Glucose 125 H (74-99) mg/dL Calcium 7.9 L (8.4-10.2) mg/dL Urine Protein (Negative) Urine Blood (Negative) Urine RBC (0-5) /hpf Urine Mucus (None) /hpf Microbiology - Last 24 Hours (Table) 09/13/20 12:15 Blood Culture - Preliminary Blood No Growth after 24 hours 09/13/20 10:25 Blood Culture - Preliminary Blood No Growth after 24 hours 09/13/20 15:00 Catheter Tip Culture - Preliminary Picc Line 09/12/20 13:17 Blood Culture Gram Stain - Preliminary Blood Blood Culture - Preliminary Group D Enterococcus 09/12/20 13:16 Blood Culture Gram Stain - Preliminary Blood Blood Culture - Preliminary Group D Enterococcus Assessment and Plan Assessment: This is a 79-year-old male with complex past medical history significant for history of AML status post chemotherapy with last dose received approximately a month ago who presented to the emergency room with multiple episodes of maroon- colored stool. Patient was evaluated in the ER and admitted to the hospital for further management of his medical problems noted below. Acute blood loss anemia secondary to GI bleeding in setting of AML. -GI bleed appears to be resolving. Required 4 units of PRBC since admission. 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 -Seen and evaluated by GI. No plans for endoscopic intervention at this time. EGD and colonoscopy done in 2018 showed gastritis, duodenitis, and diverticulosis. -Hematology/oncology recommendations appreciated -Continue to monitor CBC -Continue with Protonix 40 mg twice daily Severe pancytopenia with thrombocytopenia -Requiring multiple platelet transfusion. 7 since admission -Heme/Onc recs appreciated -Started on Zarxio -Patient in remission from AML w/ hx of MDS -Transfuse as needed for platelet count less than 10 -Continue to monitor -Neutropenic precautions Neutropenic fever Sepsis without septic shock Gram-positive bacteremia -Started on broad-spectrum antibiotic with IV vancomycin -Possible sources PICC line which was discontinued on 09/13 -Repeat blood culture sent and pending -Viral prophylaxis with acyclovir -Infectious disease following appreciate recommendation -Influenza screen negative, covid19 PCR negative -Urinalysis negative -Chest x-ray with no acute findings Hx of prolonged QT -Avoid further prolonging agents HTN -C/w Procardia DVT prophylaxis -IPCDs
[2020-09-14] MEDS: FILGRASTIM-SNDZ 480 MCG/0.8 ML SYRINGE SQ SCH (21:27)
[2020-09-14] MEDS: HYDROcodone/APAP 7.5-325MG 1 EACH TAB PO PRN (21:29)
--- NOTE | 2020-09-14 22:27 | PN ---
PROGRESS NOTE DATE OF SERVICE: 09/14/2020 REASON FOR FOLLOWUP: MSSA bacteremia and secondary to current infection. INTERVAL HISTORY: Patient is currently afebrile. The patient is breathing comfortably. The patient denies having any chest pain. No shortness of breath or cough. No nausea, vomiting, abdominal pain and no diarrhea. PHYSICAL EXAMINATION: Blood pressure is 160/71, pulse 100. Temperature 99.4. He is 98% on room air. General description is an elderly male lying in bed in no distress. Respiratory system: Unlabored breathing. Clear to auscultation anteriorly. Heart S1, S2. Regular rate and rhythm. ABDOMEN: Soft, no tenderness. LABS: White count 0.2, BUN of 10, creatinine 0.59. DIAGNOSTIC IMPRESSION AND PLAN: Patient with group D Enterococcus bacteremia source possible a PICC line which has been discontinued. The patient did have negative UA and abdomen soft on examination. No abdominal symptoms. Did have a persistent fever despite being on vancomycin with concern for possible VRE. Antibiotic will be adjusted to daptomycin. Blood cultures will be followed and monitor clinical course closely. MMODL / IJN: [id number] /
[2020-09-14] MEDS: DAPTOmycin 500 MG in SODIUM CHLORIDE 0.9% 50 ML IVPB SCH (22:30)
[2020-09-15] MEDS: HYDROcodone/APAP 7.5-325MG 1 EACH TAB PO PRN ×4 (03:10→20:00)
[2020-09-15] MEDS: ACETAMINOPHEN TAB 325 MG TAB PO PRN (03:22)
[2020-09-15 07:01] LABS: MCHC 34.6 g/dL (31.0-37.0); MCV 86.9 fL (80.0-100.0); Mean Platelet Volume 7.3; RBC 2.17 m/uL (4.30-5.90); RDW 15.7 % (11.5-15.5)
[2020-09-15 07:27] LABS: WBC 0.2 k/uL (3.8-10.6)
[2020-09-15 07:29] LABS: HCT 18.9 % (39.0-53.0); HGB 6.5 gm/dL (13.0-17.5)
[2020-09-15 08:07] LABS: Anisocytosis (M) Present; Hypochromasia (M) Present; Poikilocytosis (M) Present; Target Cells Present
[2020-09-15 08:08] LABS: Crenated RBC Present; Platelet Count 9 k/uL (150-450)
[2020-09-15] MEDS: NIFEdipine XL 30 MG TAB.ER.24 PO SCH (08:53)
[2020-09-15] MEDS: valACYclovir 500 MG TAB PO SCH (08:55)
[2020-09-15] MEDS: PANTOPRAZOLE 40 MG TABLET PO SCH ×2 (08:55→16:58)
[2020-09-15] MEDS: SUCRALFATE 1 GM TAB PO SCH ×2 (08:55→20:31)
--- NOTE | 2020-09-15 11:19 | P.PN ---
Subjective Progress Note Date: 09/15/20 Patient is awake and alert this morning. He does not have any complaints. He continues to spike fever overnight. Hemoglobin dropped below 7. Platelet count of 9. Objective - Vital Signs Vital signs: Vital Signs Temp 97.7 F 09/15/20 07:00 Pulse 62 09/15/20 07:00 Resp 16 09/15/20 07:00 BP 96/59 09/15/20 07:00 Pulse Ox 91 L 09/15/20 07:00 Intake & Output 09/14/20 09/15/20 09/15/20 18:59 06:59 18:59 Intake Total 1165 Output Total 750 Balance 415 Intake: IV 925 Sodium Chloride 0.9% 1, 675 000 ml @ 75 mls/hr IV . [id number] [facility] Rx#:[id number] Vancomycin 1,500 mg In 250 Sodium Chloride 0.9% 250 ml @ 125 mls/hr IVPB Q8H [facility] Rx#:[id number] Oral 240 Output: Urine 750 Other: Voiding Method Urinal Urinal # Voids 2 - Exam General: The patient is awake and alert, in no distress Eye: there is normal conjunctiva bilaterally. Neck: The neck is supple, there is no JVD. Cardiovascular: Normal S1-S2, no S3-S4, no murmurs. Respiratory: Lungs clear to auscultation bilaterally Gastrointestinal: Abdomen is soft, nontender Musculoskeletal: There is no pedal edema. Neurological:. Speech is normal. Skin: Skin is warm and dry - Labs CBC & Chem 7: 09/15/20 06:22 09/14/20 04:25 Labs: Abnormal Lab Results - Last 24 Hours (Table) 09/15/20 Range/Units 06:22 WBC 0.2 L* (3.8-10.6) k/uL RBC 2.17 L (4.30-5.90) m/uL Hgb 6.5 L* (13.0-17.5) gm/dL Hct 18.9 L* (39.0-53.0) % RDW 15.7 H (11.5-15.5) % Plt Count 9 L* (150-450) k/uL Microbiology - Last 24 Hours (Table) 09/12/20 13:17 Blood Culture Gram Stain - Final Blood Blood Culture - Final Enterococcus faecalis 09/12/20 13:16 Blood Culture Gram Stain - Final Blood Blood Culture - Final Enterococcus faecalis 09/13/20 12:15 Blood Culture - Preliminary Blood No Growth after 24 hours 09/13/20 10:25 Blood Culture - Preliminary Blood No Growth after 24 hours 09/13/20 15:00 Catheter Tip Culture - Preliminary Picc Line Assessment and Plan Assessment: This is a 79-year-old male with complex past medical history significant for history of AML status post chemotherapy with last dose received approximately a month ago who presented to the emergency room with multiple episodes of maroon- colored stool. Patient was evaluated in the ER and admitted to the hospital for further management of his medical problems noted below. Acute blood loss anemia secondary to GI bleeding in setting of AML. -GI bleed appears to be resolving. Required 5 units of PRBC since admission. 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 -Seen and evaluated by GI. No plans for endoscopic intervention at this time. EGD and colonoscopy done in 2018 showed gastritis, duodenitis, and diverticulosis. -Hematology/oncology recommendations appreciated -Continue to monitor CBC -Continue with Protonix 40 mg twice daily Severe pancytopenia with thrombocytopenia -Requiring multiple platelet transfusion. 7 since admission -Heme/Onc recs appreciated -Started on Zarxio -Patient in remission from AML w/ hx of MDS -Transfuse as needed for platelet count less than 10 -Neutropenic precautions Neutropenic fever Sepsis without septic shock Gram-positive bacteremia with a thick callus -Started on broad-spectrum antibiotic on 09/13 with IV vancomycin and switch to daptomycin on 09/14 -Possible sources PICC line which was discontinued on 09/13 -Repeat blood culture negative to date -Viral prophylaxis with acyclovir -Infectious disease following appreciate recommendation -Influenza screen negative, covid19 PCR negative -Urinalysis negative -Chest x-ray with no acute findings Hx of prolonged QT -Avoid further prolonging agents HTN -C/w Procardia DVT prophylaxis -IPCDs Transfuse 1 unit of PRBC today Hold off on platelet transfusion until seen by hematology
[2020-09-15] MEDS ORDERED: Potassium Replacement Protocol 1 EACH MISC MISCELLANE PRN (11:27)
[2020-09-15] MEDS ORDERED: Magnesium Replacement Protocol 1 EACH MISC MISCELLANE PRN (11:27)
[2020-09-15 13:36] LABS: African American GFR (CKD) 99.2 (60.0-200.0); Anion Gap 6.6 mmol/L (4.00-12.00); Calcium 7.9 mg/dL (8.7-10.3); Carbon Dioxide 25.4 mmol/L (21.6-31.8); Magnesium 1.9 mg/dL (1.5-2.4); Non-African American GFR(CKD) 85.6 (60.0-200.0)
--- NOTE | 2020-09-15 14:46 | P.PN ---
Subjective Progress Note Date: 09/15/20 The patient continues to have generalized weakness. He remains febrile the overall fever pattern is somewhat improved over the last 24 hours. He denies any chills. No obvious bleeding. He denies any diarrhea at this time. Objective - Vital Signs Vital signs: Vital Signs Temp 97.7 F 09/15/20 07:00 Pulse 62 09/15/20 07:00 Resp 16 09/15/20 07:00 BP 96/59 09/15/20 07:00 Pulse Ox 91 L 09/15/20 07:00 Intake & Output 09/14/20 09/15/20 09/15/20 18:59 06:59 18:59 Intake Total 1165 Output Total 750 Balance 415 Intake: IV 925 Sodium Chloride 0.9% 1, 675 000 ml @ 75 mls/hr IV . [id number] [facility] Rx#:[id number] Vancomycin 1,500 mg In 250 Sodium Chloride 0.9% 250 ml @ 125 mls/hr IVPB Q8H [facility] Rx#:[id number] Oral 240 Output: Urine 750 Other: Voiding Method Urinal Urinal # Voids 2 - Constitutional General appearance: Present: no acute distress - EENT Eyes: Present: EOMI ENT: Present: hearing grossly normal, normal oropharynx - Respiratory Respiratory: bilateral: CTA - Cardiovascular Rhythm: regular Heart sounds: normal: S1, S2 - Gastrointestinal General gastrointestinal: Present: normal bowel sounds, soft - Integumentary Integumentary Comment(s): Scattered purpura and ecchymosis, mostly stable or resolving - Neurologic Neurologic: Present: CNII-XII intact - Musculoskeletal Musculoskeletal: Present: generalized weakness, strength equal bilaterally - Psychiatric Psychiatric: Present: A&O x's 3, appropriate affect - Labs CBC & Chem 7: 09/15/20 06:22 09/15/20 06:22 Labs: Abnormal Lab Results - Last 24 Hours (Table) 09/15/20 09/15/20 09/15/20 Range/Units 06:22 06:22 08:46 WBC 0.2 L* (3.8-10.6) k/uL RBC 2.17 L (4.30-5.90) m/uL Hgb 6.5 L* (13.0-17.5) gm/dL Hct 18.9 L* (39.0-53.0) % RDW 15.7 H (11.5-15.5) % Plt Count 9 L* (150-450) k/uL Potassium 3.0 L (3.5-5.5) mmol/L Glucose 120 H (70-110) mg/dL Calcium 7.9 L (8.7-10.3) mg/dL Crossmatch See Detail Microbiology - Last 24 Hours (Table) 09/13/20 12:15 Blood Culture - Preliminary Blood No Growth after 48 hours 09/13/20 10:25 Blood Culture - Preliminary Blood No Growth after 48 hours 09/13/20 15:00 Catheter Tip Culture - Final Picc Line 09/12/20 13:17 Blood Culture Gram Stain - Final Blood Blood Culture - Final Enterococcus faecalis 09/12/20 13:16 Blood Culture Gram Stain - Final Blood Blood Culture - Final Enterococcus faecalis Assessment and Plan (1) Pancytopenia Narrative/Plan: This continues to be persistent, despite the patient being off antineoplastic therapy now for several days. He continues to be transfusion dependent. He will receive additional PRBC and platelets today. Crossmatched platelets of previously ordered and will be available today. Hopefully response to the same will be better. Continue to monitor her transfusion as needed. The patient is also on G-CSF. Bone marrow recovery may be retarded by current bacteremia. Current Visit: Yes Status: Acute Priority: High Code(s): D61.818 - OTHER PANCYTOPENIA SNOMED Code(s): 864625801 (2) AML (acute myeloid leukemia) Narrative/Plan: Follow-up bone marrow did indicate remission. Therefore currently the patient is off antineoplastic therapy pending recovery of counts. Current Visit: No Status: Acute Priority: High Code(s): C92.00 - ACUTE MYELOBLASTIC LEUKEMIA, NOT HAVING ACHIEVED REMISSION SNOMED Code(s): 36476899 (3) Febrile neutropenia Narrative/Plan: Due to enterococcus bacteremia. ID following. Defer to them for antibiotic management. Fever pattern shows slight improvement over last 24 hours. Current Visit: Yes Status: Acute Code(s): D70.9 - NEUTROPENIA, UNSPECIFIED; R50.81 - FEVER PRESENTING WITH CONDITIONS CLASSIFIED ELSEWHERE SNOMED Code(s): 805369724
--- NOTE | 2020-09-15 15:01 | P.PN ---
Subjective Progress Note Date: 09/15/20 Principal diagnosis: GI bleed with severe pancytopenia secondary to treatment for acute leukemia The patient is seen today 09/14/2020 in follow-up in the intensive care unit. He is awake and alert in no acute distress. He is currently maintaining O2 saturations 90s on room air. Currently has the 0.9 normal saline at 75 ML's per hour. His CoVID screen was negative. He is status post 4 units of packed red blood cells this admission. 7 packs of platelets. Blood cultures positive for group D enterococcus. Currently on vancomycin. White count 0.2. Hemoglobin 7.6. Platelet count 12,000. Sodium 132. Potassium 3.0. Creatinine 0.59. He is a MedSurg overflow. The patient is seen today 09/15/2020 in follow-up on the regular medical floor. He is currently awake and alert in no acute distress. Continues to maintain good O2 saturation in the 90s on room air. Currently afebrile. He did spike a temp of 102.3 earlier this morning. White count 0.2. Hemoglobin today 6.5. Platelets 9. He is status post 4 units of packed red blood cells. 7 units of platelets thus far this admission. On Zarxio. Initial blood cultures positive for Enterococcus faecalis. Follow-up blood cultures revealing no growth to date. Catheter tip of a PICC line revealed no growth. Sodium 135. Potassium 3.0. Creatinine 0.8. Glucose 120. He remains on daptomycin. Objective - Vital Signs Vital signs: Vital Signs Temp 97.7 F 09/15/20 07:00 Pulse 62 09/15/20 07:00 Resp 16 09/15/20 07:00 BP 96/59 09/15/20 07:00 Pulse Ox 91 L 09/15/20 07:00 Intake & Output 09/14/20 09/15/20 09/15/20 18:59 06:59 18:59 Intake Total 1165 Output Total 750 Balance 415 Intake: IV 925 Sodium Chloride 0.9% 1, 675 000 ml @ 75 mls/hr IV . [id number] [facility] Rx#:[id number] Vancomycin 1,500 mg In 250 Sodium Chloride 0.9% 250 ml @ 125 mls/hr IVPB Q8H [facility] Rx#:[id number] Oral 240 Output: Urine 750 Other: Voiding Method Urinal Urinal # Voids 2 - Exam GENERAL EXAM: Alert, pleasant 80-year-old gentleman, on room air, comfortable in no apparent distress. HEAD: Normocephalic. EYES: Normal reaction of pupils, equal size. NOSE: Clear with pink turbinates. THROAT: No erythema or exudates. NECK: No masses, no JVD. CHEST: No chest wall deformity. LUNGS: Equal air entry with no crackles, wheeze, rhonchi or dullness. CVS: S1 and S2 normal with no audible murmur, regular rhythm. ABDOMEN: No hepatosplenomegaly, normal bowel sounds, no guarding or rigidity. SPINE: No scoliosis or deformity SKIN: No rashes CENTRAL NERVOUS SYSTEM: No focal deficits, tone is normal in all 4 extremities. EXTREMITIES: There is no peripheral edema. No clubbing, no cyanosis. Peripheral pulses are intact. - Labs CBC & Chem 7: 09/15/20 06:22 09/15/20 06:22 Labs: Abnormal Lab Results - Last 24 Hours (Table) 09/15/20 09/15/20 09/15/20 Range/Units 06:22 06:22 08:46 WBC 0.2 L* (3.8-10.6) k/uL RBC 2.17 L (4.30-5.90) m/uL Hgb 6.5 L* (13.0-17.5) gm/dL Hct 18.9 L* (39.0-53.0) % RDW 15.7 H (11.5-15.5) % Plt Count 9 L* (150-450) k/uL Potassium 3.0 L (3.5-5.5) mmol/L Glucose 120 H (70-110) mg/dL Calcium 7.9 L (8.7-10.3) mg/dL Crossmatch See Detail Microbiology - Last 24 Hours (Table) 09/13/20 12:15 Blood Culture - Preliminary Blood No Growth after 48 hours 09/13/20 10:25 Blood Culture - Preliminary Blood No Growth after 48 hours 09/13/20 15:00 Catheter Tip Culture - Final Picc Line 09/12/20 13:17 Blood Culture Gram Stain - Final Blood Blood Culture - Final Enterococcus faecalis 09/12/20 13:16 Blood Culture Gram Stain - Final Blood Blood Culture - Final Enterococcus faecalis Assessment and Plan Assessment: 1 Acute GI bleed, recently evaluated by GI services, no plans for endoscopy, status post 4 units of packed red blood cells this admission my current hemoglobin 7.6 2 Severe pancytopenia secondary to treatment for acute leukemia, remains on Zarxio, current white count 0.2, status post 7 units of platelets, current platelet count 9,000 3 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 Nuno Mcintosh from the pulmonary and critical care standpoint We will see as needed I, the cosigning physician, performed a history & physical examination of the patient. Lungs sounds are clear. Maintaining good O2 saturations in the 90s on room air. I discussed the assessment and plan of care with my nurse practitioner, Candida Villasenor. I attest to the above note as dictated by her.
[2020-09-15] MEDS: FILGRASTIM-SNDZ 480 MCG/0.8 ML SYRINGE SQ SCH (17:21)
[2020-09-15] MEDS: DAPTOmycin 500 MG in SODIUM CHLORIDE 0.9% 50 ML IVPB SCH (22:50)
[2020-09-16] MEDS: AMPICILLIN-SULBACTAM 3 GM in SODIUM CHLORIDE 0.9% 100 ML IVPB SCH ×4 (01:04→20:55)
[2020-09-16] MEDS: HYDROcodone/APAP 7.5-325MG 1 EACH TAB PO PRN ×5 (01:04→20:55)
--- NOTE | 2020-09-16 04:17 | PN ---
PROGRESS NOTE DATE OF SERVICE: 09/15/2020 REASON FOR FOLLOWUP: Enterococcus faecalis bacteremia into the PICC line. INTERVAL HISTORY: Patient's fever pattern has improved. Did have a low-grade fever this evening. The patient denies having any chest pain, shortness of breath or cough. No nausea, vomiting, abdominal pain or diarrhea. PHYSICAL EXAMINATION: Blood pressure 129/59, pulse 100, temp 100.5. He is 98% on room air. General description is a middle-aged male lying in bed in no distress. Respiratory system: Unlabored breathing, clear to auscultation anteriorly. Heart S1, S2. Regular rate and rhythm. ABDOMEN: Soft, no tenderness. Extremities are no edema of the feet. LABS: Blood culture finalized with Enterococcus faecalis sensitive pathogen. Repeat blood culture so far negative. DIAGNOSTIC IMPRESSION AND PLAN: Patient with febrile neutropenia. Source is likely PICC line. We will discontinue in this patient with evidence of Enterococcus faecalis bacteremia sensitive antibiotic adjusted to Unasyn. Blood culture repeat followup and continue supportive care. MMODL / IJN: [id number] /
[2020-09-16 06:53] LABS: HGB 7.3 gm/dL (13.0-17.5); MCH 29.2 pg (25.0-35.0); MCV 88.4 fL (80.0-100.0); Mean Platelet Volume 7.1; RBC 2.49 m/uL (4.30-5.90); RDW 15.8 % (11.5-15.5)
[2020-09-16 07:02] LABS: Platelet Count 7 k/uL (150-450); WBC 0.2 k/uL (3.8-10.6)
[2020-09-16] MEDS: valACYclovir 500 MG TAB PO SCH (07:25)
[2020-09-16] MEDS: PANTOPRAZOLE 40 MG TABLET PO SCH ×2 (07:25→16:44)
[2020-09-16] MEDS: SUCRALFATE 1 GM TAB PO SCH ×2 (07:26→20:55)
[2020-09-16] MEDS: NIFEdipine XL 30 MG TAB.ER.24 PO SCH (07:26)
[2020-09-16 10:00] VITALS: BMI 24.7
--- NOTE | 2020-09-16 10:20 | P.PN ---
Subjective Progress Note Date: 09/16/20 Patient is awake and alert this morning. He does not have any complaints. He continues to have low-grade fever History well otherwise. He is having good appetite and having normal bowel movement. Platelet count this morning is 7 Objective - Vital Signs Vital signs: Vital Signs Temp 98.2 F 09/16/20 07:00 Pulse 96 09/16/20 07:00 Resp 17 09/16/20 07:00 BP 147/77 09/16/20 07:00 Pulse Ox 96 09/16/20 07:00 Intake & Output 09/15/20 09/16/20 09/16/20 18:59 06:59 18:59 Intake Total 0 592 Output Total 700 Balance 0 -108 Weight 87.2 kg Intake: Blood Product 0 592 Platelet Pheresis Pas 0 282 Psoralen Unit [id number] Rc Pheresis Irrad As 3 310 Unit [id number] Output: Urine 700 Other: Voiding Method Urinal Urinal Urinal # Bowel Movements 1 - Exam General: The patient is awake and alert, in no distress Eye: there is normal conjunctiva bilaterally. Neck: The neck is supple, there is no JVD. Cardiovascular: Normal S1-S2, no S3-S4, no murmurs. Respiratory: Lungs clear to auscultation bilaterally Gastrointestinal: Abdomen is soft, nontender Musculoskeletal: There is no pedal edema. Neurological:. Speech is normal. Skin: Skin is warm and dry - Labs CBC & Chem 7: 09/16/20 06:17 09/15/20 06:22 Labs: Abnormal Lab Results - Last 24 Hours (Table) 09/15/20 09/15/20 09/16/20 Range/Units 06:22 08:46 06:17 WBC 0.2 L* (3.8-10.6) k/uL RBC 2.49 L (4.30-5.90) m/uL Hgb 7.3 L (13.0-17.5) gm/dL Hct 22.0 L (39.0-53.0) % RDW 15.8 H (11.5-15.5) % Plt Count 7 L* (150-450) k/uL Potassium 3.0 L (3.5-5.5) mmol/L Glucose 120 H (70-110) mg/dL Calcium 7.9 L (8.7-10.3) mg/dL Crossmatch See Detail Microbiology - Last 24 Hours (Table) 09/13/20 12:15 Blood Culture - Preliminary Blood No Growth after 48 hours 09/13/20 10:25 Blood Culture - Preliminary Blood No Growth after 48 hours 09/13/20 15:00 Catheter Tip Culture - Final Picc Line Assessment and Plan Assessment: This is a 79-year-old male with complex past medical history significant for history of AML status post chemotherapy with last dose received approximately a month ago who presented to the emergency room with multiple episodes of maroon- colored stool. Patient was evaluated in the ER and admitted to the hospital for further management of his medical problems noted below. Acute blood loss anemia secondary to GI bleeding and secondary to chemo/bone marrow depression with underlying AML. -GI bleed resolved. Required 5 units of PRBC since admission. 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 -Seen and evaluated by GI. No plans for endoscopic intervention at this time. EGD and colonoscopy done in 2018 showed gastritis, duodenitis, and diverticulosis. -Hematology/oncology recommendations appreciated -Continue to monitor CBC -Continue with Protonix 40 mg twice daily Severe pancytopenia with thrombocytopenia -Requiring multiple platelet transfusion. 7 since admission -Heme/Onc recs appreciated -Started on Zarxio -Patient in remission from AML w/ hx of MDS -Transfuse as needed for platelet count less than 10 -Neutropenic precautions Neutropenic fever Sepsis without septic shock E faecalis bacteremia -Started on broad-spectrum antibiotic on 09/13 with IV vancomycin, switched to daptomycin on 09/14, and switched to Unasyn on . Debility -Possible sources PICC line which was discontinued on 09/13 -PICC line tip culture negative to date -Repeat blood culture on 09/13 negative to date -Viral prophylaxis with acyclovir -Infectious disease following appreciate recommendation -Influenza screen negative, covid19 PCR negative -Urinalysis negative -Chest x-ray with no acute findings Hx of prolonged QT -Avoid further prolonging agents HTN -C/w Procardia DVT prophylaxis -IPCDs Transfuse 1 unit of platelets today
[2020-09-16 10:49] LABS: African American GFR (CKD) 104.8 (60.0-200.0); Anion Gap 9.9 mmol/L (4.00-12.00); Calcium 7.9 mg/dL (8.7-10.3); Carbon Dioxide 26.1 mmol/L (21.6-31.8); Non-African American GFR(CKD) 90.4 (60.0-200.0); Potassium 2.9 mmol/L (3.5-5.5)
[2020-09-16] MEDS ORDERED: Potassium Replacement Protocol 1 EACH MISC MISCELLANE PRN (11:03)
[2020-09-16] MEDS: POTASSIUM CHLORIDE ER 20 MEQ TAB.ER PO SCH ×4 (11:20→23:34)
[2020-09-16] MEDS: FILGRASTIM-SNDZ 480 MCG/0.8 ML SYRINGE SQ SCH (19:56)
--- NOTE | 2020-09-16 23:10 | PN ---
PROGRESS NOTE DATE OF SERVICE: 09/16/2020 REASON FOR FOLLOWUP: Febrile neutropenia bacteremia. INTERVAL HISTORY: Patient overall feels better and has improved. The last temperature was 100.4 last night. The patient is feeling better. He is breathing comfortably. Denies any chest pain. No shortness of breath or cough. No abdominal pain. No diarrhea. PHYSICAL EXAMINATION: Blood pressure 157/60 with a pulse of 87, temperature 98.2. He is 97% on room air. General description: The patient is an elderly male lying in bed in no distress. Respiratory system: Unlabored breathing. Clear to auscultation anteriorly. Heart S1, S2. Regular rate and rhythm. ABDOMEN: Soft, no tenderness. LABS: Hemoglobin 7.1, white count 0.2, BUN of 14, creatinine 0.7. Blood culture has been negative. DIAGNOSTIC IMPRESSION AND PLAN: Patient with Enterococcus faecalis bacteremia, concern for possible negative. Blood culture is negative. Urine was negative. The patient had no abdominal pain, no tenderness. However, over clinical impression we will obtain a CT of abdomen and pelvis to make sure did not show any abdominal source and monitor clinical course closely. MMODL / IJN: [id number] /
[2020-09-17] MEDS: HYDROcodone/APAP 7.5-325MG 1 EACH TAB PO PRN ×5 (00:54→22:22)
[2020-09-17] MEDS: POTASSIUM CHLORIDE ER 20 MEQ TAB.ER PO SCH ×2 (00:54→09:36)
[2020-09-17] MEDS: AMPICILLIN-SULBACTAM 3 GM in SODIUM CHLORIDE 0.9% 100 ML IVPB SCH ×4 (05:17→22:22)
[2020-09-17] MEDS: IOPAMIDOL CONTRAST (ORAL USE) VIAL PO PRN ×2 (06:08→07:22)
[2020-09-17 06:45] LABS: HCT 20.8 % (39.0-53.0); HGB 7.1 gm/dL (13.0-17.5); MCH 30.4 pg (25.0-35.0); MCHC 34.2 g/dL (31.0-37.0); MCV 88.8 fL (80.0-100.0); Mean Platelet Volume 7.6; RBC 2.34 m/uL (4.30-5.90); RDW 15.8 % (11.5-15.5)
[2020-09-17 07:06] LABS: Platelet Count 5 k/uL (150-450); WBC 0.2 k/uL (3.8-10.6)
[2020-09-17 07:28] LABS: Poikilocytosis (M) Present
[2020-09-17 09:16] LABS: African American GFR (CKD) 99.2 (60.0-200.0); Anion Gap 6.3 mmol/L (4.00-12.00); BUN/Creat Ratio 13.75 Ratio (12.00-20.00); Carbon Dioxide 27.7 mmol/L (21.6-31.8); Non-African American GFR(CKD) 85.6 (60.0-200.0); Potassium 3.6 mmol/L (3.5-5.5)
--- NOTE | 2020-09-17 09:21 | CT ---
EXAMINATION TYPE: CT abdomen pelvis w con DATE OF EXAM: 09/17/2020 COMPARISON: 12/22/2018 HISTORY: 80-year-old male Bacteremia TECHNIQUE: Contiguous axial scanning of the abdomen and pelvis following administration of 100 ml Iso ray 300 IV contrast. Delayed images through the kidneys and coronal/sagittal reconstructions perform ed. CT DLP: 1282.1 mGycm Automated exposure control for dose reduction was used. FINDINGS: Generalized anasarca change is demonstrated along with a trace right effusion. Heart border line in size. Coronary artery calcifications are visualized. There is some motion artifact limiting evaluation. Liver enlarged measuring at least 22 cm. Portal ve nous system is patent. No biliary duct dilatation. Gallbladder, adrenal glands, and pancreas show no gross abnormal mobility. Spleen enlarged at 15.2 cm on coronal series with a hilar splenule. Bilateral nephrolithiasis with calculi on the right measuring up to 8 mm and on the left measuring up to 9 mm. On the right, there is some urothelial thickening of the collecting system and some fat stranding in the renal sinus region, 38. On the left, the 9 mm calculus is located within the renal pelvis, close to the UPJ. No hydronephrosi s or obstructive uropathy at this time. Moderate atherosclerotic changes throughout the abdominal aorta and iliac arteries. Distal descending thoracic aorta mildly aneurysmal at 3.3 cm. Upper abdominal aorta ectatic at 2.9 cm. Some fusiform e ctasia of the infrarenal abdominal aorta measuring up to 2.5 cm. The right and left common iliac temo stephie are ectatic at 1.5 and 1.6 cm, respectively. No mesenteric lymphadenopathy seen. No dilated small bowel, free fluid, free air. Oral contrast progressed to the splenic flexure of the colon. Mild to moderate stool burden. Moderate circumferential bladder wall thickening. Prostate gland is enlarged at 6.4 cm wide. There is a large solid stool ball within the rectum distending up to 7.7 cm wide. Corresponding moder ate circumferential wall thickening, surrounding fat stranding, and presacral edema. Given the thicke destiney and surrounding edema, small areas of pneumatosis would be difficult to entirely exclude, for ex ample, axial images 86, 89, and 90. Correlation with lactic acid levels recommended. No pelvic lymphadenopathy seen. Bones: Right total arthroplasty. There is moderate degenerative change at the left hip. Degenerative changes of the right greater than left SI joints. Status post L3-L4 posterior and interbody fusion with advanced degenerative changes throughout the lita mbar spine. IMPRESSION: 1. GENERALIZED ANASARCA CHANGE AND TRACE RIGHT EFFUSION. FINDINGS SUGGEST THIRD SPACING/FLUID OVERLOA D STATE. 2. BILATERAL NEPHROLITHIASIS WITH A 9 MM CALCULUS LOCATED WITHIN THE LEFT RENAL PELVIS. THIS CAN PASS INTO THE LEFT URETER IN THE FUTURE. 3. THERE IS SUGGESTION OF SOME UROTHELIAL THICKENING OF THE RIGHT RENAL COLLECTING SYSTEM AND FAT STR ANDING IN THE RENAL SINUS. CORRELATE FOR ASCENDING URINARY TRACT INFECTION. NO SPECIFIC CT FINDINGS O F PYELONEPHRITIS AT THIS TIME. 4. PRONOUNCED RECTAL DISTENTION UP TO 7.7 CM WIDE SECONDARY TO A LARGE SOLID BALL OF STOOL. CORRELATE FOR FECAL IMPACTION. IN ADDITION, THERE IS ASSOCIATED WALL THICKENING, SURROUNDING FAT STRANDING, AN D PRESACRAL EDEMA. DEVELOPING ISCHEMIC STERCORAL COLITIS IS NOT EXCLUDED. A COUPLE FOCI OF PNEUMATOSI S OF THE RECTAL WALL IS POSSIBLE (AXIAL IMAGES 86, 89, AND 90). CORRELATE WITH LACTIC ACID LEVELS. 5. MODERATE CIRCUMFERENTIAL BLADDER WALL THICKENING COULD REPRESENT CHRONIC BLADDER WALL HYPERTROPHY OR CYSTITIS. PROSTATE GLAND IS ENLARGED AT 6.4 CM WIDE. 6. HEPATOSPLENOMEGALY (LIVER AT LEAST 22 CM AND SPLEEN 15.2CM.)
[2020-09-17] MEDS: SUCRALFATE 1 GM TAB PO SCH ×2 (09:32→22:22)
[2020-09-17] MEDS: PANTOPRAZOLE 40 MG TABLET PO SCH ×2 (09:32→16:42)
[2020-09-17] MEDS: valACYclovir 500 MG TAB PO SCH (09:32)
[2020-09-17] MEDS: NIFEdipine XL 30 MG TAB.ER.24 PO SCH (09:32)
--- NOTE | 2020-09-17 10:14 | P.PN ---
Subjective Progress Note Date: 09/17/20 Patient is awake and alert this morning. He does not have any complaints. Platelet count this morning is 5 Objective - Vital Signs Vital signs: Vital Signs Temp 99.7 F H 09/17/20 09:48 Pulse 98 09/17/20 09:48 Resp 16 09/17/20 09:48 BP 129/74 09/17/20 09:48 Pulse Ox 97 09/17/20 07:00 Intake & Output 09/16/20 09/17/20 09/17/20 18:59 06:59 18:59 Intake Total 264 100 Output Total 800 200 Balance -536 -100 Weight 87.2 kg Intake: Oral 100 Blood Product 264 0 Platelet Pheresis Pas 264 Psoralen Unit [id number] Platelet Pheresis Pas 0 Psoralen Unit [id number] Output: Urine 800 200 Other: Voiding Method Urinal Urinal Urinal # Voids 1 3 - Exam General: The patient is awake and alert, in no distress Eye: there is normal conjunctiva bilaterally. Neck: The neck is supple, there is no JVD. Cardiovascular: Normal S1-S2, no S3-S4, no murmurs. Respiratory: Lungs clear to auscultation bilaterally Gastrointestinal: Abdomen is soft, nontender Musculoskeletal: There is no pedal edema. Neurological:. Speech is normal. Skin: Skin is warm and dry - Labs CBC & Chem 7: 09/17/20 05:55 09/17/20 05:55 Labs: Abnormal Lab Results - Last 24 Hours (Table) 09/16/20 09/16/20 09/17/20 Range/Units 06:17 15:40 05:55 WBC 0.2 L* (3.8-10.6) k/uL RBC 2.34 L (4.30-5.90) m/uL Hgb 7.1 L (13.0-17.5) gm/dL Hct 20.8 L (39.0-53.0) % RDW 15.8 H (11.5-15.5) % Plt Count 5 L* (150-450) k/uL Potassium 2.9 L 3.4 L (3.5-5.5) mmol/L Glucose 121 H (70-110) mg/dL Calcium 7.9 L (8.7-10.3) mg/dL 09/17/20 Range/Units 05:55 WBC (3.8-10.6) k/uL RBC (4.30-5.90) m/uL Hgb (13.0-17.5) gm/dL Hct (39.0-53.0) % RDW (11.5-15.5) % Plt Count (150-450) k/uL Potassium (3.5-5.5) mmol/L Glucose 121 H (70-110) mg/dL Calcium 8.0 L (8.7-10.3) mg/dL Microbiology - Last 24 Hours (Table) 09/13/20 12:15 Blood Culture - Preliminary Blood No Growth after 72 hours 09/13/20 10:25 Blood Culture - Preliminary Blood No Growth after 72 hours Assessment and Plan Assessment: This is a 79-year-old male with complex past medical history significant for history of AML status post chemotherapy with last dose received approximately a month ago who presented to the emergency room with multiple episodes of maroon- colored stool. Patient was evaluated in the ER and admitted to the hospital for further management of his medical problems noted below. 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 -Transfuse as needed for platelet count less than 10 -Neutropenic precautions Neutropenic fever Sepsis without septic shock E faecalis bacteremia -Started on broad-spectrum antibiotic on 09/13 with IV vancomycin, switched to daptomycin on 09/14, and switched to Unasyn on 09/16 -Possible intra-abdominal sources with pronounced distention of the rectum and a large ball of stool with questionable rectal/colitis noted on CT -PICC line which was discontinued on 09/13 -PICC line tip culture negative to date -Repeat blood culture on 09/13 negative to date -Viral prophylaxis with acyclovir -Infectious disease following appreciate recommendation -Influenza screen negative, covid19 PCR negative -Urinalysis negative -Chest x-ray with no acute findings Rectal pneumatosis -Gen. surgery consulted for further evaluation -Fleets/mineral oil enema once today -Start MiraLAX daily Acute blood loss anemia secondary to GI bleeding and secondary to chemo/bone marrow depression with underlying AML -GI bleed resolved. Required 5 units of PRBC since admission. 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 -Seen and evaluated by GI. No plans for endoscopic intervention at this time. EGD and colonoscopy done in 2018 showed gastritis, duodenitis, and diverticulosis. -Hematology/oncology recommendations appreciated -Continue to monitor CBC -Continue with Protonix 40 mg twice daily Hx of prolonged QT -Avoid further prolonging agents HTN -C/w Procardia DVT prophylaxis -IPCDs
--- NOTE | 2020-09-17 11:44 | CDI ---
Documentation Clarification Form Date: 09/17/2020 10:35:19 AM From: Sangeeta Macias RN, CCDS Admit Date: 09/09/2020 07:23:00 PM Patient Name: Cleveland Haley Visit Number: [id number] Discharge Date: ATTENTION: The Clinical Documentation Specialists (CDI) and [facility] Coding Staff appreciate your assistance in clarifying documentation. Please respond to the clarification below the line at the bottom and electronically sign. The CDI & [facility] Coding staff will review the response and follow-up if needed. Please note: Queries are made part of the Legal Health Record. If you have any questions, please contact the author of this message via ITS. Dr. Anna Thakur The patient presented 09/09 with bloody stools. 09/13 Sepsis is documented. Please render your opinion on the Sepsis indicators of present on admission or not present on admission. History/Risk Factors: MDS progressed into AML, PE left lung, Diverticular disease Clinical Indicators: 80-year-old male present ED on 09/09 with complaints of 2 day history of divina and blood clots. On physical exam he has petechial finding all over his skin. 09/09 Vital signs on admission 102/64 104 18 98.5 100 % RA 09/09 WBC 0.4, HGB 5.5, HCT 16.5, 09/12 Progress notes: Complaining of some chills and sore throat. Vital signs at 03:10 128/79 70 18 100.4 09/13 Progress note: He continues to spike fever overnight. WBC 0.2, HGB 7.8, HCT 22.4, Plt 7. Neutropenic fever. Sepsis without septic shock. Gram-positive bacteremia 09/12 Blood culture: gram positive cocci in chains, Organism Enterococcus faecalis 09/13 PICC Catheter Tip culture Final: No growth after 48 hours Other clinical conditions: Possible intra-abdominal sources with pronounced distention of the rectum and large ball of stool with questionable rectal/colitis noted on CT 09/17. Treatment: .9MS @80mls/hr IV (10/09-09/11 Valtrex 500 mg po daily 09/10-09/17 Vancomycin 1,500 mg IVPG Q 8 HRS 10/09 PTD (09/12-09/14 Zarxio 480 mcg SQ daily @ 1800 (09/11-09/16 Maxipime 2 gm IVPB Q 8 HRS 09/12-09/13) DC Daptomycin 500 mg IVPB Q 24 HRS 09/14-09/15 Unasym 3 gm IVPB 09/16-09/17 09/13 ID Consult: Patient with febrile neutropenia with bacteremia. Source is likely PICC line. It is going to be discontinued today. Patients blood pressure 140/90 with pulse of 104, temperature of 101. He is 97% on room air. In your professional opinion, please clarify if these findings signify one of the following conditions, whether the condition is POA, and cause, if known: Condition Sepsis, Present on admission Sepsis Not present on admission Other, Specify Unable to determine SIRS Criteria (2 or more of the following may indicate SIRS): -Temperature < 96.8F (36C) or > 101.0F (38.3C) -Heart Rate > 90 bpm -Respiratory Rate > 20 breaths/min or PaCO2 < 32 mmHg -White Blood Cell Count > 12,000 or < 4,000 cells/mm3 or > 10% bands -Lactate >2.0 mmol/L (>4.0 is equivalent to septic shock) (Last Revision: January 2018) MTDD
[2020-09-17] MEDS: MINERAL OIL 133 ML ENEMA RECTAL STA ×2 (13:07→13:15)
--- NOTE | 2020-09-17 14:39 | P.GSCN ---
History of Present Illness Consult date: 09/17/20 History of present illness: CHIEF COMPLAINT: GI bleeding HISTORY OF PRESENT ILLNESS: This is a 80-year-old male with a known history AML status post chemotherapy. Patient also has a history of gastric ulcer, bowel obstruction, diverticulosis and esophagitis. Patient presented to the hospital with maroon-colored stools. Has been evaluated by GI service no plans for endoscopy. Patient followed by oncology. Patient has received blood transfusion and platelet transfusion during this admission. He is also being treated for neutropenic fever with sepsis and bacteremia. Consult was placed for surgical service due to abnormal computed tomography scan of the abdomen. Results had shown pronounced rectal distention up to 7.7 cm wide secondary to a large solid ball of stool. Correlate for fecal impaction. Associated wall thickening, surrounding fat stranding, and presacral edema. Developing ischemic colitis is not excluded. Patient does report having a bowel movement yesterday and a large soft formed bowel movement today. No blood in the stools. He de nies any abdominal pain. Denies any nausea or vomiting. He is tolerating diet. PAST MEDICAL HISTORY: See list. PAST SURGICAL HISTORY: See list. MEDICATIONS: See list. ALLERGIES: See list. SOCIAL HISTORY: No illicit drug use. REVIEW OF SYSTEMS: CONSTITUTIONAL: Denies fever or chills. HEENT: Denies blurred vision, vision changes, or eye pain. Denies hemoptysis ENDOCRINE: Denies heat or cold intolerance. CARDIOVASCULAR: Denies chest pain or pressure. RESPIRATORY: No shortness of breath. GASTROINTESTINAL: Denies abdominal pain. Denies nausea or vomiting. NEURO: Denies history of seizures. PSYCH: No depression or suicidal ideation HEMATOLOGIC: Denies bleeding disorders. LYMPHATIC: The patient denies any lumps and bumps around the neck. GENITOURINARY: Denies any blood in urine or increased urinary frequency. MUSCULOSKELETAL: Denies myalgias. Denies joint swelling. Denies decreased range of motion beyond patients baseline. SKIN: Denies pruitis. Denies rash. PHYSICAL EXAM: VITAL SIGNS: Reviewed GENERAL: Well-developed in no acute distress. HEENT: No sclera icterus. Extraocular movements grossly intact. Moist buccal mucosa. Head is atraumatic, normocephalic. Hears conversational speech. No nasal drainage. NECK: Supple without lymphadenopathy. CHEST: Non-labored respirations and equal bilateral excursions. CARDIOVASCULAR: Regular rate with regular rhythm. Palpable 2+ radial pulses. ABDOMEN: Soft. Nondistended. Nontender MUSCULOSKELETAL: No clubbing or cyanosis. NEUROLOGIC: No focal or lateralizing signs. Cranial nerves II through XII grossly intact. PSYCH: Appropriate affect. Alert and oriented to person, place and time. SKIN: Well perfused. Good skin turgor. LABORATORY DATA: WBC 0.2 hemoglobin 7.1 platelets 5 Creatinine 0.8 IMAGING: Computed tomography scan of abdomen and pelvis shows pronounced rectal distention up to 7.7 cm wide secondary to a large solid ball of stool. Correlate for fecal impaction. Associated wall thickening, surrounding fat stranding, and presacral edema. Developing ischemic colitis is not excluded. G eneralized anasarca change and trace right effusion. Findings just third spacing/fluid overload state. Bilateral nephrolithiasis with a 9 mm calculus located within the left renal pelvis. ASSESSMENT: 1. Constipation with possible fecal impaction now resolved 2. History of AML status post chemotherapy 3. Severe pancytopenia and thrombocytopenia 4. Acute blood loss anemia secondary to GI bleeding and secondary to chemotherapy and bone marrow depression with underlying AML 5. Febrile neutropenia due to enterococcus bacteremia PLAN: -Recommend conservative management -No surgical intervention planned -Check abdominal x-ray in a.m. Thank you for this consultation Physician Cleat Maker note has been reviewed by physician. Signing provider agrees with the documented findings, assessment, and plan of care. Past Medical History Past Medical History: Cancer Additional Past Medical History / Comment(s): Past adenopathy/abnormal labs/fatigue and was diagnosed with MDS approximately 2018, chronic low back pain, current R danielle gluteus tear-now R leg atrophy/uses walker to ambulate, PE left lung, nephrolithiasis, slight macular degeneration L eye and bilateral starting of cataracts, Thompson's palsey affected R eye, diverticular disease, gout bilateral feet, murmur, past gastric ulcers, vertigo. LEUKEMIA. History of Any Multi-Drug Resistant Organisms: None Reported Past Surgical History: Hernia Repair, Orthopedic Surgery Additional Past Surgical History / Comment(s): Bone marrow biopsies, L axillae lymphnode biopsy, total R hip arthroplasty with revision, bilateral total knee arthroplasties, pain clinic procedures, lumbar surgery/fusion L3/L4, colonoscopy and pt states had umbilical hernia repair and they had to straighten out a peice of his bowel, blepharoplasty r eyelid, Past Anesthesia/Blood Transfusion Reactions: No Reported Reaction Additional Past Anesthesia/Blood Transfusion Reaction / Comm: Pt has received blood transfusions without reaction. Past Psychological History: No Psychological Hx Reported Smoking Status: Former smoker Past Alcohol Use History: Rare Past Drug Use History: None Reported - Past Family History Father Family Medical History: CVA/TIA Additional Family Medical History / Comment(s): Father of CVA at age 89yrs. Mother Family Medical History: Osteoarthritis (OA), Renal Disease Additional Family Medical History / Comment(s): Mother of CHF at age 86yrs. Medications and Allergies Home Medications Medication Instructions Recorded Confirmed Type Meclizine [Antivert] 25 mg PO TID PRN tab 07/05/20 09/09/20 Rx allopurinoL [Zyloprim] 300 mg PO DAILY tab 07/05/20 09/09/20 Rx HYDROcodone/APAP 7.5-325MG [[place] 1 tab PO Q4H PRN 07/30/20 09/09/20 History 7.5-325] NIFEdipine [Adalat cc] 30 mg PO DAILY 07/30/20 09/09/20 History valACYclovir [Valtrex] 500 mg PO DAILY 07/30/20 09/09/20 History Cholecalciferol [Vitamin D3 (25 2,000 unit PO DAILY 08/22/20 09/09/20 History Mcg = 1000 Iu)] Sucralfate [Carafate] 1 gm PO BID 08/22/20 09/09/20 History Vit A,C & P-Hbgzjy-Onlqugbb [Ivite] 1 tab PO DAILY 08/22/20 09/09/20 History ondansetron HCL [Zofran] 8 mg PO Q8H PRN 08/22/20 09/09/20 History Allergies Allergy/AdvReac Type Severity Reaction Status Date / Time No Known Allergies Allergy Verified 09/09/20 19:31 Surgical - Exam Vital Signs Temp Pulse Resp BP Pulse Ox 98.5 F 104 H 18 102/64 100 09/09/20 16:45 09/09/20 16:45 09/09/20 16:45 09/09/20 16:45 09/09/20 16:45 Results - Labs 09/17/20 05:55 09/17/20 05:55 Abnormal Lab Results - Last 24 Hours (Table) 09/16/20 09/17/20 09/17/20 Range/Units 15:40 05:55 05:55 WBC 0.2 L* (3.8-10.6) k/uL RBC 2.34 L (4.30-5.90) m/uL Hgb 7.1 L (13.0-17.5) gm/dL Hct 20.8 L (39.0-53.0) % RDW 15.8 H (11.5-15.5) % Plt Count 5 L* (150-450) k/uL Potassium 3.4 L (3.5-5.5) mmol/L Glucose 121 H (70-110) mg/dL Calcium 8.0 L (8.7-10.3) mg/dL Microbiology - Last 24 Hours (Table) 09/13/20 12:15 Blood Culture - Preliminary Blood No Growth after 96 hours 09/13/20 10:25 Blood Culture - Preliminary Blood No Growth after 96 hours Diabetes panel 09/16/20 09/17/20 Range/Units 15:40 05:55 Sodium 136 (135-145) mmol/L Potassium 3.4 L 3.6 (3.5-5.5) mmol/L Chloride 102 (96-109) mmol/L Carbon Dioxide 27.7 (21.6-31.8) mmol/L BUN 11.0 (9.0-27.0) mg/dL Creatinine 0.8 (0.6-1.5) mg/dL Glucose 121 H (70-110) mg/dL Calcium 8.0 L (8.7-10.3) mg/dL Calcium panel 09/17/20 Range/Units 05:55 Calcium 8.0 L (8.7-10.3) mg/dL Pituitary panel 09/16/20 09/17/20 Range/Units 15:40 05:55 Sodium 136 (135-145) mmol/L Potassium 3.4 L 3.6 (3.5-5.5) mmol/L Chloride 102 (96-109) mmol/L Carbon Dioxide 27.7 (21.6-31.8) mmol/L BUN 11.0 (9.0-27.0) mg/dL Creatinine 0.8 (0.6-1.5) mg/dL Glucose 121 H (70-110) mg/dL Calcium 8.0 L (8.7-10.3) mg/dL Adrenal panel 09/16/20 09/17/20 Range/Units 15:40 05:55 Sodium 136 (135-145) mmol/L Potassium 3.4 L 3.6 (3.5-5.5) mmol/L Chloride 102 (96-109) mmol/L Carbon Dioxide 27.7 (21.6-31.8) mmol/L BUN 11.0 (9.0-27.0) mg/dL Creatinine 0.8 (0.6-1.5) mg/dL Glucose 121 H (70-110) mg/dL Calcium 8.0 L (8.7-10.3) mg/dL
[2020-09-17] MEDS: FILGRASTIM-SNDZ 480 MCG/0.8 ML SYRINGE SQ SCH (16:42)
[2020-09-17] MEDS: BENZOCAINE/MENTHOL LOZENG 1 EACH LOZENGE MUCOUS MEM PRN (17:05)
--- NOTE | 2020-09-17 22:07 | PN ---
PROGRESS NOTE DATE OF SERVICE: 09/17/2020 REASON FOR FOLLOWUP: Enterococcus faecalis bacteremia. INTERVAL COURSE: The patient is currently afebrile. The patient is breathing comfortably. The patient denies having any chest pain or shortness of breath or cough. No abdominal pain. No diarrhea. No urinary symptoms. PHYSICAL EXAMINATION: Blood pressure 155/40 with a pulse of 98, temperature 98.5. He is 98% on room air. General description is an elderly male lying in bed in no distress. RESPIRATORY SYSTEM: Unlabored breathing. Clear to auscultation anteriorly. HEART: S1, S2. Regular rate and rhythm. ABDOMEN: Soft. No tenderness. LABS/IMAGING: BUN of 11, creatinine 0.8, hemoglobin 7.9. White count 0.2. Blood culture negative. Catheter was negative. CT of abdomen and pelvis did show evidence of possible rectal . DIAGNOSTIC IMPRESSION AND PLAN: Patient with Enterococcus faecalis bacteremia. Initial concern for PICC line. This has been discontinued. Catheter tip has been negative. Now with abnormality seen on the CT. General Surgery has been consulted. Patient to continue with Unasyn, and we will monitor his clinical course closely. MMODL / IJN: [id number] /
--- NOTE | 2020-09-17 22:09 | P.PN ---
Subjective Progress Note Date: 09/17/20 Principal diagnosis: Pancytopenia Crossmatched platelets infused without response, remains refractory, no signs of bleeding. Hemoglobin has fir the most part helt stable 48 hour increments. We will order additional matched platelets with HLA matching to further attempt holding of platelet status. Objective - Vital Signs Vital signs: Vital Signs Temp 98.5 F 09/17/20 15:00 Pulse 61 09/17/20 15:00 Resp 18 09/17/20 15:00 BP 125/40 09/17/20 15:00 Pulse Ox 98 09/17/20 15:00 Intake & Output 09/17/20 09/17/20 09/18/20 06:59 18:59 06:59 Intake Total 672 Output Total 300 Balance 372 Intake: Oral 400 Blood Product 272 Platelet Pheresis Pas 272 Psoralen Unit [id number] Output: Urine 300 Other: Voiding Method Urinal Urinal # Voids 3 200 # Bowel Movements 1 - Exam - Constitutional General appearance: cooperative - EENT Eyes: EOMI ENT: NA/AT - Neck Neck: normal ROM - Respiratory Respiratory: bilateral: diminished - Cardiovascular Rhythm: regular - Gastrointestinal General gastrointestinal: soft, tenderness - Integumentary [place] and eccymosis - Neurologic Neurologic: CNII-XII intact - Musculoskeletal Musculoskeletal: generalized weakness - Psychiatric Psychiatric: A&O x's 3, appropriate affect - Labs CBC & Chem 7: 09/17/20 05:55 09/17/20 05:55 Labs: Abnormal Lab Results - Last 24 Hours (Table) 09/16/20 09/17/20 09/17/20 Range/Units 15:40 05:55 05:55 WBC 0.2 L* (3.8-10.6) k/uL RBC 2.34 L (4.30-5.90) m/uL Hgb 7.1 L (13.0-17.5) gm/dL Hct 20.8 L (39.0-53.0) % RDW 15.8 H (11.5-15.5) % Plt Count 5 L* (150-450) k/uL Potassium 3.4 L (3.5-5.5) mmol/L Glucose 121 H (70-110) mg/dL Calcium 8.0 L (8.7-10.3) mg/dL Microbiology - Last 24 Hours (Table) 09/13/20 12:15 Blood Culture - Preliminary Blood No Growth after 96 hours 09/13/20 10:25 Blood Culture - Preliminary Blood No Growth after 96 hours Assessment and Plan (1) GI bleed Current Visit: Yes Status: Acute Code(s): K92.2 - GASTROINTESTINAL HEMORRHAGE, UNSPECIFIED SNOMED Code(s): 30152977 (2) Pancytopenia Current Visit: Yes Status: Acute Priority: High Code(s): D61.818 - OTHER PANCYTOPENIA SNOMED Code(s): 083314902 (3) AML (acute myeloid leukemia) Current Visit: No Status: Acute Priority: High Code(s): C92.00 - ACUTE MYELOBLASTIC LEUKEMIA, NOT HAVING ACHIEVED REMISSION SNOMED Code(s): 12588254 Plan: Continue aggressive supportive care. Continue to hold venetoclax at this time, no NSAIDS, No aspirin. Continue transfuse PRBC less than 7, Transfuse Platelets less than 10 or if still signs of bleeding transfuse less than 50K Continue Zarxio Prolonged aplastic marrow - Goal is time for bone marrow to recover. In the interim prevention of infection -Dr. Starked with ID management of antibiotic, antifungal, and anti-viral coverage. Continue Zarxio, and ask [place] for HLA Matched platelets to transfuse in the picture of refractory bonemarrow No response to Crossmatched platelets. Physician Attest: I have completed the full history and physical and agree with above dictation, dictated as a scribe.
[2020-09-17] MEDS: polyethylene glycoL 3350 17 GM POWD.PACK PO SCH (22:23)
[2020-09-18 03:26] LABS: HCT 22.2 % (39.0-53.0); HGB 7.4 gm/dL (13.0-17.5); MCH 29.5 pg (25.0-35.0); MCHC 33.3 g/dL (31.0-37.0); MCV 88.6 fL (80.0-100.0); Mean Platelet Volume 8.2; RBC 2.51 m/uL (4.30-5.90); RDW 15.9 % (11.5-15.5)
[2020-09-18 03:31] LABS: Platelet Count 5 k/uL (150-450); WBC 0.3 k/uL (3.8-10.6)
[2020-09-18] MEDS: AMPICILLIN-SULBACTAM 3 GM in SODIUM CHLORIDE 0.9% 100 ML IVPB SCH ×4 (04:22→21:35)
[2020-09-18] MEDS: valACYclovir 500 MG TAB PO SCH (08:58)
[2020-09-18] MEDS: POTASSIUM CHLORIDE ER 20 MEQ TAB.ER PO SCH (08:58)
[2020-09-18] MEDS: NIFEdipine XL 30 MG TAB.ER.24 PO SCH (08:58)
[2020-09-18] MEDS: HYDROcodone/APAP 7.5-325MG 1 EACH TAB PO PRN ×4 (08:58→21:44)
[2020-09-18] MEDS: SUCRALFATE 1 GM TAB PO SCH ×2 (08:58→21:35)
[2020-09-18] MEDS: PANTOPRAZOLE 40 MG TABLET PO SCH ×2 (08:58→17:16)
[2020-09-18 09:52] LABS: African American GFR (CKD) 99.2 (60.0-200.0); Anion Gap 9.2 mmol/L (4.00-12.00); BUN/Creat Ratio 12.5 Ratio (12.00-20.00); Carbon Dioxide 27.8 mmol/L (21.6-31.8); Non-African American GFR(CKD) 85.6 (60.0-200.0); Potassium 3.6 mmol/L (3.5-5.5)
--- NOTE | 2020-09-18 11:23 | P.PN ---
Subjective Progress Note Date: 09/18/20 Patient was very unpleasant this morning. He has been through 2 different staff including his nurses and physical therapy since admission. He always has multiple requests and is complaining that he is not satisfied with his care. We tried to address his request and concerns multiple times since admission with minimal improvement in his mood. Today, I was listening to him for approximately 20 minutes complaining and trying to reassure him that we're doing the best for him. He has unrealistic request and expectations. He seems unsatisfied with everybody taking care of him. He otherwise reports having 2 large bowel movements yesterday. No abdominal pain. He is having good appetite. Objective - Vital Signs Vital signs: Vital Signs Temp 98.1 F 09/18/20 07:00 Pulse 102 H 09/18/20 07:00 Resp 18 09/18/20 07:00 BP 111/51 09/18/20 07:00 Pulse Ox 94 L 09/18/20 07:00 Intake & Output 09/17/20 09/18/20 09/18/20 18:59 06:59 18:59 Intake Total 672 Output Total 300 Balance 372 Intake: Oral 400 Blood Product 272 Platelet Pheresis Pas 272 Psoralen Unit [id number] Output: Urine 300 Other: Voiding Method Urinal Urinal Urinal # Voids 200 # Bowel Movements 1 - Exam General: The patient is awake and alert, in no distress Eye: there is normal conjunctiva bilaterally. Neck: The neck is supple, there is no JVD. Cardiovascular: Normal S1-S2, no S3-S4, no murmurs. Respiratory: Lungs clear to auscultation bilaterally Gastrointestinal: Abdomen is soft, nontender Musculoskeletal: There is no pedal edema. Neurological:. Speech is normal. Skin: Skin is warm and dry - Labs CBC & Chem 7: 09/18/20 03:08 09/18/20 03:08 Labs: Abnormal Lab Results - Last 24 Hours (Table) 09/18/20 09/18/20 Range/Units 03:08 03:08 WBC 0.3 L* (3.8-10.6) k/uL RBC 2.51 L (4.30-5.90) m/uL Hgb 7.4 L (13.0-17.5) gm/dL Hct 22.2 L (39.0-53.0) % RDW 15.9 H (11.5-15.5) % Plt Count 5 L* (150-450) k/uL Glucose 129 H (70-110) mg/dL Calcium 8.0 L (8.7-10.3) mg/dL Microbiology - Last 24 Hours (Table) 09/13/20 12:15 Blood Culture - Preliminary Blood No Growth after 96 hours 09/13/20 10:25 Blood Culture - Preliminary Blood No Growth after 96 hours Assessment and Plan Assessment: This is a 79-year-old male with complex past medical history significant for history of AML status post chemotherapy with last dose received approximately a month ago who presented to the emergency room with multiple episodes of maroon- colored stool. Patient was evaluated in the ER and admitted to the hospital for further management of his medical problems noted below. 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 -Transfuse as needed for platelet count less than 10 -Neutropenic precautions Neutropenic fever Sepsis without septic shock E faecalis bacteremia -Started on broad-spectrum antibiotic on 09/13 with IV vancomycin, switched to daptomycin on 09/14, and switched to Unasyn on 09/16 -Possible intra-abdominal sources with pronounced distention of the rectum and a large ball of stool with questionable rectal/colitis noted on CT -PICC line which was discontinued on 09/13 -PICC line tip culture negative to date -Repeat blood culture on 09/13 negative to date -Viral prophylaxis with acyclovir -Infectious disease following appreciate recommendation -Influenza screen negative, covid19 PCR negative -Urinalysis negative -Chest x-ray with no acute findings Rectal pneumatosis -Gen. surgery consulted for further evaluation -Conservative management recommended -Started MiraLAX daily Acute blood loss anemia secondary to GI bleeding and secondary to chemo/bone marrow depression with underlying AML -GI bleed resolved. Required 5 units of PRBC since admission. 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 -Seen and evaluated by GI. No plans for endoscopic intervention at this time. EGD and colonoscopy done in 2018 showed gastritis, duodenitis, and diverticulosis. -Hematology/oncology recommendations appreciated -Continue to monitor CBC -Continue with Protonix 40 mg twice daily Hx of prolonged QT -Avoid further prolonging agents HTN -C/w Procardia DVT prophylaxis -IPCDs Patient refused physical therapy evaluation multiple times during this hospit alization
--- NOTE | 2020-09-18 13:23 | XR ---
EXAMINATION TYPE: XR abdomen 2V DATE OF EXAM: 09/18/2020 CLINICAL HISTORY: Constipation and fecal impaction. TECHNIQUE: Supine and upright views of the abdomen are obtained. COMPARISON: CT abdomen and pelvis from yesterday. FINDINGS: Oral contrast has progressed into nondistended colonic loops on current study. Persistent m oderate rectal fecal prominence. Gas seen in scattered nondistended small bowel loops. Surgical leon e to the lower lumbar spine redemonstrated. Surgical change of the right hip partially imaged. Lung b ases remain clear. No pneumoperitoneum. IMPRESSION: Overall nonobstructive bowel gas pattern. Moderate rectal fecal stasis remains present
--- NOTE | 2020-09-18 13:48 | P.PN ---
Subjective Progress Note Date: 09/18/20 Principal diagnosis: Pancytopenia Patient with another fever (low grade on 09/17/20), he also appears to have declining oxygen saturation and increased heart rate over past 24 hours. This could be component of another infectious process with his severe prolongs neutropenia (despite zarxio and antibiotic coverage), his high anxiety, he was quite unhappy today and frustrated at the minimal change in numbers and status, not to mention frustrated at all those who are caring for him. His platelets have not improved even with special order crossmatch platelets. Dr. Ivan has now requested HLA matched for his refractory status in hopes to improve, plan to continue with available platelets in the interim until HLA matched becomes available. Chest xray ordered for fever, decreased oxygentation, and bilateral diminished lung sounds, likely secondary to atelectasis with time in hospital. Incentive spirometer encouraged. Objective - Vital Signs Vital signs: Vital Signs Temp 98.1 F 09/18/20 07:00 Pulse 102 H 09/18/20 07:00 Resp 18 09/18/20 07:00 BP 111/51 09/18/20 07:00 Pulse Ox 94 L 09/18/20 07:00 Intake & Output 09/17/20 09/18/20 09/18/20 18:59 06:59 18:59 Intake Total 672 Output Total 300 Balance 372 Intake: Oral 400 Blood Product 272 Platelet Pheresis Pas 272 Psoralen Unit [id number] Output: Urine 300 Other: Voiding Method Urinal Urinal Urinal # Voids 200 # Bowel Movements 1 - Exam - Constitutional General appearance: cooperative - EENT Eyes: EOMI ENT: NA/AT - Neck Neck: normal ROM - Respiratory Respiratory: bilateral: diminished, Right Lobe Rhonchi - Cardiovascular Rhythm: regular - Gastrointestinal General gastrointestinal: soft, tenderness - Integumentary [place] and eccymosis - Neurologic Neurologic: CNII-XII intact - Musculoskeletal Musculoskeletal: generalized weakness - Psychiatric Psychiatric: A&O x's 3, appropriate affect - Labs CBC & Chem 7: 09/18/20 03:08 09/18/20 03:08 Labs: Abnormal Lab Results - Last 24 Hours (Table) 09/18/20 09/18/20 Range/Units 03:08 03:08 WBC 0.3 L* (3.8-10.6) k/uL RBC 2.51 L (4.30-5.90) m/uL Hgb 7.4 L (13.0-17.5) gm/dL Hct 22.2 L (39.0-53.0) % RDW 15.9 H (11.5-15.5) % Plt Count 5 L* (150-450) k/uL Glucose 129 H (70-110) mg/dL Calcium 8.0 L (8.7-10.3) mg/dL Microbiology - Last 24 Hours (Table) 09/13/20 12:15 Blood Culture - Preliminary Blood No Growth after 96 hours 09/13/20 10:25 Blood Culture - Preliminary Blood No Growth after 96 hours Assessment and Plan (1) GI bleed Current Visit: Yes Status: Acute Code(s): K92.2 - GASTROINTESTINAL HEMORRHAGE, UNSPECIFIED SNOMED Code(s): 07264980 (2) Pancytopenia Current Visit: Yes Status: Acute Priority: High Code(s): D61.818 - OTHER PANCYTOPENIA SNOMED Code(s): 890989644 (3) AML (acute myeloid leukemia) Current Visit: No Status: Acute Priority: High Code(s): C92.00 - ACUTE MYELOBLASTIC LEUKEMIA, NOT HAVING ACHIEVED REMISSION SNOMED Code(s): 20861832 Plan: Continue aggressive supportive care. Continue to hold venetoclax at this time, no NSAIDS, No aspirin. Continue transfuse PRBC less than 7, Transfuse Platelets less than 10 or if still signs of bleeding transfuse less than 50K Continue Zarxio Prolonged aplastic marrow - Goal is time for bone marrow to recover. In the interim prevention of infection -Dr. Cutler with ID management of antibiotic, antifungal, and anti-viral coverage. Continue Zarxio, and ask [place] for HLA Matched platelets to transfuse in the picture of refractory bonemarrow No response to Crossmatched platelets. HLA matched ordered He is anxious and frustrated at his prolonged hospital stay, I will discuss further with son today. Unfortunetly in this situation after acute leukemia is in remission, plan would be stem or bone marrow transplant although he is not a candidate for one in the same, therefore we have to await recovery of his aplastic marrow, in hopes it will recover, while preventing infection and bleeding in the interim. CBC, CMP, And recheck coags in am. Addendum: Chest Xray Reviewed: New RUL consolidation - consistent with pneumonia. I have asked ID to review for appropriate coverage abx in the prolonged neutropenia patient.
[2020-09-18] MEDS ORDERED: LACTULOSE 20 GM/30 ML CUP PO ONE (13:50)
[2020-09-18] MEDS ORDERED: MAGNESIUM HYDROXIDE 2,400 MG/10 ML CUP PO ONE (13:50)
--- NOTE | 2020-09-18 14:00 | P.PN ---
Subjective Progress Note Date: 09/18/20 Reason for consult: Constipation and fecal stasis HISTORY OF PRESENT ILLNESS: This is a 80-year-old male with a known history AML status post chemotherapy. Patient also has a history of gastric ulcer, bowel obstruction, diverticulosis and esophagitis. He is also being treated for neutropenic fever with sepsis and bacteremia. Patient is being followed for constipation, fecal stasis and possible fecal impaction. Abdominal x-ray shows overall nonobstructive bowel gas pattern. Moderate rectal fecal stasis remains present. Patient denies any abdominal pain. Denies any nausea or vomiting. He is passing gas his last bowel movement was yesterday after the CAT scan. He did have a temp of 100.4 WBC 0.3 hemoglobin 7.4 platelets 5 PHYSICAL EXAM: VITAL SIGNS: Reviewed. GENERAL: Well-developed in no acute distress. HEENT: No sclera icterus. Extraocular movements grossly intact. Moist buccal mucosa. Head is atraumatic, normocephalic. ABDOMEN: Soft. Nondistended. Nontender. NEUROLOGIC: Alert and oriented. Cranial nerves II through XII grossly intact. ASSESSMENT: 1. Constipation with possible fecal impaction. Abdominal x-ray showing moderate rectal fecal stasis 2. History of AML status post chemotherapy 3. Severe pancytopenia and thrombocytopenia 4. Acute blood loss anemia secondary to GI bleeding and secondary to chemotherapy and bone marrow depression with underlying AML 5. Febrile neutropenia due to enterococcus bacteremia PLAN: -Recommend conservative management -We'll give patient a dose of milk of magnesia and lactulose for the rectal fecal stasis -No surgical intervention planned Physician Product Management Analyst note has been reviewed by physician. Signing provider agrees with the documented findings, assessment, and plan of care. Objective - Vital Signs Vital signs: Vital Signs Temp 98.1 F 09/18/20 07:00 Pulse 102 H 09/18/20 07:00 Resp 18 09/18/20 07:00 BP 111/51 09/18/20 07:00 Pulse Ox 94 L 09/18/20 07:00 Intake & Output 09/17/20 09/18/20 09/18/20 18:59 06:59 18:59 Intake Total 672 Output Total 300 Balance 372 Intake: Oral 400 Blood Product 272 Platelet Pheresis Pas 272 Psoralen Unit [id number] Output: Urine 300 Other: Voiding Method Urinal Urinal Urinal # Voids 200 # Bowel Movements 1 - Labs CBC & Chem 7: 09/18/20 03:08 09/18/20 03:08 Labs: Abnormal Lab Results - Last 24 Hours (Table) 09/18/20 09/18/20 Range/Units 03:08 03:08 WBC 0.3 L* (3.8-10.6) k/uL RBC 2.51 L (4.30-5.90) m/uL Hgb 7.4 L (13.0-17.5) gm/dL Hct 22.2 L (39.0-53.0) % RDW 15.9 H (11.5-15.5) % Plt Count 5 L* (150-450) k/uL Glucose 129 H (70-110) mg/dL Calcium 8.0 L (8.7-10.3) mg/dL Microbiology - Last 24 Hours (Table) 09/13/20 12:15 Blood Culture - Preliminary Blood No Growth after 96 hours 09/13/20 10:25 Blood Culture - Preliminary Blood No Growth after 96 hours
--- NOTE | 2020-09-18 14:22 | XR ---
EXAMINATION TYPE: XR chest 2V DATE OF EXAM: 09/18/2020 COMPARISON: Chest x-ray 5 days ago. HISTORY: Fever. TECHNIQUE: Frontal and lateral views of the chest are obtained. FINDINGS: There is new airspace opacity in the right upper lung localized anteriorly on lateral view . Artifact overlies left mid to lower lung, left lung felt to remain clear. No pleural effusion or pn eumothorax seen bilaterally. The cardiac silhouette size remains within normal limits. The osseous structures are intact. IMPRESSION: There is new right upper lung pneumonic consolidation.
[2020-09-18] MEDS: FILGRASTIM-SNDZ 480 MCG/0.8 ML SYRINGE SQ SCH (17:16)
[2020-09-18] MEDS: polyethylene glycoL 3350 17 GM POWD.PACK PO SCH (21:35)
[2020-09-19] MEDS: PIPERACILLIN-TAZOBACTAM 3.375 GM in SODIUM CHLORIDE 0.9% 100 ML IVPB SCH ×3 (00:19→17:03)
--- NOTE | 2020-09-19 00:41 | PN ---
PROGRESS NOTE DATE OF SERVICE: 09/18/2020 REASON FOR FOLLOWUP: Febrile neutropenia and Enterococcus faecalis bacteremia. INTERVAL COURSE: The patient remains to be afebrile though overall the patient mentioned he is feeling better. The patient denies having any chest pain. No shortness of breath or cough. No nausea, vomiting, abdominal pain, no diarrhea. No constipation. PHYSICAL EXAMINATION: Blood pressure 137/68 with a pulse of 101, temperature 101.4. He is 94% on room air. General description is an elderly male lying in bed in no distress. Respiratory system: Unlabored breathing, decreased intensity of breath sounds. No wheeze. Heart S1, S2. Regular rate and rhythm. ABDOMEN: Soft, no tenderness. LABS: Hemoglobin 7.1, white count 0.3, BUN of 410, creatinine 0.8. DIAGNOSTIC IMPRESSION AND PLAN: Patient with Enterococcus faecalis bacteremia. Initial concern for possible PICC line has been discontinued. Did have abnormality on CT of abdominal and pelvis and is being evaluated by Surgery. Patient is covered with Unasyn. Chest x-ray showing new right upper lobe pneumonia, consolidation. In view of the persistent fever, we will try to obtain a sputum and adjust antibiotic to Zosyn. Continue supportive care. MMODL / IJN: [id number] /
[2020-09-19 06:37] LABS: Anisocytosis Slight; HCT 21.6 % (39.0-53.0); HGB 7.3 gm/dL (13.0-17.5); MCH 29.8 pg (25.0-35.0); MCHC 33.7 g/dL (31.0-37.0); MCV 88.4 fL (80.0-100.0); Mean Platelet Volume 6.7; RBC 2.45 m/uL (4.30-5.90); RDW 16.2 % (11.5-15.5)
[2020-09-19 07:01] LABS: Platelet Count 6 k/uL (150-450); WBC 0.3 k/uL (3.8-10.6)
[2020-09-19 07:09] LABS: INR 1.2 (<1.2); Partial Thromboplastin Time 28.9 sec (22.0-30.0); Prothrombin Time 11.8 sec (9.0-12.0)
[2020-09-19 08:27] LABS: Poikilocytosis (M) Present
[2020-09-19] MEDS: PANTOPRAZOLE 40 MG TABLET PO SCH ×2 (08:29→17:23)
[2020-09-19] MEDS: POTASSIUM CHLORIDE ER 20 MEQ TAB.ER PO SCH ×3 (08:29→19:41)
[2020-09-19] MEDS: NIFEdipine XL 30 MG TAB.ER.24 PO SCH (08:29)
[2020-09-19] MEDS: valACYclovir 500 MG TAB PO SCH (08:29)
[2020-09-19] MEDS: SUCRALFATE 1 GM TAB PO SCH ×2 (08:29→19:41)
[2020-09-19] MEDS: HYDROcodone/APAP 7.5-325MG 1 EACH TAB PO PRN ×2 (08:35→17:28)
--- NOTE | 2020-09-19 10:51 | P.PN ---
Subjective Progress Note Date: 09/19/20 Patient is doing well today. He denies any specific complaints or concerns. He said that he is having intermittent cough that is mostly nonproductive. No acute events overnight reported by nursing staff. Objective - Vital Signs Vital signs: Vital Signs Temp 99.2 F 09/19/20 07:00 Pulse 111 H 09/19/20 07:00 Resp 17 09/19/20 07:00 BP 100/61 09/19/20 07:00 Pulse Ox 96 09/19/20 07:00 Intake & Output 09/18/20 09/19/20 09/19/20 18:59 06:59 18:59 Output Total 500 Balance -500 Output: Urine 500 Other: Voiding Method Urinal Urinal Diaper Incontinent # Voids 2 # Bowel Movements 1 1 - Exam General: The patient is awake and alert, in no distress Eye: there is normal conjunctiva bilaterally. Neck: The neck is supple, there is no JVD. Cardiovascular: Normal S1-S2, no S3-S4, no murmurs. Respiratory: Lungs clear to auscultation bilaterally Gastrointestinal: Abdomen is soft, nontender Musculoskeletal: There is no pedal edema. Neurological:. Speech is normal. Skin: Skin is warm and dry - Labs CBC & Chem 7: 09/19/20 05:33 09/18/20 03:08 Labs: Abnormal Lab Results - Last 24 Hours (Table) 09/19/20 09/19/20 Range/Units 05:33 05:33 WBC 0.3 L* (3.8-10.6) k/uL RBC 2.45 L (4.30-5.90) m/uL Hgb 7.3 L (13.0-17.5) gm/dL Hct 21.6 L (39.0-53.0) % RDW 16.2 H (11.5-15.5) % Plt Count 6 L* (150-450) k/uL INR 1.2 H (<1.2) Microbiology - Last 24 Hours (Table) 09/13/20 12:15 Blood Culture - Preliminary Blood No Growth after 120 hours 09/13/20 10:25 Blood Culture - Preliminary Blood No Growth after 120 hours Assessment and Plan Assessment: This is a 79-year-old male with complex past medical history significant for history of AML status post chemotherapy with last dose received approximately a month ago who presented to the emergency room with multiple episodes of maroon- colored stool. Patient was evaluated in the ER and admitted to the hospital for further management of his medical problems noted below. 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 -Transfuse as needed for platelet count less than 10 -Neutropenic precautions Neutropenic fever Sepsis without septic shock E faecalis bacteremia Suspected pneumonia -Started on broad-spectrum antibiotic on 09/13 with IV vancomycin, switched to daptomycin on 09/14, switched to Unasyn on 09/16, and switched to Zosyn on 09/18 for possible pneumonia coverage (Awaiting pro-calcitonin level) -Possible intra-abdominal sources with pronounced distention of the rectum and a large ball of stool with questionable rectal/colitis noted on CT -PICC line which was discontinued on 09/13 -PICC line tip culture negative to date -Repeat blood culture on 09/13 negative to date -Viral prophylaxis with acyclovir -Infectious disease following appreciate recommendation -Influenza screen negative, covid19 PCR negative -Urinalysis negative -Chest x-ray with no acute findings Rectal pneumatosis -Gen. surgery consulted for further evaluation -Conservative management recommended -Started MiraLAX daily -Patient reports having normal bowel movement Acute blood loss anemia secondary to GI bleeding and secondary to chemo/bone marrow depression with underlying AML -GI bleed resolved. Required 5 units of PRBC since admission. 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 -Seen and evaluated by GI. No plans for endoscopic intervention at this time. EGD and colonoscopy done in 2018 showed gastritis, duodenitis, and diverticulosis. -Hematology/oncology recommendations appreciated -Continue to monitor CBC -Continue with Protonix 40 mg twice daily Hx of prolonged QT -Avoid further prolonging agents HTN -C/w Procardia DVT prophylaxis -IPCDs Patient refused physical therapy evaluation multiple times during this hospitalization
[2020-09-19 11:31] LABS: African American GFR (CKD) 94.5 (60.0-200.0); Albumin 3.3 g/dL (3.80-4.90); Albumin/Globulin Ratio 0.89 (1.60-3.17); Anion Gap 9.5 mmol/L (4.00-12.00); BUN/Creat Ratio 14.44 Ratio (12.00-20.00); Calcium 8.1 mg/dL (8.7-10.3); Carbon Dioxide 27.5 mmol/L (21.6-31.8); Globulin 3.7 g/dL (1.6-3.3); Non-African American GFR(CKD) 81.5 (60.0-200.0); Potassium 3.4 mmol/L (3.5-5.5); Total Bilirubin 2.6 mg/dL (0.3-1.2)
--- NOTE | 2020-09-19 11:59 | P.PN ---
Progress Note - Text Progress Note Date: 09/19/20 Patient seen and evaluated. He reports having a moderate-sized bowel movement. Bowel movement was yesterday. No reports of moderate abdominal pain today. Patient is pancytopenic. Recommend oral laxatives such as milk of magnesia and lactulose. Minimize enemas. We'll continue to follow.
--- NOTE | 2020-09-19 13:05 | P.PN ---
Subjective Progress Note Date: 09/19/20 Reason for consult: Constipation and fecal stasis HISTORY OF PRESENT ILLNESS: This is a 80-year-old male with a known history AML status post chemotherapy. Patient also has a history of gastric ulcer, bowel obstruction, diverticulosis and esophagitis. He is also being treated for neutropenic fever with sepsis and bacteremia. Patient is being followed for constipation, fecal stasis and possible fecal impaction. Patient did have multiple soft brown bowel movements after milk of magnesia and lactulose given. He denies any abdominal pain. Denies any nausea or vomiting. He did have a temp of 101.4. Chest x-ray showing a new right lower lobe pneumonia. WBC 0.3 hemoglobin 7.3 platelets 6 PHYSICAL EXAM: VITAL SIGNS: Reviewed. GENERAL: Well-developed in no acute distress. HEENT: No sclera icterus. Extraocular movements grossly intact. Moist buccal mucosa. Head is atraumatic, normocephalic. ABDOMEN: Soft. Nondistended. Nontender. NEUROLOGIC: Alert and oriented. Cranial nerves II through XII grossly intact. ASSESSMENT: 1. Constipation with possible fecal impaction improved with milk of magnesia and lactulose 2. History of AML status post chemotherapy 3. Severe pancytopenia and thrombocytopenia 4. Acute blood loss anemia secondary to GI bleeding and secondary to chemother apy and bone marrow depression with underlying AML 5. Febrile neutropenia due to enterococcus bacteremia PLAN: -Patient did have bowel movements with milk of mag and lactulose -No surgical intervention planned -Continue MiraLAX -Surgical service will sign off Physician Behaviorist note has been reviewed by physician. Signing provider agrees with the documented findings, assessment, and plan of care. Objective - Vital Signs Vital signs: Vital Signs Temp 99.2 F 09/19/20 07:00 Pulse 111 H 09/19/20 07:00 Resp 17 09/19/20 07:00 BP 100/61 09/19/20 07:00 Pulse Ox 96 09/19/20 07:00 Intake & Output 09/18/20 09/19/20 09/19/20 18:59 06:59 18:59 Output Total 500 Balance -500 Output: Urine 500 Other: Voiding Method Urinal Urinal Diaper Incontinent # Voids 2 # Bowel Movements 1 1 - Labs CBC & Chem 7: 09/19/20 05:33 09/19/20 05:33 Labs: Abnormal Lab Results - Last 24 Hours (Table) 09/19/20 09/19/20 09/19/20 Range/Units 05:29 05:33 05:33 WBC 0.3 L* (3.8-10.6) k/uL RBC 2.45 L (4.30-5.90) m/uL Hgb 7.3 L (13.0-17.5) gm/dL Hct 21.6 L (39.0-53.0) % RDW 16.2 H (11.5-15.5) % Plt Count 6 L* (150-450) k/uL INR 1.2 H (<1.2) Potassium (3.5-5.5) mmol/L Glucose (70-110) mg/dL Calcium (8.7-10.3) mg/dL Total Bilirubin (0.3-1.2) mg/dL AST (14-35) U/L ALT (10-49) U/L Albumin (3.80-4.90) g/dL Globulin (1.6-3.3) g/dL Albumin/Globulin Ratio (1.60-3.17) g/dL Procalcitonin 1.72 H (0.02-0.09) ng/mL 09/19/20 Range/Units 05:33 WBC (3.8-10.6) k/uL RBC (4.30-5.90) m/uL Hgb (13.0-17.5) gm/dL Hct (39.0-53.0) % RDW (11.5-15.5) % Plt Count (150-450) k/uL INR (<1.2) Potassium 3.4 L (3.5-5.5) mmol/L Glucose 135 H (70-110) mg/dL Calcium 8.1 L (8.7-10.3) mg/dL Total Bilirubin 2.6 H (0.3-1.2) mg/dL AST 83 H (14-35) U/L ALT 80 H (10-49) U/L Albumin 3.30 L (3.80-4.90) g/dL Globulin 3.7 H (1.6-3.3) g/dL Albumin/Globulin Ratio 0.89 L (1.60-3.17) g/dL Procalcitonin (0.02-0.09) ng/mL Microbiology - Last 24 Hours (Table) 09/13/20 12:15 Blood Culture - Preliminary Blood No Growth after 120 hours 09/13/20 10:25 Blood Culture - Preliminary Blood No Growth after 120 hours
[2020-09-19] MEDS: FILGRASTIM-SNDZ 480 MCG/0.8 ML SYRINGE SQ SCH (17:23)
[2020-09-19] MEDS ORDERED: Potassium Replacement Protocol 1 EACH MISC MISCELLANE PRN (17:53)
[2020-09-19] MEDS: polyethylene glycoL 3350 17 GM POWD.PACK PO SCH (19:41)
[2020-09-19] MEDS: ONDANSETRON 4 MG TAB PO PRN (19:42)
--- NOTE | 2020-09-19 22:24 | P.PN ---
Subjective Progress Note Date: 09/19/20 Principal diagnosis: Pancytopenia Today is hospital day 10 and unfortunetly no improvement has bone marrow recovery despite daily zarxio, crossmatched platelets, prophylactic antibiotics, and aggressive supportive care. We had a ling discussion with patient today. We are concerned that his refractory marrow will not recover. We did discuss with him and his son Osmin that our options are minimal at this point as he is not a candidate for transplant. Objective - Vital Signs Vital signs: Vital Signs Temp 98.7 F 09/19/20 20:00 Pulse 93 09/19/20 20:00 Resp 20 09/19/20 20:00 BP 113/69 09/19/20 20:00 Pulse Ox 95 09/19/20 20:00 Intake & Output 09/19/20 09/19/20 09/20/20 06:59 18:59 06:59 Output Total 500 400 Balance -500 -400 Output: Urine 500 400 Other: Voiding Method Urinal Diaper Incontinent # Bowel Movements 1 2 - Exam - Constitutional General appearance: cooperative - EENT Eyes: EOMI ENT: NA/AT - Neck Neck: normal ROM - Respiratory Respiratory: bilateral: diminished, Right Lobe Rhonchi - Cardiovascular Rhythm: regular - Gastrointestinal General gastrointestinal: soft, tenderness - Integumentary [place] and eccymosis - Neurologic Neurologic: CNII-XII intact - Musculoskeletal Musculoskeletal: generalized weakness - Psychiatric Psychiatric: A&O x's 3, appropriate affect - Labs CBC & Chem 7: 09/19/20 05:33 09/19/20 20:19 Labs: Abnormal Lab Results - Last 24 Hours (Table) 09/19/20 09/19/20 09/19/20 Range/Units 05:29 05:33 05:33 WBC 0.3 L* (3.8-10.6) k/uL RBC 2.45 L (4.30-5.90) m/uL Hgb 7.3 L (13.0-17.5) gm/dL Hct 21.6 L (39.0-53.0) % RDW 16.2 H (11.5-15.5) % Plt Count 6 L* (150-450) k/uL INR 1.2 H (<1.2) Potassium (3.5-5.5) mmol/L Glucose (70-110) mg/dL Calcium (8.7-10.3) mg/dL Total Bilirubin (0.3-1.2) mg/dL AST (14-35) U/L ALT (10-49) U/L Albumin (3.80-4.90) g/dL Globulin (1.6-3.3) g/dL Albumin/Globulin Ratio (1.60-3.17) g/dL Procalcitonin 1.72 H (0.02-0.09) ng/mL 09/19/20 Range/Units 05:33 WBC (3.8-10.6) k/uL RBC (4.30-5.90) m/uL Hgb (13.0-17.5) gm/dL Hct (39.0-53.0) % RDW (11.5-15.5) % Plt Count (150-450) k/uL INR (<1.2) Potassium 3.4 L (3.5-5.5) mmol/L Glucose 135 H (70-110) mg/dL Calcium 8.1 L (8.7-10.3) mg/dL Total Bilirubin 2.6 H (0.3-1.2) mg/dL AST 83 H (14-35) U/L ALT 80 H (10-49) U/L Albumin 3.30 L (3.80-4.90) g/dL Globulin 3.7 H (1.6-3.3) g/dL Albumin/Globulin Ratio 0.89 L (1.60-3.17) g/dL Procalcitonin (0.02-0.09) ng/mL Microbiology - Last 24 Hours (Table) 09/13/20 12:15 Blood Culture - Final Blood No Growth after 144 hours 09/13/20 10:25 Blood Culture - Final Blood No Growth after 144 hours Assessment and Plan (1) GI bleed Current Visit: Yes Status: Acute Code(s): K92.2 - GASTROINTESTINAL HEMORRHAGE, UNSPECIFIED SNOMED Code(s): 57825866 (2) Pancytopenia Current Visit: Yes Status: Acute Priority: High Code(s): D61.818 - OTHER PANCYTOPENIA SNOMED Code(s): 455574362 (3) AML (acute myeloid leukemia) Current Visit: No Status: Acute Priority: High Code(s): C92.00 - ACUTE MYELOBLASTIC LEUKEMIA, NOT HAVING ACHIEVED REMISSION SNOMED Code(s): 74390443 Plan: Continue aggressive supportive care. Continue to hold venetoclax at this time, no NSAIDS, No aspirin. Continue transfuse PRBC less than 7, Transfuse Platelets less than 10 or if still signs of bleeding transfuse less than 50K Continue Zarxio Prolonged aplastic marrow - Addendum: Chest Xray Reviewed: New RUL consolidation - consistent with pneumonia. I have asked ID to review for appropriate coverage abx in the prolonged neutropenia patient. Refratory platelets includes crossmatched, HLA ordered PLAN: - Continue treatment of pneumonia and supportive transfusions, a timeline for recovery of Bone marrow is unknown, especially with recurrent infections and age. - Overall prognosis does not appear favorable as he has not shown any signs of recovery at this point - Patient aware and would like to go home, attempt outpatient antibiotics and scheduled transfusions and telemed with Dr. Aragon next week Thursday to determine on hospice care versus continued supportive care (technically if infection resolves, bone marrow should begin to recover), therefore is resonable to continue treatment of pneumonia at least for a short period and attempt HLA matched. DISPO PLAN: Up to patient, plan with palliative at discharge probable plan for discharge Thursday or Thursday after transfusion support and set up for outpatient transfusion thursday. If still no recovery by that time, hospice care in home is appropriate and patient and family agree Physician attest: I have completed the full history and physical and agree with above dictation, dictated as a scribe.
--- NOTE | 2020-09-20 00:11 | PN ---
PROGRESS NOTE DATE OF SERVICE: 09/19/2020 REASON FOR FOLLOWUP: Enterococcus faecalis bacteremia, possible urinary source and aspiration pneumonia. INTERVAL HISTORY: Patient did have a low-grade fever of 99.7 last night with a fever of 101.4 yesterday. The patient is afebrile since then. The patient has been breathing comfortably. Did have a cough, bringing up some sputum. Denies any chest pain. No abdominal pain or diarrhea. PHYSICAL EXAMINATION: Blood pressure 113/69, pulse of 90, temperature 98.7. He is 95% on room air. The patient is an elderly male lying in bed in no distress. Respiratory system: Unlabored breathing, decreased breath sounds in the bases. No wheeze. Heart S1, S2. Regular rate and rhythm. ABDOMEN: Soft, no tenderness. LABS: White count remains to be low. Blood culture negative. Sputum culture is pending. DIAGNOSTIC IMPRESSION AND PLAN: Patient with febrile neutropenia in this patient who did have evidence of Enterococcus faecalis bacteremia. The patient did have extensive workup. Repeat cultures have been negative. Abnormality seen on the x-ray and CT. Antibiotic has been adjusted to Zosyn to cover for pneumonia. Fever responded. Sputum culture to follow and antibiotic adjusted further. Continue supportive care. MMODL / IJN: [id number] /
[2020-09-20] MEDS: PIPERACILLIN-TAZOBACTAM 3.375 GM in SODIUM CHLORIDE 0.9% 100 ML IVPB SCH ×3 (00:49→18:15)
[2020-09-20 06:30] LABS: Anisocytosis Slight; MCH 30.5 pg (25.0-35.0); MCHC 34.7 g/dL (31.0-37.0); MCV 87.9 fL (80.0-100.0); Mean Platelet Volume 7.1; RBC 2.24 m/uL (4.30-5.90); RDW 16.3 % (11.5-15.5)
[2020-09-20 06:41] LABS: WBC 0.3 k/uL (3.8-10.6)
[2020-09-20 06:45] LABS: HGB 6.8 gm/dL (13.0-17.5)
[2020-09-20 06:46] LABS: HCT 19.7 % (39.0-53.0); Platelet Count 6 k/uL (150-450)
[2020-09-20] MEDS: HYDROcodone/APAP 7.5-325MG 1 EACH TAB PO PRN ×3 (07:56→20:47)
[2020-09-20] MEDS: ONDANSETRON 4 MG TAB PO PRN (07:56)
[2020-09-20 08:13] LABS: Poikilocytosis (M) Present
[2020-09-20] MEDS: NIFEdipine XL 30 MG TAB.ER.24 PO SCH (09:19)
[2020-09-20] MEDS: SUCRALFATE 1 GM TAB PO SCH ×2 (09:20→20:48)
[2020-09-20] MEDS: POTASSIUM CHLORIDE ER 20 MEQ TAB.ER PO SCH (09:20)
[2020-09-20] MEDS: valACYclovir 500 MG TAB PO SCH (09:20)
[2020-09-20] MEDS: PANTOPRAZOLE 40 MG TABLET PO SCH (09:21)
--- NOTE | 2020-09-20 11:34 | P.PN ---
Subjective Progress Note Date: 09/20/20 Principal diagnosis: Pancytopenia Platelets are 6 again today. he also has had some vomiting, bile like no blood. Moved bowels "good" yesterday. Hemoglobin 6.8. HLA match is expected over weekend. Objective - Vital Signs Vital signs: Vital Signs Temp 98.4 F 09/20/20 07:00 Pulse 94 09/20/20 07:00 Resp 19 09/20/20 07:00 BP 123/72 09/20/20 07:00 Pulse Ox 91 L 09/20/20 07:00 Intake & Output 09/19/20 09/20/20 09/20/20 18:59 06:59 18:59 Intake Total 200 Output Total 400 Balance -400 200 Intake: Oral 200 Output: Urine 400 Other: Voiding Method Diaper Diaper Diaper Incontinent Incontinent Incontinent # Voids 300 # Bowel Movements 2 1 # Emeses 1 - Exam - Constitutional General appearance: cooperative - EENT Eyes: EOMI ENT: NA/AT - Neck Neck: normal ROM - Respiratory Respiratory: bilateral: diminished, Right Lobe Rhonchi - Cardiovascular Rhythm: regular - Gastrointestinal General gastrointestinal: soft, tenderness - Integumentary [place] and eccymosis - Neurologic Neurologic: CNII-XII intact - Musculoskeletal Musculoskeletal: generalized weakness - Psychiatric Psychiatric: A&O x's 3, appropriate affect - Labs CBC & Chem 7: 09/20/20 05:56 09/19/20 20:19 Labs: Abnormal Lab Results - Last 24 Hours (Table) 09/19/20 09/19/20 09/20/20 Range/Units 05:29 05:33 05:56 WBC 0.3 L* (3.8-10.6) k/uL RBC 2.24 L (4.30-5.90) m/uL Hgb 6.8 L* (13.0-17.5) gm/dL Hct 19.7 L* (39.0-53.0) % RDW 16.3 H (11.5-15.5) % Plt Count 6 L* (150-450) k/uL Potassium 3.4 L (3.5-5.5) mmol/L Glucose 135 H (70-110) mg/dL Calcium 8.1 L (8.7-10.3) mg/dL Total Bilirubin 2.6 H (0.3-1.2) mg/dL AST 83 H (14-35) U/L ALT 80 H (10-49) U/L Albumin 3.30 L (3.80-4.90) g/dL Globulin 3.7 H (1.6-3.3) g/dL Albumin/Globulin Ratio 0.89 L (1.60-3.17) g/dL Procalcitonin 1.72 H (0.02-0.09) ng/mL Microbiology - Last 24 Hours (Table) 09/19/20 15:05 Gram Stain - Final Sputum Sputum Culture - Final 09/13/20 12:15 Blood Culture - Final Blood No Growth after 144 hours 09/13/20 10:25 Blood Culture - Final Blood No Growth after 144 hours Assessment and Plan (1) Pancytopenia Current Visit: Yes Status: Acute Priority: High Code(s): D61.818 - OTHER PANCYTOPENIA SNOMED Code(s): 794941325 (2) AML (acute myeloid leukemia) Current Visit: No Status: Acute Priority: High Code(s): C92.00 - ACUTE MYE LOBLASTIC LEUKEMIA, NOT HAVING ACHIEVED REMISSION SNOMED Code(s): 69053083 Plan: Continue aggressive supportive care. Continue to hold venetoclax at this time, no NSAIDS, No aspirin. Continue transfuse PRBC less than 7, Transfuse Platelets less than 10 or if still signs of bleeding transfuse less than 50K Continue Zarxio and Antibiotics per ID Prolonged aplastic marrow - Concerning. Addendum: Chest Xray Reviewed: New RUL consolidation - consistent with pneumonia. I have asked ID to review for appropriate coverage abx in the prolo nged neutropenia patient. Refratory platelets includes crossmatched, HLA ordered PLAN: - Continue treatment of pneumonia and supportive transfusions, a timeline for recovery of Bone marrow is unknown, especially with recurrent infections and age. - Overall prognosis does not appear favorable as he has not shown any signs of recovery at this point - Transfuse today, HLA platelets expected by this weekend per blood bank - Emesis today - increase antiemetics DISPO PLAN: Up to patient, plan with palliative at discharge probable plan for discharge Thursday or Thursday after transfusion support and set up for outpatient
[2020-09-20] MEDS: ONDANSETRON 4 MG/2 ML VIAL IVP PRN ×2 (12:38→20:48)
--- NOTE | 2020-09-20 15:48 | CDI ---
Documentation Clarification Form Date: 09/17/2020 10:35:00 AM From: Sangeeta Macias RN, CCDS Admit Date: 09/09/2020 07:23:00 PM Patient Name: Cleveland Haley Visit Number: [id number] Discharge Date: ATTENTION: The Clinical Documentation Specialists (CDI) and [facility] Coding Staff appreciate your assistance in clarifying documentation. Please respond to the clarification below the line at the bottom and electronically sign. The CDI & [facility] Coding staff will review the response and follow-up if needed. Please note: Queries are made part of the Legal Health Record. If you have any questions, please contact the author of this message via ITS. Dr. Anna Thakru The patient presented 09/09 with bloody stools. 09/13 Sepsis is documented. Please render your opinion on the Sepsis indicators of present on admission or not present on admission. 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 On physical exam he has petechial finding all over his skin. 09/09 Vital signs on admission 102/64 104 18 98.5 100 % RA 09/09 WBC 0.4, HGB 5.5, HCT 16.5, 09/12 Progress notes: Complaining of some chills and sore throat.. Vital signs at 03:10 128/79 70 18 100.4 09/13 Progress note: He continues to spike fever overnight. WBC 0.2, HGB 7.8, HCT 22.4, Plt 7. Neutropenic fever. Sepsis without septic shock. Gram-positive bacteremia 09/12 Blood culture: gram positive cocci in chains, Organism Enterococcus faecalis 09/13 PICC Catheter Tip culture Final: No growth after 48 hours Other clinical conditions: Possible intra-abdominal sources with pronounced distention of the rectum and large ball of stool with questionable rectal/colitis noted on CT 09/17 Treatment: .9MS @80mls/hr IV (10/09-09/11 Valtrex 500 mg po daily 09/10-09/17 Vancomycin 1,500 mg IVPG Q 8 HRS 10/09 PTD (09/12-09/14 Zarxio 480 mcg SQ daily @ 1800 (09/11-09/16 Maxipime 2 gm IVPB Q 8 HRS 09/12-09/13) DC Daptomycin 500 mg IVPB Q 24 HRS 09/14-09/15 Unasym 3 gm IVPB 09/16-09/17 09/13 ID Consult: Patient with febrile neutropenia with bacteremia. Source is likely PICC line. It is going to be discontinued today. Patients blood pressure 140/90 with pulse of 104, temperature of 101. He is 97% on room air. In your professional opinion, please clarify if these findings signify one of the following conditions, whether the condition is POA, and cause, if known: Condition Sepsis, Present on admission Sepsis Not present on admission Other, Specify Unable to determine SIRS Criteria (2 or more of the following may indicate SIRS): -Temperature < 96.8F (36C) or > 101.0F (38.3C) -Heart Rate > 90 bpm -Respiratory Rate > 20 breaths/min or PaCO2 < 32 mmHg -White Blood Cell Count > 12,000 or < 4,000 cells/mm3 or > 10% bands -Lactate >2.0 mmol/L (>4.0 is equivalent to septic shock) (Last Revision: January 2018) Sepsis, Present on admission MTDD
--- NOTE | 2020-09-20 16:54 | P.PN ---
Subjective Progress Note Date: 09/20/20 Objective - Vital Signs Vital signs: Vital Signs Temp 97.7 F 09/20/20 16:34 Pulse 87 09/20/20 16:34 Resp 16 09/20/20 16:34 BP 129/71 09/20/20 16:34 Pulse Ox 95 09/20/20 14:30 Intake & Output 09/19/20 09/20/20 09/20/20 18:59 06:59 18:59 Intake Total 200 0 Output Total 400 400 Balance -400 200 -400 Intake: Oral 200 Blood Product 0 Rc Pheres Irrad As 3 0 Unit [id number] Output: Urine 400 400 Other: Voiding Method Diaper Diaper Diaper Incontinent Incontinent Incontinent # Voids 300 # Bowel Movements 2 1 # Emeses 1 - Constitutional General appearance: Present: no acute distress - Respiratory Respiratory: bilateral: CTA - Cardiovascular Rhythm: regular - Gastrointestinal Gastrointestinal Comment(s): Plus tenderness to palpation epigastric region no rebound or guarding - Integumentary Integumentary: Present: normal - Psychiatric Psychiatric: Present: appropriate affect - Labs CBC & Chem 7: 09/20/20 05:56 09/19/20 20:19 Labs: Abnormal Lab Results - Last 24 Hours (Table) 09/20/20 09/20/20 Range/Units 05:56 11:16 WBC 0.3 L* (3.8-10.6) k/uL RBC 2.24 L (4.30-5.90) m/uL Hgb 6.8 L* (13.0-17.5) gm/dL Hct 19.7 L* (39.0-53.0) % RDW 16.3 H (11.5-15.5) % Plt Count 6 L* (150-450) k/uL Crossmatch See Detail Microbiology - Last 24 Hours (Table) 09/19/20 15:05 Gram Stain - Final Sputum Sputum Culture - Final 09/13/20 12:15 Blood Culture - Final Blood No Growth after 144 hours 09/13/20 10:25 Blood Culture - Final Blood No Growth after 144 hours Assessment and Plan (1) Febrile neutropenia Narrative/Plan: Patient with the faecalis septicemia, on broad spectrum antibiotics on 09/13 with IV vancomycin switched to daptomycin on 09/14, switched to Unasyn on 09/13 and switched to Zosyn on 09/18 for possible pneumonia coverage. Patient is status post PICC line removal discontinued on 09/13 his repeat blood cultures are negative to date. Patient is on viral prophylaxis with acyclovir, appreciated infectious disease recommendations Current Visit: Yes Status: Acute Code(s): D70.9 - NEUTROPENIA, UNSPECIFIED; R50.81 - FEVER PRESENTING WITH CONDITIONS CLASSIFIED ELSEWHERE SNOMED Code(s): 121455110 (2) Pancytopenia Narrative/Plan: Patient with severe pancytopenia with thrombocytopenia requiring multiple plat elet transfusions, platelet count 6000 today appreciated heme/recommendations patient is on Zarxio excitable he's currently awaiting platelet transfusions Current Visit: Yes Status: Acute Priority: High Code(s): D61.818 - OTHER PANCYTOPENIA SNOMED Code(s): 151655154 (3) Acute on chronic anemia Narrative/Plan: Acute on chronic blood loss anemia which has resolved patient required 5 units of packed red cells since admission he was seen and evaluated by gastroenterology no plan for endoscopic intervention at this time patient has a history of having an EGD in 2018 that showed gastritis/duodenitis and diverticulosis. Today patient is complaining of epigastric discomfort he is having lots of nausea we'll change Protonix to IV twice a day Current Visit: No Status: Acute Code(s): D64.9 - ANEMIA, UNSPECIFIED SNOMED Code(s): 537590462 (4) AML (acute myeloid leukemia) Narrative/Plan: Patient history of AML status post chemotherapy with last dose received approximately 1 month ago Current Visit: No Status: Acute Priority: High Code(s): C92.00 - ACUTE MYELOBLASTIC LEUKEMIA, NOT HAVING ACHIEVED REMISSION SNOMED Code(s): 02352345
[2020-09-20] MEDS: FILGRASTIM-SNDZ 480 MCG/0.8 ML SYRINGE SQ SCH (17:17)
[2020-09-20] MEDS: polyethylene glycoL 3350 17 GM POWD.PACK PO SCH ×2 (20:47→20:50)
--- NOTE | 2020-09-20 22:52 | PN ---
PROGRESS NOTE DATE OF SERVICE: 09/20/2020 REASON FOR FOLLOWUP: Enterococcus faecalis bacteremia and pneumonia. INTERVAL HISTORY: The patient is currently afebrile. No fever has been recorded in the last 48 hours. The patient is breathing comfortably. He did have a cough and bringing up whitish sputum. No nausea, no vomiting. No abdominal pain or diarrhea. PHYSICAL EXAMINATION: Blood pressure is 120/73 with a pulse of 83, temperature 99. He is 92% on room air. General description: The patient is an elderly male lying in bed in no distress. Respiratory system: Unlabored breathing, clear to auscultation anteriorly. Heart S1, S2. Regular rate and rhythm. ABDOMEN: Soft, mildly tender in the epigastric area. Extremities: No edema of the feet. LABS: Hemoglobin 6.1, white count 0.3. Blood culture repeat has been negative. DIAGNOSTIC IMPRESSION AND PLAN: Patient with febrile neutropenia. This patient did have evidence of Enterococcus faecalis bacteremia, possible PICC line has been discontinued, . The patient is currently covered with Zosyn his fever. Sputum culture will be followed and continue supportive care. MMODL / IJN: [id number] /
[2020-09-21] MEDS: PIPERACILLIN-TAZOBACTAM 3.375 GM in SODIUM CHLORIDE 0.9% 100 ML IVPB SCH ×3 (03:36→20:30)
[2020-09-21 06:05] LABS: Anisocytosis Slight; HCT 20.4 % (39.0-53.0); MCH 30.5 pg (25.0-35.0); MCHC 34.3 g/dL (31.0-37.0); MCV 88.9 fL (80.0-100.0); Mean Platelet Volume 8.2; RBC 2.29 m/uL (4.30-5.90); RDW 16.1 % (11.5-15.5)
[2020-09-21 06:27] LABS: WBC 0.4 k/uL (3.8-10.6)
[2020-09-21 06:28] LABS: Platelet Count 10 k/uL (150-450)
[2020-09-21 07:09] LABS: Target Cells Present
[2020-09-21 07:10] LABS: Poikilocytosis (M) Present
[2020-09-21] MEDS: POTASSIUM CHLORIDE ER 20 MEQ TAB.ER PO SCH (09:38)
[2020-09-21] MEDS: SUCRALFATE 1 GM TAB PO SCH ×2 (09:38→21:12)
[2020-09-21] MEDS: NIFEdipine XL 30 MG TAB.ER.24 PO SCH (09:38)
[2020-09-21] MEDS: valACYclovir 500 MG TAB PO SCH (09:38)
[2020-09-21] MEDS: HYDROcodone/APAP 7.5-325MG 1 EACH TAB PO PRN ×3 (09:41→21:12)
[2020-09-21 10:10] LABS: African American GFR (CKD) 99.2 (60.0-200.0); Albumin 2.9 g/dL (3.80-4.90); Albumin/Globulin Ratio 0.81 (1.60-3.17); Anion Gap 6.2 mmol/L (4.00-12.00); BUN/Creat Ratio 18.75 Ratio (12.00-20.00); Calcium 7.7 mg/dL (8.7-10.3); Carbon Dioxide 28.8 mmol/L (21.6-31.8); Globulin 3.6 g/dL (1.6-3.3); Magnesium 2.3 mg/dL (1.5-2.4); Non-African American GFR(CKD) 85.6 (60.0-200.0); Potassium 3.8 mmol/L (3.5-5.5); Total Bilirubin 2.2 mg/dL (0.2-1.2); Total Protein 6.5 g/dL (6.2-8.2)
[2020-09-21] MEDS: ONDANSETRON 4 MG/2 ML VIAL IVP PRN (14:02)
[2020-09-21] MEDS: ONDANSETRON 4 MG TAB PO PRN (14:08)
--- NOTE | 2020-09-21 15:30 | P.PN ---
Subjective Progress Note Date: 09/21/20 Objective - Vital Signs Vital signs: Vital Signs Temp 99.5 F 09/21/20 13:42 Pulse 89 09/21/20 13:42 Resp 18 09/21/20 13:42 BP 148/82 09/21/20 13:42 Pulse Ox 93 L 09/21/20 13:42 Intake & Output 09/20/20 09/21/20 09/21/20 18:59 06:59 18:59 Intake Total 310 273 Output Total 400 700 800 Balance -90 427 -800 Intake: Blood Product 310 273 Platelet Irr Pheresis Pas 273 -C Unit [id number] Rc Pheres Irrad As 3 310 Unit [id number] Output: Urine 400 700 800 Other: Voiding Method Diaper Diaper Incontinent Incontinent # Bowel Movements 1 # Emeses 1 - Constitutional General appearance: Present: no acute distress - Respiratory Respiratory: bilateral: CTA - Cardiovascular Rhythm: regular - Gastrointestinal General gastrointestinal: Present: normal bowel sounds - Integumentary Integumentary: Present: normal - Psychiatric Psychiatric: Present: appropriate affect - Labs CBC & Chem 7: 09/21/20 05:47 09/21/20 05:47 Labs: Abnormal Lab Results - Last 24 Hours (Table) 09/20/20 09/20/20 09/21/20 Range/Units 05:56 11:16 05:47 WBC 0.4 L* (3.8-10.6) k/uL RBC 2.29 L (4.30-5.90) m/uL Hgb 7.0 L (13.0-17.5) gm/dL Hct 20.4 L (39.0-53.0) % RDW 16.1 H (11.5-15.5) % Plt Count 10 L* D (150-450) k/uL Glucose (70-110) mg/dL Calcium (8.7-10.3) mg/dL Total Bilirubin (0.2-1.2) mg/dL AST (14-35) U/L ALT (10-49) U/L Albumin (3.80-4.90) g/dL Globulin (1.6-3.3) g/dL Albumin/Globulin Ratio (1.60-3.17) g/dL IgG 1710.0 H (700.0-1600.0) mg/dL Crossmatch See Detail 09/21/20 Range/Units 05:47 WBC (3.8-10.6) k/uL RBC (4.30-5.90) m/uL Hgb (13.0-17.5) gm/dL Hct (39.0-53.0) % RDW (11.5-15.5) % Plt Count (150-450) k/uL Glucose 124 H (70-110) mg/dL Calcium 7.7 L (8.7-10.3) mg/dL Total Bilirubin 2.2 H (0.2-1.2) mg/dL AST 55 H (14-35) U/L ALT 56 H (10-49) U/L Albumin 2.90 L (3.80-4.90) g/dL Globulin 3.6 H (1.6-3.3) g/dL Albumin/Globulin Ratio 0.81 L (1.60-3.17) g/dL IgG (700.0-1600.0) mg/dL Crossmatch Microbiology - Last 24 Hours (Table) 09/20/20 13:15 Gram Stain - Preliminary Sputum Sputum Culture - Preliminary 09/19/20 15:05 Gram Stain - Final Sputum Sputum Culture - Final Assessment and Plan (1) Febrile neutropenia Narrative/Plan: Patient history of neutropenic fever, sepsis without septic shock, equal E. coli faecalis septicemia. The patient was initially started on broad-spectrum antibiotics on September 13 with IV vancomycin which was switched to daptomycin on September 14 and switched to Unasyn on September 16. He is currently on Zosyn day #4 for possible pneumonia coverage. He has a sputum culture from 09/20 which is currently pending. The patient states he feels better today his nausea has improved and he denies any fever. The patient had a PICC on admission which was discontinued on September 13. His repeat blood cultures are negative he is requesting a new PICC line however will defer at this time. The tip of the PICC line was cultured and was negative. We'll continue Zosyn at this time Current Visit: Yes Status: Acute Code(s): D70.9 - NEUTROPENIA, UNSPECIFIED; R50.81 - FEVER PRESENTING WITH CONDITIONS CLASSIFIED ELSEWHERE SNOMED Code(s): 897382584 (2) Pancytopenia Narrative/Plan: Patient pancytopenia he has a history of AML status post chemotherapy with last dose received approximately a month ago. He is being followed by hematology has had prolonged bone marrow suppression is currently on CARXIO and has received multiple platelets he's currently has a platelet count of 10 today Current Visit: Yes Status: Acute Priority: High Code(s): D61.818 - OTHER PANCYTOPENIA SNOMED Code(s): 617167676 (3) Acute on chronic anemia Narrative/Plan: Acute blood loss anemia secondary to GI bleeding and in combination with bone marrow suppression he received 5 units of packed red cells during this admission. He is on Protonix 40 mg IV twice a day Current Visit: No Status: Acute Code(s): D64.9 - ANEMIA, UNSPECIFIED SNOMED Code(s): 609282602 (4) AML (acute myeloid leukemia) Current Visit: No Status: Acute Priority: High Code(s): C92.00 - ACUTE MYELOBLASTIC LEUKEMIA, NOT HAVING ACHIEVED REMISSION SNOMED Code(s): 26535524 Plan: Continue IV antibiotics at this time the patient will be discharged with palliative care when he is medically stable for discharge. His current dispos ition Will be to home
--- NOTE | 2020-09-21 15:58 | P.PN ---
Subjective Progress Note Date: 09/21/20 Principal diagnosis: Pancytopenia Improved WBC and Platelet today. Platelet 10K and WBC 0.4. Afebrile. One episode N/V yesterday - Ptient has Oral candiasis likely cause. If ok with ID please add Fluconazole Will use nystatin in interim He is worried about picc being removed, will attempt re-insertion with platelets today if IR will do. Per ID would like to wait for culture prior to discharge, patient is ok with waiting till Thursday, therefore will transfuse one unit PRBC and PLat this evening Patient has refused to move or get out of bed since admission. We discussed this at length and how this can increase risk of overall prognosis being poor. Increased infectious risk, and continued myopathy. He has agreed to "show them" he will stand with walker and sit in chair this evening. Objective - Vital Signs Vital signs: Vital Signs Temp 99.5 F 09/21/20 13:42 Pulse 89 09/21/20 13:42 Resp 18 09/21/20 13:42 BP 148/82 09/21/20 13:42 Pulse Ox 93 L 09/21/20 13:42 Intake & Output 09/20/20 09/21/20 09/21/20 18:59 06:59 18:59 Intake Total 310 273 Output Total 400 700 800 Balance -90 -427 -800 Intake: Blood Product 310 273 Platelet Irr Pheresis Pas 273 -C Unit [id number] Rc Pheres Irrad As 3 310 Unit [id number] Output: Urine 400 700 800 Other: Voiding Method Diaper Diaper Incontinent Incontinent # Bowel Movements 1 # Emeses 1 - Exam - Constitutional General appearance: cooperative - EENT Eyes: EOMI ENT: NA/ATOral Thrush - Neck Neck: normal ROM - Respiratory Respiratory: bilateral: diminished, Right Lobe Rhonchi - Cardiovascular Rhythm: regular - Gastrointestinal General gastrointestinal: soft, tenderness - Integumentary [place] and eccymosis - Neurologic Neurologic: CNII-XII intact - Musculoskeletal Musculoskeletal: generalized weakness - Psychiatric Psychiatric: A&O x's 3, appropriate affect - Labs CBC & Chem 7: 09/21/20 05:47 09/21/20 05:47 Labs: Abnormal Lab Results - Last 24 Hours (Table) 09/20/20 09/20/20 09/21/20 Range/Units 05:56 11:16 05:47 WBC 0.4 L* (3.8-10.6) k/uL RBC 2.29 L (4.30-5.90) m/uL Hgb 7.0 L (13.0-17.5) gm/dL Hct 20.4 L (39.0-53.0) % RDW 16.1 H (11.5-15.5) % Plt Count 10 L* D (150-450) k/uL Glucose (70-110) mg/dL Calcium (8.7-10.3) mg/dL Total Bilirubin (0.2-1.2) mg/dL AST (14-35) U/L ALT (10-49) U/L Albumin (3.80-4.90) g/dL Globulin (1.6-3.3) g/dL Albumin/Globulin Ratio (1.60-3.17) g/dL IgG 1710.0 H (700.0-1600.0) mg/dL Crossmatch See Detail 09/21/20 Range/Units 05:47 WBC (3.8-10.6) k/uL RBC (4.30-5.90) m/uL Hgb (13.0-17.5) gm/dL Hct (39.0-53.0) % RDW (11.5-15.5) % Plt Count (150-450) k/uL Glucose 124 H (70-110) mg/dL Calcium 7.7 L (8.7-10.3) mg/dL Total Bilirubin 2.2 H (0.2-1.2) mg/dL AST 55 H (14-35) U/L ALT 56 H (10-49) U/L Albumin 2.90 L (3.80-4.90) g/dL Globulin 3.6 H (1.6-3.3) g/dL Albumin/Globulin Ratio 0.81 L (1.60-3.17) g/dL IgG (700.0-1600.0) mg/dL Crossmatch Microbiology - Last 24 Hours (Table) 09/20/20 13:15 Gram Stain - Preliminary Sputum Sputum Culture - Preliminary 09/19/20 15:05 Gram Stain - Final Sputum Sputum Culture - Final Assessment and Plan (1) Pancytopenia Current Visit: Yes Status: Acute Priority: High Code(s): D61.818 - OTHER PANCYTOPENIA SNOMED Code(s): 941896276 (2) AML (acute myeloid leukemia) Current Visit: No Status: Acute Priority: High Code(s): C92.00 - ACUTE MYELOBLASTIC LEUKEMIA, NOT HAVING ACHIEVED REMISSION SNOMED Code(s): 44082297 Plan: Continue aggressive supportive care. Continue to hold venetoclax at this time, no NSAIDS, No aspirin. Continue transfuse PRBC less than 7, Transfuse Platelets less than 10 or if still signs of bleeding transfuse less than 50K Continue Zarxio and Antibiotics per ID Prolonged aplastic marrow - Concerning. Addendum: Chest Xray Reviewed: New RUL consolidation - consistent with pneumonia. I have asked ID to review for appropriate coverage abx in the prolonged neutropenia patient. Refratory platelets includes crossmatched, HLA ordered PLAN: - Treatment oral Thrush - Plan for discharge on Thursday if ok with ID, will discuss further with ID as ?overall prognosis - Will ask for Picc line with transfusion today - Will set up for outpatient PRBC and HLA matched platelets in [facility] on Thursday - Discussed with blood bank - Follow-up on Thursday with telemedicine with Dr. Aragon - CBC every other day with home care/palliative, first on Thursday. DISPO PLAN: Up to patient, plan with palliative at discharge probable plan for discharge Thursday or Thursday after transfusion support and set up for outpatient Time with Patient: Greater than 30
[2020-09-21] MEDS: FILGRASTIM-SNDZ 480 MCG/0.8 ML SYRINGE SQ SCH (17:43)
[2020-09-21] MEDS: NYSTATIN 100,000 UNIT/ML SUSP 500,000 UNIT/5 ML CUP PO SCH ×2 (17:52→21:12)
[2020-09-21] MEDS: polyethylene glycoL 3350 17 GM POWD.PACK PO SCH (21:13)
[2020-09-22] MEDS: PIPERACILLIN-TAZOBACTAM 3.375 GM in SODIUM CHLORIDE 0.9% 100 ML IVPB SCH ×2 (00:20→08:57)
--- NOTE | 2020-09-22 00:45 | PN ---
PROGRESS NOTE DATE OF SERVICE: 09/21/2020 REASON FOR FOLLOWUP: Pneumonia. INTERVAL HISTORY: The patient is currently afebrile. The patient is breathing comfortably. The patient denies having any chest pain. He did have a cough, not bringing up any sputum. No nausea, vomiting. No diarrhea. PHYSICAL EXAMINATION: Blood pressure 125/73 with a pulse of 83, temperature 98.5. He is 95% on room air. General description is an elderly male lying in bed in no distress. Respiratory system: Unlabored breathing with decreased intensity in breath sounds. No wheeze. Heart S1, S2. Regular rate and rhythm. ABDOMEN: Soft, no tenderness. LABS: Hemoglobin 7.4, white count 10.4, BUN of 15, creatinine 0.8. DIAGNOSTIC IMPRESSION AND PLAN: Patient with febrile neutropenia and Enterococcus faecalis bacteremia, possibility related to PICC line has been discontinued. Sputum cultures currently pending. Patient is covered with Zosyn to continue while waiting for the culture to finalize. Continue supportive care. MMODL / IJN: [id number] /
[2020-09-22] MEDS: BENZOCAINE/MENTHOL LOZENG 1 EACH LOZENGE MUCOUS MEM PRN (02:23)
[2020-09-22] MEDS: ONDANSETRON 4 MG TAB PO PRN (06:22)
[2020-09-22 07:48] LABS: Anisocytosis Slight; HCT 24.1 % (39.0-53.0); MCH 29.6 pg (25.0-35.0); MCHC 33.3 g/dL (31.0-37.0); RBC 2.71 m/uL (4.30-5.90); RDW 16.3 % (11.5-15.5)
[2020-09-22 07:52] LABS: Platelet Count 11 k/uL (150-450); WBC 0.3 k/uL (3.8-10.6)
[2020-09-22] MEDS: SUCRALFATE 1 GM TAB PO SCH (08:56)
[2020-09-22] MEDS: NYSTATIN 100,000 UNIT/ML SUSP 500,000 UNIT/5 ML CUP PO SCH ×2 (08:56→13:49)
[2020-09-22] MEDS: POTASSIUM CHLORIDE ER 20 MEQ TAB.ER PO SCH (08:56)
[2020-09-22] MEDS: valACYclovir 500 MG TAB PO SCH (08:56)
[2020-09-22] MEDS: NIFEdipine XL 30 MG TAB.ER.24 PO SCH (08:57)
[2020-09-22] MEDS: HYDROcodone/APAP 7.5-325MG 1 EACH TAB PO PRN (09:02)
--- NOTE | 2020-09-22 11:20 | P.PN ---
Subjective Progress Note Date: 09/22/20 Principal diagnosis: Pancytopenia patient platelets and hemoglobin stable, sputum culture resulted. await recs from ID plan for discharge per primary team Objective - Vital Signs Vital signs: Vital Signs Temp 98.4 F 09/22/20 07:00 Pulse 89 09/22/20 07:00 Resp 22 09/22/20 07:00 BP 141/86 09/22/20 07:00 Pulse Ox 92 L 09/22/20 07:00 Intake & Output 09/21/20 09/22/20 09/22/20 18:59 06:59 18:59 Intake Total 0 639 Output Total 800 500 Balance -800 139 Weight 87.5 kg Intake: Blood Product 0 639 Platelet Irr Pheresis Pas 0 329 -C Unit [id number] Rc Irr As1 Unit 310 [id number] Output: Urine 800 500 Other: # Bowel Movements 1 - Exam - Constitutional General appearance: cooperative - EENT Eyes: EOMI ENT: NA/ATOral Thrush - Neck Neck: normal ROM - Respiratory Respiratory: bilateral: diminished, Right Lobe Rhonchi - Cardiovascular Rhythm: regular - Gastrointestinal General gastrointestinal: soft, tenderness - Integumentary [place] and eccymosis - Neurologic Neurologic: CNII-XII intact - Musculoskeletal Musculoskeletal: generalized weakness - Psychiatric Psychiatric: A&O x's 3, appropriate affect - Labs CBC & Chem 7: 09/22/20 07:28 09/21/20 05:47 Labs: Abnormal Lab Results - Last 24 Hours (Table) 09/20/20 09/20/20 09/22/20 Range/Units 05:56 11:16 07:28 WBC 0.3 L* (3.8-10.6) k/uL RBC 2.71 L (4.30-5.90) m/uL Hgb 8.0 L (13.0-17.5) gm/dL Hct 24.1 L (39.0-53.0) % RDW 16.3 H (11.5-15.5) % Plt Count 11 L* (150-450) k/uL IgG 1710.0 H (700.0-1600.0) mg/dL Crossmatch See Detail Microbiology - Last 24 Hours (Table) 09/20/20 13:15 Gram Stain - Final Sputum Sputum Culture - Final Assessment and Plan (1) Pancytopenia Current Visit: Yes Status: Acute Priority: High Code(s): D61.818 - OTHER PANCYTOPENIA SNOMED Code(s): 908622292 (2) AML (acute myeloid leukemia) Current Visit: No Status: Acute Priority: High Code(s): C92.00 - ACUTE MYELOBLASTIC LEUKEMIA, NOT HAVING ACHIEVED REMISSION SNOMED Code(s): 26336282 Plan: Continue aggressive supportive care. Continue to hold venetoclax at this time, no NSAIDS, No aspirin. Continue transfuse PRBC less than 7, Transfuse Platelets less than 10 or if still signs of bleeding transfuse less than 50K Continue Zarxio and Antibiotics per ID Prolonged aplastic marrow - Concerning. Addendum: Chest Xray Reviewed: New RUL consolidation - consistent with pneumonia. I have asked ID to review for appropriate coverage abx in the prolonged neutropenia patient. Refratory platelets includes crossmatched, HLA ordered PLAN: - Treatment oral Thrush - Plan for discharge on Thursday if ok with ID, will discuss further with ID as ?overall prognosis - Will ask for Picc line with transfusion today - Will set up for outpatient PRBC and HLA matched platelets in [facility] on Thursday - Discussed with blood bank - Follow-up on Thursday with telemedicine with Dr. Aragon - CBC every other day with home care/palliative, first on Thursday. hopeful for discharge today awaiting on ID recw
[2020-09-22 12:53] LABS: African American GFR (CKD) 99.2 (60.0-200.0); Anion Gap 6.4 mmol/L (4.00-12.00); BUN/Creat Ratio 13.75 Ratio (12.00-20.00); Calcium 7.8 mg/dL (8.7-10.3); Carbon Dioxide 26.6 mmol/L (21.6-31.8); Non-African American GFR(CKD) 85.6 (60.0-200.0); Potassium 3.9 mmol/L (3.5-5.5)
[2020-09-22 13:53] LABS: Poikilocytosis (M) Present
--- NOTE | 2020-09-22 14:31 | P.DS ---
Providers Date of admission: 09/09/20 19:23 Expected date of discharge: 09/22/20 Attending physician: Dulce Shafer MD Consults: 09/09/20 19:19 Consult Physician Routine Consulting Provider: Oliver Mackenzie Consult Reason/Comments: icu patient Do you want consulting provider notified?: Already Contacted 09/09/20 19:26 Consult Physician Routine Consulting Provider: Ayad Ivan Consult Reason/Comments: leukemia Do you want consulting provider notified?: Yes 09/12/20 12:53 Consult Physician Routine Consulting Provider: Jaye Cutler Consult Reason/Comments: prophylactic antibiotics for pocket closer neutropenia Do you want consulting provider notified?: Yes Primary care physician: Kiley Evans Hospital Course: Discharge Diagnosis: Pancytopenia as side effect from chemo, severe with leukopenia, thrombocytopenia, and anemia acute blood loss anemia due to GI bleed melena, resolved Febrile neutopenina Enterococcus bacteremia with sepsis present on admission Probable pneumonia elevated bilirubin wiht mild transaminitis, continue to monitor. 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 At that point in time he was found have a hemoglobin of 5 and a platelet count of 1. Transfusions of blood cells and platelets were ordered. He was admitted for further monitoring. He was seen by GI and there was no plans for endoscopic intervention at this time. He was initially started on protonix twice daily which was eventually tappered off. He was also found to have sepsis on admission and was iniially treated with vanco, switched to dapto on 09/14, then transitioned to Unasyn on 09/16 and finally Zosyn on 09/18 for pseudomonas coverage. He was found to have positive blood cultures for enterococcus. His PICC line was removed. Infectious disease was consulted. His blood cultures cleared after one day of IV antibiotics. He will complete his course of antibiotics with oral Augmentin for 10 days. Sputum culture and urine were negative. During his hospital stay he received a total of 12 units of platelets and 7 units of packed red blood cells. Hematology and oncology was closely following. We were concerned with his prolonged aplastic marrow. They agreed with holding but not a classic and continue valacyclovir. We will follow closely in the outpatient setting with a TeleMed visit on 09/25. The plan is for him to get an additional unit of packed red blood cells and 1 unit of platelets on 08/25 at the [facility] as he has to have HLA matched platelets which take some time to obtain. Patient was doing well and hadn't been eating and drinking well. He was determined stable for discharge home with the aforementioned plan in place. He will have home care as well as palliative care on discharge. Heme\onc will monitor for possible need for chelation therapy. He was also noted to have constipation with possible fecl impaction and surgery was consulted he was treated with miralax and lactulose and improved. High likely gutierres for readmission given complexity of disease process. Patient seen and examined at bedside.Feeling well, no chest pain, shortness of breath, nuasea or vomiting, no additional bleeding. Feeling well and wants to go home. Vital signs reviewed and stable. General: non toxic, no distress, appears at stated age Derm: warm, dry Head: atraumatic, normocephalic, symmetric Eyes: EOMI, no lid lag, anicteric sclera Mouth: no lip lesion, mucus membranes dry, + thrush Cardiovascular: S1S2 reg, no murmur, positive posterior tibial pulse bilateral, Lungs: CTA bilateral, no rhonchi, no rales , no accessory muscle use Abdominal: soft, nontender to palpation, no guarding, no appreciable organomegaly Neuro: CN II-XI grossly intact, no focal neuro deficits Psych: Alert, oriented, appropriate affect A total of 45 minutes of time were spent preparing this complex discharge summary . Patient Condition at Discharge: Fair Plan - Discharge Summary Discharge Rx Participant: No New Discharge Prescriptions: New Amoxic-Pot Clav 875-125Mg [Augmentin 875-125] 1 tab PO BID 10 Days #20 tab Potassium Chloride ER [K-Dur 20] 20 meq PO DAILY #30 tab.er.prt Nystatin 100,000 Unit/ml Susp [Mycostatin Oral Susp] 500,000 unit PO QID 10 Days #1 bottle Continue Meclizine [Antivert] 25 mg PO TID PRN tab PRN Reason: Vertigo allopurinoL [Zyloprim] 300 mg PO DAILY tab valACYclovir [Valtrex] 500 mg PO DAILY Cholecalciferol [Vitamin D3 (25 Mcg = 1000 Iu)] 2,000 unit PO DAILY ondansetron HCL [Zofran] 8 mg PO Q8H PRN PRN Reason: Nausea And Vomiting Sucralfate [Carafate] 1 gm PO BID Vit A,C & F-Qrkcmx-Qpxglfgl [Ivite] 1 tab PO DAILY NIFEdipine [Adalat cc] 30 mg PO DAILY #30 tab HYDROcodone/APAP 7.5-325MG [Hiller 7.5-325] 1 tab PO Q4H PRN #42 tab PRN Reason: Pain Discharge Medication List Meclizine [Antivert] 25 mg PO TID PRN tab 07/05/20 [Rx] allopurinoL [Zyloprim] 300 mg PO DAILY tab 07/05/20 [Rx] valACYclovir [Valtrex] 500 mg PO DAILY 07/30/20 [History] Cholecalciferol [Vitamin D3 (25 Mcg = 1000 Iu)] 2,000 unit PO DAILY 08/22/20 [History] Sucralfate [Carafate] 1 gm PO BID 08/22/20 [History] Vit A,C & W-Hzxhts-Txbjlhsa [Ivite] 1 tab PO DAILY 08/22/20 [History] ondansetron HCL [Zofran] 8 mg PO Q8H PRN 08/22/20 [History] Amoxic-Pot Clav 875-125Mg [Augmentin 875-125] 1 tab PO BID 10 Days #20 tab [Rx] HYDROcodone/APAP 7.5-325MG [Hiller 7.5-325] 1 tab PO Q4H PRN #42 tab 09/22/20 [Rx] NIFEdipine [Adalat cc] 30 mg PO DAILY #30 tab 09/22/20 [Rx] Nystatin 100,000 Unit/ml Susp [Mycostatin Oral Susp] 500,000 unit PO QID 10 Days #1 bottle 09/22/20 [Rx] Potassium Chloride ER [K-Dur 20] 20 meq PO DAILY #30 tab.er.prt 09/22/20 [Rx] Follow up Appointment(s)/Referral(s[facility] - (To draw blood on . ) Kiley Evans MD [Primary Care Provider] - 1-2 days Jose Cruz Aragon MD [STAFF PHYSICIAN] - 09/25/20 8:45 am (Telemedicine) Activity/Diet/Wound Care/Special Instructions: Saray from Dr. Aragon's office will call you on Thursday with an appointment time for transfusions at [facility] Palliative will call you for follow-up Discharge Disposition: HOME WITH HOME HEALTH SERVICES
[2020-09-22 15:30] VITALS: BP 142/80; PULSE 87; RESP 20; TEMP 98
== END 2020-09-22 16:01 | disposition home health service (06) | DRG 871 ==
LOC: EC 16:33 → 2SICU 19:23 → 4SSUR 09-14 14:42
PROVIDERS: ADMIT Internal Medicine; ATTEND Internal Medicine
PROC: 30233N1 Transfusion of Nonautologous Red Blood Cells into Peripheral Vein, Percutaneous Approach (ICD-10-PCS; principal; 2020-09-09)
PROC: 30233R1 Transfusion of Nonautologous Platelets into Peripheral Vein, Percutaneous Approach (ICD-10-PCS; principal; 2020-09-09)
DX: A41.81 Sepsis due to Enterococcus (principal); D61.810 Antineoplastic chemotherapy induced pancytopenia; K29.71 Gastritis, unspecified, with bleeding; K57.91 Diverticulosis of intestine, part unspecified, without perforation or abscess with bleeding; J18.9 Pneumonia, unspecified organism; C92.01 Acute myeloblastic leukemia, in remission; D62 Acute posthemorrhagic anemia; R17 Unspecified jaundice; B37.0 Candidal stomatitis; Z96.653 Presence of artificial knee joint, bilateral; Z96.641 Presence of right artificial hip joint; Z51.5 Encounter for palliative care; Z20.828 Contact with and (suspected) exposure to other viral communicable diseases; M10.9 Gout, unspecified; T45.1X5A Adverse effect of antineoplastic and immunosuppressive drugs, initial encounter; K20.90 Esophagitis, unspecified without bleeding; E78.5 Hyperlipidemia, unspecified; F41.9 Anxiety disorder, unspecified; G51.0 Bell's palsy; G89.29 Other chronic pain; H35.30 Unspecified macular degeneration; I10 Essential (primary) hypertension; D70.9 Neutropenia, unspecified; K56.41 Fecal impaction; M54.5 Low back pain; Z87.891 Personal history of nicotine dependence; Z87.442 Personal history of urinary calculi; Z87.11 Personal history of peptic ulcer disease; Z86.711 Personal history of pulmonary embolism; Z84.1 Family history of disorders of kidney and ureter; Z82.49 Family history of ischemic heart disease and other diseases of the circulatory system; Z82.3 Family history of stroke; Z79.899 Other long term (current) drug therapy; Z98.890 Other specified postprocedural states; Z98.1 Arthrodesis status; Z82.61 Family history of arthritis
CPT/HCPCS: 36415; 36430; 71045; 71046; 74019; 74177; 80048; 80053; 80202; 81001; 82272; 82784; 83735; 84132; 84145; 85025; 85027; 85384; 85610; 85730; 86850; 86870; 86880; 86900; 86901; 86902; 86920; 87040; 87070; 87077; 87186; 87205; 87502; 93005; 96374; 99291

== ENCOUNTER 2020-09-24 07:41 | Inpatient (IN) | payer OTHER, MEDICARE ==
[2020-09-24 08:21] LABS: Anisocytosis Slight; HCT 23.3 % (39.0-53.0); HGB 7.7 gm/dL (13.0-17.5); MCH 29.2 pg (25.0-35.0); MCV 88.7 fL (80.0-100.0); Mean Platelet Volume 7.5; RBC 2.63 m/uL (4.30-5.90); RDW 16.6 % (11.5-15.5)
--- NOTE | 2020-09-24 08:28 | ED ---
General Adult HPI - General Chief complaint: Weakness Stated complaint: weakness Time Seen by Provider: 09/24/20 07:44 Source: patient, EMS Mode of arrival: EMS Limitations: no limitations - History of Present Illness Initial comments: Dictation was produced using [employer] dictation software. please excuse any grammatical, word or spelling errors. This patient was cared for during a federal and state declared state of emergency secondary to Covid 19 Chief Complaint: 80-year-old male with past medical history of leukemia in remission presents today with weakness History of Present Illness: 80-year-old male he presents today with chief complaint of weakness. Patient has been feeling weak for the last 2 days. Patient was recently admitted to the hospital and discharged 2 days ago. He was told by his security systems sales representative nurse practitioner to come to the emergency department for any worsening symptoms. Patient denies any chest pain. No shortness of breath. No nausea vomiting or diarrhea. Denies any constitutional symptoms. No black or bloody stools. Patient states that yesterday he contacted Jaimie Christianson was a nurse practitioner and had a long conversation with her. She didn't tell him to come to the emergency department yesterday however today his symptoms were worse In the emergency department. During patient's last admission he was admitted for sepsis and was found to have bacteremia. He started no oral course of antibiotics with Augmentin. Patient was very adamant about contacting [facility] for patient's blood products. The ROS documented in this emergency department record has been reviewed and confirmed by me. Those systems with pertinent positive or negative responses have been documented in the HPI. All other systems are other negative and/or noncontributory. PHYSICAL EXAM: General Impression: Alert and oriented x3, not in acute distress HEENT: Normocephalic atraumatic, extra-ocular movements intact, pupils equal and reactive to light bilaterally, mucous membranes moist. Cardiovascular: Heart regular rate and rhythm Chest: Able to complete full sentences, no retractions, no tachypnea Abdomen: abdomen soft, non-tender, non-distended, no organomegaly Musculoskeletal: Pulses present and equal in all extremities, no peripheral edema Motor: no focal deficits noted Neurological: CN II-XII grossly intact, no focal motor or sensory deficits noted Skin: Diffuse petechiae Psych: Normal affect and mood ED course: 80-year-old male currently in remission for her leukemia presents to the emergency department for weakness. Vital signs upon arrival shows heart rate 103, 94% on room air, worse vital signs within acceptable limits. Dr. Ivan was certification engineer for the group. Discussed patient case with Maura lopez at 8:35 AM she reports that she will come down to the emergency department to evaluate patient. Laboratory evaluation obtained. Leukopenia 0.4, platelets of 5, hemoglobin 7.7. This appears to be around patient's baseline. Slightly seems to be slightly lowered however. Leg panel is unremarkable. Metabolic panel shows findings within acceptable limits. Currently her is negative. Patient is a value by Laura Lopez, nurse practitioner from oncology who also recommends admission at this time for transfusion of blood products. Case is discussed with Dr. Thakur who is willing to accept patient's care to medicine. EKG interpretation: Ventricular rate 96, sinus rhythm,. 150, QRS 96, QTC 475. No MD prolongation, no QTC prolongation, no ST or T-wave changes noted. EKG compared to 09/09/2020 showing no changes. Overall, this EKG is unremarkable - Related Data Home Medications Medication Instructions Recorded Confirmed valACYclovir [Valtrex] 500 mg PO DAILY 07/30/20 09/24/20 Cholecalciferol [Vitamin D3 (25 2,000 unit PO DAILY 08/22/20 09/24/20 Mcg = 1000 Iu)] Sucralfate [Carafate] 1 gm PO BID 08/22/20 09/24/20 Vit A,C & S-Ccjkca-Vtedsbxr [Ivite] 1 tab PO DAILY 08/22/20 09/24/20 ondansetron HCL [Zofran] 8 mg PO Q8H PRN 08/22/20 09/24/20 Previous Rx's Medication Instructions Recorded Meclizine [Antivert] 25 mg PO TID PRN tab 07/05/20 allopurinoL [Zyloprim] 300 mg PO DAILY tab 07/05/20 Amoxic-Pot Clav 875-125Mg 1 tab PO BID 10 Days #20 tab 09/22/20 [Augmentin 875-125] HYDROcodone/APAP 7.5-325MG [[place] 1 tab PO Q4H PRN #42 tab 09/22/20 7.5-325] NIFEdipine [Adalat cc] 30 mg PO DAILY #30 tab 12/12/20 Nystatin 100,000 Unit/ml Susp 500,000 unit PO QID 10 Days #1 09/22/20 [Mycostatin Oral Susp] bottle Potassium Chloride ER [K-Dur 20] 20 meq PO DAILY #30 tab.er.prt 09/22/20 Allergies Allergy/AdvReac Type Severity Reaction Status Date / Time No Known Allergies Allergy Verified 09/24/20 08:01 Review of Systems ROS Statement: Those systems with pertinent positive or pertinent negative responses have been documented in the HPI. ROS Other: All systems not noted in ROS Statement are negative. Past Medical History Past Medical History: Cancer Additional Past Medical History / Comment(s): Past adenopathy/abnormal labs/fatigue and was diagnosed with MDS approximately 2018, chronic low back pain, current R danielle gluteus tear-now R leg atrophy/uses walker to ambulate, PE left lung, nephrolithiasis, slight macular degeneration L eye and bilateral starting of cataracts, Thompson's palsey affected R eye, diverticular disease, gout bilateral feet, murmur, past gastric ulcers, vertigo. LEUKEMIA. History of Any Multi-Drug Resistant Organisms: None Reported Past Surgical History: Hernia Repair, Orthopedic Surgery Additional Past Surgical History / Comment(s): Bone marrow biopsies, L axillae lymphnode biopsy, total R hip arthroplasty with revision, bilateral total knee arthroplasties, pain clinic procedures, lumbar surgery/fusion L3/L4, colonoscopy and pt states had umbilical hernia repair and they had to straighten out a peice of his bowel, blepharoplasty r eyelid, Past Anesthesia/Blood Transfusion Reactions: No Reported Reaction Additional Past Anesthesia/Blood Transfusion Reaction / Comment(s): Pt has received blood transfusions without reaction. Past Psychological History: No Psychological Hx Reported Smoking Status: Former smoker Past Alcohol Use History: Rare Past Drug Use History: None Reported - Past Family History Father Family Medical History: CVA/TIA Additional Family Medical History / Comment(s): Father of CVA at age 89yrs. Mother Family Medical History: Osteoarthritis (OA), Renal Disease Additional Family Medical History / Comment(s): Mother of CHF at age 86yrs. General Exam Limitations: no limitations Course Vital Signs 09/24/20 07:42 Temperature 99 F Pulse Rate 103 H Respiratory 19 Rate Blood Pressure 126/79 O2 Sat by Pulse 94 L Oximetry Medical Decision Making - Lab Data Result diagrams: 09/24/20 08:05 09/24/20 08:05 Lab Results 09/24/20 09/24/20 09/24/20 Range/Units 08:05 08:05 08:05 WBC 0.4 L* (3.8-10.6) k/uL RBC 2.63 L (4.30-5.90) m/uL Hgb 7.7 L (13.0-17.5) gm/dL Hct 23.3 L (39.0-53.0) % MCV 88.7 (80.0-100.0) fL MCH 29.2 (25.0-35.0) pg MCHC 33.0 (31.0-37.0) g/dL RDW 16.6 H (11.5-15.5) % Plt Count 5 L* D (150-450) k/uL MPV 7.5 Differential Comment Manual Slide Review Performed Anisocytosis Slight PT 13.9 H (9.0-12.0) sec INR 1.4 H (<1.2) APTT 29.3 (22.0-30.0) sec Sodium 138 (137-145) mmol/L Potassium 3.9 (3.5-5.1) mmol/L Chloride 106 (98-107) mmol/L Carbon Dioxide 27 (22-30) mmol/L Anion Gap 5 mmol/L BUN 12 (9-20) mg/dL Creatinine 0.73 (0.66-1.25) mg/dL Est GFR (CKD-EPI)AfAm >90 (>60 ml/min/1.73 sqM) Est GFR (CKD-EPI)NonAf 89 (>60 ml/min/1.73 sqM) Glucose 148 H (74-99) mg/dL Plasma Lactic Acid Steven (0.7-2.0) mmol/L Calcium 7.8 L (8.4-10.2) mg/dL Magnesium 1.9 (1.6-2.3) mg/dL Total Bilirubin 3.0 H (0.2-1.3) mg/dL AST 30 (17-59) U/L ALT 32 (4-49) U/L Alkaline Phosphatase 133 H (38-126) U/L Troponin I (0.000-0.034) ng/mL Total Protein 7.9 (6.3-8.2) g/dL Albumin 3.2 L (3.5-5.0) g/dL Coronavirus (PCR) (Not Detectd) 09/24/20 09/24/20 09/24/20 Range/Units 08:05 08:05 08:30 WBC (3.8-10.6) k/uL RBC (4.30-5.90) m/uL Hgb (13.0-17.5) gm/dL Hct (39.0-53.0) % MCV (80.0-100.0) fL MCH (25.0-35.0) pg MCHC (31.0-37.0) g/dL RDW (11.5-15.5) % Plt Count (150-450) k/uL MPV Differential Comment Manual Slide Review Anisocytosis PT (9.0-12.0) sec INR (<1.2) APTT (22.0-30.0) sec Sodium (137-145) mmol/L Potassium (3.5-5.1) mmol/L Chloride (98-107) mmol/L Carbon Dioxide (22-30) mmol/L Anion Gap mmol/L BUN (9-20) mg/dL Creatinine (0.66-1.25) mg/dL Est GFR (CKD-EPI)AfAm (>60 ml/min/1.73 sqM) Est GFR (CKD-EPI)NonAf (>60 ml/min/1.73 sqM) Glucose (74-99) mg/dL Plasma Lactic Acid Steven 1.2 (0.7-2.0) mmol/L Calcium (8.4-10.2) mg/dL Magnesium (1.6-2.3) mg/dL Total Bilirubin (0.2-1.3) mg/dL AST (17-59) U/L ALT (4-49) U/L Alkaline Phosphatase (38-126) U/L Troponin I <0.012 (0.000-0.034) ng/mL Total Protein (6.3-8.2) g/dL Albumin (3.5-5.0) g/dL Coronavirus (PCR) Not Detected (Not Detectd) Disposition Clinical Impression: Weakness Disposition: ADMITTED IP TO THIS HOSP Condition: Fair Referrals: Kiley Evans MD [Primary Care Provider] - 1-2 days Decision Time: 10:40
[2020-09-24 08:33] LABS: ALT 32 U/L (4-49); AST 30 U/L (17-59); African American GFR (CKD) >90 (>60 ml/min/1.73 sqM); Albumin 3.2 g/dL (3.5-5.0); Alkaline Phosphatase 133 U/L (38-126); Anion Gap 5 mmol/L; Blood Urea Nitrogen 12 mg/dL (9-20); Calcium 7.8 mg/dL (8.4-10.2); Carbon Dioxide 27 mmol/L (22-30); Chloride 106 mmol/L (98-107); Glucose 148 mg/dL (74-99); Magnesium 1.9 mg/dL (1.6-2.3); Non-African American GFR(CKD) 89 (>60 ml/min/1.73 sqM); Potassium 3.9 mmol/L (3.5-5.1); Sodium 138 mmol/L (137-145); Total Protein 7.9 g/dL (6.3-8.2)
[2020-09-24 08:52] LABS: WBC 0.4 k/uL (3.8-10.6)
[2020-09-24 08:53] LABS: Platelet Count 5 k/uL (150-450)
[2020-09-24 09:13] LABS: INR 1.4 (<1.2); Partial Thromboplastin Time 29.3 sec (22.0-30.0); Prothrombin Time 13.9 sec (9.0-12.0)
[2020-09-24] MEDS ORDERED: NALOXONE 0.4 MG/ML 1 ML VIAL IV PRN (10:38)
[2020-09-24] MEDS ORDERED: FUROSEMIDE 10 MG/ML 2 ML VIAL IV ONE (11:00)
[2020-09-24] MEDS ORDERED: MECLIZINE 25 MG TAB PO PRN (14:26)
--- NOTE | 2020-09-24 14:34 | P.CONS ---
History of Present Illness - Chief Complaint Medical debility - History of Present Illness I had the opportunity to see patient for inpatient rehab consultation with regard to medical debility. He was admitted to [facility] September 24 with known myelodysplastic syndrome which has progressed to leukemia. Patient reports weakness of 2 days' duration. PT and OT prescribed. Previous functional history as elicited from patient: 80-year-old right-handed white male who is lives in one form with . Both retired. generally does the cooking and laundry and they share the driving. Patient independent with sitdown shower and gait with [address] Silva. Denies tobacco or alcohol. family history father with stroke. Review of Systems Review of systems: ENT: Denies sneezes or discharge. Eyes: Denies discharge or photophobia. Cardiac: Denies chest pain or palpitation. Pulmonary: Denies cough or shortness of breath. Gastrointestinal: Denies nausea, emesis, constipation, diarrhea. Genitourinary: Denies discharge or frequency. Musculoskeletal: Denies muscle or bone aches. Neurologic: Mild generalized weakness. Endocrine: Denies shakes or sweats. Oncology: Denies cancers. Dermatologic: Denies rash, itching, pruritus. ALLERGY/immunology: Denies sneezes, rashes. Past Medical History Past Medical History: Cancer Additional Past Medical History / Comment(s): Past adenopathy/abnormal labs/fatigue and was diagnosed with MDS approximately 2018, chronic low back pain, current R danielle gluteus tear-now R leg atrophy/uses walker to ambulate, PE left lung, nephrolithiasis, slight macular degeneration L eye and bilateral starting of cataracts, Thompson's palsey affected R eye, diverticular disease, gout bilateral feet, murmur, past gastric ulcers, vertigo. LEUKEMIA. History of Any Multi-Drug Resistant Organisms: None Reported Past Surgical History: Hernia Repair, Orthopedic Surgery Additional Past Surgical History / Comment(s): Bone marrow biopsies, L axillae lymphnode biopsy, total R hip arthroplasty with revision, bilateral total knee arthroplasties, pain clinic procedures, lumbar surgery/fusion L3/L4, colonoscopy and pt states had umbilical hernia repair and they had to straighten out a peice of his bowel, blepharoplasty r eyelid, Past Anesthesia/Blood Transfusion Reactions: No Reported Reaction Additional Past Anesthesia/Blood Transfusion Reaction / Comm: Pt has received blood transfusions without reaction. Past Psychological History: No Psychological Hx Reported Smoking Status: Former smoker Past Alcohol Use History: Rare Past Drug Use History: None Reported - Past Family History Father Family Medical History: CVA/TIA Additional Family Medical History / Comment(s): Father of CVA at age 89yrs. Mother Family Medical History: Osteoarthritis (OA), Renal Disease Additional Family Medical History / Comment(s): Mother of CHF at age 86yrs. Medications and Allergies Home Medications Medication Instructions Recorded Confirmed Type Meclizine [Antivert] 25 mg PO TID PRN tab 07/05/20 09/24/20 Rx allopurinoL [Zyloprim] 300 mg PO DAILY tab 07/05/20 09/24/20 Rx valACYclovir [Valtrex] 500 mg PO DAILY 07/30/20 09/24/20 History Cholecalciferol [Vitamin D3 (25 2,000 unit PO DAILY 08/22/20 09/24/20 History Mcg = 1000 Iu)] Sucralfate [Carafate] 1 gm PO BID 08/22/20 09/24/20 History Vit A,C & V-Ftbsvt-Quodvlkc [Ivite] 1 tab PO DAILY 08/22/20 09/24/20 History ondansetron HCL [Zofran] 8 mg PO Q8H PRN 08/22/20 09/24/20 History Amoxic-Pot Clav 875-125Mg 1 tab PO BID 10 Days #20 tab 09/22/20 09/24/20 Rx [Augmentin 875-125] HYDROcodone/APAP 7.5-325MG [[place] 1 tab PO Q4H PRN #42 tab 09/22/20 09/24/20 Rx 7.5-325] NIFEdipine [Adalat cc] 30 mg PO DAILY #30 tab 09/22/20 09/24/20 Rx Nystatin 100,000 Unit/ml Susp 500,000 unit PO QID 10 Days #1 09/22/20 09/24/20 Rx [Mycostatin Oral Susp] bottle Potassium Chloride ER [K-Dur 20] 20 meq PO DAILY #30 tab.er.prt 09/22/20 09/24/20 Rx Allergies Allergy/AdvReac Type Severity Reaction Status Date / Time No Known Allergies Allergy Verified 09/24/20 08:01 Physical Exam Vitals: Vital Signs Temp Pulse Resp BP Pulse Ox 09/24/20 13:58 97.9 F 93 16 135/70 99 09/24/20 13:48 97.6 F 91 18 131/70 92 L 09/24/20 11:54 89 18 128/76 96 09/24/20 11:00 89 130/80 92 L 09/24/20 10:30 95 111/73 94 L 09/24/20 10:00 89 114/74 95 09/24/20 09:30 87 102/74 91 L 09/24/20 09:00 89 126/79 92 L 09/24/20 08:30 92 126/79 95 09/24/20 08:00 98 126/79 93 L 09/24/20 07:47 126/79 09/24/20 07:42 99 F 103 H 19 126/79 94 L Intake and Output 09/23/20 09/24/20 09/24/20 22:59 06:59 14:59 Intake Total 0 Balance 0 Intake: Blood Product 0 Platelet Irr Pheresis Pas 0 -C Unit [id number] Other: Weight 86.183 kg Skin: Atrophic, intact. General: Medium build and comfortable appearance. Head: Normocephalic, atraumatic. Eyes: Symmetric. Pupils equal round. Ears: Symmetric. Hearing within normal limits. Mouth: Clear. Neck: Supple. Carotid without bruit. Cardiac: Regular rate and rhythm. Lungs: Clear anteriorly and posteriorly. Abdomen: Soft active nontender. Extremities: Normal tone. At least mild Arthritic changes throughout. Neurological: Mental status: Alert, cooperative, pleasant. Cranial nerves: Symmetric facial tone and trapezius. Motor: Normal strength and isolation all 4 limbs. Sensation: Intact throughout. DTRs: Symmetric and equal throughout. Mobility: Patient reports independent in room with 4 wheeled walker including bathroom privileges.. Results CBC & Chem 7: 09/24/20 08:05 09/24/20 08:05 Labs: Abnormal Lab Results - Last 24 Hours (Table) 09/24/20 09/24/20 09/24/20 Range/Units 08:05 08:05 08:05 WBC 0.4 L* (3.8-10.6) k/uL RBC 2.63 L (4.30-5.90) m/uL Hgb 7.7 L (13.0-17.5) gm/dL Hct 23.3 L (39.0-53.0) % RDW 16.6 H (11.5-15.5) % Plt Count 5 L* D (150-450) k/uL PT 13.9 H (9.0-12.0) sec INR 1.4 H (<1.2) Glucose 148 H (74-99) mg/dL Calcium 7.8 L (8.4-10.2) mg/dL Total Bilirubin 3.0 H (0.2-1.3) mg/dL Alkaline Phosphatase 133 H (38-126) U/L Albumin 3.2 L (3.5-5.0) g/dL Crossmatch 09/24/20 Range/Units 11:10 WBC (3.8-10.6) k/uL RBC (4.30-5.90) m/uL Hgb (13.0-17.5) gm/dL Hct (39.0-53.0) % RDW (11.5-15.5) % Plt Count (150-450) k/uL PT (9.0-12.0) sec INR (<1.2) Glucose (74-99) mg/dL Calcium (8.4-10.2) mg/dL Total Bilirubin (0.2-1.3) mg/dL Alkaline Phosphatase (38-126) U/L Albumin (3.5-5.0) g/dL Crossmatch See Detail Assessment and Plan Plan: Impression: 1. Medical debility. 2. Leukemia. 3. Osteoarthritis. comments and plan: PT and OT prescribed. At this time anticipate patient will do well as he reports he is independent in room at 4 wheeled walker level including bathroom. We'll continue to follow with yourself and case patient may not be correct about his personal observation.
--- NOTE | 2020-09-24 14:34 | P.HPIM ---
History of Present Illness H&P Date: 09/24/20 Chief Complaint: Generalized weakness This is a 80-year-old male with complex past medical history noted below who was recently discharged from the hospital with home healthcare services. Patient had a prolonged hospitalization and was found to be very weak prior to dischar ge. He was recommended for him to go to rehab but he declined and elected to go home. Apparently he was unable to manage at home and decided to come back to the emergency room for help. He is still pancytopenic with platelet count of 5 today. He is currently admitted to the hospital. He was seen by hematology nurse practitioner and blood transfusion has been ordered. Review of Systems Review of system: 14 points review of systems were obtained and were negative except to what were mentioned in the HPI. Past Medical History Past Medical History: Cancer Additional Past Medical History / Comment(s): Past adenopathy/abnormal labs/fatigue and was diagnosed with MDS approximately 2018, chronic low back pain, current R danielle gluteus tear-now R leg atrophy/uses walker to ambulate, PE left lung, nephrolithiasis, slight macular degeneration L eye and bilateral starting of cataracts, Thompson's palsey affected R eye, diverticular disease, gout bilateral feet, murmur, past gastric ulcers, vertigo. LEUKEMIA. History of Any Multi-Drug Resistant Organisms: None Reported Past Surgical History: Hernia Repair, Orthopedic Surgery Additional Past Surgical History / Comment(s): Bone marrow biopsies, L axillae lymphnode biopsy, total R hip arthroplasty with revision, bilateral total knee arthroplasties, pain clinic procedures, lumbar surgery/fusion L3/L4, colonoscopy and pt states had umbilical hernia repair and they had to straighten out a peice of his bowel, blepharoplasty r eyelid, Past Anesthesia/Blood Transfusion Reactions: No Reported Reaction Additional Past Anesthesia/Blood Transfusion Reaction / Comment(s): Pt has received blood transfusions without reaction. Past Psychological History: No Psychological Hx Reported Smoking Status: Former smoker Past Alcohol Use History: Rare Past Drug Use History: None Reported - Past Family History Father Family Medical History: CVA/TIA Additional Family Medical History / Comment(s): Father of CVA at age 89yrs. Mother Family Medical History: Osteoarthritis (OA), Renal Disease Additional Family Medical History / Comment(s): Mother of CHF at age 86yrs. Medications and Allergies Home Medications Medication Instructions Recorded Confirmed Type Meclizine [Antivert] 25 mg PO TID PRN tab 07/05/20 09/24/20 Rx allopurinoL [Zyloprim] 300 mg PO DAILY tab 07/05/20 09/24/20 Rx valACYclovir [Valtrex] 500 mg PO DAILY 07/30/20 09/24/20 History Cholecalciferol [Vitamin D3 (25 2,000 unit PO DAILY 08/22/20 09/24/20 History Mcg = 1000 Iu)] Sucralfate [Carafate] 1 gm PO BID 08/22/20 09/24/20 History Vit A,C & A-Opqtkb-Wrershra [Ivite] 1 tab PO DAILY 08/22/20 09/24/20 History ondansetron HCL [Zofran] 8 mg PO Q8H PRN 08/22/20 09/24/20 History Amoxic-Pot Clav 875-125Mg 1 tab PO BID 10 Days #20 tab 09/22/20 09/24/20 Rx [Augmentin 875-125] HYDROcodone/APAP 7.5-325MG [[place] 1 tab PO Q4H PRN #42 tab 09/22/20 09/24/20 Rx 7.5-325] NIFEdipine [Adalat cc] 30 mg PO DAILY #30 tab 09/22/20 09/24/20 Rx Nystatin 100,000 Unit/ml Susp 500,000 unit PO QID 10 Days #1 09/22/20 09/24/20 Rx [Mycostatin Oral Susp] bottle Potassium Chloride ER [K-Dur 20] 20 meq PO DAILY #30 tab.er.prt 09/22/20 09/24/20 Rx Allergies Allergy/AdvReac Type Severity Reaction Status Date / Time No Known Allergies Allergy Verified 09/24/20 08:01 Physical Exam Vitals: Vital Signs Temp Pulse Resp BP Pulse Ox 09/24/20 13:58 97.9 F 93 16 135/70 99 09/24/20 13:48 97.6 F 91 18 131/70 92 L 09/24/20 11:54 89 18 128/76 96 09/24/20 11:00 89 130/80 92 L 09/24/20 10:30 95 111/73 94 L 09/24/20 10:00 89 114/74 95 09/24/20 09:30 87 102/74 91 L 09/24/20 09:00 89 126/79 92 L 09/24/20 08:30 92 126/79 95 09/24/20 08:00 98 126/79 93 L 09/24/20 07:47 126/79 09/24/20 07:42 99 F 103 H 19 126/79 94 L Intake and Output 09/23/20 09/24/20 09/24/20 22:59 06:59 14:59 Intake Total 0 Balance 0 Intake: Blood Product 0 Platelet Irr Pheresis Pas 0 -C Unit [id number] Other: Weight 86.183 kg General: The patient is awake and alert, in no distress Eye: there is normal conjunctiva bilaterally. Neck: The neck is supple, there is no JVD. Cardiovascular: Normal S1-S2, no S3-S4, no murmurs. Respiratory: Lungs clear to auscultation bilaterally Gastrointestinal: Abdomen is soft, nontender Musculoskeletal: There is no pedal edema. Neurological:. Speech is normal. Skin: Skin is warm and dry Results CBC & Chem 7: 09/24/20 08:05 09/24/20 08:05 Labs: Abnormal Lab Results - Last 24 Hours (Table) 09/24/20 09/24/20 09/24/20 Range/Units 08:05 08:05 08:05 WBC 0.4 L* (3.8-10.6) k/uL RBC 2.63 L (4.30-5.90) m/uL Hgb 7.7 L (13.0-17.5) gm/dL Hct 23.3 L (39.0-53.0) % RDW 16.6 H (11.5-15.5) % Plt Count 5 L* D (150-450) k/uL PT 13.9 H (9.0-12.0) sec INR 1.4 H (<1.2) Glucose 148 H (74-99) mg/dL Calcium 7.8 L (8.4-10.2) mg/dL Total Bilirubin 3.0 H (0.2-1.3) mg/dL Alkaline Phosphatase 133 H (38-126) U/L Albumin 3.2 L (3.5-5.0) g/dL Crossmatch 09/24/20 Range/Units 11:10 WBC (3.8-10.6) k/uL RBC (4.30-5.90) m/uL Hgb (13.0-17.5) gm/dL Hct (39.0-53.0) % RDW (11.5-15.5) % Plt Count (150-450) k/uL PT (9.0-12.0) sec INR (<1.2) Glucose (74-99) mg/dL Calcium (8.4-10.2) mg/dL Total Bilirubin (0.2-1.3) mg/dL Alkaline Phosphatase (38-126) U/L Albumin (3.5-5.0) g/dL Crossmatch See Detail Assessment and Plan Assessment: This is a 80-year-old male with complex past medical history noted below who presented to the emergency room with physical debility and unable to take care of himself at home. There was a dose of his medical problems 1. Pancytopenia with prolonged bone marrow suppression after chemotherapy. Transfusion dependent. Hematology following. Transfuse as directed. Zarxio daily 2. Recent E. fecalis bacteremia: Currently finishing antibiotic course with Augmentin as directed. Infectious disease stop date 10/02 3. Underlying AML, in remission status post chemotherapy 4. Chronic low back pain 5. Essential hypertension Today, I had a prolonged discussion with the patient regarding goals of care. We discussed comfort care and hospice philosophy. Patient is not ready for hospice as of yet. He would like to continue with transfusion hoping that his bone marrow is currently recovered.
--- NOTE | 2020-09-24 16:09 | P.CONS ---
History of Present Illness - Reason for Consult Consult date: 09/24/20 AML, pancytopenia Requesting physician: Abhay Menard - Chief Complaint weakness - History of Present Illness Pt discharged 2 days ago after prolonged hospitalization of about 11 days for symptoms 2/2 treatment for AML. He has come back for weakness. He was not home long enough to have home care/PT/OT sign on to his case. He started receiving GCSF after BM Bx on 08/23/20 returned that he had achieved remission from AML after 1 cycle of treatment. Unfortunately, his marrow is not showing recovery. He is not on any treatment for AML. He is platelet and PRBC transfusion dependent currently. When seen pt states he had platelets and PRBCs ordered for transfusion today. He denies any fevers, oral irritation, bleeding, pain, nausea, he states he is eating and drinking ok. He states he can get around with his wheeled walker. Malignancy Hx: 79-year-old male patient of Dr. Aragon, thrombocytopenia found on routine CBC monitoring prior to elective back surgery 12/08/13. Cytopenia noted far back as December 2012. Workup did not show any paraproteinemia, hypercoagulable workup was negative. CT CAP 01/04/14 revealed bilateral axillary and inguinal adenopathy. Left axillary LN biopsy 01/17/14 was non-diagnostic. Repeat CT CAP 03/27/14 unremarkable, no pathologic lymph nodes. Patient had no further problems until May 2015. He had fever and abdominal pain, CT AP 05/18/15 showed borderline enlarged mesenteric lymph nodes. After treatment for suspected infection, CT CAP 09/10/15 showed improvement in all adenopathies. He continued to have this pattern of waning and waxing adenopathy. Finally, bone marrow biopsy done 08/15/16 was negative for any marrow pathology except for mild monocytosis, mild splenomegaly. He was again worked up December 2018 because of fatigue, weight loss and progressive pancytopenia, all studies were non-diagnostic. 01/18/19 bone marrow biopsy revealed hypercellular marrow, 5% blasts, increased reticulin, evidence myelodysplasia, normal cytogenetics and Fish, and BCOR, TET2 mutations, unclear NRAS variant. Patient opted for supportive care only. 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 He was admitted here on 07/04/20 for induction, but had to be transferred to [facility] for a cerebral vein thrombosis. He started induction with Venclexta and Vidaza at [facility], and received C 1 there. He reestablished f/u here on d/c, and received C 2 of Vidaza, completing that on 08/10/20. No further treatment since confirmation of remission of AML Review of Systems 14 point ROS is negative except as stated in HPI Past Medical History Past Medical History: Cancer Additional Past Medical History / Comment(s): Past adenopathy/abnormal labs/fatigue and was diagnosed with MDS approximately 2018, chronic low back pain, current R danielle gluteus tear-now R leg atrophy/uses walker to ambulate, PE left lung, nephrolithiasis, slight macular degeneration L eye and bilateral starting of cataracts, Thompson's palsey affected R eye, diverticular disease, gout bilateral feet, murmur, past gastric ulcers, vertigo. LEUKEMIA. History of Any Multi-Drug Resistant Organisms: None Reported Past Surgical History: Hernia Repair, Orthopedic Surgery Additional Past Surgical History / Comment(s): Bone marrow biopsies, L axillae lymphnode biopsy, total R hip arthroplasty with revision, bilateral total knee arthroplasties, pain clinic procedures, lumbar surgery/fusion L3/L4, colonoscopy and pt states had umbilical hernia repair and they had to straighten out a peice of his bowel, blepharoplasty r eyelid, Past Anesthesia/Blood Transfusion Reactions: No Reported Reaction Additional Past Anesthesia/Blood Transfusion Reaction / Comm: Pt has received blood transfusions without reaction. Past Psychological History: No Psychological Hx Reported Smoking Status: Former smoker Past Alcohol Use History: Rare Past Drug Use History: None Reported - Past Family History Father Family Medical History: CVA/TIA Additional Family Medical History / Comment(s): Father of CVA at age 89yrs. Mother Family Medical History: Osteoarthritis (OA), Renal Disease Additional Family Medical History / Comment(s): Mother of CHF at age 86yrs. Medications and Allergies Home Medications Medication Instructions Recorded Confirmed Type Meclizine [Antivert] 25 mg PO TID PRN tab 07/05/20 09/24/20 Rx allopurinoL [Zyloprim] 300 mg PO DAILY tab 07/05/20 09/24/20 Rx valACYclovir [Valtrex] 500 mg PO DAILY 07/30/20 09/24/20 History Cholecalciferol [Vitamin D3 (25 2,000 unit PO DAILY 08/22/20 09/24/20 History Mcg = 1000 Iu)] Sucralfate [Carafate] 1 gm PO BID 08/22/20 09/24/20 History Vit A,C & U-Jvjjvd-Bumwzpbs [Ivite] 1 tab PO DAILY 08/22/20 09/24/20 History ondansetron HCL [Zofran] 8 mg PO Q8H PRN 08/22/20 09/24/20 History Amoxic-Pot Clav 875-125Mg 1 tab PO BID 10 Days #20 tab 09/22/20 09/24/20 Rx [Augmentin 875-125] HYDROcodone/APAP 7.5-325MG [[place] 1 tab PO Q4H PRN #42 tab 09/22/20 09/24/20 Rx 7.5-325] NIFEdipine [Adalat cc] 30 mg PO DAILY #30 tab 09/22/20 09/24/20 Rx Nystatin 100,000 Unit/ml Susp 500,000 unit PO QID 10 Days #1 09/22/20 09/24/20 Rx [Mycostatin Oral Susp] bottle Potassium Chloride ER [K-Dur 20] 20 meq PO DAILY #30 tab.er.prt 09/22/20 09/24/20 Rx Allergies Allergy/AdvReac Type Severity Reaction Status Date / Time No Known Allergies Allergy Verified 09/24/20 08:01 Physical Exam Vitals: Vital Signs Temp Pulse Resp BP Pulse Ox 09/24/20 07:42 99 F 103 H 19 126/79 94 L Intake and Output 09/23/20 09/24/20 09/24/20 22:59 06:59 14:59 Other: Weight 86.183 kg - Constitutional General appearance: cooperative, no acute distress, thin - EENT severely coated tongue, some blood noted on dry lips Eyes: anicteric sclerae, EOMI ENT: hearing grossly normal - Neck Neck: no lymphadenopathy - Respiratory Respiratory: bilateral: CTA (weak inspiratory effort) - Cardiovascular Rhythm: regular Heart sounds: normal: S1, S2 Abnormal Heart Sounds: no systolic murmur, no diastolic murmur, no rub, no S3 Gallop, no S4 Gallop, no click, no other leg Peripheral Edema: bilateral: None - Gastrointestinal General gastrointestinal: no absent bowel sounds, no decreased bowel sounds, no distended, no hepatomegaly, no hyperactive bowel sounds, normal bowel sounds, no organomegaly, no rigid, no scaphoid, soft, no splenomegaly, no tenderness, no umbilical hernia, no ventral hernia - Integumentary BLE petechiae, multiple ecchymosis on extremities - Neurologic Neurologic: CNII-XII intact - Musculoskeletal Musculoskeletal: generalized weakness - Psychiatric Psychiatric: A&O x's 3, appropriate affect, intact judgment & insight Results CBC & Chem 7: 09/24/20 08:05 09/24/20 08:05 Labs: Abnormal Lab Results - Last 24 Hours (Table) 09/24/20 09/24/20 09/24/20 Range/Units 08:05 08:05 08:05 WBC 0.4 L* (3.8-10.6) k/uL RBC 2.63 L (4.30-5.90) m/uL Hgb 7.7 L (13.0-17.5) gm/dL Hct 23.3 L (39.0-53.0) % RDW 16.6 H (11.5-15.5) % Plt Count 5 L* D (150-450) k/uL PT 13.9 H (9.0-12.0) sec INR 1.4 H (<1.2) Glucose 148 H (74-99) mg/dL Calcium 7.8 L (8.4-10.2) mg/dL Total Bilirubin 3.0 H (0.2-1.3) mg/dL Alkaline Phosphatase 133 H (38-126) U/L Albumin 3.2 L (3.5-5.0) g/dL Assessment and Plan (1) Weakness Narrative/Plan: Secondary to prolonged bed rest/hospitalization. Have asked Dr. Polanco to evaluate pt for inpt rehab. Have asked Case mgmt to set pt up for home care/PT/OT if pt does not qualify for inpt rehab. Called son. He explained what happened to pt. When pt got home he was stuck on step 3 of 3. He did go to the ground, he required son to get him up into a chair. Able to stand if he is sitting too low. Pt took 8 steps and could not go any further. Pt was in his own urine as he could not get up to go to the bathroom. Current Visit: Yes Status: Acute Priority: High Code(s): R53.1 - WEAKNESS SNOMED Code(s): 46121213 (2) AML (acute myeloid leukemia) Narrative/Plan: S/P 2 cycles of treatment with BM Bx Aug 2020 showing remission. Pending recovery of bone marrow. Cont to be transfusion dependent. Transfuse for Hgb <7 or if symptomatic Transfuse for plt <10K or if symptomatic Cont GCSF for now Daily labs Current Visit: No Status: Acute Priority: Medium Code(s): C92.00 - ACUTE MYELOBLASTIC LEUKEMIA, NOT HAVING ACHIEVED REMISSION SNOMED Code(s): 04144922 (3) Pancytopenia Narrative/Plan: HLA matched platelets, 2 units SDP, 1 units PRBCs. Lasix ordered for prevention of fluid overload from transfusions. GCSF daily for leukopenia/neutropenia Current Visit: Yes Status: Chronic Priority: High Code(s): D61.818 - OTHER PANCYTOPENIA SNOMED Code(s): 279593264
[2020-09-24] MEDS: NYSTATIN 100,000 UNIT/ML SUSP 500,000 UNIT/5 ML CUP PO SCH ×2 (17:38→19:41)
[2020-09-24] MEDS: HYDROcodone/APAP 7.5-325MG 1 EACH TAB PO PRN (17:38)
[2020-09-24] MEDS: FILGRASTIM-SNDZ 480 MCG/0.8 ML SYRINGE SQ SCH (18:28)
[2020-09-24] MEDS: SUCRALFATE 1 GM TAB PO SCH (19:40)
[2020-09-24] MEDS: AMOXIC-POT CLAV 875-125MG 1 EACH TAB PO SCH (19:40)
[2020-09-24] MEDS: polyethylene glycoL 3350 17 GM POWD.PACK PO SCH (19:41)
[2020-09-25] MEDS: VANCOMYCIN 125 MG CAPSULE PO SCH ×5 (03:20→19:33)
[2020-09-25 08:06] LABS: Anisocytosis Slight; HCT 23.5 % (39.0-53.0); MCHC 33.9 g/dL (31.0-37.0); MCV 88.7 fL (80.0-100.0); Mean Platelet Volume 7.9; RBC 2.65 m/uL (4.30-5.90)
[2020-09-25 08:14] LABS: Platelet Count 9 k/uL (150-450); WBC 0.3 k/uL (3.8-10.6)
[2020-09-25] MEDS: HYDROcodone/APAP 7.5-325MG 1 EACH TAB PO PRN ×3 (08:31→19:31)
[2020-09-25] MEDS: allopurinoL 300 MG TAB PO SCH (08:32)
[2020-09-25] MEDS: CHOLECALCIFEROL 1,000 UNIT TAB PO SCH (08:32)
[2020-09-25] MEDS: AMOXIC-POT CLAV 875-125MG 1 EACH TAB PO SCH ×2 (08:32→19:33)
[2020-09-25] MEDS: SUCRALFATE 1 GM TAB PO SCH ×2 (08:33→19:32)
[2020-09-25] MEDS: valACYclovir 500 MG TAB PO SCH (08:33)
[2020-09-25] MEDS: NIFEdipine XL 30 MG TAB.ER.24 PO SCH (08:33)
[2020-09-25] MEDS: NYSTATIN 100,000 UNIT/ML SUSP 500,000 UNIT/5 ML CUP PO SCH ×4 (08:33→22:17)
[2020-09-25] MEDS: VIT A,C & E-LUTEIN-MINERALS 1 EACH TAB PO SCH (08:33)
[2020-09-25] MEDS: POTASSIUM CHLORIDE ER 20 MEQ TAB.ER PO SCH (08:33)
[2020-09-25 09:20] LABS: Rouleaux Present
--- NOTE | 2020-09-25 11:35 | P.PN ---
Progress Note - Text I have been made aware that patient is not doing as well as he presented himself to be. I will continue to follow closely with daily reviews of his progress each AM. Note the Rehab unit is currently full.
[2020-09-25 14:14] LABS: African American GFR (CKD) 111.6 (60.0-200.0); Anion Gap 7.7 mmol/L (4.00-12.00); Calcium 7.7 mg/dL (8.7-10.3); Carbon Dioxide 26.3 mmol/L (21.6-31.8); Non-African American GFR(CKD) 96.3 (60.0-200.0); Potassium 3.9 mmol/L (3.5-5.5)
--- NOTE | 2020-09-25 14:41 | P.PN ---
Subjective Progress Note Date: 09/25/20 Principal diagnosis: Weakness, C-diff infection In f/u today pt states he was able to walk to chair and back to bed with walker and 2 person assist. No fever, nausea, appetite fair, no cough, chest pain, abd pain, swelling or pain to report. Stool is diarrhea Objective - Vital Signs Vital signs: Vital Signs Temp 98.6 F 09/25/20 07:06 Pulse 109 H 09/25/20 07:06 Resp 20 09/25/20 07:06 BP 136/71 09/25/20 07:06 Pulse Ox 91 L 09/25/20 07:06 Intake & Output 09/24/20 09/25/20 09/25/20 18:59 06:59 18:59 Intake Total 550 310 Output Total 700 200 Balance -150 110 Weight 87 kg Intake: Blood Product 550 310 Platelet Irr Pheresis Pas 550 -C Unit [id number] Rc Irr As1 Unit 0 310 [id number] Output: Urine 700 200 Other: Voiding Method Urinal Diaper # Bowel Movements 2 1 - Constitutional General appearance: Present: average body habitus, cooperative, no acute distress - EENT Eyes: Present: anicteric sclerae, EOMI ENT: Present: hearing grossly normal - Respiratory Respiratory: bilateral: CTA - Cardiovascular Heart sounds: normal: S1, S2 Abnormal Heart Sounds: Absent: systolic murmur, diastolic murmur, rub, S3 Gallop, S4 Gallop, click, other - Peripheral edema leg Peripheral Edema: bilateral: None - Gastrointestinal General gastrointestinal: Present: normal bowel sounds, soft. Absent: absent bowel sounds, decreased bowel sounds, distended, hepatomegaly, hyperactive bowel sounds, organomegaly, rigid, scaphoid, splenomegaly, tenderness, umbilical hernia, ventral hernia - Neurologic Neurologic: Present: CNII-XII intact - Musculoskeletal Musculoskeletal: Present: generalized weakness - Psychiatric Psychiatric: Present: A&O x's 3, appropriate affect, intact judgment & insight - Labs CBC & Chem 7: 09/25/20 07:41 09/25/20 07:41 Labs: Abnormal Lab Results - Last 24 Hours (Table) 09/24/20 09/24/20 09/25/20 Range/Units 11:10 23:00 07:41 WBC 0.3 L* (3.8-10.6) k/uL RBC 2.65 L (4.30-5.90) m/uL Hgb 8.0 L (13.0-17.5) gm/dL Hct 23.5 L (39.0-53.0) % RDW 16.0 H (11.5-15.5) % Plt Count 9 L* D (150-450) k/uL Glucose (70-110) mg/dL Calcium (8.7-10.3) mg/dL C. difficile (EIA) Intrp Positive A (Negative) Crossmatch See Detail 09/25/20 Range/Units 07:41 WBC (3.8-10.6) k/uL RBC (4.30-5.90) m/uL Hgb (13.0-17.5) gm/dL Hct (39.0-53.0) % RDW (11.5-15.5) % Plt Count (150-450) k/uL Glucose 118 H (70-110) mg/dL Calcium 7.7 L (8.7-10.3) mg/dL C. difficile (EIA) Intrp (Negative) Crossmatch Assessment and Plan (1) Weakness Narrative/Plan: Secondary to prolonged bed rest/hospitalization. Dr. Polanco is continuing to monitor pt to see how he progresses and if pt qualifies for rehab. Spoke to Case mgmt to consider ECF rehab. Knowing that pt is a 3 times a week blood draw and transfusion dependent. At this time pt is in no condition to be considered for home care/PT/OT as he cannot perform ADLs. Will contact son with update. There was a discussion at previous visit regarding the possibility that despite treatment of AML patient's bone marrow may not be able to recover from the treatment. I believe they were going to give it a little bit more time to see if patient's counts stabilize in any fashion. If patient continues to remain transfusion and growth factor dependent consideration for comfort measures will need to be discussed. Current Visit: Yes Status: Acute Priority: High Code(s): R53.1 - WEAKNESS SNOMED Code(s): 06700585 (2) AML (acute myeloid leukemia) Narrative/Plan: S/P 2 cycles of treatment with BM Bx Aug 2020 showing remission. Pending recovery of bone marrow. Cont to be transfusion dependent. Transfuse for Hgb <7 or if symptomatic Transfuse for plt <10K or if symptomatic Cont GCSF for now Daily labs Current Visit: No Status: Acute Priority: Medium Code(s): C92.00 - ACUTE MYELOBLASTIC LEUKEMIA, NOT HAVING ACHIEVED REMISSION SNOMED Code(s): 26747549 (3) Pancytopenia Narrative/Plan: HLA matched platelets, s/p 2 units SDP, 1 units PRBCs. 1 unit SDP ordered for today's plt of 9,000 GCSF daily for leukopenia/neutropenia Current Visit: Yes Status: Chronic Priority: High Code(s): D61.818 - OTHER PANCYTOPENIA SNOMED Code(s): 279256556 Plan: Doctor attests: I performed a history and physical examination of this patient, developed impression and plan of care, discussed with dictator. I agree with dictators note, documented as a scribe.
--- NOTE | 2020-09-25 15:07 | P.PN ---
Subjective Progress Note Date: 09/25/20 Patient is awake and alert. He denies any diarrhea today. No acute events overnight reported to me by nursing staff. Objective - Vital Signs Vital signs: Vital Signs Temp 98.0 F 09/25/20 14:00 Pulse 95 09/25/20 14:00 Resp 18 09/25/20 14:00 BP 131/71 09/25/20 14:00 Pulse Ox 90 L 09/25/20 14:00 Intake & Output 09/24/20 09/25/20 09/25/20 18:59 06:59 18:59 Intake Total 550 310 Output Total 700 200 Balance -150 110 Weight 87 kg Intake: Blood Product 550 310 Platelet Irr Pheresis Pas 550 -C Unit [id number] Rc Irr As1 Unit 0 310 [id number] Output: Urine 700 200 Other: Voiding Method Urinal Diaper # Bowel Movements 2 1 - Exam General: The patient is awake and alert, in no distress Eye: there is normal conjunctiva bilaterally. Neck: The neck is supple, there is no JVD. Cardiovascular: Normal S1-S2, no S3-S4, no murmurs. Respiratory: Lungs clear to auscultation bilaterally Gastrointestinal: Abdomen is soft, nontender Musculoskeletal: There is no pedal edema. Neurological:. Speech is normal. Skin: Skin is warm and dry - Labs CBC & Chem 7: 09/25/20 07:41 09/25/20 07:41 Labs: Abnormal Lab Results - Last 24 Hours (Table) 09/24/20 09/24/20 09/25/20 Range/Units 11:10 23:00 07:41 WBC 0.3 L* (3.8-10.6) k/uL RBC 2.65 L (4.30-5.90) m/uL Hgb 8.0 L (13.0-17.5) gm/dL Hct 23.5 L (39.0-53.0) % RDW 16.0 H (11.5-15.5) % Plt Count 9 L* D (150-450) k/uL Glucose (70-110) mg/dL Calcium (8.7-10.3) mg/dL C. difficile (EIA) Intrp Positive A (Negative) Crossmatch See Detail 09/25/20 Range/Units 07:41 WBC (3.8-10.6) k/uL RBC (4.30-5.90) m/uL Hgb (13.0-17.5) gm/dL Hct (39.0-53.0) % RDW (11.5-15.5) % Plt Count (150-450) k/uL Glucose 118 H (70-110) mg/dL Calcium 7.7 L (8.7-10.3) mg/dL C. difficile (EIA) Intrp (Negative) Crossmatch Assessment and Plan Assessment: This is a 80-year-old male with complex past medical history noted below who presented to the emergency room with physical debility and unable to take care of himself at home. There was a dose of his medical problems 1. Pancytopenia with prolonged bone marrow suppression after chemotherapy. Transfusion dependent. I would take a trip to arrive from blood bank. Hematology following. Transfuse as directed. Zarxio daily 2. Recent E. fecalis bacteremia: Currently finishing antibiotic course with Augmentin as directed. Infectious disease stop date 10/02 3. Underlying AML, in remission status post chemotherapy 4. Chronic low back pain 5. Essential hypertension 6. C. diff colitis, patient had an episode of diarrhea last night and C. diff screen was ordered and returned positive. Started on vancomycin orally for 10 days. Patient is still not sure whether he went to pursue hospice or continue with transfusions he would like to speak to hospice as well as social work.
[2020-09-25] MEDS: FILGRASTIM-SNDZ 480 MCG/0.8 ML SYRINGE SQ SCH (19:32)
[2020-09-25] MEDS: polyethylene glycoL 3350 17 GM POWD.PACK PO SCH (19:32)
[2020-09-26] MEDS: ACETAMINOPHEN TAB 325 MG TAB PO PRN (03:08)
[2020-09-26 06:22] LABS: HCT 22.8 % (39.0-53.0); HGB 7.6 gm/dL (13.0-17.5); MCH 30.1 pg (25.0-35.0); MCHC 33.5 g/dL (31.0-37.0); Mean Platelet Volume 8.4; RBC 2.53 m/uL (4.30-5.90); RDW 15.9 % (11.5-15.5)
[2020-09-26 07:01] LABS: Platelet Count 9 k/uL (150-450); WBC 0.4 k/uL (3.8-10.6)
[2020-09-26] MEDS: allopurinoL 300 MG TAB PO SCH (07:46)
[2020-09-26] MEDS: NYSTATIN 100,000 UNIT/ML SUSP 500,000 UNIT/5 ML CUP PO SCH ×4 (07:46→19:20)
[2020-09-26] MEDS: POTASSIUM CHLORIDE ER 20 MEQ TAB.ER PO SCH (07:46)
[2020-09-26] MEDS: VIT A,C & E-LUTEIN-MINERALS 1 EACH TAB PO SCH (07:46)
[2020-09-26] MEDS: SUCRALFATE 1 GM TAB PO SCH ×2 (07:46→19:20)
[2020-09-26] MEDS: CHOLECALCIFEROL 1,000 UNIT TAB PO SCH (07:46)
[2020-09-26] MEDS: HYDROcodone/APAP 7.5-325MG 1 EACH TAB PO PRN ×3 (07:47→15:51)
[2020-09-26] MEDS: VANCOMYCIN 125 MG CAPSULE PO SCH ×4 (07:48→19:20)
[2020-09-26] MEDS: NIFEdipine XL 30 MG TAB.ER.24 PO SCH (07:48)
[2020-09-26] MEDS: AMOXIC-POT CLAV 875-125MG 1 EACH TAB PO SCH ×2 (07:48→19:20)
[2020-09-26] MEDS: valACYclovir 500 MG TAB PO SCH (07:49)
[2020-09-26 08:11] LABS: Anisocytosis (M) Present; Poikilocytosis (M) Present; Spherocytes Present
--- NOTE | 2020-09-26 11:16 | P.PN ---
Subjective Progress Note Date: 09/26/20 Principal diagnosis: Weakness Patient seen and examined at bedside. Patient was attached irritable because he hasn't had any sleep. Per patient he keeps getting woken up. Patient feels okay overall, weakness is stable. Patient denies chest pain shortness of breath nausea vomiting fevers or chills. Patient did speak to hospice briefly, further discussions are to follow. At this time, case management is working with hematology/oncology to find placement in rehab that will meet the demands of his transfusions. Pt discharged 2 days before this addmission after prolonged hospitalization of about 11 days for symptoms 2/2 treatment for AML. He has come back for the [facility]. He was not home long enough to have home care/PT/OT sign on to his case. He started receiving GCSF after BM Bx on 08/23/20 returned that he had achieved remission from AML after 1 cycle of treatment. Unfortunately, his marrow is not showing recovery. He is not on any treatment for AML. He is platelet and PRBC transfusion dependent currently. When seen pt states he had platelets and PRBCs ordered for transfusion today. He denies any fevers, oral irritation, bleeding, pain, nausea, he states he is eating and drinking ok. He states he can get around with his wheeled walker. Malignancy Hx: 79-year-old male patient of Dr. Aragon, thrombocytopenia found on routine CBC monitoring prior to elective back surgery 12/08/13. Cytopenia noted far back as December 2012. Workup did not show any paraproteinemia, hypercoagulable workup was negative. CT CAP 01/04/14 revealed bilateral axillary and inguinal adenopathy. Left axillary LN biopsy 01/17/14 was non-diagnostic. Repeat CT CAP 03/27/14 unremarkable, no pathologic lymph nodes. Patient had no further problems until May 2015. He had fever and abdominal pain, CT AP 05/18/15 showed borderline enlarged mesenteric lymph nodes. After treatment for suspected infection, CT CAP 09/10/15 showed improvement in all adenopathies. He continued to have this pattern of waning and waxing adenopathy. Finally, bone marrow biopsy done 08/15/16 was negative for any marrow pathology except for mild monocytosis, mild splenomegaly. He was again worked up December 2018 because of fatigue, weight loss and progressive pancytopenia, all studies were non-diagnostic. 01/18/19 bone marrow biopsy revealed hypercellular marrow, 5% blasts, increased reticulin, evidence myelodysplasia, normal cytogenetics and Fish, and BCOR, TET2 mutations, unclear NRAS variant. Patient opted for supportive care only. 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 He was admitted here on 07/04/20 for induction, but had to be transferred to [facility] for a cerebral vein thrombosis. He started induction with Venclexta and Vidaza at [facility], and received C 1 there. He reestablished f/u here on d/c, and received C 2 of Vidaza, completing that on 08/10/20. No further treatment since confirmation of remission of AML Objective - Vital Signs Vital signs: Vital Signs Temp 98.1 F 09/26/20 07:40 Pulse 90 09/26/20 07:40 Resp 18 09/26/20 08:00 BP 120/65 09/26/20 07:40 Pulse Ox 93 L 09/26/20 07:40 Intake & Output 09/25/20 09/26/20 09/26/20 18:59 06:59 18:59 Intake Total 193 Output Total 500 500 250 Balance -307 -500 -250 Intake: Blood Product 193 Platelet Irr Pheresis Pas 193 -C Unit [id number] Output: Urine 500 500 250 Other: Voiding Method Urinal Diaper - Exam General: [non toxic], [no distress], [appears at stated age] Derm: [warm], [dry] Head: [atraumatic], [normocephalic], [symmetric] Eyes: [EOMI], [no lid lag], [anicteric sclera] Mouth: [no lip lesion], [mucus membranes moist] Cardiovascular: [S1S2 reg], [no murmur], [positive posterior tibial pulse bilateral], Lungs: [CTA bilateral], [no rhonchi, no rales] , [no accessory muscle use] Abdominal: [soft], [ nontender to palpation], [no guarding], [no appreciable organomegaly] Ext: [no gross muscle atrophy], [no edema], [no contractures] Neuro: [ CN II-XI grossly intact], [no focal neuro deficits] Psych: [Alert], [oriented], [appropriate affect] - Constitutional Constitutional Comment(s): A 14 point review systems was assessed patient was only positive for those discussed in HPI - Labs CBC & Chem 7: 09/26/20 05:44 09/25/20 07:41 Labs: Abnormal Lab Results - Last 24 Hours (Table) 09/25/20 09/26/20 Range/Units 07:41 05:44 WBC 0.4 L* (3.8-10.6) k/uL RBC 2.53 L (4.30-5.90) m/uL Hgb 7.6 L (13.0-17.5) gm/dL Hct 22.8 L (39.0-53.0) % RDW 15.9 H (11.5-15.5) % Plt Count 9 L* (150-450) k/uL Glucose 118 H (70-110) mg/dL Calcium 7.7 L (8.7-10.3) mg/dL Assessment and Plan Assessment: 1. Pancytopenia with prolonged bone marrow suppression after chemotherapy. -Hematology following. Transfuse as directed. Zarxio daily -Placement to rehab pending secondary to transfusion commands -Case management recommendations appreciated -Hospice consulted, further discussion is to follow 2. Recent E. fecalis bacteremia: Currently finishing antibiotic course with Augmentin as directed. Infectious disease stop date 10/02 3. Underlying AML, in remission status post chemotherapy 4. Chronic low back pain 5. Essential hypertension 6. C. diff colitis, patient had an episode of diarrhea last night and C. diff screen was ordered and returned positive. Started on vancomycin orally for 10 days. Time with Patient: Greater than 30
--- NOTE | 2020-09-26 14:29 | P.PN ---
Subjective Progress Note Date: 09/26/20 Principal diagnosis: Weakness, C-diff infection In f/u today pt has questions about his prognosis and rehab plans. He is still weak, no other acute physical c/o. Objective - Vital Signs Vital signs: Vital Signs Temp 98.1 F 09/26/20 07:40 Pulse 90 09/26/20 07:40 Resp 18 09/26/20 08:00 BP 120/65 09/26/20 07:40 Pulse Ox 93 L 09/26/20 07:40 Intake & Output 09/25/20 09/26/20 09/26/20 18:59 06:59 18:59 Intake Total 193 Output Total 500 500 250 Balance -307 -500 -250 Intake: Blood Product 193 Platelet Irr Pheresis Pas 193 -C Unit [id number] Output: Urine 500 500 250 Other: Voiding Method Urinal Diaper - Constitutional General appearance: Present: average body habitus, cooperative, no acute distress - EENT Eyes: Present: anicteric sclerae, EOMI ENT: Present: hearing grossly normal - Labs CBC & Chem 7: 09/26/20 05:44 09/25/20 07:41 Labs: Abnormal Lab Results - Last 24 Hours (Table) 09/25/20 09/26/20 Range/Units 07:41 05:44 WBC 0.4 L* (3.8-10.6) k/uL RBC 2.53 L (4.30-5.90) m/uL Hgb 7.6 L (13.0-17.5) gm/dL Hct 22.8 L (39.0-53.0) % RDW 15.9 H (11.5-15.5) % Plt Count 9 L* (150-450) k/uL Glucose 118 H (70-110) mg/dL Calcium 7.7 L (8.7-10.3) mg/dL Assessment and Plan (1) Weakness Narrative/Plan: Secondary to prolonged bed rest/hospitalization. Pt has been evaluated by Dr. Polanco, pt is currently not string enough to tolerate inpt rehab schedule. We discussed that at this time he would not qualify for rehab at home as he is unable to manage ADLs. His cannot attend to all his needs and there is no one else to help with his care ATC. Have inquired about ECF rehab, knowing that pt is a 3 times a week blood draw and transfusion dependent. Current Visit: Yes Status: Acute Priority: High Code(s): R53.1 - WEAKNESS SNOMED Code(s): 16215966 (2) AML (acute myeloid leukemia) Narrative/Plan: S/P 2 cycles of treatment with BM Bx Aug 2020 showing remission of leukenia, no signs of recovery of bone marrow. Cont to be transfusion dependent. Transfuse for Hgb <7 or if symptomatic Transfuse for plt <10K or if symptomatic Cont GCSF for now Daily labs Current Visit: No Status: Acute Priority: Medium Code(s): C92.00 - ACUTE MYELOBLASTIC LEUKEMIA, NOT HAVING ACHIEVED REMISSION SNOMED Code(s): 89239492 (3) Pancytopenia Narrative/Plan: HLA matched platelets again ordered for today. Plt count has remained 9,000 even s/p transfusion. Hgb 7.6, no transfusion today GCSF daily for leukopenia/neutropenia Current Visit: Yes Status: Chronic Priority: High Code(s): D61.818 - OTHER PANCYTOPENIA SNOMED Code(s): 727611175 Plan: Pt and I had a long discussion about his concerns for ability to rehabilitate and how much longer he can receive transfusions. His c-diff infection was likely contributing to some of his weakness but, pt cannot anticipate that his strength will suddenly return. He has lost a lot of muscle mass and the only way to recuperate is through exercise. He had multiple questions and I answered them to the best of my ability. He asked about life expectancy if he stopped doing transfusions. Life expectancy would be measured in days/weeks, not in months. He verbalized understanding. He would like to talk with hospice to see what services they can offer in the home for him. Order was previously placed. Will f/u tomorrow to answer any additional questions and get pt decisions. Time with Patient: Greater than 30 (counseling and coordinating care)
[2020-09-26] MEDS: FILGRASTIM-SNDZ 480 MCG/0.8 ML SYRINGE SQ SCH (17:43)
[2020-09-26] MEDS: polyethylene glycoL 3350 17 GM POWD.PACK PO SCH (19:20)
[2020-09-27] MEDS: ACETAMINOPHEN TAB 325 MG TAB PO PRN (04:39)
[2020-09-27] MEDS ORDERED: guaiFENesin 600 MG TABLET.ER PO PRN (05:26)
[2020-09-27] MEDS: HYDROcodone/APAP 7.5-325MG 1 EACH TAB PO PRN ×2 (06:07→17:28)
[2020-09-27 06:28] LABS: HCT 21.4 % (39.0-53.0); HGB 7.1 gm/dL (13.0-17.5); MCH 29.2 pg (25.0-35.0); MCV 88.7 fL (80.0-100.0); Mean Platelet Volume 6.6; RBC 2.41 m/uL (4.30-5.90); RDW 15.8 % (11.5-15.5)
[2020-09-27 06:29] LABS: Platelet Count 6 k/uL (150-450); WBC 0.3 k/uL (3.8-10.6)
[2020-09-27] MEDS: VANCOMYCIN 125 MG CAPSULE PO SCH ×3 (07:59→18:30)
[2020-09-27] MEDS: AMOXIC-POT CLAV 875-125MG 1 EACH TAB PO SCH (07:59)
[2020-09-27] MEDS: valACYclovir 500 MG TAB PO SCH (07:59)
[2020-09-27] MEDS: NIFEdipine XL 30 MG TAB.ER.24 PO SCH (07:59)
[2020-09-27] MEDS: POTASSIUM CHLORIDE ER 20 MEQ TAB.ER PO SCH (08:04)
[2020-09-27] MEDS: SUCRALFATE 1 GM TAB PO SCH (08:05)
[2020-09-27] MEDS: NYSTATIN 100,000 UNIT/ML SUSP 500,000 UNIT/5 ML CUP PO SCH ×3 (08:05→17:28)
[2020-09-27] MEDS: CHOLECALCIFEROL 1,000 UNIT TAB PO SCH (08:05)
[2020-09-27] MEDS: allopurinoL 300 MG TAB PO SCH (08:10)
[2020-09-27] MEDS: VIT A,C & E-LUTEIN-MINERALS 1 EACH TAB PO SCH (08:10)
--- NOTE | 2020-09-27 13:11 | P.DS ---
Providers Date of admission: 09/25/20 14:26 Expected date of discharge: 09/27/20 Attending physician: Anna Thakur Consults: 09/24/20 08:36 Consult Physician Routine Consulting Provider: Jose Cruz Aragon Consult Reason/Comments: abnormal CBC, spoke with ambrosio love Do you want consulting provider notified?: Already Contacted 09/24/20 10:53 Consult Physician Routine Consulting Provider: Amor Polanco Consult Reason/Comments: inpatient rehab Do you want consulting provider notified?: Yes Primary care physician: Kiley Evans [facility] Course: Pt presented to the hospital again after he was discharged 2 days prior after prolonged hospitalization of about 11 days for symptoms 2/2 treatment for AML. He came back for weakness. Patient was advised to go to rehab but he declined and elected to go home. Apparently he was unable to manage at home and decided to come back to the emergency room for help. He denied any fevers, oral irritation, bleeding, pain, nausea, has been eating and drinking ok. He stated he can get around with his wheeled walker. Upon admission he was found to be still pancytopenic with platelet count of 5. He was seen by hematology nurse practitioner and platelets and PRBCs transfusion was ordered. Unfortunately, and accroding to oncolgy service his marrow was not showing recovery. His blood counts were low despite being off any treatment for AML. He is platelet and PRBC transfusion dependent currently. Patient had a recent E. fecalis bacteremia and he is currently finishing antibiotic course with Augmentin as directed. Infectious disease stop date 10/02. Patient was also diagnosed with C. diff colitis, after having some diarrhea during the hospitalization. He was started on vancomycin orally for 10 days. Please refer to oncology consult for full details of his malignancy Hx. He was advised again by oncology during this admission that his counts were not likely to recover. Due to that he made a decision to pursue hospice care. This was arranged by care managment. He will be discharged home with home hospice. Time for discharge 35 min Patient Condition at Discharge: Fair Plan - Discharge Summary Discharge Rx Participant: Yes New Discharge Prescriptions: New Vancomycin 125 mg PO QID 14 Days #56 capsule Continue Meclizine [Antivert] 25 mg PO TID PRN tab PRN Reason: Vertigo allopurinoL [Zyloprim] 300 mg PO DAILY tab valACYclovir [Valtrex] 500 mg PO DAILY Cholecalciferol [Vitamin D3 (25 Mcg = 1000 Iu)] 2,000 unit PO DAILY ondansetron HCL [Zofran] 8 mg PO Q8H PRN PRN Reason: Nausea And Vomiting Sucralfate [Carafate] 1 gm PO BID Vit A,C & T-Whbqej-Hpsicmap [Ivite] 1 tab PO DAILY Amoxic-Pot Clav 875-125Mg [Augmentin 875-125] 1 tab PO BID 10 Days #20 tab Potassium Chloride ER [K-Dur 20] 20 meq PO DAILY #30 tab.er.prt Nystatin 100,000 Unit/ml Susp [Mycostatin Oral Susp] 500,000 unit PO QID 10 Days #1 bottle NIFEdipine [Adalat cc] 30 mg PO DAILY #30 tab HYDROcodone/APAP 7.5-325MG [[place] 7.5-325] 1 tab PO Q4H PRN #42 tab PRN Reason: Pain Discharge Medication List Meclizine [Antivert] 25 mg PO TID PRN tab 07/05/20 [Rx] allopurinoL [Zyloprim] 300 mg PO DAILY tab 07/05/20 [Rx] valACYclovir [Valtrex] 500 mg PO DAILY 07/30/20 [History] Cholecalciferol [Vitamin D3 (25 Mcg = 1000 Iu)] 2,000 unit PO DAILY 08/22/20 [History] Sucralfate [Carafate] 1 gm PO BID 08/22/20 [History] Vit A,C & B-Oievae-Athcrvty [Ivite] 1 tab PO DAILY 08/22/20 [History] ondansetron HCL [Zofran] 8 mg PO Q8H PRN 08/22/20 [History] Amoxic-Pot Clav 875-125Mg [Augmentin 875-125] 1 tab PO BID 10 Days #20 tab 09/22/20 [Rx] HYDROcodone/APAP 7.5-325MG [[place] 7.5-325] 1 tab PO Q4H PRN #42 tab 09/22/20 [Rx] NIFEdipine [Adalat cc] 30 mg PO DAILY #30 tab 09/22/20 [Rx] Nystatin 100,000 Unit/ml Susp [Mycostatin Oral Susp] 500,000 unit PO QID 10 Days #1 bottle 09/22/20 [Rx] Potassium Chloride ER [K-Dur 20] 20 meq PO DAILY #30 tab.er.prt 09/22/20 [Rx] Vancomycin 125 mg PO QID 14 Days #56 capsule 09/27/20 [Rx] Follow up Appointment(s)/Referral(s): Kiley Evans MD [Primary Care Provider] - 1-2 days
[2020-09-27 14:50] VITALS: BP 103/65; PULSE 103; RESP 16; TEMP 98.2
--- NOTE | 2020-09-27 17:12 | P.PN ---
Subjective Progress Note Date: 09/27/20 Principal diagnosis: Weakness, C-diff infection In f/u today pt has questions about his prognosis and rehab plans. He is still weak, no other acute physical c/o. Objective - Vital Signs Vital signs: Vital Signs Temp 98.2 F 09/27/20 14:00 Pulse 103 H 09/27/20 14:00 Resp 16 09/27/20 14:00 BP 103/65 09/27/20 14:00 Pulse Ox 95 09/27/20 14:00 Intake & Output 09/26/20 09/27/20 09/27/20 18:59 06:59 18:59 Intake Total 281 Output Total 250 525 Balance 31 -525 Intake: Blood Product 281 Platelet Irr Pheresis Pas 281 -C Unit [id number] Output: Urine 250 525 Other: Voiding Method Urinal Urinal Diaper Diaper # Bowel Movements 1 1 - Constitutional General appearance: Present: average body habitus, cooperative, no acute distress - EENT Eyes: Present: anicteric sclerae, EOMI ENT: Present: hearing grossly normal - Respiratory Details: dry cough, resp are unlabored - Cardiovascular Heart sounds: normal: S1, S2 - Peripheral edema leg Peripheral Edema: bilateral: Trace - Gastrointestinal General gastrointestinal: Present: soft - Integumentary Integumentary Comment(s): multiple petechiae, ecchymosis, purpura in skin Integumentary: Present: pale - Neurologic Neurologic: Present: CNII-XII intact - Musculoskeletal Musculoskeletal: Present: generalized weakness - Psychiatric Psychiatric: Present: A&O x's 3, appropriate affect, intact judgment & insight - Labs CBC & Chem 7: 09/27/20 06:10 09/25/20 07:41 Labs: Abnormal Lab Results - Last 24 Hours (Table) 09/27/20 Range/Units 06:10 WBC 0.3 L* (3.8-10.6) k/uL RBC 2.41 L (4.30-5.90) m/uL Hgb 7.1 L (13.0-17.5) gm/dL Hct 21.4 L (39.0-53.0) % RDW 15.8 H (11.5-15.5) % Plt Count 6 L* (150-450) k/uL Assessment and Plan (1) Weakness Current Visit: Yes Status: Acute Priority: High Code(s): R53.1 - WEAKNESS SNOMED Code(s): 19595550 (2) AML (acute myeloid leukemia) Current Visit: No Status: Acute Priority: Medium Code(s): C92.00 - ACUTE MYELOBLASTIC LEUKEMIA, NOT HAVING ACHIEVED REMISSION SNOMED Code(s): 86331713 (3) Pancytopenia Current Visit: Yes Status: Chronic Priority: High Code(s): D61.818 - OTHER PANCYTOPENIA SNOMED Code(s): 010928475 Plan: Pt and I had a long discussion today about his options for care and hospice. He has decided on hospice at home. I explained that if he and his are having trouble at home they may recommend him being moved to a facility. He will no longer have blood draws or transfusions. He is aware that his labs today show no signs of improvement even after multiple transfusion. He verbalized understanding. I worked with case mgmt to get all his questions answered. I spoke to son. MONISHA when DME set up at home. Time with Patient: Greater than 30
[2020-09-27] MEDS: FILGRASTIM-SNDZ 480 MCG/0.8 ML SYRINGE SQ SCH (18:30)
== END 2020-09-27 18:30 | disposition hospice, home (50) | DRG 809 ==
LOC: EC 07:41 → 5NMEDONC 10:38 → OBSVTOIN 09-25 14:26 → 5NMEDONC 09-26 22:58
PROVIDERS: ADMIT Internal Medicine; ATTEND Internal Medicine
PROC: 30233N1 Transfusion of Nonautologous Red Blood Cells into Peripheral Vein, Percutaneous Approach (ICD-10-PCS; principal; 2020-09-24)
PROC: 30233R1 Transfusion of Nonautologous Platelets into Peripheral Vein, Percutaneous Approach (ICD-10-PCS; principal; 2020-09-24)
DX: D61.818 Other pancytopenia (principal); C92.01 Acute myeloblastic leukemia, in remission; A04.72 Enterocolitis due to Clostridium difficile, not specified as recurrent; R78.81 Bacteremia; R53.1 Weakness; K57.90 Diverticulosis of intestine, part unspecified, without perforation or abscess without bleeding; I10 Essential (primary) hypertension; M10.9 Gout, unspecified; G89.29 Other chronic pain; M54.5 Low back pain; M19.90 Unspecified osteoarthritis, unspecified site; Z20.828 Contact with and (suspected) exposure to other viral communicable diseases; H35.30 Unspecified macular degeneration; Z96.641 Presence of right artificial hip joint; Z96.653 Presence of artificial knee joint, bilateral; Z98.1 Arthrodesis status; Z79.899 Other long term (current) drug therapy; Z87.442 Personal history of urinary calculi; Z87.11 Personal history of peptic ulcer disease; Z87.891 Personal history of nicotine dependence; Z92.21 Personal history of antineoplastic chemotherapy; Z82.3 Family history of stroke; Z82.49 Family history of ischemic heart disease and other diseases of the circulatory system
CPT/HCPCS: 36415; 80048; 80053; 83605; 83735; 84484; 85025; 85610; 85730; 86850; 86870; 86880; 86900; 86901; 86920; 87324; 87635; 93005; 99285